=== PATIENT | male | born 1990 | race Caucasian/White ===

== ENCOUNTER 2016-10-21 18:09 | Inpatient (IN) | payer OTHER ==
[~2016-10-21] VITALS: Ht 177.8 cm; Wt 74.0 kg
[~2016-10-21 18:09] MED LIST: CALCIUM CHLORIDE 10% SOLN 1 GRAM/10 ML SYR IV ONE; LACTATED RINGER'S 1000 ML INJ 3,000 ML IV ONE; NORMOSOL R INJ 3,000 ML IV ONE; PHENYLEPH/NS 1000 MCG/10 ML SYR IV ONE; PROPOFOL 200 MG/20 ML AMP IV ONE; SODIUM BICARBONATE 8.4% INJ 50 MEQ/50 ML SYR IV ONE; SODIUM CHLOR 0.9% 250 ML INJ 250 ML IV ONE; SODIUM CHLORID 0.9% 500 ML INJ 500 ML IV ONE; VECURONIUM BROMIDE 20 MG VIAL IV ONE
[2016-10-21] MEDS ORDERED: ceFAZolin 2 GM PREMIX 50 ML ONE ×2 (18:13→18:15)
[2016-10-21] MEDS ORDERED: GENTAMICIN 80 MG PREMIX 100 ML ONE (18:26)
[2016-10-21] MEDS ORDERED: ONDANSETRON HCL 4 MG/2 ML VIAL ONE (18:32)
[2016-10-21] MEDS ORDERED: MORPHINE SULFATE 8 MG/ML INJ ONE (18:32)
[2016-10-21 18:44] LABS: AUTOMATED NEUTROPHIL # 9.8 TH/MM3 (1.8-7.7); BASOPHIL % 0.1 % (0.0-2.0); EOSINOPHIL # 0.1 TH/MM3 (0-0.4); EOSINOPHIL % 0.8 % (0.0-4.0); HEMATOCRIT 38.1 % (39.0-51.0); HEMO FLAGS DIFF FINAL; I-STAT POTASSIUM 3.5 MMOL/L (3.5-4.9); LYMPH % 28.4 % (9.0-44.0); LYMPHOCYTE # 4.4 TH/MM3 (1.0-4.8); MEAN CELL VOLUME 90.3 FL (80.0-100.0); MEAN CORPUSCULAR HEMOGLOBIN 30.1 PG (27.0-34.0); MEAN CORPUSCULAR HGB CONC 33.4 % (32.0-36.0); MONO % 6.8 % (0.0-8.0); NEUT % 63.9 % (16.0-70.0); PLATELET COUNT 217 TH/MM3 (150-450); RED BLOOD COUNT 4.22 MIL/MM3 (4.50-5.90); RED CELL DISTRIBUTION WIDTH 12.5 % (11.6-17.2); WHITE BLOOD COUNT 15.4 TH/MM3 (4.0-11.0)
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
[2016-10-21 18:50] VITALS: O2SAT 100
[2016-10-21 18:51] VITALS: O2SAT 100
[2016-10-21 18:51] LABS: APTT (PATIENT) 24.3 SEC (24.3-30.1); INTERNATIONAL NORMALIZED RATIO 1.1 RATIO; PROTHROMBIN TIME - PATIENT 12.2 SEC (9.8-11.6)
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
[2016-10-21] MEDS ORDERED: GELFOAM SIZE 100 ONE (19:19)
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
[2016-10-21] MEDS ORDERED: IOHEXOL 350 MG/ML 10 ML VIAL (for RAD DIAG) IV ONE ×2 (19:27→20:19)
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
[2016-10-21] MEDS ORDERED: PROPOFOL 1000 MG/100 ML INJ 100 ML IV SCH (20:15)
[2016-10-21] MEDS ORDERED: GENTAMICIN SULFATE 80 MG/2 ML VIAL IM SCH (20:15)
[2016-10-21] MEDS ORDERED: fentaNYL DRIP 250 ML IV SCH (20:15)
[2016-10-21 21:07] LABS: MEAN CORPUSCULAR HGB CONC 36.2 % (32.0-36.0)
[2016-10-21 21:38] LABS: BLOOD GAS BASE EXCESS -8.2 mmol/L (-2-2); BLOOD GAS CARBOXYHEMOGLOBIN 1.2 % (0-4); BLOOD GAS HCO3 17 mmol/L (22-26); BLOOD GAS METHEMOGLOBIN 1.4 % (0-2); BLOOD GAS O2 HGB SATURATION 97 % (90-100); BLOOD GAS OXYGEN CONTENT 13.5 Vol % (12.0-20.0); BLOOD GAS PCO2 39 mmHg (38-42); BLOOD GAS PO2 269 mmHg (61-120); BLOOD GAS TOTAL HGB 9.4 G/DL (12.0-16.0); CRITICAL VALUE YES; OXYGEN DEVICE VENTILATOR; TEMP CORR TO 98.6
[2016-10-21 21:39] LABS: DRAW SITE ART LINE; FIO2 50 %; STAT YES; VENT SETTINGS PER ANESTHESIA
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
[2016-10-21 21:57] LABS: AUTOMATED NEUTROPHIL # 9.5 TH/MM3 (1.8-7.7); BASOPHIL % 0.2 % (0.0-2.0); EOSINOPHIL % 0.2 % (0.0-4.0); HEMATOCRIT 27.8 % (39.0-51.0); HEMO FLAGS DIFF FINAL; LYMPH % 13.6 % (9.0-44.0); LYMPHOCYTE # 1.8 TH/MM3 (1.0-4.8); MEAN CELL VOLUME 89.6 FL (80.0-100.0); MEAN CORPUSCULAR HEMOGLOBIN 30.1 PG (27.0-34.0); MEAN CORPUSCULAR HGB CONC 33.6 % (32.0-36.0); MONO % 13.9 % (0.0-8.0); NEUT % 72.1 % (16.0-70.0); PLATELET COUNT 114 TH/MM3 (150-450); RED CELL DISTRIBUTION WIDTH 13.4 % (11.6-17.2); WHITE BLOOD COUNT 13.2 TH/MM3 (4.0-11.0)
[2016-10-21] MEDS ORDERED: GENTAMICIN SULFATE 80 MG/2 ML VIAL IRRIGATION ONE (21:59)
[2016-10-21 22:00] LABS: APTT (PATIENT) 29.6 SEC (24.3-30.1); INTERNATIONAL NORMALIZED RATIO 1.3 RATIO
[2016-10-21 22:07] LABS: BICARBONATE 20.6 MEQ/L (21.0-32.0); POTASSIUM 4.2 MEQ/L (3.5-5.1)
[2016-10-21 22:32] LABS: CALCIUM-PROTEIN CORRECTED 7.8 MG/DL (8.5-10.1)
[2016-10-21 23:00] LABS: BLOOD GAS BASE EXCESS -6.7 mmol/L (-2-2); BLOOD GAS CARBOXYHEMOGLOBIN 1.6 % (0-4); BLOOD GAS HCO3 18 mmol/L (22-26); BLOOD GAS METHEMOGLOBIN 1.3 % (0-2); BLOOD GAS O2 HGB SATURATION 97 % (90-100); BLOOD GAS OXYGEN CONTENT 15.1 Vol % (12.0-20.0); BLOOD GAS PCO2 36 mmHg (38-42); BLOOD GAS PO2 285 mmHg (61-120); BLOOD GAS TOTAL HGB 10.6 G/DL (12.0-16.0); CRITICAL VALUE NO; DRAW SITE ART LINE; FIO2 50 %; OXYGEN DEVICE VENTILATOR; STAT YES; TEMP CORR TO 98.6; VENT SETTINGS PER ANESTHESIA
[2016-10-22] VITALS (17 sets, daily range): BP systolic 130–153; BP diastolic 81–87; PULSE 101–120; RESP 14–26; TEMP 99.1–99.7; O2SAT 95–100
--- NOTE | 2016-10-22 00:35 | PD.OP ---
Operative Report Preoperative Diagnosis: (1) Open fracture of right distal humerus (2) Open fracture of left distal humerus (3) Closed fracture of left tibial plateau (4) Displaced fracture of right femoral neck (5) Open fracture of right patella Postoperative Diagnosis: (1) Closed fracture of left tibial plateau (2) Displaced fracture of right femoral neck (3) Open fracture of right patella Procedure: 1) I and D and ORIF Right Supracondylar/Intercondylar Fracture 2) I and D and ORIF Right Patella Fracture 3) ORIF Right Femoral Neck Fracture 4) I and D and Closed Reduction and Splinting Left Humerus Fracture 5) Placement Right Knee Wound VAC Anesthesia: General Surgeon: Piyush Brown MD Lingo Cleaner(s): Killian BHARDWAJ Operation and Findings: see dictation Piyush Brown MD October 22, 2016 00:35
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
[2016-10-22] MEDS ORDERED: MIDAZOLAM HCL 2 MG/2 ML VIAL ONE (01:06)
[2016-10-22] MEDS ORDERED: fentaNYL CITRATE 250 MCG/5 ML AMP ONE (01:06)
--- NOTE | 2016-10-22 01:06 | RADRPT ---
EXAM DATE/TIME: 10/21/2016 21:00 [facility] COMPARISON: No previous studies available for comparison. INDICATIONS : ORIF rt hip. MEDICAL HISTORY : None. SURGICAL HISTORY : None. ENCOUNTER: Subsequent ACUITY: 1 day PAIN SCORE: Non-responsive. LOCATION: Right Hip FINDINGS: 3 lag screws are seen traversing a proximal right femur fracture. No dislocation. CONCLUSION: 1. Lag screws traversing proximal right femur fracture. Bk Martin MD on October 22, 2016 at 1:02 Board Certified Radiologist. This report was verified electronically.
--- NOTE | 2016-10-22 01:22 | RADRPT ---
EXAM DATE/TIME: 10/22/2016 00:51 [facility] COMPARISON: CHEST SINGLE AP, October 21, 2016, 18:04. CTA RUNOFF W 3D RECON, October 21, 2016, 20:02. INDICATIONS : Central line placement. MEDICAL HISTORY : Unobtainable. SURGICAL HISTORY : Unobtainable. ENCOUNTER: Subsequent ACUITY: 1 day PAIN SCORE: Non-responsive. LOCATION: Bilateral chest FINDINGS: Endotracheal tube tip in satisfactory position. Right central line tip traverses the right subclavian vein and passes into the left brachiocephalic vein and left subclavian vein. Focal airspace disease right lung base similar to prior exam. Minimal basal atelectasis. No pneumothorax. CONCLUSION: 1. Placement of right central line with tip in the left subclavian vein after crossing midline throug h the brachiocephalic veins. Bk Martin MD on October 22, 2016 at 1:18 Board Certified Radiologist. This report was verified electronically.
[2016-10-22 01:34] LABS: BLOOD GAS BASE EXCESS -4.3 mmol/L (-2-2); BLOOD GAS CARBOXYHEMOGLOBIN 1.9 % (0-4); BLOOD GAS HCO3 20 mmol/L (22-26); BLOOD GAS METHEMOGLOBIN 1.3 % (0-2); BLOOD GAS O2 HGB SATURATION 97 % (90-100); BLOOD GAS OXYGEN CONTENT 13.2 Vol % (12.0-20.0); BLOOD GAS PCO2 39 mmHg (38-42); BLOOD GAS PO2 270 mmHg (61-120); BLOOD GAS TOTAL HGB 9.2 G/DL (12.0-16.0); TEMP CORR TO 98.6
[2016-10-22 01:35] LABS: CRITICAL VALUE NO; DRAW SITE ART LINE; FIO2 50 %; OXYGEN DEVICE VENTILATOR; VENT SETTINGS SIMV14/600/+6PEEP
[2016-10-22 01:36] LABS: STAT NO
[2016-10-22] MEDS: PROPOFOL 1000 MG/100 ML INJ 100 ML IV SCH ×2 (02:31→04:35)
[2016-10-22] MEDS: GENTAMICIN/SOD CHL 80 MG/100 ML IV SCH ×3 (04:38→17:22)
[2016-10-22 04:39] LABS: BLOOD GAS BASE EXCESS -2.4 mmol/L (-2-2); BLOOD GAS CARBOXYHEMOGLOBIN 1.3 % (0-4); BLOOD GAS HCO3 22 mmol/L (22-26); BLOOD GAS O2 HGB SATURATION 97 % (90-100); BLOOD GAS OXYGEN CONTENT 13.2 Vol % (12.0-20.0); BLOOD GAS PCO2 38 mmHg (38-42); BLOOD GAS PO2 216 mmHg (61-120); BLOOD GAS TOTAL HGB 9.3 G/DL (12.0-16.0); CRITICAL VALUE NO; OXYGEN DEVICE VENTILATOR; TEMP CORR TO 98.6
[2016-10-22 04:40] LABS: DRAW SITE ALINE; FIO2 40 %; STAT NO
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
[2016-10-22 06:11] LABS: AUTOMATED NEUTROPHIL # 5.6 TH/MM3 (1.8-7.7); HEMATOCRIT 25.1 % (39.0-51.0); LYMPH % 8.9 % (9.0-44.0); LYMPHOCYTE # 0.7 TH/MM3 (1.0-4.8); MEAN CELL VOLUME 85.2 FL (80.0-100.0); MEAN CORPUSCULAR HEMOGLOBIN 30.8 PG (27.0-34.0); MONO % 17.9 % (0.0-8.0); NEUT % 73.2 % (16.0-70.0); PLATELET COUNT 86 TH/MM3 (150-450); RED BLOOD COUNT 2.95 MIL/MM3 (4.50-5.90); WHITE BLOOD COUNT 7.6 TH/MM3 (4.0-11.0)
[2016-10-22 06:13] LABS: HEMO FLAGS AUTO DIFF
[2016-10-22 06:40] LABS: BICARBONATE 24.6 MEQ/L (21.0-32.0); CALCIUM-PROTEIN CORRECTED 8.7 MG/DL (8.5-10.1); MAGNESIUM 1.8 MG/DL (1.5-2.5); POTASSIUM 4.1 MEQ/L (3.5-5.1); TOTAL BILIRUBIN ADULT 1.6 MG/DL (0.2-1.0)
[2016-10-22 07:02] LABS: PLATELET ESTIMATE SMEAR LOW (NORMAL); PLATELET MORPHOLOGY NORMAL (NORMAL); SCAN/DIFF AUTO DIFF CONFIRMED
[2016-10-22] MEDS ORDERED: RESP: ALBUTEROL 2.5 MG/IPRATROPIUM 0.5 MG NEB (PRN) NEB (07:15)
[2016-10-22] MEDS: RESP: ALBUTEROL 2.5 MG/IPRATROPIUM 0.5 MG NEB (SCH) NEB ×3 (07:57→21:22)
[2016-10-22] MEDS ORDERED: POTASSIUM CHLOR 20 MEQ PREMIX 100 ML IV PRN ×2 (09:30)
[2016-10-22] MEDS ORDERED: MAGNESIUM SULFATE INJ 2 GM in SODIUM CHLORIDE 0.9% INJ 96 ML IV PRN (09:30)
[2016-10-22] MEDS ORDERED: POTASSIUM PHOSPHATE MONOBASIC 500 MG TAB PO/TUBE PRN (09:30)
[2016-10-22] MEDS ORDERED: MAGNESIUM OXIDE 400 MG TAB PO PRN (09:30)
[2016-10-22] MEDS ORDERED: SODIUM PHOSPHATE INJ 30 MMOL in SODIUM CHLOR 0.9% 250 ML INJ 240 ML IV PRN (09:30)
[2016-10-22] MEDS ORDERED: POTASSIUM CHLORIDE 25 MEQ EFFERVESCENT TAB PO PRN (09:30)
[2016-10-22] MEDS ORDERED: POTASSIUM CHLOR 40 MEQ PREMIX 100 ML IV PRN ×2 (09:30)
[2016-10-22] MEDS ORDERED: MAGNESIUM SULFATE INJ 4 GM in SODIUM CHLORIDE 0.9% INJ 92 ML IV PRN (09:30)
[2016-10-22] MEDS ORDERED: POTASSIUM PHOSPHATE MONOBASIC 500 MG TAB PO PRN (09:30)
[2016-10-22] MEDS: FAMOTIDINE 20 MG TAB PO SCH ×2 (09:41→21:55)
[2016-10-22] MEDS: DOCUSATE SODIUM 100 MG CAP PO SCH ×2 (09:41→21:55)
[2016-10-22] MEDS: CHLORHEXIDINE 0.12% (ORAL KIT) 15 ML CUP MT SCH ×2 (09:41→20:00)
[2016-10-22] MEDS ORDERED: HYDROmorphone HCL PF 1 MG/ML VIAL IV PUSH PRN (10:00)
[2016-10-22] MEDS: ENOXAPARIN SODIUM 30 MG/0.3 ML SYRINGE SQ SCH ×2 (10:41→21:56)
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
[2016-10-22] MEDS ORDERED: ONDANSETRON HCL 4 MG/2 ML VIAL ONE (14:17)
[2016-10-22] MEDS ORDERED: ALPRAZolam 1 MG TAB PO SCH (14:57)
[2016-10-22] MEDS: oxyCODONE/ACETAMINOPHEN 10 MG/325 MG TAB PO PRN (15:35)
[2016-10-22 15:39] LABS: HEMATOCRIT 23.1 % (39.0-51.0); MEAN CORPUSCULAR HEMOGLOBIN 29.6 PG (27.0-34.0); MEAN CORPUSCULAR HGB CONC 34.5 % (32.0-36.0); PLATELET COUNT 76 TH/MM3 (150-450); RED BLOOD COUNT 2.69 MIL/MM3 (4.50-5.90); RED CELL DISTRIBUTION WIDTH 14.9 % (11.6-17.2); WHITE BLOOD COUNT 7.1 TH/MM3 (4.0-11.0)
[2016-10-22 15:42] LABS: REVIEW FLAG FINAL
--- NOTE | 2016-10-22 16:03 | OTSOAPIP ---
TIME SESSION COMPLETED: AM TREATMENT TIME: 0 MINS. CHART REVIEWED. ATTEMPTED TO SEE FOR OT EVALUATION. PT IN PROCESS OF GETTING EXTUBATED. WILL FOLLOW NEXT DAY. Therapist: NICOLASA LAMBERT OT/[place] Signature on file
[2016-10-22] MEDS: HYDROmorphone HCL PF 1 MG/ML VIAL IV PUSH PRN ×2 (17:03→21:57)
[2016-10-22] MEDS: MAGNESIUM HYDROXIDE SUSP 30 ML CUP PO SCH (21:00)
[2016-10-22 21:03] LABS: MEAN CORPUSCULAR HGB CONC 36.4 % (32.0-36.0)
[2016-10-23] VITALS (13 sets, daily range): BP systolic 139–153; BP diastolic 75–96; PULSE 90–124; RESP 12–26; TEMP 99.7–100.6; O2SAT 95–100
[2016-10-23] MEDS: HYDROmorphone HCL PF 1 MG/ML VIAL IV PUSH PRN ×8 (01:30→22:47)
[2016-10-23] MEDS: ONDANSETRON HCL 4 MG/2 ML VIAL IV PUSH PRN (01:31)
[2016-10-23] MEDS: GENTAMICIN/SOD CHL 80 MG/100 ML IV SCH ×3 (02:19→17:33)
[2016-10-23] MEDS: RESP: ALBUTEROL 2.5 MG/IPRATROPIUM 0.5 MG NEB (SCH) NEB ×4 (03:34→20:18)
[2016-10-23 04:19] LABS: AUTOMATED NEUTROPHIL # 4.9 TH/MM3 (1.8-7.7); BASOPHIL % 0.1 % (0.0-2.0); EOSINOPHIL % 0.2 % (0.0-4.0); LYMPHOCYTE # 1.2 TH/MM3 (1.0-4.8); MEAN CELL VOLUME 84.4 FL (80.0-100.0); MEAN CORPUSCULAR HEMOGLOBIN 30.7 PG (27.0-34.0); MONO % 16.6 % (0.0-8.0); NEUT % 67.1 % (16.0-70.0); PLATELET COUNT 75 TH/MM3 (150-450); RED BLOOD COUNT 2.29 MIL/MM3 (4.50-5.90); RED CELL DISTRIBUTION WIDTH 14.9 % (11.6-17.2); WHITE BLOOD COUNT 7.4 TH/MM3 (4.0-11.0)
[2016-10-23 04:21] LABS: HEMO FLAGS AUTO DIFF
[2016-10-23 04:24] LABS: HEMATOCRIT 19.3 % (39.0-51.0)
[2016-10-23 04:41] LABS: BICARBONATE 28.1 MEQ/L (21.0-32.0); CALCIUM-PROTEIN CORRECTED 8.9 MG/DL (8.5-10.1); MAGNESIUM 1.8 MG/DL (1.5-2.5); POTASSIUM 4.2 MEQ/L (3.5-5.1); TOTAL BILIRUBIN ADULT 0.8 MG/DL (0.2-1.0)
[2016-10-23 05:31] LABS: BLOOD GAS BASE EXCESS 1.4 mmol/L (-2-2); BLOOD GAS CARBOXYHEMOGLOBIN 1.8 % (0-4); BLOOD GAS HCO3 26 mmol/L (22-26); BLOOD GAS METHEMOGLOBIN 0.9 % (0-2); BLOOD GAS O2 HGB SATURATION 95 % (90-100); BLOOD GAS OXYGEN CONTENT 9.3 Vol % (12.0-20.0); BLOOD GAS PCO2 41 mmHg (38-42); BLOOD GAS PO2 97 mmHg (61-120); BLOOD GAS TOTAL HGB 6.8 G/DL (12.0-16.0); TEMP CORR TO 98.6
[2016-10-23 05:32] LABS: CRITICAL VALUE YES; DRAW SITE ART LINE; LITER FLOW 1 L/M; OXYGEN DEVICE NASAL CANNULA; STAT NO
--- NOTE | 2016-10-23 06:31 | RADRPT ---
EXAM DATE/TIME: 10/23/2016 05:43 [facility] COMPARISON: CHEST SINGLE AP, October 22, 2016, 0:51. INDICATIONS : Shortness of breath. MEDICAL HISTORY : Unobtainable. SURGICAL HISTORY : Unobtainable. ENCOUNTER: Subsequent ACUITY: 3 days PAIN SCORE: Non-responsive. LOCATION: Bilateral chest FINDINGS: A single view of the chest demonstrates minimal basilar airspace disease, probably atelectasis. No ef fusion. No pneumothorax. Right central line tip remains in left subclavian vein. CONCLUSION: 1. Right central line tip in left subclavian vein, unchanged. Interval extubation. Mild atelectasis a t the bases. Bk Martin MD on October 23, 2016 at 6:29 Board Certified Radiologist. This report was verified electronically.
[2016-10-23 06:47] LABS: BANDS 13 % (0-6); BASOPHILS 1 % (0-2); NEUTROPHIL # MANUAL DIFF 5.4 TH/MM3 (1.8-7.7); POLYS (SEG NEUTROPHILS) 60 % (16-70); WBC DIFF SAMPLE 100
[2016-10-23 06:48] LABS: DOHLE BODIES PRESENT (NONE SEEN); PLATELET ESTIMATE SMEAR LOW (NORMAL); PLATELET MORPHOLOGY NORMAL (NORMAL); SCAN/DIFF FINAL DIFF MANUAL
[2016-10-23] MEDS ORDERED: SODIUM CHLOR 0.9% 250 ML INJ 250 ML IV ONE (07:15)
[2016-10-23] MEDS: CHLORHEXIDINE 0.12% (ORAL KIT) 15 ML CUP MT SCH ×2 (07:38→19:11)
[2016-10-23] MEDS: FAMOTIDINE 20 MG TAB PO SCH ×2 (07:54→20:25)
[2016-10-23] MEDS: DOCUSATE SODIUM 100 MG CAP PO SCH ×2 (07:54→20:25)
[2016-10-23] MEDS ORDERED: FUROSEMIDE 20 MG/2 ML VIAL IV ONE (08:00)
[2016-10-23] MEDS ORDERED: MAGNESIUM HYDROXIDE SUSP 30 ML CUP PO ONE (08:00)
[2016-10-23] MEDS: ENOXAPARIN SODIUM 30 MG/0.3 ML SYRINGE SQ SCH ×2 (09:40→22:47)
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
[2016-10-23] MEDS: GABAPENTIN 300 MG CAP PO SCH ×2 (12:24→17:33)
--- NOTE | 2016-10-23 12:41 | PD.ORT.PN ---
Subjective Post Op Day #: 1 Subjective Remarks pain tolerable Objective Vitals Vital Signs Date Time Temp Pulse Resp B/P Pulse Ox O2 Delivery O2 Flow Rate FiO2 10/23/16 10:00 115 10/23/16 08:00 119 10/23/16 08:00 99.7 111 12 153/96 100 10/23/16 07:00 94 Nasal Cannula 1.00 10/23/16 06:00 124 10/23/16 04:00 122 10/23/16 04:00 100.2 122 25 143/85 98 10/23/16 02:00 122 10/23/16 00:00 100.0 124 26 144/84 96 10/23/16 00:00 124 10/22/16 22:00 118 10/22/16 21:30 97 Nasal Cannula 1.00 10/22/16 20:00 118 10/22/16 20:00 99.7 118 22 140/82 95 10/22/16 19:00 93 Nasal Cannula 2.00 10/22/16 18:00 120 10/22/16 16:01 98 Nasal Cannula 1.00 10/22/16 16:00 99.5 115 26 139/83 99 10/22/16 16:00 115 10/22/16 14:00 120 I/O 10/22/16 10/22/16 10/22/16 10/23/16 10/23/16 10/23/16 07:00 15:00 23:00 07:00 15:00 23:00 Intake Total 9157 ml 1509 ml 1848 ml 788 ml Output Total 4100 ml 950 ml 400 ml 410 ml Balance 5057 ml 559 ml 1448 ml 378 ml Intake Oral 0 ml 480 ml 960 ml 240 ml IV Total 2024 ml 1029 ml 888 ml 548 ml Packed Cells 1000 ml FFP 533 ml Other 5600 ml Output Urine Total 1400 ml 450 ml 400 ml 410 ml Emesis 500 ml Estimated Blood Loss 1000 ml Other 1700 ml Result Diagram: 10/23/16 0345 10/23/16 0345 Imaging Last 24 hours Impressions Chest X-Ray 10/23/16 0600 Signed Impressions: Service Date/Time: Sunday, October 23, 2016 05:43 - CONCLUSION: 1. Right central line tip in left subclavian vein, unchanged. Interval extubation. Mild atelectasis at the bases. Bk Martin MD Objective Remarks in bed, nad RUE - dressing and splint c/d/i. swelling in fingers. NVI and sensation intact. cap refill LUE - dressing and splint c/d/i. swelling in fingers. NVI and sensation intact. cap refill RLE - wound vac in place and working. dressing hip intact. NVI and sensation intact. LLE - CKS in place. swelling L knee. pain lateral knee. sensation intact. no dorsiflexion. exam of knee limited due to pain and swelling. Assessment & Plan Ortho Post Op Day #: 1 Problem List: Assessment and Plan s/p I&D and ORIF R supracondylar fx and R patella fx, application of wound vac R knee, ORIF R fem neck fx, I&D with closed reduction and splinting L humerus NWB BLE and BUE ROM of fingers dressing changes per Dr. Kevin POEWRS - no dorsiflexion. MRI L knee med management anticoagulation Jacob Willard October 23, 2016 12:41
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
[2016-10-23 14:31] LABS: HEMATOCRIT 26.8 % (39.0-51.0)
[2016-10-23] MEDS: oxyCODONE/ACETAMINOPHEN 10 MG/325 MG TAB PO PRN ×2 (15:00→19:42)
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
[2016-10-23] MEDS: MAGNESIUM HYDROXIDE SUSP 30 ML CUP PO SCH (20:25)
[2016-10-24] VITALS (13 sets, daily range): BP systolic 124–154; BP diastolic 72–86; PULSE 97–112; RESP 13–22; TEMP 99.5–100.8; O2SAT 95–100
[2016-10-24] MEDS: GENTAMICIN/SOD CHL 80 MG/100 ML IV SCH ×3 (02:13→18:00)
[2016-10-24] MEDS: oxyCODONE/ACETAMINOPHEN 10 MG/325 MG TAB PO PRN ×3 (03:42→20:00)
[2016-10-24] MEDS: RESP: ALBUTEROL 2.5 MG/IPRATROPIUM 0.5 MG NEB (SCH) NEB ×4 (04:00→20:25)
[2016-10-24] MEDS: HYDROmorphone HCL PF 1 MG/ML VIAL IV PUSH PRN ×2 (04:46→14:21)
[2016-10-24 06:26] LABS: HEMATOCRIT 23.6 % (39.0-51.0); MEAN CELL VOLUME 86.3 FL (80.0-100.0); MEAN CORPUSCULAR HEMOGLOBIN 30.2 PG (27.0-34.0); PLATELET COUNT 67 TH/MM3 (150-450); RED BLOOD COUNT 2.73 MIL/MM3 (4.50-5.90); RED CELL DISTRIBUTION WIDTH 14.9 % (11.6-17.2); WHITE BLOOD COUNT 6.7 TH/MM3 (4.0-11.0)
[2016-10-24 06:28] LABS: REVIEW FLAG FINAL
[2016-10-24 06:55] LABS: BICARBONATE 28.2 MEQ/L (21.0-32.0); MAGNESIUM 2.3 MG/DL (1.5-2.5); POTASSIUM 3.9 MEQ/L (3.5-5.1)
[2016-10-24 07:09] LABS: CALCIUM-PROTEIN CORRECTED 8.9 MG/DL (8.5-10.1)
[2016-10-24] MEDS: CHLORHEXIDINE 0.12% (ORAL KIT) 15 ML CUP MT SCH ×2 (08:00→19:42)
[2016-10-24] MEDS ORDERED: BISACODYL 10 MG SUPP RECTAL ONE (09:00)
[2016-10-24] MEDS ORDERED: BISACODYL EC 5 MG TABEC PO ONE (09:00)
[2016-10-24] MEDS: FAMOTIDINE 20 MG TAB PO SCH ×2 (10:35→20:00)
[2016-10-24] MEDS: DOCUSATE SODIUM 100 MG CAP PO SCH ×2 (10:36→20:00)
[2016-10-24] MEDS: GABAPENTIN 300 MG CAP PO SCH ×3 (10:36→17:59)
[2016-10-24] MEDS: ENOXAPARIN SODIUM 30 MG/0.3 ML SYRINGE SQ SCH ×2 (10:37→21:56)
--- NOTE | 2016-10-24 11:07 | RADRPT ---
EXAM DATE/TIME: 10/24/2016 10:36 [facility] COMPARISON: No previous studies available for comparison. INDICATIONS : Injury to ankle. MEDICAL HISTORY : None. SURGICAL HISTORY : None. ENCOUNTER: Subsequent ACUITY: 4 - 6 days PAIN SCORE: 0/10 LOCATION: Left ankle FINDINGS: Soft tissue swelling is noted at the medial aspect and to a lesser extent lateral aspect of the ankle . No fractures are seen. CONCLUSION: Soft tissue swelling. Laron Kuo MD on October 24, 2016 at 11:05 Board Certified Radiologist. This report was verified electronically.
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
--- NOTE | 2016-10-24 15:12 | PD.ORT.PN ---
Subjective Post Op Day #: 2 Subjective Remarks pain tolerable Objective Vitals Vital Signs Date Time Temp Pulse Resp B/P Pulse Ox O2 Delivery O2 Flow Rate FiO2 10/24/16 14:51 16 10/24/16 14:00 111 10/24/16 12:00 112 10/24/16 12:00 100.4 112 20 142/80 95 10/24/16 10:00 99 10/24/16 08:00 99.5 97 16 124/72 97 10/24/16 08:00 97 10/24/16 07:00 96 Nasal Cannula 2.00 Humidified 10/24/16 06:00 100 10/24/16 04:00 110 10/24/16 04:00 100.8 110 22 144/80 97 10/24/16 02:00 97 10/24/16 00:00 107 10/24/16 00:00 100.6 107 18 133/77 95 10/23/16 22:00 104 10/23/16 20:22 98 Nasal Cannula 1.00 10/23/16 20:00 100.6 105 19 139/75 95 10/23/16 20:00 101 10/23/16 19:00 98 Nasal Cannula 2.00 10/23/16 18:00 90 10/23/16 16:00 109 10/23/16 16:00 99.9 109 14 149/88 97 I/O 10/23/16 10/23/16 10/23/16 10/24/16 10/24/16 10/24/16 07:00 15:00 23:00 07:00 15:00 23:00 Intake Total 788 ml 624 ml 447 ml 460 ml 630 ml Output Total 410 ml 2400 ml 1175 ml 775 ml 1100 ml Balance 378 ml -1776 ml -728 ml -315 ml -470 ml Intake Oral 240 ml 240 ml 240 ml 430 ml IV Total 548 ml 574 ml 207 ml 220 ml 200 ml Packed Cells 50 ml Output Urine Total 410 ml 2400 ml 1175 ml 775 ml 1100 ml Result Diagram: 10/24/16 0610/24/16 06 Imaging Last 24 hours Impressions Chest X-Ray 10/23/16 06 Signed Impressions: Service Date/Time: Sunday, October 23, 2016 05:43 - CONCLUSION: 1. Right central line tip in left subclavian vein, unchanged. Interval extubation. Mild atelectasis at the bases. Bk Martin MD Objective Remarks in bed, nad RUE - dressing and splint c/d/i. swelling in fingers. NVI and sensation intact. cap refill LUE - dressing and splint drainage on elbow. swelling in fingers. NVI and sensation intact. cap refill RLE - wound vac in place and working. dressing hip intact. NVI and sensation intact. LLE - CKS in place. swelling L knee. pain lateral knee. sensation intact. no dorsiflexion. exam of knee limited due to pain and swelling. Assessment & Plan Ortho Post Op Day #: 2 Problem List: Assessment and Plan s/p I&D and ORIF R supracondylar fx and R patella fx, application of wound vac R knee, ORIF R fem neck fx, I&D with closed reduction and splinting L humerus NWB BLE and BUE ROM of fingers dressing changes per Dr. Brown LLLisa - no dorsiflexion. MRI L knee - multi-ligament knee injury. maintain CKS. med management plan for possible sx tomorrow npo after midnight Jacob Willard October 24, 2016 15:12
[2016-10-24] MEDS: MAGNESIUM HYDROXIDE SUSP 30 ML CUP PO SCH (20:00)
[2016-10-25] VITALS (11 sets, daily range): BP systolic 117–151; BP diastolic 79–92; PULSE 94–114; RESP 12–23; TEMP 99–100; O2SAT 93–100
[2016-10-25] MEDS: oxyCODONE/ACETAMINOPHEN 10 MG/325 MG TAB PO PRN ×2 (00:59→08:31)
[2016-10-25] MEDS: HYDROmorphone HCL PF 1 MG/ML VIAL IV PUSH PRN ×5 (01:21→22:18)
[2016-10-25] MEDS: GENTAMICIN/SOD CHL 80 MG/100 ML IV SCH ×4 (02:13→17:16)
[2016-10-25] MEDS: RESP: ALBUTEROL 2.5 MG/IPRATROPIUM 0.5 MG NEB (SCH) NEB ×4 (03:59→21:42)
[2016-10-25 04:33] LABS: AUTOMATED NEUTROPHIL # 4.7 TH/MM3 (1.8-7.7); BASOPHIL % 0.2 % (0.0-2.0); EOSINOPHIL # 0.1 TH/MM3 (0-0.4); EOSINOPHIL % 1.3 % (0.0-4.0); HEMATOCRIT 22.2 % (39.0-51.0); LYMPH % 10.6 % (9.0-44.0); LYMPHOCYTE # 0.7 TH/MM3 (1.0-4.8); MEAN CELL VOLUME 87.3 FL (80.0-100.0); MEAN CORPUSCULAR HEMOGLOBIN 30.1 PG (27.0-34.0); MEAN CORPUSCULAR HGB CONC 34.5 % (32.0-36.0); MONO % 11.6 % (0.0-8.0); NEUT % 76.3 % (16.0-70.0); PLATELET COUNT 88 TH/MM3 (150-450); RED BLOOD COUNT 2.55 MIL/MM3 (4.50-5.90); WHITE BLOOD COUNT 6.1 TH/MM3 (4.0-11.0)
[2016-10-25 04:37] LABS: HEMO FLAGS AUTO DIFF
[2016-10-25 04:47] LABS: ALT (GPT) 67 U/L (12-78); ANION GAP 7 MEQ/L (5-15); AST (GOT) 218 U/L (15-37); BICARBONATE 30.2 MEQ/L (21.0-32.0); BLOOD UREA NITROGEN 14 MG/DL (7-18); CHLORIDE 103 MEQ/L (98-107); GLOMERULAR FILTRATION RATE 134 ML/MIN (>89); POTASSIUM 3.7 MEQ/L (3.5-5.1); SODIUM (NA) 140 MEQ/L (136-145)
[2016-10-25 04:49] LABS: ALKALINE PHOSPHATASE 46 U/L (45-117); TOTAL BILIRUBIN ADULT 0.7 MG/DL (0.2-1.0)
[2016-10-25 05:30] LABS: DOHLE BODIES PRESENT (NONE SEEN); PLATELET ESTIMATE SMEAR LOW (NORMAL); PLATELET MORPHOLOGY NORMAL (NORMAL); POLYCHROMASIA 2.1 % (0.0-1.9); SCAN/DIFF AUTO DIFF CONFIRMED
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
[2016-10-25] MEDS: CHLORHEXIDINE 0.12% (ORAL KIT) 15 ML CUP MT SCH ×2 (08:00→20:00)
--- NOTE | 2016-10-25 08:18 | PD.ORT.PN ---
Subjective Subjective Remarks On going pain throughout all extremities Objective Vitals Vital Signs Date Time Temp Pulse Resp B/P Pulse Ox O2 Delivery O2 Flow Rate FiO2 10/25/16 07:00 Room Air 10/25/16 06:00 109 10/25/16 04:00 106 10/25/16 04:00 99.1 106 20 139/79 93 10/25/16 02:00 100 10/25/16 00:00 105 10/25/16 00:00 99.7 105 19 151/86 99 10/24/16 22:00 106 10/24/16 20:28 99 Nasal Cannula 2.00 10/24/16 20:00 100.6 102 13 154/86 100 10/24/16 20:00 102 10/24/16 19:15 Room Air 10/24/16 18:00 106 10/24/16 16:00 98 10/24/16 16:00 100.4 106 18 152/82 100 10/24/16 14:51 16 10/24/16 14:00 111 10/24/16 12:00 112 10/24/16 12:00 100.4 112 20 142/80 95 10/24/16 10:00 99 I/O 10/24/16 10/24/16 10/24/16 10/25/16 10/25/16 10/25/16 07:00 15:00 23:00 07:00 15:00 23:00 Intake Total 460 ml 630 ml 310 ml 693 ml Output Total 775 ml 1100 ml 2300 ml 650 ml Balance -315 ml -470 ml -1990 ml 43 ml Intake Oral 240 ml 430 ml 240 ml 240 ml IV Total 220 ml 200 ml 70 ml 453 ml Output Urine Total 775 ml 1100 ml 2300 ml 650 ml Drainage Total 0 ml 0 ml # Bowel Movements 2 Result Diagram: 10/25/16 0415 10/25/16 0415 Imaging Last 24 hours Impressions Chest X-Ray 10/23/16 0600 Signed Impressions: Service Date/Time: Sunday, October 23, 2016 05:43 - CONCLUSION: 1. Right central line tip in left subclavian vein, unchanged. Interval extubation. Mild atelectasis at the bases. Bk Martin MD Objective Remarks in bed, nad RUE - dressing and splint c/d/i. swelling in fingers. NVI and sensation intact. cap refill LUE - dressing and splint drainage on elbow. swelling in fingers. NVI and sensation intact. cap refill RLE - wound vac in place and working. dressing hip intact. NVI and sensation intact. LLE - CKS in place. swelling L knee. pain lateral knee. sensation intact. no dorsiflexion. exam of knee limited due to pain and swelling. ongoing footdrop on left side Assessment & Plan Assessment and Plan s/p I&D and ORIF R supracondylar fx and R patella fx, application of wound vac R knee, ORIF R fem neck fx, I&D with closed reduction and splinting L humerus NWB BLE and BUE ROM of fingers dressing changes per Dr. Brown LLE - no dorsiflexion. MRI L knee - multi-ligament knee injury. maintain CKS. med management plan for possible sx tomorrow upper extremity versus left knee informed consent obtained for left knee npo after midnight Piyush Brown MD October 25, 2016 08:18
[2016-10-25] MEDS: GABAPENTIN 300 MG CAP PO SCH ×3 (08:31→17:15)
[2016-10-25] MEDS: FAMOTIDINE 20 MG TAB PO SCH ×2 (08:31→21:24)
[2016-10-25] MEDS: DOCUSATE SODIUM 100 MG CAP PO SCH ×2 (08:31→21:24)
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
[2016-10-25] MEDS ORDERED: GENTAMICIN SULFATE 80 MG/2 ML VIAL ONE (09:44)
[2016-10-25] MEDS ORDERED: ONDANSETRON HCL 4 MG/2 ML VIAL IV PUSH ONE (09:50)
[2016-10-25] MEDS ORDERED: PHENYLEPH/NS 1000 MCG/10 ML SYR IV ONE (09:50)
[2016-10-25] MEDS ORDERED: PROPOFOL 200 MG/20 ML AMP IV ONE (09:50)
[2016-10-25] MEDS ORDERED: NEOSTIGMINE 3 MG/3 ML SYR IV ONE (09:50)
[2016-10-25] MEDS ORDERED: LACTATED RINGER'S 1000 ML INJ 3,000 ML IV ONE (09:50)
[2016-10-25] MEDS: ENOXAPARIN SODIUM 30 MG/0.3 ML SYRINGE SQ SCH ×2 (10:00→21:24)
[2016-10-25] MEDS ORDERED: ACETAMINOPHEN 1000 MG/100 ML VIAL IV ONE (10:06)
[2016-10-25] MEDS ORDERED: MIDAZOLAM HCL 2 MG/2 ML VIAL ONE (10:06)
[2016-10-25 12:40] LABS: REVIEW FLAG FINAL
[2016-10-25 12:42] LABS: HEMATOCRIT 17.4 % (39.0-51.0)
--- NOTE | 2016-10-25 13:14 | PD.OP ---
cc: Terrence Ramos MD Operative Report Date of Surgery: October 25, 2016 Preoperative Diagnosis: Open left comminuted humerus shaft fracture Comminuted right ulna fracture Comminuted intra-articular right distal radius fracture Postoperative Diagnosis: Procedure: Irrigation and debridement of left humerus shaft, open reduction and fixation left humeral shaft fracture open reduction total fixation right ulna fracture, external fixation right distal radius fracture, open reduction fixation comminuted intra-articular right distal radius fracture Surgeon: Terrence Ramos Biology Department Chair(s): MARK Peterson PA-C The surgical procedure was assisted by my physician nursing home assistant. My P.A. presence was necessary throughout this case for the manipulation and positioning of the surgical extremity. My P.A. was assisting me throughout the duration of this procedure. The skill set of a physician nursing home assistant was medically necessary to complete this procedure. During the surgical case the lawn and garden technician was working at the back table and the physician nursing home assistant was directly assisting me. Operation and Findings: Patient was seen and evaluated preoperatively. Treatment options were discussed regarding humerus fracture including surgical and nonsurgical treatments. After detailed discussion of risk and benefits of procedure patient wishes to proceed with surgery. Risks of surgery include bleeding, infection, nonunion, malunion, painful hardware, loss of motion of shoulder and elbow, weakness and numbness of arm, as well as medical competitions including blood clots stroke and . Patient was brought to operating room and placed on the OR table. GETA was administered by anesthesiologist. Patient was positioned in lateral decubitus position. Extremities were well-padded. Axillary roll was placed. Left arm and shoulder were prepped with alcohol followed by Hibiclens and draped usual sterile fashion. Timeout procedure was performed. IV antibiotics were given prior to incision. A standard posterior approach was utilized. Subcutaneous tissues was dissected with Bovie. The triceps muscle was split midline. The radial nerve was identified and protected throughout the procedure. The nerve was intact. The fracture was identified. At this point thorough debridement of the fracture was performed. Curettes were used to debride bone. There were multiple small fragments of bone which were removed. After thorough debridement the wound was thoroughly irrigated with sterile saline. Overall the wound was very clean. At this point the fracture was reduced using fracture tenaculums. Multiplanar fluoroscopy confirmed excellent of fracture. 2 Synthes 2.7 cortical lag screws were placed to Press a small butterfly fragment. A Synthes 3.5 plate was contoured to fit the humerus. Plate was provisionally held the bone with K wires. 3.5 cortical screws were placed on each side of the fracture. The screws were placed to add compression to fracture. Multiple screws were placed in each side of the fracture. All screws were predrilled and premeasured for appropriate length. Final fluoroscopy revealed excellent alignment of fracture with well-placed hardware. Incision was thoroughly irrigated. Fascia was closed with #1 Vicryl, subcutaneous tissues closed with 3-0 Vicryl, and skin was closed with radha. Sterile dressings were applied. Patient was now repositioned into supine position. The right arm and hand were prepped with alcohol followed by Hibiclens and draped usual sterile fashion. Procedure began with attention towards the ulna. A 5 inch incision was made over the ulna. Subcutaneous tissue dissected with Bovie. Fracture was visualized. Fracture was cleaned with curettes. Fracture was reduced and keyed into anatomic alignment. K wires were used to hold provisional fixation. A Synthes plate was selected. Plate was provisionally held both K wires. 3.5 cortical screws were used to compress plate to bone. 3 screws were placed above and below fracture. Fluoroscopy confirmed excellent alignment of fracture. Next attention was turned towards the distal radius. A standard volar approach to the distal radius was utilized. A 3 inch incision was made over the FCR tendon. Tendon sheath was opened. Pronator quadratus was elevated up. The fracture site was now visualized. The fracture did have significant comminution intra-articular extension. Traction was applied. The articular surface was reduced. The fracture was very unstable. At this point decision was made to place external fixation. 2. His incisions were made over the radial shaft and the second metacarpal. Soft tissue was protected. Pin sites are predrilled. 2 pins were placed into the radius and 2 pins were placed in the second metacarpal. An external fixator construct was created. Traction was applied. Fracture was held in reduced position. External fixator was now tightened. Next attention was turned to open reduction and fixation of the distal radius. The intra-articular fragments were now manipulated. Fracture fragments were manipulated to achieve excellent reduction. K wires were used to hold provisional fixation. Fluoroscopy confirmed appropriate alignment of fracture. A Synthes 2 column variable angle distal radius plate was selected. Plate was provisionally fixed to bone with K wires. 2.7 and 2.4 cortical screws were used to compress plate to bone. Fluoroscopy confirmed appropriate alignment of fracture with well-placed hardware. Multiple 2.4 locking screws were now placed distally. Screws were predrilled and measured for appropriate length. 2 additional screws were placed into the shaft. K wires were removed. Final fluoroscopy revealed excellent of fracture with well-placed hardware. The wound was thoroughly irrigated with sterile saline. Subcutaneous tissue was closed with 3-0 Vicryl and skin was closed with 3-0 nylon. Sterile dressings were applied with Xeroform, 4 x 4, and Renato wrap.. Patient was awakened and transferred to recovery room in stable condition Terrence Ramos MD October 25, 2016 13:14
[2016-10-25] MEDS: LACTATED RINGER'S 1000 ML INJ 1,000 ML IV SCH (14:00)
[2016-10-25] MEDS ORDERED: DO NOT ADM ANY ANTICOAGULANT DRUGS PRN (14:00)
[2016-10-25] MEDS ORDERED: fentaNYL CITRATE 250 MCG/5 ML AMP ONE (14:42)
[2016-10-25] MEDS ORDERED: *morphine SULFATE 8 MG/ML PERIprocedure ONLY ONE (15:09)
--- NOTE | 2016-10-25 15:50 | RADRPT ---
EXAM DATE/TIME: 10/25/2016 11:34 [facility] COMPARISON: HUMERUS LEFT (1 VW), October 21, 2016, 18:04. INDICATIONS : ORIF left humerus. MEDICAL HISTORY : None. SURGICAL HISTORY : None. ENCOUNTER: Subsequent ACUITY: 4 - 6 days PAIN SCORE: Non-responsive. LOCATION: Left humerus. FINDINGS: Multiple coned down views of the left humerus were obtained using a matrix camera and demonstrate michelle cement of a screw plate fixation device transfixing the humeral fracture. The fracture fragments are in anatomic alignment. There is overlying soft tissue swelling. CONCLUSION: Status post open rigid internal fixation. Nelson Hill MD on October 25, 2016 at 15:48 Board Certified Radiologist. This report was verified electronically.
--- NOTE | 2016-10-25 15:51 | RADRPT ---
EXAM DATE/TIME: 10/25/2016 12:56 [facility] COMPARISON: No previous studies available for comparison. INDICATIONS : ORIF right forearm fractures. MEDICAL HISTORY : None. SURGICAL HISTORY : None. ENCOUNTER: Subsequent ACUITY: 4 - 6 days PAIN SCORE: Non-responsive. LOCATION: Right forearm. FINDINGS: Multiple coned down views of the right radius and ulna were obtained and demonstrate a screw plate fi xation device along the distal radial fracture which is in anatomic alignment. There is a screw plate fixation device along the distal ulna as well. Fracture fragments are in anatomic alignment as well. CONCLUSION: Status post op in rigid internal fixation. Nelson Hill MD on October 25, 2016 at 15:49 Board Certified Radiologist. This report was verified electronically.
[2016-10-25] MEDS: ACETAMINOPHEN/HYDROcodone 325 MG/10 MG TAB PO PRN (21:24)
[2016-10-25] MEDS: MAGNESIUM HYDROXIDE SUSP 30 ML CUP PO SCH (21:25)
[2016-10-25] MEDS: VANCOMYCIN INJ 1,000 MG in SODIUM CHLOR 0.9% 250 ML INJ 250 ML IV SCH (22:18)
[2016-10-26] VITALS (14 sets, daily range): BP systolic 121–144; BP diastolic 71–93; PULSE 91–102; RESP 18–25; TEMP 99.1–100; O2SAT 94–98
[2016-10-26] MEDS: LACTATED RINGER'S 1000 ML INJ 1,000 ML IV SCH
[2016-10-26] MEDS: ACETAMINOPHEN/HYDROcodone 325 MG/10 MG TAB PO PRN ×2 (02:35→12:51)
[2016-10-26] MEDS: GENTAMICIN/SOD CHL 80 MG/100 ML IV SCH ×3 (03:04→17:12)
[2016-10-26] MEDS: HYDROmorphone HCL PF 1 MG/ML VIAL IV PUSH PRN ×7 (03:05→22:38)
[2016-10-26] MEDS: RESP: ALBUTEROL 2.5 MG/IPRATROPIUM 0.5 MG NEB (SCH) NEB (03:27)
[2016-10-26 05:20] LABS: AUTOMATED NEUTROPHIL # 5.8 TH/MM3 (1.8-7.7); BASOPHIL % 0.1 % (0.0-2.0); EOSINOPHIL % 0.1 % (0.0-4.0); HEMATOCRIT 24.3 % (39.0-51.0); HEMO FLAGS DIFF FINAL; LYMPH % 7.5 % (9.0-44.0); LYMPHOCYTE # 0.5 TH/MM3 (1.0-4.8); MEAN CELL VOLUME 84.8 FL (80.0-100.0); MEAN CORPUSCULAR HEMOGLOBIN 30.2 PG (27.0-34.0); MEAN CORPUSCULAR HGB CONC 35.6 % (32.0-36.0); MONO % 11.6 % (0.0-8.0); NEUT % 80.7 % (16.0-70.0); PLATELET COUNT 113 TH/MM3 (150-450); RED BLOOD COUNT 2.87 MIL/MM3 (4.50-5.90); RED CELL DISTRIBUTION WIDTH 15.7 % (11.6-17.2); WHITE BLOOD COUNT 7.3 TH/MM3 (4.0-11.0)
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
[2016-10-26 05:47] LABS: ANION GAP 8 MEQ/L (5-15); AST (GOT) 159 U/L (15-37); BICARBONATE 27.9 MEQ/L (21.0-32.0); BLOOD UREA NITROGEN 14 MG/DL (7-18); CHLORIDE 107 MEQ/L (98-107); GLOMERULAR FILTRATION RATE 150 ML/MIN (>89); POTASSIUM 3.9 MEQ/L (3.5-5.1); SODIUM (NA) 143 MEQ/L (136-145)
[2016-10-26 05:50] LABS: ALKALINE PHOSPHATASE 46 U/L (45-117); ALT (GPT) 72 U/L (12-78); TOTAL BILIRUBIN ADULT 0.6 MG/DL (0.2-1.0)
[2016-10-26] MEDS: CHLORHEXIDINE 0.12% (ORAL KIT) 15 ML CUP MT SCH (07:35)
[2016-10-26] MEDS: DOCUSATE SODIUM 100 MG CAP PO SCH ×2 (08:00→20:28)
[2016-10-26] MEDS: FAMOTIDINE 20 MG TAB PO SCH ×2 (08:00→20:28)
[2016-10-26] MEDS: GABAPENTIN 300 MG CAP PO SCH ×3 (08:00→17:11)
--- NOTE | 2016-10-26 08:07 | PD.ORT.PN ---
Subjective Subjective Remarks Pain controlled Objective Vitals Vital Signs Date Time Temp Pulse Resp B/P Pulse Ox O2 Delivery O2 Flow Rate FiO2 10/26/16 07:00 Nasal Cannula 94 10/26/16 06:00 96 10/26/16 04:00 99.3 95 19 127/76 96 10/26/16 04:00 95 10/26/16 03:29 98 Nasal Cannula 2.00 10/26/16 02:00 91 10/26/16 00:00 101 10/26/16 00:00 100.0 101 20 121/71 96 10/25/16 22:00 114 10/25/16 21:43 94 21 10/25/16 20:00 112 10/25/16 20:00 100.0 112 19 117/92 94 10/25/16 19:00 Room Air 10/25/16 18:00 103 10/25/16 16:00 96 10/25/16 16:00 99.0 94 23 151/92 100 10/25/16 15:13 88 14 49/87 98 Nasal Cannula 2 10/25/16 15:00 87 14 148/87 97 Nasal Cannula 2 10/25/16 14:45 85 14 151/88 99 Nasal Cannula 2 10/25/16 14:30 81 14 151/89 98 Nasal Cannula 2 10/25/16 14:15 90 14 153/91 97 Nasal Cannula 2 10/25/16 13:56 98.2 99 14 152/92 97 Nasal Cannula 2 10/25/16 08:54 100 21 I/O 10/25/16 10/25/16 10/25/16 10/26/16 10/26/16 10/26/16 07:00 15:00 23:00 07:00 15:00 23:00 Intake Total 693 ml 3000 ml 1865 ml 1140 ml Output Total 650 ml 1050 ml 4350 ml 1400 ml Balance 43 ml 1950 ml -2485 ml -260 ml Intake Oral 240 ml 720 ml 240 ml IV Total 453 ml 1145 ml 900 ml Other 3000 ml Output Urine Total 650 ml 750 ml 4350 ml 1400 ml Drainage Total 0 ml Estimated Blood Loss 300 ml # Bowel Movements 2 0 0 Result Diagram: 10/26/16 0250 10/26/16 0250 Imaging Last 24 hours Impressions Chest X-Ray 10/23/16 06 Signed Impressions: Service Date/Time: Sunday, October 23, 2016 05:43 - CONCLUSION: 1. Right central line tip in left subclavian vein, unchanged. Interval extubation. Mild atelectasis at the bases. Bk Martin MD Objective Remarks NAD RUE -external fixator and dressing in place with mild drainage. swelling in fingers. NVI and sensation intact. cap refill LUE - dressing and splint in place. swelling in fingers. NVI and sensation intact. cap refill RLE - wound and incisions CDI. NVI and sensation intact. LLE - CKS in place. swelling L knee. pain lateral knee. sensation intact. no dorsiflexion. ongoing footdrop on left side Assessment & Plan Assessment and Plan s/p I&D and ORIF R supracondylar fx and R patella fx, application of wound vac R knee, ORIF R fem neck fx, I&D with closed reduction and splinting L humerus POD #5 Bilateral upper extremity surgery POD#1 NWB BLE and BUE Active assisted ROM ok LLE - no dorsiflexion. Brace MRI L knee - multi-ligament knee injury. maintain CKS. med management plan for sx on tuesday for left knee informed consent obtained for left knee npo after midnight night Piyush Brown MD October 26, 2016 08:06
[2016-10-26] MEDS: ENOXAPARIN SODIUM 30 MG/0.3 ML SYRINGE SQ SCH ×2 (10:11→20:29)
[2016-10-26] MEDS: VANCOMYCIN INJ 1,000 MG in SODIUM CHLOR 0.9% 250 ML INJ 250 ML IV SCH (10:11)
[2016-10-26] MEDS: ONDANSETRON HCL 4 MG/2 ML VIAL IV PUSH PRN (13:42)
[2016-10-26] MEDS ORDERED: BISACODYL 10 MG SUPP RECTAL ONE (14:15)
[2016-10-26] MEDS ORDERED: LACTULOSE SYRUP 20 GM/30 ML CUP PO ONE (14:15)
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
[2016-10-26] MEDS: MAGNESIUM HYDROXIDE SUSP 30 ML CUP PO SCH (20:28)
[2016-10-27] VITALS (13 sets, daily range): BP systolic 118–140; BP diastolic 66–84; PULSE 84–106; RESP 16–21; TEMP 98.5–99.5; O2SAT 92–97
[2016-10-27] MEDS: HYDROmorphone HCL PF 1 MG/ML VIAL IV PUSH PRN ×8 (00:40→23:11)
[2016-10-27] MEDS: GENTAMICIN/SOD CHL 80 MG/100 ML IV SCH ×3 (01:15→17:38)
[2016-10-27 06:48] LABS: AUTOMATED NEUTROPHIL # 5.4 TH/MM3 (1.8-7.7); BASOPHIL % 0.2 % (0.0-2.0); EOSINOPHIL # 0.2 TH/MM3 (0-0.4); EOSINOPHIL % 2.1 % (0.0-4.0); HEMATOCRIT 26.2 % (39.0-51.0); LYMPH % 16.8 % (9.0-44.0); LYMPHOCYTE # 1.3 TH/MM3 (1.0-4.8); MEAN CELL VOLUME 86.8 FL (80.0-100.0); MEAN CORPUSCULAR HEMOGLOBIN 29.8 PG (27.0-34.0); MEAN CORPUSCULAR HGB CONC 34.3 % (32.0-36.0); MONO % 12.7 % (0.0-8.0); NEUT % 68.2 % (16.0-70.0); PLATELET COUNT 151 TH/MM3 (150-450); RED BLOOD COUNT 3.01 MIL/MM3 (4.50-5.90); RED CELL DISTRIBUTION WIDTH 15.8 % (11.6-17.2); WHITE BLOOD COUNT 7.9 TH/MM3 (4.0-11.0)
--- NOTE | 2016-10-27 06:49 | PD.ORT.PN ---
Subjective Subjective Remarks POD 2 s/p ORIF left humerus fx POD 2 s/p ORIF with application of exfix right distal radius fx s/p Right Femur IMN with I&D open wound s/p left knee ligamentous injuries doing well. pain controlled. no complaints. Objective Vitals Vital Signs Date Time Temp Pulse Resp B/P Pulse Ox O2 Delivery O2 Flow Rate FiO2 10/27/16 06:00 98 10/27/16 04:00 97 10/27/16 04:00 99.1 97 18 121/70 94 10/27/16 02:00 95 10/27/16 00:00 93 10/27/16 00:00 99.5 97 18 125/74 92 10/26/16 22:00 94 10/26/16 21:12 97 10/26/16 20:00 99.7 96 20 138/86 94 10/26/16 20:00 95 10/26/16 19:00 Room Air 96 10/26/16 18:00 94 10/26/16 16:00 102 10/26/16 16:00 99.5 96 25 144/93 95 10/26/16 14:00 93 10/26/16 12:00 94 10/26/16 12:00 99.3 94 18 138/79 95 10/26/16 10:00 95 10/26/16 08:00 99.1 94 25 141/84 97 10/26/16 08:00 94 10/26/16 07:00 Nasal Cannula 94 I/O 10/26/16 10/26/16 10/26/16 10/27/16 10/27/16 10/27/16 07:00 15:00 23:00 07:00 15:00 23:00 Intake Total 1140 ml 1468 ml 540 ml 364 ml Output Total 1400 ml 140 ml 600 ml 800 ml Balance -260 ml 1328 ml -60 ml -436 ml Intake Oral 240 ml 480 ml 360 ml 240 ml IV Total 900 ml 988 ml 180 ml 124 ml Output Urine Total 1400 ml 140 ml 600 ml 800 ml # Bowel Movements 0 0 3 0 Result Diagram: 10/26/16 0250 10/26/16 0250 Imaging Last 24 hours Impressions Chest X-Ray 10/23/16 0600 Signed Impressions: Service Date/Time: Sunday, October 23, 2016 05:43 - CONCLUSION: 1. Right central line tip in left subclavian vein, unchanged. Interval extubation. Mild atelectasis at the bases. Bk Martin MD Objective Remarks NAD RUE -external fixator and dressing in place with mild drainage. swelling in fingers. NVI and sensation intact. cap refill LUE - dressing in place. swelling in fingers. NVI and sensation intact. cap refill RLE - wound and incisions CDI. NVI and sensation intact. LLE - CKS in place. swelling L knee. pain lateral knee. sensation intact. no dorsiflexion. ongoing footdrop on left side Assessment & Plan Assessment and Plan 1) s/p I&D and ORIF R supracondylar fx and R patella fx, application of wound vac R knee, ORIF R fem neck fx, I&D with closed reduction POD #6 2) s/p ORIF left humerus and right distal radius with application right wrist exfix - POD#2 3) Left Knee Ligamentous disruption 4) Left Leg Foot Drop NWB BLE and BUE ok to use right elbow for pushing off. ok to DC sling PRN right arm. Daily dressing changes to right and left arms pin care BID right wrist Active assisted ROM ok to RLE LLE - PODUS boot for foot drop MRI L knee - multi-ligament knee injury. maintain CKS. med management plan for sx on tuesday for left knee informed consent obtained for left knee npo after midnight night Scout Tubbs October 27, 2016 06:49
[2016-10-27 07:01] LABS: HEMO FLAGS AUTO DIFF
[2016-10-27 07:28] LABS: BICARBONATE 26.2 MEQ/L (21.0-32.0); POTASSIUM 3.7 MEQ/L (3.5-5.1)
[2016-10-27 08:11] LABS: BANDS 3 % (0-6)
[2016-10-27 08:12] LABS: CORRECTED NUCLEATED RBC 2 /100 WBC (0-0); EOSINOPHILS 2 % (0-4); METAMYELOCYTES 3 % (0-1); MYELOCYTES 3 % (0-0); NEUTROPHIL # MANUAL DIFF 5.4 TH/MM3 (1.8-7.7); POLYS (SEG NEUTROPHILS) 59 % (16-70); WBC DIFF SAMPLE 100
[2016-10-27 08:15] LABS: PLATELET ESTIMATE SMEAR NORMAL (NORMAL); PLATELET MORPHOLOGY NORMAL (NORMAL); POLYCHROMASIA 2.2 % (0.0-1.9); SCAN/DIFF FINAL DIFF MANUAL
[2016-10-27] MEDS ORDERED: ALUMINUM/MAGNESIUM/SIMETH 30 ML CUP PO PRN (09:30)
[2016-10-27] MEDS: FAMOTIDINE 20 MG TAB PO SCH ×2 (09:32→21:03)
[2016-10-27] MEDS: DOCUSATE SODIUM 100 MG CAP PO SCH ×2 (09:32→21:03)
[2016-10-27] MEDS: GABAPENTIN 300 MG CAP PO SCH ×3 (09:32→17:38)
[2016-10-27] MEDS: ENOXAPARIN SODIUM 30 MG/0.3 ML SYRINGE SQ SCH ×2 (09:34→21:03)
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
[2016-10-27] MEDS: MAGNESIUM HYDROXIDE SUSP 30 ML CUP PO SCH (21:02)
[2016-10-28] VITALS (14 sets, daily range): BP systolic 129–140; BP diastolic 72–85; PULSE 91–104; RESP 15–26; TEMP 98.4–98.8; O2SAT 96–100
[2016-10-28] MEDS: HYDROmorphone HCL PF 1 MG/ML VIAL IV PUSH PRN ×8 (01:17→21:57)
[2016-10-28] MEDS: GENTAMICIN/SOD CHL 80 MG/100 ML IV SCH ×3 (01:18→18:16)
--- NOTE | 2016-10-28 07:12 | PD.ORT.PN ---
Subjective Subjective Remarks POD 3 s/p ORIF left humerus fx POD 3 s/p ORIF with application of exfix right distal radius fx s/p Right Femur IMN with I&D open wound s/p left knee ligamentous injuries doing well. pain controlled. reports difficulty voiding Objective Vitals Vital Signs Date Time Temp Pulse Resp B/P Pulse Ox O2 Delivery O2 Flow Rate FiO2 10/28/16 06:00 95 10/28/16 04:00 98 10/28/16 04:00 98.8 98 19 129/79 97 10/28/16 02:00 96 10/28/16 00:00 98.4 97 20 130/73 96 10/28/16 00:00 97 10/27/16 22:00 98 10/27/16 20:00 98.7 106 20 135/71 97 10/27/16 20:00 95 10/27/16 19:00 Room Air 97 10/27/16 18:00 99 10/27/16 16:15 15 10/27/16 16:00 98.8 86 21 140/84 97 10/27/16 16:00 96 10/27/16 14:00 87 10/27/16 12:00 98.5 94 21 130/81 97 10/27/16 12:00 84 10/27/16 10:00 87 10/27/16 08:00 90 10/27/16 08:00 98.7 90 16 118/66 96 10/27/16 07:58 94 I/O 10/27/16 10/27/16 10/27/16 10/28/16 10/28/16 10/28/16 07:00 15:00 23:00 07:00 15:00 23:00 Intake Total 364 ml 350 ml 786 ml 468 ml Output Total 800 ml 900 ml 350 ml 300 ml Balance -436 ml -550 ml 436 ml 168 ml Intake Oral 240 ml 125 ml 240 ml 180 ml IV Total 124 ml 225 ml 546 ml 288 ml Output Urine Total 800 ml 900 ml 350 ml 300 ml # Bowel Movements 0 0 0 0 Result Diagram: 10/27/16 0610/27/16 06 Imaging Last 24 hours Impressions Chest X-Ray 10/23/16 06 Signed Impressions: Service Date/Time: Sunday, October 23, 2016 05:43 - CONCLUSION: 1. Right central line tip in left subclavian vein, unchanged. Interval extubation. Mild atelectasis at the bases. kB Martin MD Objective Remarks NAD RUE -external fixator and dressing in place with mild drainage. swelling in fingers. NVI and sensation intact. cap refill LUE - dressing in place. swelling in fingers. NVI and sensation intact. cap refill RLE - wound and incisions CDI. NVI and sensation intact. LLE - CKS in place. swelling L knee. pain lateral knee. sensation intact. no dorsiflexion. ongoing footdrop on left side Assessment & Plan Assessment and Plan 1) s/p I&D and ORIF R supracondylar fx and R patella fx, application of wound vac R knee, ORIF R fem neck fx, I&D with closed reduction POD #7 2) s/p ORIF left humerus and right distal radius with application right wrist exfix - POD#3 3) Left Knee Ligamentous disruption 4) Left Leg Foot Drop NWB BLE and BUE ok to use right elbow for pushing off. ok to DC sling PRN right arm. Daily dressing changes to right and left arms pin care BID right wrist Active assisted ROM ok to RLE LLE - PODUS boot for foot drop MRI L knee - multi-ligament knee injury. maintain CKS. med management surgery tomorrow with Dr Brown for left knee ligamentous repair informed consent obtained for left knee npo after midnight hold Scout Valdes October 28, 2016 07:12
[2016-10-28] MEDS: GABAPENTIN 300 MG CAP PO SCH ×3 (09:04→18:17)
[2016-10-28] MEDS: FAMOTIDINE 20 MG TAB PO SCH ×2 (09:04→20:07)
[2016-10-28] MEDS: DOCUSATE SODIUM 100 MG CAP PO SCH ×2 (09:04→20:07)
[2016-10-28] MEDS ORDERED: BISACODYL 10 MG SUPP RECTAL ONE (09:30)
[2016-10-28] MEDS: LACTULOSE SYRUP 20 GM/30 ML CUP PO SCH (09:30)
[2016-10-28] MEDS: LACTATED RINGER'S 1000 ML INJ 1,000 ML IV SCH (09:52)
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
[2016-10-28] MEDS: KETOROLAC TROMETHAMINE 30 MG/ML (IVP) VIAL IV PUSH PRN ×2 (13:52→20:06)
[2016-10-28] MEDS: METHOCARBAMOL 500 MG TAB PO SCH ×2 (14:00→21:58)
[2016-10-28] MEDS: MAGNESIUM HYDROXIDE SUSP 30 ML CUP PO SCH (20:06)
[2016-10-29] VITALS (9 sets, daily range): BP systolic 127–150; BP diastolic 60–77; PULSE 77–99; RESP 14–17; TEMP 97.4–98.8; O2SAT 94–100
[2016-10-29] MEDS: GENTAMICIN/SOD CHL 80 MG/100 ML IV SCH ×3 (01:19→17:32)
[2016-10-29] MEDS: HYDROmorphone HCL PF 1 MG/ML VIAL IV PUSH PRN ×3 (03:09→08:54)
[2016-10-29 03:36] LABS: AUTOMATED NEUTROPHIL # 4.6 TH/MM3 (1.8-7.7); BASOPHIL % 0.4 % (0.0-2.0); EOSINOPHIL # 0.2 TH/MM3 (0-0.4); EOSINOPHIL % 2.6 % (0.0-4.0); HEMATOCRIT 24.5 % (39.0-51.0); LYMPH % 15.7 % (9.0-44.0); LYMPHOCYTE # 1.1 TH/MM3 (1.0-4.8); MEAN CELL VOLUME 87.3 FL (80.0-100.0); MEAN CORPUSCULAR HGB CONC 34.3 % (32.0-36.0); MONO % 12.2 % (0.0-8.0); NEUT % 69.1 % (16.0-70.0); PLATELET COUNT 206 TH/MM3 (150-450); RED BLOOD COUNT 2.81 MIL/MM3 (4.50-5.90); RED CELL DISTRIBUTION WIDTH 15.6 % (11.6-17.2); WHITE BLOOD COUNT 6.7 TH/MM3 (4.0-11.0)
[2016-10-29 03:51] LABS: ALT (GPT) 70 U/L (12-78); ANION GAP 8 MEQ/L (5-15); AST (GOT) 62 U/L (15-37); BICARBONATE 26.5 MEQ/L (21.0-32.0); BLOOD UREA NITROGEN 22 MG/DL (7-18); CHLORIDE 105 MEQ/L (98-107); GLOMERULAR FILTRATION RATE 142 ML/MIN (>89); SODIUM (NA) 139 MEQ/L (136-145)
[2016-10-29 03:53] LABS: ALKALINE PHOSPHATASE 54 U/L (45-117); TOTAL BILIRUBIN ADULT 1.2 MG/DL (0.2-1.0)
[2016-10-29 04:06] LABS: HEMO FLAGS AUTO DIFF
[2016-10-29] MEDS: METHOCARBAMOL 500 MG TAB PO SCH ×3 (06:00→21:04)
[2016-10-29] MEDS: LACTATED RINGER'S 1000 ML INJ 1,000 ML IV SCH ×3 (06:03→14:34)
[2016-10-29 07:21] LABS: BANDS 5 % (0-6); EOSINOPHILS 4 % (0-4); METAMYELOCYTES 1 % (0-1); MYELOCYTES 1 % (0-0); NEUTROPHIL # MANUAL DIFF 4.6 TH/MM3 (1.8-7.7); POLYS (SEG NEUTROPHILS) 61 % (16-70); WBC DIFF SAMPLE 100
[2016-10-29 07:22] LABS: POLYCHROMASIA 2.3 % (0.0-1.9)
[2016-10-29 07:23] LABS: ACANTHOCYTES OCC (NORMAL); KERATOCYTES OCC (NORMAL)
[2016-10-29 07:24] LABS: PLATELET ESTIMATE SMEAR NORMAL (NORMAL); PLATELET MORPHOLOGY NORMAL (NORMAL); SCAN/DIFF FINAL DIFF MANUAL
[2016-10-29] MEDS: FAMOTIDINE 20 MG TAB PO SCH ×2 (08:53→21:04)
[2016-10-29] MEDS: GABAPENTIN 300 MG CAP PO SCH ×3 (08:53→17:31)
[2016-10-29] MEDS: DOCUSATE SODIUM 100 MG CAP PO SCH ×2 (08:53→21:04)
[2016-10-29] MEDS: LACTULOSE SYRUP 20 GM/30 ML CUP PO SCH (08:55)
[2016-10-29] MEDS ORDERED: BUPIVACAINE/EPINEPHRINE 0.25% 50 ML VIAL ONE (09:07)
[2016-10-29] MEDS ORDERED: ceFAZolin INJ 1,000 MG VIAL ONE (09:07)
[2016-10-29] MEDS ORDERED: GENTAMICIN SULFATE 80 MG/2 ML VIAL ONE ×2 (09:08→11:43)
[2016-10-29] MEDS ORDERED: BUPIVACAINE/EPINEPHRINE 0.5% PF 30 ML VIAL ONE (09:20)
--- NOTE | 2016-10-29 09:43 | RADRPT ---
EXAM DATE/TIME: 10/29/2016 08:53 [facility] COMPARISON: No previous studies available for comparison. INDICATIONS : Abdominal distention. MEDICAL HISTORY : None. SURGICAL HISTORY : None. ENCOUNTER: Initial ACUITY: 1 day PAIN SCORE: 3/10 LOCATION: Bilateral abdomen. FINDINGS: There is gaseous distention of small and large bowel characteristic of an ileus. No definite evidence for obstruction. There is lag screw fixation across a right femoral neck fracture. No free air ident ified. CONCLUSION: 1. Diffuse ileus. No free air identified. Bk Martin MD on October 29, 2016 at 9:40 Board Certified Radiologist. This report was verified electronically.
[2016-10-29] MEDS ORDERED: MIDAZOLAM HCL 2 MG/2 ML VIAL ONE (10:27)
[2016-10-29] MEDS ORDERED: ACETAMINOPHEN 1000 MG/100 ML VIAL IV ONE (10:28)
[2016-10-29] MEDS ORDERED: FAMOTIDINE 20 MG/2 ML VIAL ONE (10:28)
[2016-10-29] MEDS ORDERED: HYDROmorphone HCL PF 2 MG/ML VIAL ONE (10:28)
[2016-10-29] MEDS ORDERED: MISCELLANEOUS PHARMACY INFORMATION XX ONE (10:45)
[2016-10-29] MEDS ORDERED: NALOXONE HCL 0.4 MG/ML AMP IV PRN (10:45)
[2016-10-29] MEDS ORDERED: NEOSTIGMINE 3 MG/3 ML SYR IV ONE (12:00)
[2016-10-29] MEDS ORDERED: LACTATED RINGER'S 1000 ML INJ 1,000 ML IV ONE (12:00)
[2016-10-29] MEDS ORDERED: PROPOFOL 200 MG/20 ML AMP IV ONE (12:00)
[2016-10-29] MEDS ORDERED: ONDANSETRON HCL 4 MG/2 ML VIAL IV PUSH ONE (12:00)
--- NOTE | 2016-10-29 12:46 | RADRPT ---
EXAM DATE/TIME: 10/29/2016 11:55 [facility] COMPARISON: No previous studies available for comparison. INDICATIONS : Left tibial plateau repair. MEDICAL HISTORY : None. SURGICAL HISTORY : None. ENCOUNTER: Initial ACUITY: 1 day PAIN SCORE: Non-responsive. LOCATION: Left knee CONCLUSION: Fluoroscopic images demonstrates temporary probe along the lateral soft tissues adjacent to the fibul a. Other images during repair of the lateral tibial plateau. Adolfo Savage MD on October 29, 2016 at 12:44 Board Certified Radiologist. This report was verified electronically.
[2016-10-29] MEDS: PCA - TOTAL MG DILAUDID DELIVERED PER SHIFT OTHER SCH ×2 (13:00→21:08)
[2016-10-29] MEDS ORDERED: DO NOT ADM ANY ANTICOAGULANT DRUGS PRN (13:37)
--- NOTE | 2016-10-29 13:38 | PD.OP ---
Operative Report Date of Surgery: October 29, 2016 Preoperative Diagnosis: Postoperative Diagnosis: Procedure: 1. Open Repair of Left Hamstring Tendon 2. Open Repair of Left Lateral Collateral Ligament 3. Left Knee Arthroscopic ACL Repair 4. Open Repair of Left Lateral Tibial Fracture Anesthesia: General Surgeon: Dr. Piyush Brown Registered Nurse Bone Marrow Transplant(s): [facility] Operation and Findings: See Dictation Killian Gomes October 29, 2016 13:38
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
[2016-10-29] MEDS: HYDROmorphone HCL PCA 6 MG/30 ML IV SCH ×2 (14:35→18:13)
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
[2016-10-29] MEDS: KETOROLAC TROMETHAMINE 30 MG/ML (IVP) VIAL IV PUSH PRN ×2 (16:04→22:18)
[2016-10-29] MEDS: MAGNESIUM HYDROXIDE SUSP 30 ML CUP PO SCH (21:08)
[2016-10-30] VITALS (7 sets, daily range): BP systolic 120–140; BP diastolic 56–96; PULSE 85–98; RESP 17–20; TEMP 97.3–98.9; O2SAT 95–100
[2016-10-30] MEDS: HYDROmorphone HCL PCA 6 MG/30 ML IV SCH ×4 (00:42→21:30)
[2016-10-30] MEDS: GENTAMICIN/SOD CHL 80 MG/100 ML IV SCH ×3 (00:43→18:12)
[2016-10-30] MEDS: LACTATED RINGER'S 1000 ML INJ 1,000 ML IV SCH ×3 (00:44→21:30)
[2016-10-30] MEDS: PCA - TOTAL MG DILAUDID DELIVERED PER SHIFT OTHER SCH ×3 (06:00→21:19)
[2016-10-30] MEDS: KETOROLAC TROMETHAMINE 30 MG/ML (IVP) VIAL IV PUSH PRN ×2 (06:41→15:04)
[2016-10-30] MEDS: METHOCARBAMOL 500 MG TAB PO SCH ×3 (06:41→21:18)
--- NOTE | 2016-10-30 08:41 | PD.ORT.PN ---
Subjective Subjective Remarks POD #1 Open Repair of Left Hamstring Tendon, Open Repair of Left Lateral Collateral Ligament, Left Knee Arthroscopic ACL Repair, Open Repair of Left Lateral Tibial Fracture POD #4 I&D and ORIF R supracondylar fx and R patella fx POD #4 ORIF left humerus and right distal radius with application right wrist exfix POD #8 Application of wound vac R knee, ORIF R fem neck fx, I&D with closed reduction Left Leg Foot Drop Patient transferred to floor. Very pleasant, doing well and admits pain is controlled. Admits to increased 'numbness' on left lower extremity last night. Accompanied by significant other. No new complaints. Objective Vitals Vital Signs Date Time Temp Pulse Resp B/P Pulse Ox O2 Delivery O2 Flow Rate FiO2 10/30/16 08:00 98.1 85 18 121/56 97 10/30/16 04:10 98.3 92 17 121/63 96 10/30/16 00:10 98.9 94 17 120/58 98 10/29/16 20:10 97.4 80 17 150/69 100 10/29/16 18:43 18 10/29/16 18:13 17 10/29/16 18:00 87 10/29/16 16:00 98.8 91 17 137/66 100 Arterial Line 10/29/16 16:00 91 10/29/16 14:40 98.8 82 16 95 Nasal Cannula 2 10/29/16 14:35 18 10/29/16 14:30 85 16 155/83 95 Nasal Cannula 2 10/29/16 14:15 82 14 156/82 93 Nasal Cannula 2 10/29/16 14:00 92 14 153/79 94 Nasal Cannula 2 10/29/16 13:45 92 15 152/82 93 Nasal Cannula 2 10/29/16 13:38 98.2 93 16 163/92 95 Nasal Cannula 2 10/29/16 10:12 21 10/29/16 10:00 87 I/O 10/29/16 10/29/16 10/29/16 10/30/16 10/30/16 10/30/16 07:00 15:00 23:00 07:00 15:00 23:00 Intake Total 1046 ml 2611 ml 988 ml 1269 ml Output Total 1100 ml 2450 ml 2000 ml 1550 ml Balance -54 ml 161 ml -1012 ml -281 ml Intake Oral 240 ml 240 ml 240 ml 240 ml IV Total 806 ml 571 ml 748 ml 1029 ml Other 1800 ml Output Urine Total 1100 ml 2400 ml 2000 ml 1550 ml Estimated Blood Loss 50 ml Bladder Scan Volume Amount 378 ml # Bowel Movements 0 0 0 Result Diagram: 10/29/1631410/29/16314 Imaging Last 24 hours Impressions Chest X-Ray 10/23/16 0600 Signed Impressions: Service Date/Time: Sunday, October 23, 2016 05:43 - CONCLUSION: 1. Right central line tip in left subclavian vein, unchanged. Interval extubation. Mild atelectasis at the bases. Bk Martin MD Objective Remarks NAD RUE -external fixator and dressing in place with mild drainage. swelling in fingers. NVI and sensation intact. cap refill LUE - dressing in place. swelling in fingers. NVI and sensation intact. cap refill RLE - wound and incisions CDI. NVI and sensation intact. LLE - Knee ROM brace on. Dressings dry. sensation intact. no dorsiflexion. ongoing footdrop on left side. able to move distal digits successfully. Assessment & Plan Assessment and Plan POD #1 Open Repair of Left Hamstring Tendon, Open Repair of Left Lateral Collateral Ligament, Left Knee Arthroscopic ACL Repair, Open Repair of Left Lateral Tibial Fracture POD #4 I&D and ORIF R supracondylar fx and R patella fx POD #4 ORIF left humerus and right distal radius with application right wrist exfix POD #8 Application of wound vac R knee, ORIF R fem neck fx, I&D with closed reduction Left Leg Foot Drop NWB BLE and BUE ok to use right elbow for pushing off. ok to DC sling PRN right arm. Daily dressing changes to right and left arms pin care BID right wrist Active assisted ROM ok to RLE LLE - PODUS boot for foot drop, ROM brace. med management Essie Peraza October 30, 2016 08:41
[2016-10-30] MEDS: BACITRACIN TOP OINT 15 GM TUBE TOPICAL SCH (09:00)
[2016-10-30] MEDS: LACTULOSE SYRUP 20 GM/30 ML CUP PO SCH (09:02)
[2016-10-30] MEDS: FAMOTIDINE 20 MG TAB PO SCH ×2 (09:04→21:18)
[2016-10-30] MEDS: DOCUSATE SODIUM 100 MG CAP PO SCH ×2 (09:04→21:18)
[2016-10-30] MEDS: GABAPENTIN 300 MG CAP PO SCH ×3 (09:05→18:13)
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
[2016-10-30] MEDS: MAGNESIUM HYDROXIDE SUSP 30 ML CUP PO SCH (21:18)
[2016-10-31 00:05] VITALS: BP 119/58; PULSE 88; RESP 17; TEMP 97.9; O2SAT 96
[2016-10-31] MEDS: GENTAMICIN/SOD CHL 80 MG/100 ML IV SCH ×2 (02:03→17:03)
[2016-10-31] MEDS: HYDROmorphone HCL PCA 6 MG/30 ML IV SCH ×2 (02:06→12:04)
[2016-10-31] MEDS: KETOROLAC TROMETHAMINE 30 MG/ML (IVP) VIAL IV PUSH PRN ×2 (03:16→17:03)
[2016-10-31 04:05] VITALS: BP 124/59; PULSE 90; RESP 17; TEMP 97.3; O2SAT 96
[2016-10-31] MEDS: PCA - TOTAL MG DILAUDID DELIVERED PER SHIFT OTHER SCH ×2 (06:00→22:00)
[2016-10-31] MEDS: METHOCARBAMOL 500 MG TAB PO SCH ×3 (06:05→22:38)
--- NOTE | 2016-10-31 07:16 | PD.ORT.PN ---
Subjective Subjective Remarks POD #2 Open Repair of Left Hamstring Tendon, Open Repair of Left Lateral Collateral Ligament, Left Knee Arthroscopic ACL Repair, Open Repair of Left Lateral Tibial Fracture POD #5 I&D and ORIF R supracondylar fx and R patella fx POD #5 ORIF left humerus and right distal radius with application right wrist exfix POD #9 Application of wound vac R knee, ORIF R fem neck fx, I&D with closed reduction Left Leg Foot Drop Asleep but arousable, very pleasant, doing well and admits pain is mild to moderate. Admits to 'tingling' on left 3/4/5 digits. Accompanied by family. No new complaints. Objective Vitals Vital Signs Date Time Temp Pulse Resp B/P Pulse Ox O2 Delivery O2 Flow Rate FiO2 10/31/16 06:00 15 10/31/16 04:05 97.3 90 17 124/59 96 10/31/16 02:06 15 10/31/16 00:05 97.9 88 17 119/58 96 10/30/16 21:30 16 10/30/16 20:05 98.5 98 18 131/75 99 10/30/16 16:23 16 10/30/16 16:00 98.4 96 20 140/74 100 10/30/16 14:00 16 10/30/16 12:00 97.3 93 18 136/96 98 10/30/16 09:40 95 21 10/30/16 09:09 16 10/30/16 08:00 98.1 85 18 121/56 97 I/O 10/30/16 10/30/16 10/30/16 10/31/16 10/31/16 10/31/16 07:00 15:00 23:00 07:00 15:00 23:00 Intake Total 1269 ml 925 ml 240 ml 480 ml Output Total 1550 ml 1275 ml 1300 ml 1700 ml Balance -281 ml -350 ml -1060 ml -1220 ml Intake Oral 240 ml 620 ml 240 ml 480 ml IV Total 1029 ml 305 ml Output Urine Total 1550 ml 1275 ml 1300 ml 1700 ml # Bowel Movements 0 0 0 Result Diagram: 10/29/1631410/29/16 031 Imaging Last 24 hours Impressions Chest X-Ray 10/23/16 0600 Signed Impressions: Service Date/Time: Sunday, October 23, 2016 05:43 - CONCLUSION: 1. Right central line tip in left subclavian vein, unchanged. Interval extubation. Mild atelectasis at the bases. Bk Martin MD Objective Remarks NAD RUE -external fixator and dressing in place with mild drainage. swelling in fingers. NVI and sensation intact. cap refill LUE - dressing in place. swelling in fingers. NVI and sensation intact. cap refill RLE - wound and incisions CDI. NVI and sensation intact. LLE - Knee ROM brace on. Dressings dry. mild swelling around knee. sensation intact. no dorsiflexion. ongoing footdrop on left side, brace on. able to move distal digits successfully. Assessment & Plan Assessment and Plan POD #2 Open Repair of Left Hamstring Tendon, Open Repair of Left Lateral Collateral Ligament, Left Knee Arthroscopic ACL Repair, Open Repair of Left Lateral Tibial Fracture POD #5 I&D and ORIF R supracondylar fx and R patella fx POD #5 ORIF left humerus and right distal radius with application right wrist exfix POD #9 Application of wound vac R knee, ORIF R fem neck fx, I&D with closed reduction Left Leg Foot Drop NWB BLE and BUE ok to use right elbow for pushing off. ok to DC sling PRN right arm. Daily dressing changes to right and left arms pin care BID right wrist Active assisted ROM ok to RLE LLE - PODUS boot for foot drop, ROM brace. med management Essie Peraza October 31, 2016 07:16
[2016-10-31] MEDS: LACTATED RINGER'S 1000 ML INJ 1,000 ML IV SCH ×2 (07:30→17:30)
[2016-10-31] MEDS: FAMOTIDINE 20 MG TAB PO SCH ×2 (07:44→22:39)
[2016-10-31] MEDS: DOCUSATE SODIUM 100 MG CAP PO SCH ×2 (07:44→22:39)
[2016-10-31] MEDS: LACTULOSE SYRUP 20 GM/30 ML CUP PO SCH (07:45)
[2016-10-31] MEDS: GABAPENTIN 300 MG CAP PO SCH ×3 (07:45→17:02)
[2016-10-31 08:00] VITALS: BP_SYST 127; BP_SYST 151; BP_DIAS 101; BP_DIAS 68; PULSE 102; PULSE 111; RESP 16; TEMP 98; TEMP 98.9; O2SAT 100; O2SAT 97
[2016-10-31] MEDS ORDERED: BISACODYL 10 MG SUPP RECTAL ONE (08:45)
[2016-10-31] MEDS ORDERED: BISACODYL EC 5 MG TABEC PO ONE (08:45)
[2016-10-31] MEDS: BACITRACIN TOP OINT 15 GM TUBE TOPICAL SCH (09:00)
[2016-10-31 10:25] VITALS: O2SAT 97
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
[2016-10-31 16:00] VITALS: BP 143/80; PULSE 106; RESP 16; TEMP 98.3; O2SAT 99
[2016-10-31 19:00] VITALS: BP 140/82; PULSE 97; RESP 17; TEMP 99.2; O2SAT 100
[2016-10-31] MEDS: MAGNESIUM HYDROXIDE SUSP 30 ML CUP PO SCH (22:39)
[2016-11-01] VITALS (7 sets, daily range): BP systolic 143–164; BP diastolic 76–96; PULSE 80–101; RESP 16–19; TEMP 97.6–99.7; O2SAT 95–100
[2016-11-01] MEDS: KETOROLAC TROMETHAMINE 30 MG/ML (IVP) VIAL IV PUSH PRN ×4 (00:40→22:02)
[2016-11-01] MEDS: BISACODYL 10 MG SUPP RECTAL PRN (01:14)
[2016-11-01] MEDS: GENTAMICIN/SOD CHL 80 MG/100 ML IV SCH ×3 (01:14→17:18)
[2016-11-01] MEDS: HYDROmorphone HCL PCA 6 MG/30 ML IV SCH ×2 (01:45→07:05)
[2016-11-01] MEDS: LACTATED RINGER'S 1000 ML INJ 1,000 ML IV SCH ×3 (03:30→23:30)
[2016-11-01] MEDS: PCA - TOTAL MG DILAUDID DELIVERED PER SHIFT OTHER SCH ×3 (06:00→22:00)
[2016-11-01] MEDS: METHOCARBAMOL 500 MG TAB PO SCH ×3 (06:17→21:44)
[2016-11-01 06:46] LABS: AUTOMATED NEUTROPHIL # 6.8 TH/MM3 (1.8-7.7); BASOPHIL % 0.5 % (0.0-2.0); EOSINOPHIL # 0.2 TH/MM3 (0-0.4); EOSINOPHIL % 2.2 % (0.0-4.0); HEMATOCRIT 27.5 % (39.0-51.0); HEMO FLAGS DIFF FINAL; LYMPH % 11.3 % (9.0-44.0); MEAN CELL VOLUME 89.6 FL (80.0-100.0); MEAN CORPUSCULAR HEMOGLOBIN 29.9 PG (27.0-34.0); MEAN CORPUSCULAR HGB CONC 33.3 % (32.0-36.0); MONO % 9.1 % (0.0-8.0); NEUT % 76.9 % (16.0-70.0); PLATELET COUNT 388 TH/MM3 (150-450); RED BLOOD COUNT 3.07 MIL/MM3 (4.50-5.90); RED CELL DISTRIBUTION WIDTH 16.4 % (11.6-17.2); WHITE BLOOD COUNT 8.9 TH/MM3 (4.0-11.0)
[2016-11-01 07:29] LABS: ALKALINE PHOSPHATASE 107 U/L (45-117); ALT (GPT) 62 U/L (12-78); ANION GAP 7 MEQ/L (5-15); AST (GOT) 47 U/L (15-37); BICARBONATE 29.4 MEQ/L (21.0-32.0); BLOOD UREA NITROGEN 15 MG/DL (7-18); CHLORIDE 102 MEQ/L (98-107); GLOMERULAR FILTRATION RATE 138 ML/MIN (>89); POTASSIUM 4.5 MEQ/L (3.5-5.1); SODIUM (NA) 138 MEQ/L (136-145); TOTAL BILIRUBIN ADULT 1.3 MG/DL (0.2-1.0)
[2016-11-01] MEDS ORDERED: BISACODYL EC 5 MG TABEC PO ONE (08:30)
[2016-11-01] MEDS ORDERED: BISACODYL 10 MG SUPP RECTAL ONE (08:30)
[2016-11-01] MEDS ORDERED: ENALAPRILAT 1.25 MG/ML VIAL IV PUSH PRN (08:30)
[2016-11-01] MEDS: BACITRACIN TOP OINT 15 GM TUBE TOPICAL SCH (09:00)
[2016-11-01] MEDS: GABAPENTIN 300 MG CAP PO SCH ×3 (09:00→17:19)
--- NOTE | 2016-11-01 09:14 | PD.ORT.PN ---
Subjective Subjective Remarks POD #3 Open Repair of Left Hamstring Tendon, Open Repair of Left Lateral Collateral Ligament, Left Knee Arthroscopic ACL Repair, Open Repair of Left Lateral Tibial Fracture POD #6 I&D and ORIF R supracondylar fx and R patella fx POD #6 ORIF left humerus and right distal radius with application right wrist exfix POD #10 Application of wound vac R knee, ORIF R fem neck fx, I&D with closed reduction Left Leg Foot Drop The patient is awake alert and answers questions appropriately. He complains of occasional chest discomfort with movement. He denies shortness of breath or cough. He has no other complaint. Objective Vitals Vital Signs Date Time Temp Pulse Resp B/P Pulse Ox O2 Delivery O2 Flow Rate FiO2 11/01/16 06:00 15 11/01/16 04:00 97.6 81 16 164/81 100 11/01/16 01:45 15 11/01/16 00:30 98.9 101 16 144/76 95 10/31/16 19:00 99.2 97 17 140/82 100 10/31/16 16:00 98.3 106 16 143/80 99 10/31/16 12:04 16 10/31/16 10:25 97 21 I/O 10/31/16 10/31/16 10/31/16 11/01/16 11/01/16 11/01/16 07:00 15:00 23:00 07:00 15:00 23:00 Intake Total 480 ml 750 ml 480 ml 240 ml Output Total 1700 ml 2850 ml 2500 ml 1500 ml Balance -1220 ml -2100 ml -2020 ml -1260 ml Intake Oral 480 ml 750 ml 480 ml 240 ml Output Urine Total 1700 ml 2850 ml 2500 ml 1500 ml # Voids 0 # Bowel Movements 0 0 0 0 Result Diagram: 11/01/16 0610 11/01/16 0610 Imaging Last 24 hours Impressions Chest X-Ray 10/23/16 0600 Signed Impressions: Service Date/Time: Sunday, October 23, 2016 05:43 - CONCLUSION: 1. Right central line tip in left subclavian vein, unchanged. Interval extubation. Mild atelectasis at the bases. Bk Martin MD Objective Remarks NAD RUE -external fixator and dressing in place with mild drainage. swelling in fingers. NVI and sensation intact. cap refill LUE - dressing in place. swelling in fingers. NVI and sensation intact. cap refill RLE - wound and incisions CDI. NVI and sensation intact. LLE - Knee ROM brace on. Dressings dry. mild swelling around knee. sensation intact. no dorsiflexion. ongoing footdrop on left side, brace on. able to move distal digits successfully. Assessment & Plan Assessment and Plan POD #3 Open Repair of Left Hamstring Tendon, Open Repair of Left Lateral Collateral Ligament, Left Knee Arthroscopic ACL Repair, Open Repair of Left Lateral Tibial Fracture POD #6 I&D and ORIF R supracondylar fx and R patella fx POD #6 ORIF left humerus and right distal radius with application right wrist exfix POD #10 Application of wound vac R knee, ORIF R fem neck fx, I&D with closed reduction Left Leg Foot Drop NWB BLE and BUE ok to use right elbow for pushing off. ok to DC sling PRN right arm. Daily dressing changes to right and left arms pin care BID right wrist Active assisted ROM ok to RLE LLE - PODUS boot for foot drop, ROM brace. med management Bethel Novoa MD November 01, 2016 09:14
[2016-11-01] MEDS: DOCUSATE SODIUM 100 MG CAP PO SCH ×2 (09:21→21:43)
[2016-11-01] MEDS: FAMOTIDINE 20 MG TAB PO SCH ×2 (09:21→21:44)
[2016-11-01] MEDS: LACTULOSE SYRUP 20 GM/30 ML CUP PO SCH (09:22)
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
[2016-11-01] MEDS: MAGNESIUM HYDROXIDE SUSP 30 ML CUP PO SCH (21:43)
[2016-11-02 00:10] VITALS: BP 130/70; PULSE 93; RESP 18; TEMP 99; O2SAT 98
[2016-11-02] MEDS: GENTAMICIN/SOD CHL 80 MG/100 ML IV SCH ×3 (01:54→18:08)
[2016-11-02 04:35] VITALS: BP 135/78; PULSE 93; RESP 18; TEMP 98.1; O2SAT 99
[2016-11-02] MEDS: PCA - TOTAL MG DILAUDID DELIVERED PER SHIFT OTHER SCH (06:00)
[2016-11-02] MEDS: METHOCARBAMOL 500 MG TAB PO SCH ×3 (06:01→20:57)
[2016-11-02] MEDS: HYDROmorphone HCL PCA 6 MG/30 ML IV SCH (06:01)
--- NOTE | 2016-11-02 07:09 | PD.ORT.PN ---
Subjective Subjective Remarks Resting comfortably with dressing change and pin care to right arm being performed Objective Vitals Vital Signs Date Time Temp Pulse Resp B/P Pulse Ox O2 Delivery O2 Flow Rate FiO2 11/02/16 06:01 16 11/02/16 04:35 98.1 93 18 135/78 99 11/02/16 00:10 99.0 93 18 130/70 98 11/01/16 22:00 16 11/01/16 20:15 99.7 96 18 143/78 99 11/01/16 16:00 98.1 80 18 149/92 99 11/01/16 14:00 17 11/01/16 12:00 99.3 100 18 150/95 99 11/01/16 08:29 98 21 11/01/16 08:00 98.0 88 19 149/96 100 11/01/16 08:00 100 Room Air I/O 11/01/16 11/01/16 11/01/16 11/02/16 11/02/16 11/02/16 07:00 15:00 23:00 07:00 15:00 23:00 Intake Total 240 ml 960 ml 240 ml Output Total 1500 ml 3950 ml 750 ml Balance -1260 ml -2990 ml -510 ml Intake Oral 240 ml 960 ml 240 ml Output Urine Total 1500 ml 3950 ml 750 ml # Voids 0 # Bowel Movements 0 1 0 Result Diagram: 11/01/16 0610 11/01/16 0610 Imaging Last 24 hours Impressions Chest X-Ray 10/23/16 0600 Signed Impressions: Service Date/Time: Sunday, October 23, 2016 05:43 - CONCLUSION: 1. Right central line tip in left subclavian vein, unchanged. Interval extubation. Mild atelectasis at the bases. Bk Martin MD Objective Remarks NAD RUE -external fixator and dressing in place with mild drainage. swelling in fingers. NVI and sensation intact. cap refill LUE - dressing in place. swelling in fingers. NVI and sensation intact. cap refill RLE - wound and incisions CDI. NVI and sensation intact. LLE - Knee ROM brace on. Dressings dry. mild swelling around knee. sensation intact. no dorsiflexion. ongoing footdrop on left side, brace on. able to move distal digits successfully. Assessment & Plan Assessment and Plan POD #4 Open Repair of Left Hamstring Tendon, Open Repair of Left Lateral Collateral Ligament, Left Knee Arthroscopic ACL Repair, Open Repair of Left Lateral Tibial Fracture POD #7 I&D and ORIF R supracondylar fx and R patella fx POD #7 ORIF left humerus and right distal radius with application right wrist exfix POD #11 Application of wound vac R knee, ORIF R fem neck fx, I&D with closed reduction Left Leg Foot Drop NWB BLE and BUE ok to use right elbow for pushing off. ok to DC sling PRN right arm. Daily dressing changes to right and left arms pin care BID right wrist Active assisted ROM ok to RLE LLE - PODUS boot for foot drop, ROM brace. med management Discharge plan Nelson Rosenthal Jr. November 02, 2016 07:09
[2016-11-02 07:40] VITALS: BP 135/85; PULSE 89; RESP 16; TEMP 96.6; O2SAT 98
[2016-11-02] MEDS: DOCUSATE SODIUM 100 MG CAP PO SCH ×2 (08:51→20:58)
[2016-11-02] MEDS: FAMOTIDINE 20 MG TAB PO SCH ×2 (08:51→20:57)
[2016-11-02] MEDS: GABAPENTIN 300 MG CAP PO SCH ×3 (08:51→18:00)
[2016-11-02] MEDS: LACTULOSE SYRUP 20 GM/30 ML CUP PO SCH (08:53)
[2016-11-02] MEDS: BACITRACIN TOP OINT 15 GM TUBE TOPICAL SCH (08:54)
[2016-11-02] MEDS: KETOROLAC TROMETHAMINE 30 MG/ML (IVP) VIAL IV PUSH PRN (10:42)
[2016-11-02] MEDS: LACTATED RINGER'S 1000 ML INJ 1,000 ML IV SCH (10:51)
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
[2016-11-02 12:00] VITALS: BP 140/91; PULSE 101; RESP 16; TEMP 95.7; O2SAT 97
[2016-11-02 15:34] VITALS: BP 139/81; PULSE 94; RESP 16; TEMP 96.7; O2SAT 99
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
[2016-11-02 20:05] VITALS: BP 136/82; PULSE 102; RESP 17; TEMP 98.5; O2SAT 98
[2016-11-02] MEDS: ACETAMINOPHEN/HYDROcodone 325 MG/10 MG TAB PO PRN (20:58)
[2016-11-02] MEDS: MAGNESIUM HYDROXIDE SUSP 30 ML CUP PO SCH (20:58)
[2016-11-03 00:05] VITALS: BP 140/80; PULSE 87; RESP 17; TEMP 97.5; O2SAT 100
[2016-11-03] MEDS: GENTAMICIN/SOD CHL 80 MG/100 ML IV SCH ×3 (02:38→18:00)
[2016-11-03] MEDS: METHOCARBAMOL 500 MG TAB PO SCH ×3 (05:09→20:04)
[2016-11-03] MEDS: ACETAMINOPHEN/HYDROcodone 325 MG/10 MG TAB PO PRN ×3 (05:09→20:05)
--- NOTE | 2016-11-03 07:07 | PD.ORT.PN ---
Subjective Subjective Remarks Resting comfortably Objective Vitals Vital Signs Date Time Temp Pulse Resp B/P Pulse Ox O2 Delivery O2 Flow Rate FiO2 11/03/16 00:05 97.5 87 17 140/80 100 11/02/16 20:05 98.5 102 17 136/82 98 11/02/16 20:00 Room Air 11/02/16 15:34 96.7 94 16 139/81 99 11/02/16 12:00 95.7 101 16 140/91 97 11/02/16 08:55 98 Room Air 11/02/16 07:40 96.6 89 16 135/85 98 I/O 11/02/16 11/02/16 11/02/16 11/03/16 11/03/16 11/03/16 07:00 15:00 23:00 07:00 15:00 23:00 Intake Total 240 ml 960 ml 240 ml 549 ml Output Total 750 ml 1800 ml 1100 ml Balance -510 ml -840 ml -860 ml 549 ml Intake Oral 240 ml 960 ml 240 ml IV Total 549 ml Output Urine Total 750 ml 1800 ml 1100 ml # Voids 0 # Bowel Movements 0 0 0 Result Diagram: 11/01/16 0610 11/01/16 0610 Imaging Last 24 hours Impressions Chest X-Ray 10/23/16 0600 Signed Impressions: Service Date/Time: Sunday, October 23, 2016 05:43 - CONCLUSION: 1. Right central line tip in left subclavian vein, unchanged. Interval extubation. Mild atelectasis at the bases. Bk Martin MD Objective Remarks NAD RUE -external fixator and dressing in place. swelling in fingers. NVI and sensation intact. cap refill LUE - dressing in place. swelling in fingers. NVI and sensation intact. cap refill RLE - wound and incisions CDI. NVI and sensation intact. LLE - Knee ROM brace on. Dressings dry. mild swelling around knee. sensation intact. no dorsiflexion. ongoing footdrop on left side, brace on. able to move distal digits successfully. Assessment & Plan Assessment and Plan POD #5 Open Repair of Left Hamstring Tendon, Open Repair of Left Lateral Collateral Ligament, Left Knee Arthroscopic ACL Repair, Open Repair of Left Lateral Tibial Fracture POD #5 I&D and ORIF R supracondylar fx and R patella fx POD #8 ORIF left humerus and right distal radius with application right wrist exfix POD #12 Application of wound vac R knee, ORIF R fem neck fx, I&D with closed reduction Left Leg Foot Drop NWB BLE and BUE ok to use right elbow for pushing off. ok to DC sling PRN right arm. Daily dressing changes to right and left arms pin care BID right wrist Active assisted ROM ok to RLE LLE - PODUS boot for foot drop, ROM brace. med management Orthopedically cleared for discharge to rehabilitation from Dr. De Leon standpoint. Lower extremities managed by Dr. Brown Discharge plan Nelson Rosenthal Jr. November 03, 2016 07:07
[2016-11-03 07:33] VITALS: BP 117/62; PULSE 77; RESP 18; TEMP 96.7; O2SAT 98
[2016-11-03] MEDS: GABAPENTIN 300 MG CAP PO SCH ×3 (07:44→18:00)
[2016-11-03] MEDS: FAMOTIDINE 20 MG TAB PO SCH ×2 (07:44→20:05)
[2016-11-03] MEDS: DOCUSATE SODIUM 100 MG CAP PO SCH ×2 (07:45→20:05)
[2016-11-03] MEDS: LACTULOSE SYRUP 20 GM/30 ML CUP PO SCH (07:47)
[2016-11-03] MEDS: ACETAMINOPHEN 325 MG TAB PO PRN (07:56)
[2016-11-03] MEDS: BACITRACIN TOP OINT 15 GM TUBE TOPICAL SCH (09:00)
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
[2016-11-03 12:11] VITALS: BP 132/88; PULSE 93; RESP 18; TEMP 96.9; O2SAT 98
[2016-11-03 16:00] VITALS: BP 128/74; PULSE 100; RESP 18; TEMP 98.6; O2SAT 98
[2016-11-03] MEDS: HYDROmorphone HCL PF 1 MG/ML VIAL IV PUSH PRN (17:45)
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
[2016-11-03] MEDS: MAGNESIUM HYDROXIDE SUSP 30 ML CUP PO SCH (20:06)
[2016-11-03 21:15] VITALS: BP 124/68; PULSE 92; RESP 17; TEMP 98.1; O2SAT 97
[2016-11-04 00:05] VITALS: BP 128/74; PULSE 83; RESP 17; TEMP 98; O2SAT 99
[2016-11-04] MEDS: GENTAMICIN/SOD CHL 80 MG/100 ML IV SCH ×3 (02:14→17:19)
[2016-11-04] MEDS: ACETAMINOPHEN/HYDROcodone 325 MG/10 MG TAB PO PRN ×6 (03:09→23:48)
[2016-11-04] MEDS: METHOCARBAMOL 500 MG TAB PO SCH ×3 (05:23→20:22)
[2016-11-04 07:22] VITALS: BP 124/77; PULSE 93; RESP 16; TEMP 97.8; O2SAT 98
[2016-11-04] MEDS: BACITRACIN TOP OINT 15 GM TUBE TOPICAL SCH (09:00)
[2016-11-04] MEDS: GABAPENTIN 300 MG CAP PO SCH ×3 (09:35→16:25)
[2016-11-04] MEDS: FAMOTIDINE 20 MG TAB PO SCH ×2 (09:35→20:22)
[2016-11-04] MEDS: DOCUSATE SODIUM 100 MG CAP PO SCH (09:35)
[2016-11-04] MEDS: LACTULOSE SYRUP 20 GM/30 ML CUP PO SCH (09:35)
--- NOTE | 2016-11-04 09:53 | PD.ORT.PN ---
Subjective Subjective Remarks Resting comfortably Objective Vitals Vital Signs Date Time Temp Pulse Resp B/P Pulse Ox O2 Delivery O2 Flow Rate FiO2 11/04/16 07:22 97.8 93 16 124/77 98 11/04/16 00:05 98.0 83 17 128/74 99 11/03/16 21:15 98.1 92 17 124/68 97 11/03/16 16:00 98.6 100 18 128/74 98 11/03/16 12:11 96.9 93 18 132/88 98 I/O 11/03/16 11/03/16 11/03/16 11/04/16 11/04/16 11/04/16 07:00 15:00 23:00 07:00 15:00 23:00 Intake Total 549 ml 1680 ml 240 ml 240 ml Output Total 3500 ml 400 ml Balance 549 ml -1820 ml 240 ml -160 ml Intake Oral 1680 ml 240 ml 240 ml IV Total 549 ml Output Urine Total 3500 ml 400 ml # Voids 0 # Bowel Movements 0 0 0 Result Diagram: 11/01/16 0610 11/01/16 0610 Imaging Last 24 hours Impressions Chest X-Ray 10/23/16 0600 Signed Impressions: Service Date/Time: Sunday, October 23, 2016 05:43 - CONCLUSION: 1. Right central line tip in left subclavian vein, unchanged. Interval extubation. Mild atelectasis at the bases. Bk Martin MD Objective Remarks NAD RUE -external fixator and dressing in place. swelling in fingers. NVI and sensation intact. cap refill LUE - dressing in place. swelling in fingers. NVI and sensation intact. cap refill RLE - wound and incisions CDI. NVI and sensation intact. LLE - Knee ROM brace on. Dressings dry. mild swelling around knee. sensation intact. no dorsiflexion. ongoing footdrop on left side, brace on. able to move distal digits successfully. Assessment & Plan Assessment and Plan POD #6 Open Repair of Left Hamstring Tendon, Open Repair of Left Lateral Collateral Ligament, Left Knee Arthroscopic ACL Repair, Open Repair of Left Lateral Tibial Fracture POD #6 I&D and ORIF R supracondylar fx and R patella fx POD #9 ORIF left humerus and right distal radius with application right wrist exfix POD #13 Application of wound vac R knee, ORIF R fem neck fx, I&D with closed reduction Left Leg Foot Drop NWB BLE and BUE ok to use right elbow for pushing off. ok to DC sling PRN right arm. Daily dressing changes to right and left arms pin care BID right wrist Active assisted ROM ok to RLE LLE - PODUS boot for foot drop, ROM brace. med management Orthopedically cleared for discharge to rehabilitation from Dr. De Leon standpoint. Lower extremities managed by Dr. Brown Discharge plan Nelson Rosenthal Jr. Nov 04, 2016 09:53
[2016-11-04 11:09] VITALS: BP 139/87; PULSE 100; RESP 16; TEMP 99; O2SAT 100
--- NOTE | 2016-11-04 11:54 | HHI.PR ---
Subjective Remarks pt complains of left thumb pain and right 5th finger pain Objective Vital Signs Date Time Temp Pulse Resp B/P Pulse Ox O2 Delivery O2 Flow Rate FiO2 11/04/16 07:22 97.8 93 16 124/77 98 11/04/16 00:05 98.0 83 17 128/74 99 11/03/16 21:15 98.1 92 17 124/68 97 11/03/16 16:00 98.6 100 18 128/74 98 11/03/16 12:11 96.9 93 18 132/88 98 I/O 11/03/16 11/03/16 11/03/16 11/04/16 11/04/16 11/04/16 06:59 14:59 22:59 06:59 14:59 22:59 Intake Total 549 ml 1680 ml 240 ml 240 ml 195 ml Output Total 3500 ml 400 ml Balance 549 ml -1820 ml 240 ml -160 ml 195 ml Intake Oral 1680 ml 240 ml 240 ml IV Total 549 ml 195 ml Output Urine Total 3500 ml 400 ml # Voids 0 # Bowel Movements 0 0 0 Result Diagram: 11/01/16 0610 11/01/16 0610 Objective Remarks aa x o x 3 left thumb stable but significant tender to crank and grind testing +/- left scaphoid shift test discomfort CR<2 seconds all fingertips right 5th finger tender and bony prominence dorsal PIP joint all musculotendinous units appear intact Assessment and Plan Problem List: (1) Pain in finger of right hand Status: Acute Plan: xrays bilateral hands TP splint for left thumb talked w patient and MIL about plan for left CPN exploration and attempted repair and various options; still working on the logistics of the procedure with ordering nerve protectors OK to do this as outpatient if pt ready to go to rehab (2) Pain of left thumb Status: Acute (3) 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
--- NOTE | 2016-11-04 13:35 | HHI.PR ---
Subjective Subjective Notes Has questions about his hand Complaints of right armpit pain Urinating well Objective Vitals/I&O Vital Signs Date Time Temp Pulse Resp B/P Pulse Ox O2 Delivery O2 Flow Rate FiO2 11/04/16 07:22 97.8 93 16 124/77 98 11/02/16 20:00 Room Air 11/01/16 08:29 21 Labs Laboratory Tests Test 11/01/16 06:10 White Blood Count 8.9 TH/MM3 Red Blood Count 3.07 MIL/MM3 Hemoglobin 9.2 GM/DL Hematocrit 27.5 % Mean Corpuscular Volume 89.6 FL Mean Corpuscular Hemoglobin 29.9 PG Mean Corpuscular Hemoglobin 33.3 % Concent Red Cell Distribution Width 16.4 % Platelet Count 388 TH/MM3 Mean Platelet Volume 7.0 FL Neutrophils (%) (Auto) 76.9 % Lymphocytes (%) (Auto) 11.3 % Monocytes (%) (Auto) 9.1 % Eosinophils (%) (Auto) 2.2 % Basophils (%) (Auto) 0.5 % Neutrophils # (Auto) 6.8 TH/MM3 Lymphocytes # (Auto) 1.0 TH/MM3 Monocytes # (Auto) 0.8 TH/MM3 Eosinophils # (Auto) 0.2 TH/MM3 Basophils # (Auto) 0.0 TH/MM3 CBC Comment DIFF FINAL Differential Comment Sodium Level 138 MEQ/L Potassium Level 4.5 MEQ/L Chloride Level 102 MEQ/L Carbon Dioxide Level 29.4 MEQ/L Anion Gap 7 MEQ/L Blood Urea Nitrogen 15 MG/DL Creatinine 0.69 MG/DL Estimat Glomerular Filtration 138 ML/MIN Rate Random Glucose 116 MG/DL Calcium Level 8.2 MG/DL Total Bilirubin 1.3 MG/DL Aspartate Amino Transf 47 U/L (AST/SGOT) Alanine Aminotransferase 62 U/L (ALT/SGPT) Alkaline Phosphatase 107 U/L Total Protein 5.7 GM/DL Albumin 2.3 GM/DL Radiology Last Impressions Knee X-Ray 10/29/16 0000 Signed Impressions: Service Date/Time: Saturday, October 29, 2016 11:55 - CONCLUSION: Fluoroscopic images demonstrates temporary probe along the lateral soft tissues adjacent to the fibula. Other images during repair of the lateral tibial plateau. Adolfo Savage MD Abdomen X-Ray 10/29/16 0000 Signed Impressions: Service Date/Time: Saturday, October 29, 2016 08:53 - CONCLUSION: 1. Diffuse ileus. No free air identified. Bk Martin MD Chest X-Ray 10/26/16 0600 Signed Impressions: Service Date/Time: Wednesday, October 26, 2016 04:52 - CONCLUSION: No appreciable change. Lobo Maynard MD Radius/Ulna X-Ray 10/25/16 0000 Signed Impressions: Service Date/Time: Tuesday, October 25, 2016 12:56 - CONCLUSION: Status post op in rigid internal fixation. Nelson Hill MD Humerus X-Ray 10/25/16 0000 Signed Impressions: Service Date/Time: Tuesday, October 25, 2016 11:34 - CONCLUSION: Status post open rigid internal fixation. Nelson Hill MD Ankle X-Ray 10/24/16 0000 Signed Impressions: Service Date/Time: Monday, October 24, 2016 10:36 - CONCLUSION: Soft tissue swelling. Laron Kuo MD Knee MRI 10/23/16 0000 Signed Impressions: Service Date/Time: Sunday, October 23, 2016 16:05 - CONCLUSION: 1. Disruption of the lateral ligamentous structures including the fibular collateral ligament , the biceps femoris musculotendinous junction and the attachment site at the iliotibial band causing widening at the lateral joint space. 2. Anterior cruciate ligament tear at its femoral attachment site. 3. Increased signal within the proximal aspect of the posterior cruciate ligament. Some degree of partial tearing at this structure cannot be excluded. 4. Fairly extensive bone bruising and fracturing involving the proximal tibia, proximal fibula and femoral condyles as described above. 5. Moderate effusion. Rico Pena MD Wrist X-Ray 10/22/16 0000 Signed Impressions: Service Date/Time: October 21:00 - CONCLUSION: 1. Fractures of the distal radius and ulna as above with some foreshortening of the radius. Bk Martin MD Hip X-Ray 10/22/16 0000 Signed Impressions: Service Date/Time: October 21:00 - CONCLUSION: 1. Lag screws traversing proximal right femur fracture. Bk Martin MD Femur X-Ray 10/22/16 0000 Signed Impressions: Service Date/Time: October 21:00 - CONCLUSION: 1. Fixation distal right femur. Bk Martin MD Maxillofacial CT 10/21/161821 Signed Impressions: Service Date/Time: October 18:33 - CONCLUSION: 1. Mucoperiosteal thickening in the right frontal sinus and right maxillary sinus. 2. I cannot entirely exclude a nondisplaced fracture of the right infraorbital rim. Mikel Ricks MD FACR Head CT 10/21/161821 Signed Impressions: Service Date/Time: October 18:33 - CONCLUSION: Negative for acute process.. Mikel Ricks MD FACR Chest CT 10/21/161821 Signed Impressions: Service Date/Time: October 18:43 - CONCLUSION: 1. Contusion laterally in the right lung. 2. Air in the axilla on the left. 3. I cannot confirm a rib fracture by CT. Mikel Ricks MD FACR Cervical Spine CT 10/21/161821 Signed Impressions: Service Date/Time: October 18:33 - CONCLUSION: Transverse process fracture C7 on the right, involving just the tip of the transverse process. Mikel Ricks MD FACR Abdomen/Pelvis CT 10/21/161821 Signed Impressions: Service Date/Time: October 18:43 - CONCLUSION: 1. Contusion in the right lung base. 2. Right hip fracture. 3. Right ilium fracture. 4. Minimal induration about the right superior pubic ramus. 5. There is no evidence for a solid organ injury. Mikel Ricks MD FACR Tibia/Fibula X-Ray 10/21/16 0000 Signed Impressions: Service Date/Time: October 18:04 - CONCLUSION: Plateau fracture. Mikel Ricks MD FACR Pelvis X-Ray 10/21/16 0000 Signed Impressions: Service Date/Time: October 18:04 - CONCLUSION: 1. Right femoral neck fracture. 2. Fracture of the right ilium. Mikel Ricks MD FACR Aorta w/Runoff CTA 10/21/16 0000 Signed Impressions: Service Date/Time: October 20:02 - CONCLUSION: Significant fracture at the junction of the RIGHT SFA and popliteal artery at the adductor hiatus with moderate contusion. Vessel is patent.. Mikel Ricks MD FACR Narrative Exam GENERAL: 26-year-old well-nourished, well developed male sitting up in bed. SKIN: Warm and dry. Ecchymotic area to right medial upper arm. HEAD: Normocephalic. ENT: No nasal bleeding or discharge. Mucous membranes pink and moist. NECK: Trachea midline. No JVD. CARDIOVASCULAR: Regular rate and rhythm. RESPIRATORY: No accessory muscle use. Lungs clear to auscultation. Breath sounds equal bilaterally. GASTROINTESTINAL: Abdomen soft, non-tender, nondistended. + BS. MUSCULOSKELETAL: Extremities without cyanosis, +1 edema right wrist. Right wrist ex-fix in place. Pin sites clean. MAEW. NEUROLOGICAL: Awake and alert. Normal speech. A/P Problem List: (1) Multiple fractures of ribs of left side (2) Open fracture of left distal humerus (3) Open fracture of right distal humerus (4) Open fracture of right patella (5) Closed fracture of left tibial plateau (6) Displaced fracture of right femoral neck Assessment and Plan INJURIES: Questionable fx of RIGHT orbit rim C7 transverse process fx RIGHT lung contusion Open RIGHT radius/ulna fx LEFT humerus fx RIGHT hip fx RIGHT ilium fx RIGHT femoral neck fx OPEN RIGHT patellar fx LEFT avulsion fx of knee (w/ multiple ligament injury) LEFT tibial plateau fx PROCEDURES: 10/21: ORIF RIGHT femur; ORIF RIGHT hip; I&D RIGHT patella w/ wound vac; I&D LEFT humerus w/ closed reduction; RIGHT wrist closed reduction. 10/25: ORIF left distal humerus. ORIF right radius and ulna with ex-fix placement. 10/29: LEFT knee arthroscopic cruciate ligament repair. LEFT knee open lateral collateral ligament repair. ORIF LEFT knee plateau fx. LEFT knee exploration of peroneal nerve (with discovery of complete rupture of nerve) Diet: Regular, tolerating Pulm: IS, acapella, EZpap. nebs. Encouraged patient use Pain: Percocet 10. Neurontin 300 TID. (Xanax) Robaxin. Activity: OOB to stretcher chair. PT and OT evaluating. (NWB BUE; NWB BLE) GI: Pepcid Bowel: Hanna-colace. Lactulose and Dulcolax NV PRN. LBM: 11/02. Added daily Miralax. DVT: SCD's. Lovenox 30 BID - RIGHT radius/ulna fx - LEFT humerus fx - RIGHT hip fx - RIGHT ilium fx - RIGHT femoral neck fx - OPEN RIGHT patellar fx - LEFT avulsion fx of knee (w/ multiple ligament injury) - LEFT tibial plateau fx Orthopedics following 10/21: ORIF RIGHT femur; ORIF RIGHT hip; I&D RIGHT patella w/ wound vac; I&D LEFT humerus w/ closed reduction; RIGHT wrist closed reduction. 10/25: ORIF left distal humerus. ORIF right radius and ulna with ex-fix placement. 10/29: LEFT knee arthroscopic cruciate ligament repair. LEFT knee open lateral collateral ligament repair. ORIF LEFT knee plateau fx. LEFT knee exploration of peroneal nerve (with discovery of complete rupture of nerve) Hand surgery has been consulted -plan is for nerve repair. To be scheduled in the next coming days. Pain control Nonweightbearing status to all 4 extremities. PT and OT ordered - encourage out of bed - to stretcher chair Rehab placement Lovenox - Right lung contusion, Rib fracture Nonoperative management Aggressive pulmonary toileting Pain control OOB Plan of care discussed with patient and family at bedside. Case management consulted for assist with discharge planning. Problem Qualifiers (1) Multiple fractures of ribs of left side: Qualified Code: S22.42XA - Closed fracture of multiple ribs of left side, initial encounter (2) Open fracture of left distal humerus: Qualified Code: S42.492B - Other open displaced fracture of distal end of left humerus, initial encounter (3) Open fracture of right distal humerus: Qualified Code: S42.491B - Other open displaced fracture of distal end of right humerus, initial encounter (4) Open fracture of right patella: (5) Closed fracture of left tibial plateau: Qualified Code: S82.142A - Closed fracture of left tibial plateau, initial encounter (6) Displaced fracture of right femoral neck: Qualified Code: S72.001A - Displaced fracture of right femoral neck, closed, initial encounter Angel Partida Nov 04, 2016 13:35
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
[2016-11-04] MEDS: POLYETHYLENE GLYCOL 17 GM PKG PO SCH (14:29)
[2016-11-04 16:00] VITALS: BP 134/79; PULSE 91; RESP 16; TEMP 98.3; O2SAT 100
[2016-11-04 19:00] VITALS: BP 142/74; PULSE 102; RESP 16; TEMP 99.5; O2SAT 99
[2016-11-04] MEDS: DOCUSATE SODIUM 50 MG/SENNA 8.6 MG TAB PO SCH (20:23)
[2016-11-05 00:35] VITALS: BP 122/69; PULSE 98; RESP 18; TEMP 98.4; O2SAT 99
[2016-11-05] MEDS: GENTAMICIN/SOD CHL 80 MG/100 ML IV SCH ×3 (02:23→22:11)
[2016-11-05] MEDS: METHOCARBAMOL 500 MG TAB PO SCH ×3 (05:43→22:04)
[2016-11-05] MEDS: ACETAMINOPHEN/HYDROcodone 325 MG/10 MG TAB PO PRN ×4 (05:43→18:08)
[2016-11-05 08:00] VITALS: BP 134/77; PULSE 82; RESP 16; TEMP 96.8; O2SAT 99
[2016-11-05] MEDS: FAMOTIDINE 20 MG TAB PO SCH ×2 (10:59→22:04)
[2016-11-05] MEDS: DOCUSATE SODIUM 50 MG/SENNA 8.6 MG TAB PO SCH ×2 (10:59→22:04)
[2016-11-05] MEDS: POLYETHYLENE GLYCOL 17 GM PKG PO SCH (11:00)
[2016-11-05] MEDS: GABAPENTIN 300 MG CAP PO SCH ×3 (11:00→17:05)
[2016-11-05 12:00] VITALS: BP 152/52; PULSE 98; RESP 16; TEMP 96.9; O2SAT 100
--- NOTE | 2016-11-05 13:36 | HHI.PR ---
Subjective Subjective Notes Patient reports Dr Cam is planning hand sx for possibly Wed Pain controlled Asking about rehab placement Objective Vitals/I&O Vital Signs Date Time Temp Pulse Resp B/P Pulse Ox O2 Delivery O2 Flow Rate FiO2 11/05/16 08:00 96.8 82 16 134/77 99 11/02/16 20:00 Room Air 11/01/16 08:29 21 Radiology Last Impressions Knee X-Ray 10/29/16 0000 Signed Impressions: Service Date/Time: Saturday, October 29, 2016 11:55 - CONCLUSION: Fluoroscopic images demonstrates temporary probe along the lateral soft tissues adjacent to the fibula. Other images during repair of the lateral tibial plateau. Adolfo Savage MD Abdomen X-Ray 10/29/16 0000 Signed Impressions: Service Date/Time: Saturday, October 29, 2016 08:53 - CONCLUSION: 1. Diffuse ileus. No free air identified. Bk Martin MD Chest X-Ray 10/26/16 0600 Signed Impressions: Service Date/Time: Wednesday, October 26, 2016 04:52 - CONCLUSION: No appreciable change. Lobo Maynard MD Radius/Ulna X-Ray 10/25/16 0000 Signed Impressions: Service Date/Time: Tuesday, October 25, 2016 12:56 - CONCLUSION: Status post op in rigid internal fixation. Nelson Hill MD Humerus X-Ray 10/25/16 0000 Signed Impressions: Service Date/Time: Tuesday, October 25, 2016 11:34 - CONCLUSION: Status post open rigid internal fixation. Nelson Hill MD Ankle X-Ray 10/24/16 0000 Signed Impressions: Service Date/Time: Monday, October 24, 2016 10:36 - CONCLUSION: Soft tissue swelling. Laron Kuo MD Knee MRI 10/23/16 0000 Signed Impressions: Service Date/Time: Sunday, October 23, 2016 16:05 - CONCLUSION: 1. Disruption of the lateral ligamentous structures including the fibular collateral ligament , the biceps femoris musculotendinous junction and the attachment site at the iliotibial band causing widening at the lateral joint space. 2. Anterior cruciate ligament tear at its femoral attachment site. 3. Increased signal within the proximal aspect of the posterior cruciate ligament. Some degree of partial tearing at this structure cannot be excluded. 4. Fairly extensive bone bruising and fracturing involving the proximal tibia, proximal fibula and femoral condyles as described above. 5. Moderate effusion. Rico Pena MD Wrist X-Ray 10/22/16 Signed Impressions: Service Date/Time: October 21:00 - CONCLUSION: 1. Fractures of the distal radius and ulna as above with some foreshortening of the radius. Bk Martin MD Hip X-Ray 10/22/16 Signed Impressions: Service Date/Time: October 21:00 - CONCLUSION: 1. Lag screws traversing proximal right femur fracture. Bk Martin MD Femur X-Ray 10/22/16 Signed Impressions: Service Date/Time: October 21:00 - CONCLUSION: 1. Fixation distal right femur. Bk Martin MD Maxillofacial CT 10/21/161821 Signed Impressions: Service Date/Time: October 18:33 - CONCLUSION: 1. Mucoperiosteal thickening in the right frontal sinus and right maxillary sinus. 2. I cannot entirely exclude a nondisplaced fracture of the right infraorbital rim. Mikel Ricks MD FACR Head CT 10/21/161821 Signed Impressions: Service Date/Time: October 18:33 - CONCLUSION: Negative for acute process.. Mikel Ricks MD FACR Chest CT 10/21/161821 Signed Impressions: Service Date/Time: October 18:43 - CONCLUSION: 1. Contusion laterally in the right lung. 2. Air in the axilla on the left. 3. I cannot confirm a rib fracture by CT. Mikel Ricks MD FACR Cervical Spine CT 10/21/161821 Signed Impressions: Service Date/Time: October 18:33 - CONCLUSION: Transverse process fracture C7 on the right, involving just the tip of the transverse process. Mikel Ricks MD FACR Abdomen/Pelvis CT 10/21/161821 Signed Impressions: Service Date/Time: October 18:43 - CONCLUSION: 1. Contusion in the right lung base. 2. Right hip fracture. 3. Right ilium fracture. 4. Minimal induration about the right superior pubic ramus. 5. There is no evidence for a solid organ injury. Mikel Ricks MD FACR Tibia/Fibula X-Ray 10/21/16 0000 Signed Impressions: Service Date/Time: October 18:04 - CONCLUSION: Plateau fracture. Mikel Ricks MD FACR Pelvis X-Ray 10/21/16 0000 Signed Impressions: Service Date/Time: , October 21, 2016 18:04 - CONCLUSION: 1. Right femoral neck fracture. 2. Fracture of the right ilium. Mikel Ricks MD FACR Aorta w/Runoff CTA 10/21/16 0000 Signed Impressions: Service Date/Time: , October 21, 2016 20:02 - CONCLUSION: Significant fracture at the junction of the RIGHT SFA and popliteal artery at the adductor hiatus with moderate contusion. Vessel is patent.. Mikel Ricks MD FACR Narrative Exam GENERAL: 26-year-old well-nourished, well developed male sitting up in bed. SKIN: Warm and dry. HEAD: Normocephalic. ENT: No nasal bleeding or discharge. Mucous membranes pink and moist. NECK: Trachea midline. No JVD. CARDIOVASCULAR: Regular rate and rhythm. RESPIRATORY: No accessory muscle use. Lungs clear to auscultation. Breath sounds equal bilaterally. GASTROINTESTINAL: Abdomen soft, non-tender, nondistended. + BS. MUSCULOSKELETAL: Extremities without cyanosis, +1 edema right wrist. Right wrist ex-fix in place. Pin sites clean. MAEW. NEUROLOGICAL: Awake and alert. Normal speech. A/P Problem List: (1) Multiple fractures of ribs of left side (2) Open fracture of left distal humerus (3) Open fracture of right distal humerus (4) Open fracture of right patella (5) Closed fracture of left tibial plateau (6) Displaced fracture of right femoral neck Assessment and Plan INJURIES: Questionable fx of RIGHT orbit rim C7 transverse process fx RIGHT lung contusion Open RIGHT radius/ulna fx LEFT humerus fx RIGHT hip fx RIGHT ilium fx RIGHT femoral neck fx OPEN RIGHT patellar fx LEFT avulsion fx of knee (w/ multiple ligament injury) LEFT tibial plateau fx PROCEDURES: 10/21: ORIF RIGHT femur; ORIF RIGHT hip; I&D RIGHT patella w/ wound vac; I&D LEFT humerus w/ closed reduction; RIGHT wrist closed reduction. 10/25: ORIF left distal humerus. ORIF right radius and ulna with ex-fix placement. 10/29: LEFT knee arthroscopic cruciate ligament repair. LEFT knee open lateral collateral ligament repair. ORIF LEFT knee plateau fx. LEFT knee exploration of peroneal nerve (with discovery of complete rupture of nerve) Diet: Regular, tolerating Pulm: IS, acapella, EZpap. nebs. Encouraged patient use Pain: Percocet. Neurontin. (Xanax) Robaxin. Activity: OOB to stretcher chair. PT and OT evaluating. (TERRY SHAFFER; NWDevin PLASENCIA) GI: Pepcid Bowel: Hanna-colace. Lactulose and Dulcolax [place] PRN. LBM: 11/02. Added daily Miralax. DVT: SCD's. Lovenox 30 BID - RIGHT radius/ulna fx - LEFT humerus fx - RIGHT hip fx - RIGHT ilium fx - RIGHT femoral neck fx - OPEN RIGHT patellar fx - LEFT avulsion fx of knee (w/ multiple ligament injury) - LEFT tibial plateau fx Orthopedics following 10/21: ORIF RIGHT femur; ORIF RIGHT hip; I&D RIGHT patella w/ wound vac; I&D LEFT humerus w/ closed reduction; RIGHT wrist closed reduction. 10/25: ORIF left distal humerus. ORIF right radius and ulna with ex-fix placement. 10/29: LEFT knee arthroscopic cruciate ligament repair. LEFT knee open lateral collateral ligament repair. ORIF LEFT knee plateau fx. LEFT knee exploration of peroneal nerve (with discovery of complete rupture of nerve) Hand surgery has been consulted -plan is for nerve repair. Tentative plan for 11/10 Pain control Nonweightbearing status to all 4 extremities. PT and OT ordered - encourage out of bed - to stretcher chair Rehab placement Lovenox - Right lung contusion, Rib fracture Nonoperative management Aggressive pulmonary toileting Pain control OOB Plan of care discussed with patient and family at bedside. Case management consulted for assist with discharge planning. Denied rehabilitation placement by [facility] due to inability to bear weight on any extremity. [facility] declined patient stating he is not sick enough to go there. Patient may need to transfer to [facility] in the interim. The exam, history, and the medical decision-making described in the above note were completed with the assistance of the mid-level provider. I reviewed and agree with the findings presented. I attest that I had a [id number] encounter with the patient on the same day, and personally performed and documented my assessment and findings in the medical record. Problem Qualifiers (1) Multiple fractures of ribs of left side: Qualified Code: S22.42XA - Closed fracture of multiple ribs of left side, initial encounter (2) Open fracture of left distal humerus: Qualified Code: S42.492B - Other open displaced fracture of distal end of left humerus, initial encounter (3) Open fracture of right distal humerus: Qualified Code: S42.491B - Other open displaced fracture of distal end of right humerus, initial encounter (4) Open fracture of right patella: (5) Closed fracture of left tibial plateau: Qualified Code: S82.142A - Closed fracture of left tibial plateau, initial encounter (6) Displaced fracture of right femoral neck: Qualified Code: S72.001A - Displaced fracture of right femoral neck, closed, initial encounter Angel Partida Nov 05, 2016 13:36 David Gee MD Nov 06, 2016 14:06
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
[2016-11-05 16:00] VITALS: BP 142/79; PULSE 103; RESP 16; TEMP 98; O2SAT 98
[2016-11-05 20:20] VITALS: BP 145/85; PULSE 108; RESP 17; TEMP 98; O2SAT 98
[2016-11-06 00:20] VITALS: BP 133/69; PULSE 101; RESP 17; TEMP 99.1; O2SAT 98
[2016-11-06] MEDS: GENTAMICIN/SOD CHL 80 MG/100 ML IV SCH ×3 (02:10→17:30)
[2016-11-06] MEDS: ACETAMINOPHEN/HYDROcodone 325 MG/10 MG TAB PO PRN ×3 (02:10→18:08)
[2016-11-06] MEDS: METHOCARBAMOL 500 MG TAB PO SCH ×3 (06:26→22:00)
[2016-11-06 08:00] VITALS: BP 126/70; PULSE 91; RESP 18; TEMP 98.2; O2SAT 99
[2016-11-06] MEDS: GABAPENTIN 300 MG CAP PO SCH ×3 (09:08→17:29)
[2016-11-06] MEDS: LACTULOSE SYRUP 20 GM/30 ML CUP PO PRN (09:08)
[2016-11-06] MEDS: POLYETHYLENE GLYCOL 17 GM PKG PO SCH (09:08)
[2016-11-06] MEDS: FAMOTIDINE 20 MG TAB PO SCH ×2 (09:08→22:37)
[2016-11-06] MEDS: DOCUSATE SODIUM 50 MG/SENNA 8.6 MG TAB PO SCH ×2 (09:08→22:37)
[2016-11-06 12:00] VITALS: BP 140/85; PULSE 95; RESP 18; TEMP 96.2; O2SAT 99
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
--- NOTE | 2016-11-06 13:44 | HHI.PR ---
Subjective Subjective Notes Complains of left-sided rib pain overnight Denies shortness of breath Objective Vitals/I&O Vital Signs Date Time Temp Pulse Resp B/P Pulse Ox O2 Delivery O2 Flow Rate FiO2 11/06/16 12:00 96.2 95 18 140/85 99 11/02/16 20:00 Room Air Radiology Last Impressions Knee X-Ray 10/29/16 0000 Signed Impressions: Service Date/Time: Saturday, October 29, 2016 11:55 - CONCLUSION: Fluoroscopic images demonstrates temporary probe along the lateral soft tissues adjacent to the fibula. Other images during repair of the lateral tibial plateau. Adolfo Savage MD Abdomen X-Ray 10/29/16 0000 Signed Impressions: Service Date/Time: Saturday, October 29, 2016 08:53 - CONCLUSION: 1. Diffuse ileus. No free air identified. Bk Martin MD Chest X-Ray 10/26/16 0600 Signed Impressions: Service Date/Time: Wednesday, October 26, 2016 04:52 - CONCLUSION: No appreciable change. Lobo Maynard MD Radius/Ulna X-Ray 10/25/16 0000 Signed Impressions: Service Date/Time: Tuesday, October 25, 2016 12:56 - CONCLUSION: Status post op in rigid internal fixation. Nelson Hill MD Humerus X-Ray 10/25/16 0000 Signed Impressions: Service Date/Time: Tuesday, October 25, 2016 11:34 - CONCLUSION: Status post open rigid internal fixation. Nelson Hill MD Ankle X-Ray 10/24/16 0000 Signed Impressions: Service Date/Time: Monday, October 24, 2016 10:36 - CONCLUSION: Soft tissue swelling. Laron Kuo MD Knee MRI 10/23/16 0000 Signed Impressions: Service Date/Time: Sunday, October 23, 2016 16:05 - CONCLUSION: 1. Disruption of the lateral ligamentous structures including the fibular collateral ligament , the biceps femoris musculotendinous junction and the attachment site at the iliotibial band causing widening at the lateral joint space. 2. Anterior cruciate ligament tear at its femoral attachment site. 3. Increased signal within the proximal aspect of the posterior cruciate ligament. Some degree of partial tearing at this structure cannot be excluded. 4. Fairly extensive bone bruising and fracturing involving the proximal tibia, proximal fibula and femoral condyles as described above. 5. Moderate effusion. Rico Pena MD Wrist X-Ray 10/22/16 0000 Signed Impressions: Service Date/Time: October 21:00 - CONCLUSION: 1. Fractures of the distal radius and ulna as above with some foreshortening of the radius. Bk Martin MD Hip X-Ray 10/22/16 0000 Signed Impressions: Service Date/Time: October 21:00 - CONCLUSION: 1. Lag screws traversing proximal right femur fracture. Bk Martin MD Femur X-Ray 10/22/16 0000 Signed Impressions: Service Date/Time: October 21:00 - CONCLUSION: 1. Fixation distal right femur. Bk Martin MD Maxillofacial CT 10/21/161821 Signed Impressions: Service Date/Time: October 18:33 - CONCLUSION: 1. Mucoperiosteal thickening in the right frontal sinus and right maxillary sinus. 2. I cannot entirely exclude a nondisplaced fracture of the right infraorbital rim. Mikel Ricks MD FACR Head CT 10/21/161821 Signed Impressions: Service Date/Time: October 18:33 - CONCLUSION: Negative for acute process.. Mikel Ricks MD FACR Chest CT 10/21/161821 Signed Impressions: Service Date/Time: October 18:43 - CONCLUSION: 1. Contusion laterally in the right lung. 2. Air in the axilla on the left. 3. I cannot confirm a rib fracture by CT. Mikel Ricks MD FACR Cervical Spine CT 10/21/161821 Signed Impressions: Service Date/Time: October 18:33 - CONCLUSION: Transverse process fracture C7 on the right, involving just the tip of the transverse process. Mikel Ricks MD FACR Abdomen/Pelvis CT 10/21/161821 Signed Impressions: Service Date/Time: October 18:43 - CONCLUSION: 1. Contusion in the right lung base. 2. Right hip fracture. 3. Right ilium fracture. 4. Minimal induration about the right superior pubic ramus. 5. There is no evidence for a solid organ injury. Mikel Ricks MD FACR Tibia/Fibula X-Ray 10/21/16 0000 Signed Impressions: Service Date/Time: October 18:04 - CONCLUSION: Plateau fracture. Mikel Ricks MD FACR Pelvis X-Ray 10/21/16 0000 Signed Impressions: Service Date/Time: October 18:04 - CONCLUSION: 1. Right femoral neck fracture. 2. Fracture of the right ilium. Mikel Ricks MD FACR Aorta w/Runoff CTA 10/21/16 0000 Signed Impressions: Service Date/Time: October 20:02 - CONCLUSION: Significant fracture at the junction of the RIGHT SFA and popliteal artery at the adductor hiatus with moderate contusion. Vessel is patent.. Mikel Ricks MD FACR Narrative Exam GENERAL: 26-year-old well-nourished, well developed male sitting up in bed. SKIN: Warm and dry. HEAD: Normocephalic. ENT: No nasal bleeding or discharge. Mucous membranes pink and moist. NECK: Trachea midline. No JVD. CARDIOVASCULAR: Regular rate and rhythm. RESPIRATORY: No accessory muscle use. Lungs clear to auscultation. Breath sounds equal bilaterally. GASTROINTESTINAL: Abdomen soft, non-tender, nondistended. + BS. MUSCULOSKELETAL: Extremities without cyanosis, +1 edema right wrist. Right wrist ex-fix in place. Pin sites clean. MAEW. NEUROLOGICAL: Awake and alert. Normal speech. A/P Problem List: (1) Multiple fractures of ribs of left side (2) Open fracture of left distal humerus (3) Open fracture of right distal humerus (4) Open fracture of right patella (5) Closed fracture of left tibial plateau (6) Displaced fracture of right femoral neck Assessment and Plan INJURIES: Questionable fx of RIGHT orbit rim C7 transverse process fx RIGHT lung contusion Open RIGHT radius/ulna fx LEFT humerus fx RIGHT hip fx RIGHT ilium fx RIGHT femoral neck fx OPEN RIGHT patellar fx LEFT avulsion fx of knee (w/ multiple ligament injury) LEFT tibial plateau fx PROCEDURES: 10/21: ORIF RIGHT femur; ORIF RIGHT hip; I&D RIGHT patella w/ wound vac; I&D LEFT humerus w/ closed reduction; RIGHT wrist closed reduction. 10/25: ORIF left distal humerus. ORIF right radius and ulna with ex-fix placement. 10/29: LEFT knee arthroscopic cruciate ligament repair. LEFT knee open lateral collateral ligament repair. ORIF LEFT knee plateau fx. LEFT knee exploration of peroneal nerve (with discovery of complete rupture of nerve) Diet: Regular, tolerating Pulm: IS, acapella, EZpap. nebs. Encouraged patient use Pain: Percocet. Neurontin. (Xanax) Robaxin. Activity: OOB to stretcher chair. PT and OT evaluating. (NWB BUE; NWB BLE) GI: Pepcid Bowel: Hanna-colace. Lactulose, Miralax and Dulcolax IN PRN. LBM: 11/02. DVT: SCD's. Lovenox 30 BID - RIGHT radius/ulna fx - LEFT humerus fx - RIGHT hip fx - RIGHT ilium fx - RIGHT femoral neck fx - OPEN RIGHT patellar fx - LEFT avulsion fx of knee (w/ multiple ligament injury) - LEFT tibial plateau fx Orthopedics following 10/21: ORIF RIGHT femur; ORIF RIGHT hip; I&D RIGHT patella w/ wound vac; I&D LEFT humerus w/ closed reduction; RIGHT wrist closed reduction. 10/25: ORIF left distal humerus. ORIF right radius and ulna with ex-fix placement. 10/29: LEFT knee arthroscopic cruciate ligament repair. LEFT knee open lateral collateral ligament repair. ORIF LEFT knee plateau fx. LEFT knee exploration of peroneal nerve (with discovery of complete rupture of nerve) Hand surgery has been consulted -plan is for nerve repair. Tentative plan for 11/10 Pain control Nonweightbearing status to all 4 extremities. PT and OT ordered - encourage out of bed - to wheelchair daily Wave bed to prevent skin breakdown Rehab placement Lovenox - Right lung contusion, Rib fracture Nonoperative management Aggressive pulmonary toileting Pain control OOB Plan of care discussed with patient and family at bedside. Case management consulted for assist with discharge planning. Denied rehabilitation placement by [facility] due to inability to bear weight on any extremity. [facility] declined patient stating he is not sick enough to go there. Patient may need to transfer to [facility] in the interim. The exam, history, and the medical decision-making described in the above note were completed with the assistance of the mid-level provider. I reviewed and agree with the findings presented. I attest that I had a [id number] encounter with the patient on the same day, and personally performed and documented my assessment and findings in the medical record. Problem Qualifiers (1) Multiple fractures of ribs of left side: Qualified Code: S22.42XA - Closed fracture of multiple ribs of left side, initial encounter (2) Open fracture of left distal humerus: Qualified Code: S42.492B - Other open displaced fracture of distal end of left humerus, initial encounter (3) Open fracture of right distal humerus: Qualified Code: S42.491B - Other open displaced fracture of distal end of right humerus, initial encounter (4) Open fracture of right patella: (5) Closed fracture of left tibial plateau: Qualified Code: S82.142A - Closed fracture of left tibial plateau, initial encounter (6) Displaced fracture of right femoral neck: Qualified Code: S72.001A - Displaced fracture of right femoral neck, closed, initial encounter Angel Partida Nov 06, 2016 13:44 David Gee MD Nov 06, 2016 14:03
[2016-11-06 16:00] VITALS: BP 144/78; PULSE 89; RESP 18; TEMP 97.6; O2SAT 100
[2016-11-06] MEDS ORDERED: MAGNESIUM CITRATE SOLN 300 ML BTL PO ONE (19:15)
[2016-11-06 20:45] VITALS: BP 147/87; PULSE 101; RESP 17; TEMP 100; O2SAT 98
[2016-11-06] MEDS: ENOXAPARIN SODIUM 30 MG/0.3 ML SYRINGE SQ SCH (22:35)
[2016-11-07 00:05] VITALS: BP 119/76; PULSE 90; RESP 17; TEMP 98.3; O2SAT 99
[2016-11-07] MEDS: ACETAMINOPHEN/HYDROcodone 325 MG/10 MG TAB PO PRN ×4 (01:58→22:22)
[2016-11-07] MEDS: GENTAMICIN/SOD CHL 80 MG/100 ML IV SCH ×2 (03:04→09:38)
[2016-11-07 03:45] VITALS: BP 129/68; PULSE 90; RESP 17; TEMP 98.2; O2SAT 97
[2016-11-07] MEDS: METHOCARBAMOL 500 MG TAB PO SCH ×3 (05:17→22:21)
[2016-11-07 08:00] VITALS: BP 141/79; PULSE 89; RESP 18; TEMP 96.9; O2SAT 99
[2016-11-07] MEDS: GABAPENTIN 300 MG CAP PO SCH ×3 (09:36→17:38)
[2016-11-07] MEDS: DOCUSATE SODIUM 50 MG/SENNA 8.6 MG TAB PO SCH ×2 (09:36→22:23)
[2016-11-07] MEDS: POLYETHYLENE GLYCOL 17 GM PKG PO SCH (09:36)
[2016-11-07] MEDS: FAMOTIDINE 20 MG TAB PO SCH ×2 (09:36→22:23)
[2016-11-07] MEDS: ENOXAPARIN SODIUM 30 MG/0.3 ML SYRINGE SQ SCH ×2 (09:38→22:23)
[2016-11-07 12:01] VITALS: BP 133/90; PULSE 93; RESP 18; TEMP 97.2; O2SAT 100
[2016-11-07] MEDS: BISACODYL 10 MG SUPP RECTAL PRN (13:46)
[2016-11-07 16:00] VITALS: BP 125/80; PULSE 89; RESP 18; TEMP 98.2; O2SAT 100
--- NOTE | 2016-11-07 16:26 | HHI.PR ---
Subjective Subjective Notes No complaints Reports he has been OOB to the wheelchair daily Objective Vitals/I&O Vital Signs Date Time Temp Pulse Resp B/P Pulse Ox O2 Delivery O2 Flow Rate FiO2 11/07/16 12:01 97.2 93 18 133/90 100 11/07/16 09:30 Room Air Radiology Last Impressions Knee X-Ray 10/29/16 0000 Signed Impressions: Service Date/Time: Saturday, October 29, 2016 11:55 - CONCLUSION: Fluoroscopic images demonstrates temporary probe along the lateral soft tissues adjacent to the fibula. Other images during repair of the lateral tibial plateau. Adolfo Savage MD Abdomen X-Ray 10/29/16 0000 Signed Impressions: Service Date/Time: Saturday, October 29, 2016 08:53 - CONCLUSION: 1. Diffuse ileus. No free air identified. Bk Martin MD Chest X-Ray 10/26/16 0600 Signed Impressions: Service Date/Time: Wednesday, October 26, 2016 04:52 - CONCLUSION: No appreciable change. KEvette Maynard MD Radius/Ulna X-Ray 10/25/16 0000 Signed Impressions: Service Date/Time: Tuesday, October 25, 2016 12:56 - CONCLUSION: Status post op in rigid internal fixation. Nelson Hill MD Humerus X-Ray 10/25/16 0000 Signed Impressions: Service Date/Time: Tuesday, October 25, 2016 11:34 - CONCLUSION: Status post open rigid internal fixation. Nelson Hill MD Ankle X-Ray 10/24/16 0000 Signed Impressions: Service Date/Time: Monday, October 24, 2016 10:36 - CONCLUSION: Soft tissue swelling. Laron Kuo MD Knee MRI 10/23/16 0000 Signed Impressions: Service Date/Time: Sunday, October 23, 2016 16:05 - CONCLUSION: 1. Disruption of the lateral ligamentous structures including the fibular collateral ligament , the biceps femoris musculotendinous junction and the attachment site at the iliotibial band causing widening at the lateral joint space. 2. Anterior cruciate ligament tear at its femoral attachment site. 3. Increased signal within the proximal aspect of the posterior cruciate ligament. Some degree of partial tearing at this structure cannot be excluded. 4. Fairly extensive bone bruising and fracturing involving the proximal tibia, proximal fibula and femoral condyles as described above. 5. Moderate effusion. Rico Pena MD Wrist X-Ray 10/22/16 0000 Signed Impressions: Service Date/Time: October 21:00 - CONCLUSION: 1. Fractures of the distal radius and ulna as above with some foreshortening of the radius. Bk Martin MD Hip X-Ray 10/22/16 0000 Signed Impressions: Service Date/Time: October 21:00 - CONCLUSION: 1. Lag screws traversing proximal right femur fracture. Bk Martin MD Femur X-Ray 10/22/16 Signed Impressions: Service Date/Time: October 21:00 - CONCLUSION: 1. Fixation distal right femur. Bk Martin MD Maxillofacial CT 10/21/161821 Signed Impressions: Service Date/Time: October 18:33 - CONCLUSION: 1. Mucoperiosteal thickening in the right frontal sinus and right maxillary sinus. 2. I cannot entirely exclude a nondisplaced fracture of the right infraorbital rim. Mikel Ricks MD FACR Head CT 10/21/161821 Signed Impressions: Service Date/Time: October 18:33 - CONCLUSION: Negative for acute process.. Mikel Ricks MD FACR Chest CT 10/21/161821 Signed Impressions: Service Date/Time: October 18:43 - CONCLUSION: 1. Contusion laterally in the right lung. 2. Air in the axilla on the left. 3. I cannot confirm a rib fracture by CT. Mikel Ricks MD FACR Cervical Spine CT 10/21/161821 Signed Impressions: Service Date/Time: October 18:33 - CONCLUSION: Transverse process fracture C7 on the right, involving just the tip of the transverse process. Mikel Ricks MD FACR Abdomen/Pelvis CT 10/21/161821 Signed Impressions: Service Date/Time: October 18:43 - CONCLUSION: 1. Contusion in the right lung base. 2. Right hip fracture. 3. Right ilium fracture. 4. Minimal induration about the right superior pubic ramus. 5. There is no evidence for a solid organ injury. Mikel Ricks MD FACR Tibia/Fibula X-Ray 10/21/16 0000 Signed Impressions: Service Date/Time: October 18:04 - CONCLUSION: Plateau fracture. Mikel Ricks MD FACR Pelvis X-Ray 10/21/16 0000 Signed Impressions: Service Date/Time: October 18:04 - CONCLUSION: 1. Right femoral neck fracture. 2. Fracture of the right ilium. Mikel Ricks MD FACR Aorta w/Runoff CTA 10/21/16 0000 Signed Impressions: Service Date/Time: October 20:02 - CONCLUSION: Significant fracture at the junction of the RIGHT SFA and popliteal artery at the adductor hiatus with moderate contusion. Vessel is patent.. Mikel Ricks MD FACR Narrative Exam GENERAL: 26-year-old well-nourished, well developed male sitting up in bed. SKIN: Warm and dry. HEAD: Normocephalic. ENT: No nasal bleeding or discharge. Mucous membranes pink and moist. NECK: Trachea midline. No JVD. CARDIOVASCULAR: Regular rate and rhythm. RESPIRATORY: No accessory muscle use. Lungs clear to auscultation. Breath sounds equal bilaterally. GASTROINTESTINAL: Abdomen soft, non-tender, nondistended. + BS. MUSCULOSKELETAL: Extremities without cyanosis, +1 edema right wrist. Right wrist ex-fix in place. Pin sites clean. MAEW. NEUROLOGICAL: Awake and alert. Normal speech. A/P Problem List: (1) Multiple fractures of ribs of left side (2) Open fracture of left distal humerus (3) Open fracture of right distal humerus (4) Open fracture of right patella (5) Closed fracture of left tibial plateau (6) Displaced fracture of right femoral neck Assessment and Plan INJURIES: Questionable fx of RIGHT orbit rim C7 transverse process fx RIGHT lung contusion Open RIGHT radius/ulna fx LEFT humerus fx RIGHT hip fx RIGHT ilium fx RIGHT femoral neck fx OPEN RIGHT patellar fx LEFT avulsion fx of knee (w/ multiple ligament injury) LEFT tibial plateau fx PROCEDURES: 10/21: ORIF RIGHT femur; ORIF RIGHT hip; I&D RIGHT patella w/ wound vac; I&D LEFT humerus w/ closed reduction; RIGHT wrist closed reduction. 10/25: ORIF left distal humerus. ORIF right radius and ulna with ex-fix placement. 10/29: LEFT knee arthroscopic cruciate ligament repair. LEFT knee open lateral collateral ligament repair. ORIF LEFT knee plateau fx. LEFT knee exploration of peroneal nerve (with discovery of complete rupture of nerve) Diet: Regular, tolerating Pulm: IS, acapella, EZpap. nebs. Encouraged patient use Pain: Percocet. Neurontin. (Xanax) Robaxin. Activity: OOB to stretcher chair. PT and OT evaluating. (NWB BUE; NWB BLE) GI: Pepcid Bowel: Hanna-colace. Lactulose, Miralax and Dulcolax MT PRN. Mag citrate x1 effective. LBM: 11/07 DVT: SCD's. Lovenox 30 BID - RIGHT radius/ulna fx - LEFT humerus fx - RIGHT hip fx - RIGHT ilium fx - RIGHT femoral neck fx - OPEN RIGHT patellar fx - LEFT avulsion fx of knee (w/ multiple ligament injury) - LEFT tibial plateau fx Orthopedics following 10/21: ORIF RIGHT femur; ORIF RIGHT hip; I&D RIGHT patella w/ wound vac; I&D LEFT humerus w/ closed reduction; RIGHT wrist closed reduction. 10/25: ORIF left distal humerus. ORIF right radius and ulna with ex-fix placement. 10/29: LEFT knee arthroscopic cruciate ligament repair. LEFT knee open lateral collateral ligament repair. ORIF LEFT knee plateau fx. LEFT knee exploration of peroneal nerve (with discovery of complete rupture of nerve) Hand surgery has been consulted -plan is for nerve repair. Tentative plan for 11/10 Pain control Nonweightbearing status to all 4 extremities. PT and OT ordered - encourage out of bed - to wheelchair daily Wave bed to prevent skin breakdown IV Ancef until 11/12 Rehab placement Lovenox - Right lung contusion, Rib fracture Nonoperative management Aggressive pulmonary toileting Pain control OOB Plan of care discussed with patient and family at bedside. Case management consulted for assist with discharge planning. Denied rehabilitation placement by [facility] due to inability to bear weight on any extremity. [facility] declined patient stating he is not sick enough to go there. Patient may need to transfer to [facility] in the interim. Attending Statement The exam, history, and the medical decision-making described in the above note were completed with the assistance of the mid-level provider. I reviewed and agree with the findings presented. I attest that I had a [id number] encounter with the patient on the same day, and personally performed and documented my assessment and findings in the medical record. Problem Qualifiers (1) Multiple fractures of ribs of left side: Qualified Code: S22.42XA - Closed fracture of multiple ribs of left side, initial encounter (2) Open fracture of left distal humerus: Qualified Code: S42.492B - Other open displaced fracture of distal end of left humerus, initial encounter (3) Open fracture of right distal humerus: Qualified Code: S42.491B - Other open displaced fracture of distal end of right humerus, initial encounter (4) Open fracture of right patella: (5) Closed fracture of left tibial plateau: Qualified Code: S82.142A - Closed fracture of left tibial plateau, initial encounter (6) Displaced fracture of right femoral neck: Qualified Code: S72.001A - Displaced fracture of right femoral neck, closed, initial encounter Angel Partida Nov 07, 2016 16:26 Darío James MD Nov 08, 2016 15:12
[2016-11-07 19:35] VITALS: BP 119/66; PULSE 86; RESP 16; TEMP 98.6; O2SAT 100
[2016-11-07] MEDS: LACTOBACILLUS ACIDOPHILUS TAB PO SCH (22:22)
[2016-11-08 01:05] VITALS: BP 126/69; PULSE 82; RESP 16; TEMP 97.8; O2SAT 97
[2016-11-08] MEDS: METHOCARBAMOL 500 MG TAB PO SCH ×3 (06:00→21:58)
--- NOTE | 2016-11-08 06:35 | PD.ORT.PN ---
Subjective Subjective Remarks POD 14 s/p ORIF left humerus fx POD 14 s/p ORIF with application of exfix right distal radius and ulna fx s/p Right Femur IMN with I&D open wound s/p left knee ligamentous injuries s/p reconstruction s/p left hand fx s/p nerve injury right leg doing well. pain controlled. Objective Vitals Vital Signs Date Time Temp Pulse Resp B/P Pulse Ox O2 Delivery O2 Flow Rate FiO2 11/08/16 01:05 97.8 82 16 126/69 97 11/07/16 19:35 98.6 86 16 119/66 100 11/07/16 16:00 98.2 89 18 125/80 100 11/07/16 12:01 97.2 93 18 133/90 100 11/07/16 09:30 Room Air 11/07/16 08:00 96.9 89 18 141/79 99 I/O 11/07/16 11/07/16 11/07/16 11/08/16 11/08/16 11/08/16 07:00 15:00 23:00 07:00 15:00 23:00 Intake Total 240 ml 960 ml 240 ml Output Total 1250 ml 1400 ml 800 ml Balance -1010 ml -440 ml -560 ml Intake Oral 240 ml 960 ml 240 ml Output Urine Total 1250 ml 1400 ml 800 ml # Bowel Movements 0 1 1 Imaging Last 24 hours Impressions Chest X-Ray 10/23/16 0600 Signed Impressions: Service Date/Time: Sunday, October 23, 2016 05:43 - CONCLUSION: 1. Right central line tip in left subclavian vein, unchanged. Interval extubation. Mild atelectasis at the bases. Bk Martin MD Objective Remarks NAD RUE -external fixator and dressing in place. swelling in fingers. NVI and sensation intact. cap refill. incisions visualized. clean and dry. no drainage. healing well. LUE - dressing in place. swelling in fingers. NVI and sensation intact. cap refill. incision visualized. clean and dry. intact. no drainage. healing well. RLE - wound and incisions CDI. NVI and sensation intact. LLE - Knee ROM brace on. Dressings dry. mild swelling around knee. sensation intact. no dorsiflexion. ongoing footdrop on left side, brace on. able to move distal digits successfully. Assessment & Plan Assessment and Plan POD #7 Open Repair of Left Hamstring Tendon, Open Repair of Left Lateral Collateral Ligament, Left Knee Arthroscopic ACL Repair, Open Repair of Left Lateral Tibial Fracture POD #7 I&D and ORIF R supracondylar femur fx and R patella fx POD #14 ORIF left humerus and right distal radius with application right wrist exfix POD #13 Application of wound vac R knee, ORIF R fem neck fx, I&D with closed reduction Left Leg Foot Drop NWB BLE and BUE ok to use right elbow for pushing off. ok to DC sling PRN right arm. Daily dressing changes to right and left arms pin care BID right wrist Active assisted ROM ok to RLE LLE - PODUS boot for foot drop, ROM brace. med management Orthopedically cleared for discharge to rehabilitation from Dr. De Leon standpoint. Lower extremities managed by Dr. Brown Discharge plan DC of sutures/radha of right wrist and left arm today Scout Tubbs Nov 08, 2016 06:35
[2016-11-08 07:21] VITALS: BP 123/71; PULSE 86; RESP 16; TEMP 98.2; O2SAT 98
[2016-11-08] MEDS: LACTOBACILLUS ACIDOPHILUS TAB PO SCH ×2 (09:41→21:57)
[2016-11-08] MEDS: GABAPENTIN 300 MG CAP PO SCH ×3 (09:41→18:30)
[2016-11-08] MEDS: POLYETHYLENE GLYCOL 17 GM PKG PO SCH (09:41)
[2016-11-08] MEDS: ENOXAPARIN SODIUM 30 MG/0.3 ML SYRINGE SQ SCH ×2 (09:42→21:58)
[2016-11-08] MEDS: FAMOTIDINE 20 MG TAB PO SCH ×2 (09:42→21:58)
[2016-11-08] MEDS: ACETAMINOPHEN/HYDROcodone 325 MG/10 MG TAB PO PRN ×2 (09:43→16:05)
[2016-11-08] MEDS: DOCUSATE SODIUM 50 MG/SENNA 8.6 MG TAB PO SCH ×2 (10:43→21:58)
--- NOTE | 2016-11-08 11:01 | RADRPT ---
EXAM DATE/TIME: 11/08/2016 10:04 [facility] COMPARISON: WRIST RIGHT LIMITED(AP & LAT), October 21, 2016, 21:00. INDICATIONS : Evaluate right wrist fracture. MEDICAL HISTORY : None. SURGICAL HISTORY : ORIF right wrist. ENCOUNTER: Subsequent ACUITY: 3 weeks PAIN SCORE: 5/10 LOCATION: Right Wrist FINDINGS: Plate with screws is seen bridging the fracture of the distal radius and ulna. Alignment is anatomic across the radial carpal joint. External fixator is evident. CONCLUSION: Anatomic alignment. Mikel Ricks MD FACR on November 08, 2016 at 10:44 Board Certified Radiologist. This report was verified electronically.
--- NOTE | 2016-11-08 11:02 | RADRPT ---
EXAM DATE/TIME: 11/08/2016 10:12 [facility] COMPARISON: HUMERUS LEFT (MIN 2VWS), October 25, 2016, 11:34. INDICATIONS : Evaluate left humerus fracture. MEDICAL HISTORY : None. SURGICAL HISTORY : ORIF left humerus. ENCOUNTER: Subsequent ACUITY: 3 weeks PAIN SCORE: 5/10 LOCATION: Left Humerus FINDINGS: Plate with screws is seen bridging the fracture of the proximal humerus. Alignment is anatomic. CONCLUSION: Anatomic alignment across the proximal humeral fracture. Mikel Ricks MD FACR on November 08, 2016 at 10:48 Board Certified Radiologist. This report was verified electronically.
[2016-11-08 12:15] VITALS: BP 140/82; PULSE 96; RESP 16; TEMP 97.5; O2SAT 98
--- NOTE | 2016-11-08 13:32 | HHI.PR ---
Subjective Subjective Notes The exam, history, and the medical decision-making described in the above note were completed with the assistance of the mid-level provider. I reviewed and agree with the findings presented. I attest that I had a [id number] encounter with the patient on the same day, and personally performed and documented my assessment and findings in the medical record.No complaints Objective Vitals/I&O Vital Signs Date Time Temp Pulse Resp B/P Pulse Ox O2 Delivery O2 Flow Rate FiO2 11/08/16 07:21 98.2 86 16 123/71 98 11/07/16 09:30 Room Air Radiology Last Impressions Knee X-Ray 10/29/16 0000 Signed Impressions: Service Date/Time: Saturday, October 29, 2016 11:55 - CONCLUSION: Fluoroscopic images demonstrates temporary probe along the lateral soft tissues adjacent to the fibula. Other images during repair of the lateral tibial plateau. Adolfo Savage MD Abdomen X-Ray 10/29/16 0000 Signed Impressions: Service Date/Time: Saturday, October 29, 2016 08:53 - CONCLUSION: 1. Diffuse ileus. No free air identified. Bk Martin MD Chest X-Ray 10/26/16 0600 Signed Impressions: Service Date/Time: Wednesday, October 26, 2016 04:52 - CONCLUSION: No appreciable change. Lobo Maynard MD Radius/Ulna X-Ray 10/25/16 0000 Signed Impressions: Service Date/Time: Tuesday, October 25, 2016 12:56 - CONCLUSION: Status post op in rigid internal fixation. Nelson Hill MD Humerus X-Ray 10/25/16 0000 Signed Impressions: Service Date/Time: Tuesday, October 25, 2016 11:34 - CONCLUSION: Status post open rigid internal fixation. Nelson Hill MD Ankle X-Ray 10/24/16 0000 Signed Impressions: Service Date/Time: Monday, October 24, 2016 10:36 - CONCLUSION: Soft tissue swelling. Laron Kuo MD Knee MRI 10/23/16 0000 Signed Impressions: Service Date/Time: Sunday, October 23, 2016 16:05 - CONCLUSION: 1. Disruption of the lateral ligamentous structures including the fibular collateral ligament , the biceps femoris musculotendinous junction and the attachment site at the iliotibial band causing widening at the lateral joint space. 2. Anterior cruciate ligament tear at its femoral attachment site. 3. Increased signal within the proximal aspect of the posterior cruciate ligament. Some degree of partial tearing at this structure cannot be excluded. 4. Fairly extensive bone bruising and fracturing involving the proximal tibia, proximal fibula and femoral condyles as described above. 5. Moderate effusion. Rico Pena MD Wrist X-Ray 10/22/16 0000 Signed Impressions: Service Date/Time: October 21:00 - CONCLUSION: 1. Fractures of the distal radius and ulna as above with some foreshortening of the radius. Bk Martin MD Hip X-Ray 10/22/16 0000 Signed Impressions: Service Date/Time: October 21:00 - CONCLUSION: 1. Lag screws traversing proximal right femur fracture. Bk Martin MD Femur X-Ray 10/22/16 0000 Signed Impressions: Service Date/Time: October 21:00 - CONCLUSION: 1. Fixation distal right femur. Bk Martin MD Maxillofacial CT 10/21/161821 Signed Impressions: Service Date/Time: October 18:33 - CONCLUSION: 1. Mucoperiosteal thickening in the right frontal sinus and right maxillary sinus. 2. I cannot entirely exclude a nondisplaced fracture of the right infraorbital rim. Mikel Ricks MD FACR Head CT 10/21/161821 Signed Impressions: Service Date/Time: October 18:33 - CONCLUSION: Negative for acute process.. Mikel Ricks MD FACR Chest CT 10/21/161821 Signed Impressions: Service Date/Time: October 18:43 - CONCLUSION: 1. Contusion laterally in the right lung. 2. Air in the axilla on the left. 3. I cannot confirm a rib fracture by CT. Mikel Ricks MD FACR Cervical Spine CT 10/21/161821 Signed Impressions: Service Date/Time: October 18:33 - CONCLUSION: Transverse process fracture C7 on the right, involving just the tip of the transverse process. Mikel Ricks MD FACR Abdomen/Pelvis CT 10/21/16 1822 Signed Impressions: Service Date/Time: October 18:43 - CONCLUSION: 1. Contusion in the right lung base. 2. Right hip fracture. 3. Right ilium fracture. 4. Minimal induration about the right superior pubic ramus. 5. There is no evidence for a solid organ injury. Mikel Ricks MD FACR Tibia/Fibula X-Ray 10/21/16 0000 Signed Impressions: Service Date/Time: , October 21, 2016 18:04 - CONCLUSION: Plateau fracture. Mikel Ricks MD FACR Pelvis X-Ray 10/21/16 0000 Signed Impressions: Service Date/Time: October 18:04 - CONCLUSION: 1. Right femoral neck fracture. 2. Fracture of the right ilium. Mikel Ricks MD FACR Aorta w/Runoff CTA 10/21/16 0000 Signed Impressions: Service Date/Time: October 20:02 - CONCLUSION: Significant fracture at the junction of the RIGHT SFA and popliteal artery at the adductor hiatus with moderate contusion. Vessel is patent.. Mikel Ricks MD FACR Narrative Exam GENERAL: 26-year-old well-nourished, well developed male sitting up in bed. SKIN: Warm and dry. HEAD: Normocephalic. ENT: No nasal bleeding or discharge. Mucous membranes pink and moist. NECK: Trachea midline. No JVD. CARDIOVASCULAR: Regular rate and rhythm. RESPIRATORY: No accessory muscle use. Lungs clear to auscultation. Breath sounds equal bilaterally. GASTROINTESTINAL: Abdomen soft, non-tender, nondistended. + BS. MUSCULOSKELETAL: Extremities without cyanosis, +1 edema right wrist. Right wrist ex-fix in place. Pin sites clean. MAEW. NEUROLOGICAL: Awake and alert. Normal speech. A/P Problem List: (1) Multiple fractures of ribs of left side (2) Open fracture of left distal humerus (3) Open fracture of right distal humerus (4) Open fracture of right patella (5) Closed fracture of left tibial plateau (6) Displaced fracture of right femoral neck Assessment and Plan INJURIES: Questionable fx of RIGHT orbit rim C7 transverse process fx RIGHT lung contusion Open RIGHT radius/ulna fx LEFT humerus fx RIGHT hip fx RIGHT ilium fx RIGHT femoral neck fx OPEN RIGHT patellar fx LEFT avulsion fx of knee (w/ multiple ligament injury) LEFT tibial plateau fx PROCEDURES: 10/21: ORIF RIGHT femur; ORIF RIGHT hip; I&D RIGHT patella w/ wound vac; I&D LEFT humerus w/ closed reduction; RIGHT wrist closed reduction. 10/25: ORIF left distal humerus. ORIF right radius and ulna with ex-fix placement. 10/29: LEFT knee arthroscopic cruciate ligament repair. LEFT knee open lateral collateral ligament repair. ORIF LEFT knee plateau fx. LEFT knee exploration of peroneal nerve (with discovery of complete rupture of nerve) Diet: Regular, tolerating Pulm: IS, acapella, EZpap. nebs. Encouraged patient use Pain: Percocet. Neurontin. (Xanax) Robaxin. Activity: OOB to stretcher chair. PT and OT evaluating. (NWB BUE; NWB BLE) GI: Pepcid Bowel: Hanna-colace. Lactulose, Miralax and Dulcolax [place] PRN. LBM: 11/07 DVT: SCD's. Lovenox 30 BID - RIGHT radius/ulna fx - LEFT humerus fx - RIGHT hip fx - RIGHT ilium fx - RIGHT femoral neck fx - OPEN RIGHT patellar fx - LEFT avulsion fx of knee (w/ multiple ligament injury) - LEFT tibial plateau fx Orthopedics following 10/21: ORIF RIGHT femur; ORIF RIGHT hip; I&D RIGHT patella w/ wound vac; I&D LEFT humerus w/ closed reduction; RIGHT wrist closed reduction. 10/25: ORIF left distal humerus. ORIF right radius and ulna with ex-fix placement. 10/29: LEFT knee arthroscopic cruciate ligament repair. LEFT knee open lateral collateral ligament repair. ORIF LEFT knee plateau fx. LEFT knee exploration of peroneal nerve (with discovery of complete rupture of nerve) Hand surgery has been consulted -plan is for nerve repair. Tentative plan for 11/10 Pain control Nonweightbearing status to all 4 extremities. PT and OT ordered - encourage out of bed - to wheelchair daily Wave bed to prevent skin breakdown IV Ancef until 11/12 Rehab placement Lovenox - Right lung contusion, Rib fracture Nonoperative management Aggressive pulmonary toileting Pain control OOB Plan of care discussed with patient and family at bedside. Case management consulted for assist with discharge planning. Denied rehabilitation placement by [facility] due to inability to bear weight on any extremity. [facility] patient stating he is not sick enough to go there. Patient may need to transfer to [facility] in the interim. Problem Qualifiers (1) Multiple fractures of ribs of left side: Qualified Code: S22.42XA - Closed fracture of multiple ribs of left side, initial encounter (2) Open fracture of left distal humerus: Qualified Code: S42.492B - Other open displaced fracture of distal end of left humerus, initial encounter (3) Open fracture of right distal humerus: Qualified Code: S42.491B - Other open displaced fracture of distal end of right humerus, initial encounter (4) Open fracture of right patella: (5) Closed fracture of left tibial plateau: Qualified Code: S82.142A - Closed fracture of left tibial plateau, initial encounter (6) Displaced fracture of right femoral neck: Qualified Code: S72.001A - Displaced fracture of right femoral neck, closed, initial encounter Angel Partida Nov 08, 2016 13:32 Darío James MD Nov 08, 2016 15:21
--- NOTE | 2016-11-08 15:31 | HHI.PR ---
Subjective Remarks Today we talked about all of his injuries and the planned surgical repair of the left common peroneal nerve, the left scaphoid, and the right fifth finger proximal phalanx The patient wants to proceed with each one, and we are tentatively on for the operating room this Objective Vital Signs Date Time Temp Pulse Resp B/P Pulse Ox O2 Delivery O2 Flow Rate FiO2 11/08/16 12:15 97.5 96 16 140/82 98 11/08/16 09:43 Room Air 11/08/16 07:21 98.2 86 16 123/71 98 11/08/16 01:05 97.8 82 16 126/69 97 11/07/16 19:35 98.6 86 16 119/66 100 11/07/16 16:00 98.2 89 18 125/80 100 I/O 11/07/16 11/07/16 11/07/16 11/08/16 11/08/16 11/08/16 07:00 15:00 23:00 07:00 15:00 23:00 Intake Total 240 ml 960 ml 240 ml 120 ml Output Total 1250 ml 1400 ml 800 ml 600 ml Balance -1010 ml -440 ml -560 ml -480 ml Intake Oral 240 ml 960 ml 240 ml 120 ml Output Urine Total 1250 ml 1400 ml 800 ml 600 ml # Bowel Movements 0 1 1 0 Objective Remarks aa x o x 3 The left thumb splint me needs to be turn into a thumb spica splint as it is still uncomfortable. The right fifth finger splint is adequate. 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 We discussed the different treatment options. If it is repairable it will be done. If it is not as if there is a avulsion from the proximal nerve root of the sciatic nerve the patient will have to have nerve transfer done at a different institution from one of the few people that performed at operation. He understands and requests we proceed (4) Left peroneal nerve injury Status: Acute (5) Fracture of phalanx, proximal, right hand Status: Acute Plan: Closed reduction versus open reduction and pinning in the operating room (6) Fracture of scaphoid bone of left wrist Status: Acute Plan: Open reduction internal fixation in the operating room Scot Cam III, MD Nov 08, 2016 15:31
[2016-11-08 15:58] VITALS: BP 163/90; PULSE 93; RESP 16; TEMP 97.6; O2SAT 100
[2016-11-08 20:43] VITALS: BP 142/87; PULSE 93; RESP 16; TEMP 98.2; O2SAT 98
[2016-11-09] VITALS: BP 133/81; PULSE 83; RESP 17; TEMP 97.4; O2SAT 98
[2016-11-09] MEDS: ACETAMINOPHEN/HYDROcodone 325 MG/10 MG TAB PO PRN ×3 (02:01→22:28)
[2016-11-09] MEDS: METHOCARBAMOL 500 MG TAB PO SCH ×3 (05:49→21:28)
--- NOTE | 2016-11-09 06:59 | PD.ORT.PN ---
Subjective Subjective Remarks POD 15 s/p ORIF left humerus fx POD 15 s/p ORIF with application of exfix right distal radius and ulna fx s/p Right Femur IMN with I&D open wound s/p left knee ligamentous injuries s/p reconstruction s/p left hand fx s/p nerve injury right leg doing well. pain controlled. no complaints. Objective Vitals Vital Signs Date Time Temp Pulse Resp B/P Pulse Ox O2 Delivery O2 Flow Rate FiO2 11/09/16 00:00 97.4 83 17 133/81 98 11/08/16 20:43 98.2 93 16 142/87 98 11/08/16 15:58 97.6 93 16 163/90 100 11/08/16 12:15 97.5 96 16 140/82 98 11/08/16 09:43 Room Air 11/08/16 07:21 98.2 86 16 123/71 98 I/O 11/08/16 11/08/16 11/08/16 11/09/16 11/09/16 11/09/16 07:00 15:00 23:00 07:00 15:00 23:00 Intake Total 120 ml 960 ml 480 ml 240 ml Output Total 600 ml 750 ml 600 ml 600 ml Balance -480 ml 210 ml -120 ml -360 ml Intake Oral 120 ml 960 ml 480 ml 240 ml Output Urine Total 600 ml 750 ml 600 ml 600 ml # Voids 0 # Bowel Movements 0 0 0 0 Imaging Last 24 hours Impressions Chest X-Ray 10/23/16 0600 Signed Impressions: Service Date/Time: Sunday, October 23, 2016 05:43 - CONCLUSION: 1. Right central line tip in left subclavian vein, unchanged. Interval extubation. Mild atelectasis at the bases. Bk Martin MD Objective Remarks NAD RUE -external fixator and dressing in place. swelling in fingers. NVI and sensation intact. cap refill. incisions visualized. clean and dry. no drainage. healing well. LUE - dressing in place. swelling in fingers. NVI and sensation intact. cap refill. incision visualized. clean and dry. intact. no drainage. healing well. RLE - wound and incisions CDI. NVI and sensation intact. LLE - Knee ROM brace on. Dressings dry. mild swelling around knee. sensation intact. no dorsiflexion. ongoing footdrop on left side, brace on. able to move distal digits successfully. Assessment & Plan Assessment and Plan POD #8 Open Repair of Left Hamstring Tendon, Open Repair of Left Lateral Collateral Ligament, Left Knee Arthroscopic ACL Repair, Open Repair of Left Lateral Tibial Fracture POD #8 I&D and ORIF R supracondylar femur fx and R patella fx POD #15 ORIF left humerus and right distal radius with application right wrist exfix POD #15 Application of wound vac R knee, ORIF R fem neck fx, I&D with closed reduction Left Leg Foot Drop NWB BLE and BUE ok to use right elbow for pushing off. ok to DC sling PRN right arm. Daily dressing changes to right and left arms pin care BID right wrist Active assisted ROM ok to RLE LLE - PODUS boot for foot drop, ROM brace. med management Orthopedically cleared for discharge to rehabilitation from Dr. De Leon standpoint. Lower extremities managed by Dr. Brown Discharge plan Scout Tubbs Nov 09, 2016 06:59
[2016-11-09 08:00] VITALS: BP 135/85; PULSE 86; RESP 20; TEMP 97.7; O2SAT 100
[2016-11-09] MEDS: POLYETHYLENE GLYCOL 17 GM PKG PO SCH (09:00)
[2016-11-09] MEDS: DOCUSATE SODIUM 50 MG/SENNA 8.6 MG TAB PO SCH ×2 (09:00→21:28)
[2016-11-09 09:06] LABS: HEMATOCRIT 30.5 % (39.0-51.0); MEAN CELL VOLUME 87.9 FL (80.0-100.0); MEAN CORPUSCULAR HGB CONC 34.1 % (32.0-36.0); PLATELET COUNT 346 TH/MM3 (150-450); RED BLOOD COUNT 3.47 MIL/MM3 (4.50-5.90); RED CELL DISTRIBUTION WIDTH 16.5 % (11.6-17.2); REVIEW FLAG FINAL; WHITE BLOOD COUNT 3.2 TH/MM3 (4.0-11.0)
[2016-11-09 09:31] LABS: BICARBONATE 29.5 MEQ/L (21.0-32.0); POTASSIUM 3.8 MEQ/L (3.5-5.1)
[2016-11-09] MEDS: LACTOBACILLUS ACIDOPHILUS TAB PO SCH ×2 (09:42→21:28)
[2016-11-09] MEDS: FAMOTIDINE 20 MG TAB PO SCH ×2 (09:48→21:28)
[2016-11-09] MEDS: GABAPENTIN 300 MG CAP PO SCH ×3 (09:48→18:00)
[2016-11-09] MEDS: ENOXAPARIN SODIUM 30 MG/0.3 ML SYRINGE SQ SCH ×2 (09:56→21:29)
[2016-11-09 12:00] VITALS: BP_SYST 135; BP_SYST 140; BP_DIAS 75; BP_DIAS 77; PULSE 89; PULSE 90; RESP 20; TEMP 97.1; TEMP 98.6; O2SAT 92; O2SAT 99
--- NOTE | 2016-11-09 13:08 | HHI.PR ---
Subjective Subjective Notes No complaints Asking when radha in his legs removed Objective Vitals/I&O Vital Signs Date Time Temp Pulse Resp B/P Pulse Ox O2 Delivery O2 Flow Rate FiO2 11/09/16 12:00 98.6 90 20 135/75 99 11/08/16 09:43 Room Air Labs Laboratory Tests Test 11/09/16 08:45 White Blood Count 3.2 Red Blood Count 3.47 Hemoglobin 10.4 Hematocrit 30.5 Mean Corpuscular Volume 87.9 Mean Corpuscular Hemoglobin 30.0 Mean Corpuscular Hemoglobin 34.1 Concent Red Cell Distribution Width 16.5 Platelet Count 346 Mean Platelet Volume 6.9 Sodium Level 137 Potassium Level 3.8 Chloride Level 101 Carbon Dioxide Level 29.5 Anion Gap 7 Blood Urea Nitrogen 12 Creatinine 0.76 Estimat Glomerular Filtration 123 Rate Random Glucose 100 Calcium Level 8.9 Radiology Last Impressions Knee X-Ray 10/29/16 0000 Signed Impressions: Service Date/Time: Saturday, October 29, 2016 11:55 - CONCLUSION: Fluoroscopic images demonstrates temporary probe along the lateral soft tissues adjacent to the fibula. Other images during repair of the lateral tibial plateau. Adolfo Savage MD Abdomen X-Ray 10/29/16 0000 Signed Impressions: Service Date/Time: Saturday, October 29, 2016 08:53 - CONCLUSION: 1. Diffuse ileus. No free air identified. Bk Martin MD Chest X-Ray 10/26/16 0600 Signed Impressions: Service Date/Time: Wednesday, October 26, 2016 04:52 - CONCLUSION: No appreciable change. Lobo Maynard MD Radius/Ulna X-Ray 10/25/16 0000 Signed Impressions: Service Date/Time: Tuesday, October 25, 2016 12:56 - CONCLUSION: Status post op in rigid internal fixation. Nelson Hill MD Humerus X-Ray 10/25/16 0000 Signed Impressions: Service Date/Time: Tuesday, October 25, 2016 11:34 - CONCLUSION: Status post open rigid internal fixation. Nelson Hill MD Ankle X-Ray 10/24/16 0000 Signed Impressions: Service Date/Time: Monday, October 24, 2016 10:36 - CONCLUSION: Soft tissue swelling. Laron Kuo MD Knee MRI 10/23/16 0000 Signed Impressions: Service Date/Time: Sunday, October 23, 2016 16:05 - CONCLUSION: 1. Disruption of the lateral ligamentous structures including the fibular collateral ligament , the biceps femoris musculotendinous junction and the attachment site at the iliotibial band causing widening at the lateral joint space. 2. Anterior cruciate ligament tear at its femoral attachment site. 3. Increased signal within the proximal aspect of the posterior cruciate ligament. Some degree of partial tearing at this structure cannot be excluded. 4. Fairly extensive bone bruising and fracturing involving the proximal tibia, proximal fibula and femoral condyles as described above. 5. Moderate effusion. Rico Pena MD Wrist X-Ray 10/22/16 Signed Impressions: Service Date/Time: October 21:00 - CONCLUSION: 1. Fractures of the distal radius and ulna as above with some foreshortening of the radius. Bk Martin MD Hip X-Ray 10/22/16 Signed Impressions: Service Date/Time: October 21:00 - CONCLUSION: 1. Lag screws traversing proximal right femur fracture. Bk Martin MD Femur X-Ray 10/22/16 Signed Impressions: Service Date/Time: October 21:00 - CONCLUSION: 1. Fixation distal right femur. Bk Martin MD Maxillofacial CT 10/21/161821 Signed Impressions: Service Date/Time: October 18:33 - CONCLUSION: 1. Mucoperiosteal thickening in the right frontal sinus and right maxillary sinus. 2. I cannot entirely exclude a nondisplaced fracture of the right infraorbital rim. Mikel Ricks MD FACR Head CT 10/21/161821 Signed Impressions: Service Date/Time: October 18:33 - CONCLUSION: Negative for acute process.. Mikel Ricks MD FACR Chest CT 10/21/161821 Signed Impressions: Service Date/Time: October 18:43 - CONCLUSION: 1. Contusion laterally in the right lung. 2. Air in the axilla on the left. 3. I cannot confirm a rib fracture by CT. Mikel Ricks MD FACR Cervical Spine CT 10/21/161821 Signed Impressions: Service Date/Time: October 18:33 - CONCLUSION: Transverse process fracture C7 on the right, involving just the tip of the transverse process. Mikel Ricks MD FACR Abdomen/Pelvis CT 10/21/161821 Signed Impressions: Service Date/Time: October 18:43 - CONCLUSION: 1. Contusion in the right lung base. 2. Right hip fracture. 3. Right ilium fracture. 4. Minimal induration about the right superior pubic ramus. 5. There is no evidence for a solid organ injury. Mikel Ricks MD FACR Tibia/Fibula X-Ray 10/21/16 0000 Signed Impressions: Service Date/Time: October 18:04 - CONCLUSION: Plateau fracture. Mikel Ricks MD FACR Pelvis X-Ray 10/21/16 0000 Signed Impressions: Service Date/Time: October 18:04 - CONCLUSION: 1. Right femoral neck fracture. 2. Fracture of the right ilium. Mikel Ricks MD FACR Aorta w/Runoff CTA 10/21/16 0000 Signed Impressions: Service Date/Time: October 20:02 - CONCLUSION: Significant fracture at the junction of the RIGHT SFA and popliteal artery at the adductor hiatus with moderate contusion. Vessel is patent.. Mikel Ricks MD FACR Narrative Exam GENERAL: 26-year-old well-nourished, well developed male sitting up in bed. SKIN: Warm and dry. HEAD: Normocephalic. ENT: No nasal bleeding or discharge. Mucous membranes pink and moist. NECK: Trachea midline. No JVD. CARDIOVASCULAR: Regular rate and rhythm. RESPIRATORY: No accessory muscle use. Lungs clear to auscultation. Breath sounds equal bilaterally. GASTROINTESTINAL: Abdomen soft, non-tender, nondistended. + BS. MUSCULOSKELETAL: Extremities without cyanosis, +1 edema right wrist. Right wrist ex-fix in place. Pin sites clean. MAEW. NEUROLOGICAL: Awake and alert. Normal speech. A/P Problem List: (1) Multiple fractures of ribs of left side (2) Open fracture of left distal humerus (3) Open fracture of right distal humerus (4) Open fracture of right patella (5) Closed fracture of left tibial plateau (6) Displaced fracture of right femoral neck Assessment and Plan INJURIES: Questionable fx of RIGHT orbit rim C7 transverse process fx RIGHT lung contusion Open RIGHT radius/ulna fx LEFT humerus fx RIGHT hip fx RIGHT ilium fx RIGHT femoral neck fx OPEN RIGHT patellar fx LEFT avulsion fx of knee (w/ multiple ligament injury) LEFT tibial plateau fx PROCEDURES: 10/21: ORIF RIGHT femur; ORIF RIGHT hip; I&D RIGHT patella w/ wound vac; I&D LEFT humerus w/ closed reduction; RIGHT wrist closed reduction. 10/25: ORIF left distal humerus. ORIF right radius and ulna with ex-fix placement. 10/29: LEFT knee arthroscopic cruciate ligament repair. LEFT knee open lateral collateral ligament repair. ORIF LEFT knee plateau fx. LEFT knee exploration of peroneal nerve (with discovery of complete rupture of nerve) Diet: Regular, tolerating Pulm: IS, acapella, EZpap. nebs. Encouraged patient use Pain: Percocet. Neurontin. (Xanax) Robaxin. Activity: OOB to stretcher chair. PT and OT evaluating. (NWB BUE; NWB BLE) GI: Pepcid Bowel: Hanna-colace. Lactulose, Miralax and Dulcolax [place] PRN. LBM: 11/07 DVT: SCD's. Lovenox 30 BID - RIGHT radius/ulna fx - LEFT humerus fx - RIGHT hip fx - RIGHT ilium fx - RIGHT femoral neck fx - OPEN RIGHT patellar fx - LEFT avulsion fx of knee (w/ multiple ligament injury) - LEFT tibial plateau fx Orthopedics following 10/21: ORIF RIGHT femur; ORIF RIGHT hip; I&D RIGHT patella w/ wound vac; I&D LEFT humerus w/ closed reduction; RIGHT wrist closed reduction. 10/25: ORIF left distal humerus. ORIF right radius and ulna with ex-fix placement. 10/29: LEFT knee arthroscopic cruciate ligament repair. LEFT knee open lateral collateral ligament repair. ORIF LEFT knee plateau fx. LEFT knee exploration of peroneal nerve (with discovery of complete rupture of nerve) Hand surgery has been consulted -plan is for nerve repair of the hand and knee on 11/11 Pain control Nonweightbearing status to all 4 extremities. PT and OT ordered - encourage out of bed - to wheelchair daily Wave bed to prevent skin breakdown IV Ancef until 11/12 Rehab placement Lovenox - Right lung contusion, Rib fracture Nonoperative management Aggressive pulmonary toileting Pain control OOB Labs stable. Plan of care discussed with patient and RN at bedside. Case management consulted for assist with discharge planning. Denied rehabilitation placement by [facility] due to inability to bear weight on any extremity. [facility] patient stating he is not sick enough to go there. Patient may need to transfer to [facility] in the interim. Attending Statement The exam, history, and the medical decision-making described in the above note were completed with the assistance of the mid-level provider. I reviewed and agree with the findings presented. I attest that I had a [id number] encounter with the patient on the same day, and personally performed and documented my assessment and findings in the medical record. Problem Qualifiers (1) Multiple fractures of ribs of left side: Qualified Code: S22.42XA - Closed fracture of multiple ribs of left side, initial encounter (2) Open fracture of left distal humerus: Qualified Code: S42.492B - Other open displaced fracture of distal end of left humerus, initial encounter (3) Open fracture of right distal humerus: Qualified Code: S42.491B - Other open displaced fracture of distal end of right humerus, initial encounter (4) Open fracture of right patella: (5) Closed fracture of left tibial plateau: Qualified Code: S82.142A - Closed fracture of left tibial plateau, initial encounter (6) Displaced fracture of right femoral neck: Qualified Code: S72.001A - Displaced fracture of right femoral neck, closed, initial encounter Angel Partida Nov 09, 2016 13:08 Darío James MD Nov 10, 2016 16:10
--- NOTE | 2016-11-09 13:09 | HHI.PR ---
Subjective Remarks The patient talked today about the plan for this week. There is a little fix the left scaphoid and the right fifth finger. The common peroneal nerve repair will be delayed until the following week when Dr Gates is available to assist with exposure behind the left knee. I discussed this this with the patient is fully understanding and actually seem to favor splitting up the procedures Objective Vital Signs Date Time Temp Pulse Resp B/P Pulse Ox O2 Delivery O2 Flow Rate FiO2 11/09/16 12:00 98.6 90 20 135/75 99 11/09/16 08:00 97.7 86 20 135/85 100 11/09/16 00:00 97.4 83 17 133/81 98 11/08/16 20:43 98.2 93 16 142/87 98 11/08/16 15:58 97.6 93 16 163/90 100 I/O 11/08/16 11/08/16 11/08/16 11/09/16 11/09/16 11/09/16 07:00 15:00 23:00 07:00 15:00 23:00 Intake Total 120 ml 960 ml 480 ml 240 ml Output Total 600 ml 750 ml 600 ml 600 ml Balance -480 ml 210 ml -120 ml -360 ml Intake Oral 120 ml 960 ml 480 ml 240 ml Output Urine Total 600 ml 750 ml 600 ml 600 ml # Voids 0 # Bowel Movements 0 0 0 0 Result Diagram: 11/09/16 0845 11/09/16 0845 Objective Remarks aa x o x 3 The left thumb splint has been converted into a thumb spica splint . The right fifth finger splint is adequate. 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 The patient understands and is perfectly okay with this. (4) Left peroneal nerve injury Status: Acute (5) Fracture of phalanx, proximal, right hand Status: Acute Plan: Closed reduction versus open reduction and pinning in the operating room (6) Fracture of scaphoid bone of left wrist Status: Acute Plan: Open reduction internal fixation in the operating room this Scot Cam III, MD Nov 09, 2016 13:09
--- NOTE | 2016-11-09 15:11 | PD.ORT.PN ---
Subjective Subjective Remarks Patient comfortable. Pain controlled. OOB sitting in wheelchair. Family member present. Objective Vitals Vital Signs Date Time Temp Pulse Resp B/P Pulse Ox O2 Delivery O2 Flow Rate FiO2 11/09/16 12:00 98.6 90 20 135/75 99 11/09/16 08:00 97.7 86 20 135/85 100 11/09/16 00:00 97.4 83 17 133/81 98 11/08/16 20:43 98.2 93 16 142/87 98 11/08/16 15:58 97.6 93 16 163/90 100 I/O 11/08/16 11/08/16 11/08/16 11/09/16 11/09/16 11/09/16 06:59 14:59 22:59 06:59 14:59 22:59 Intake Total 120 ml 960 ml 480 ml 240 ml Output Total 600 ml 750 ml 600 ml 600 ml Balance -480 ml 210 ml -120 ml -360 ml Intake Oral 120 ml 960 ml 480 ml 240 ml Output Urine Total 600 ml 750 ml 600 ml 600 ml # Voids 0 # Bowel Movements 0 0 0 0 Result Diagram: 11/09/16 0845 11/09/16 0845 Imaging Last 24 hours Impressions Chest X-Ray 10/23/16 0600 Signed Impressions: Service Date/Time: Sunday, October 23, 2016 05:43 - CONCLUSION: 1. Right central line tip in left subclavian vein, unchanged. Interval extubation. Mild atelectasis at the bases. Bk Martin MD Objective Remarks NAD RUE -external fixator and dressing in place. swelling in fingers. NVI and sensation intact. cap refill. incisions visualized. clean and dry. no drainage. healing well. LUE - dressing in place. swelling in fingers. NVI and sensation intact. cap refill. incision visualized. clean and dry. intact. no drainage. healing well. RLE - wound and incisions CDI. NVI and sensation intact. LLE - Knee ROM brace on. Dressings dry. mild swelling around knee. sensation intact. no dorsiflexion. ongoing footdrop on left side, brace on. able to move distal digits successfully. Assessment & Plan Assessment and Plan POD #11 Open Repair of Left Hamstring Tendon, Open Repair of Left Lateral Collateral Ligament, Left Knee Arthroscopic ACL Repair, Open Repair of Left Lateral Tibial Fracture POD #18 I&D and ORIF R supracondylar femur fx and R patella fx POD #15 ORIF left humerus and right distal radius with application right wrist exfix POD #15 Application of wound vac R knee, ORIF R fem neck fx, I&D with closed reduction Left Leg Foot Drop NWB BLE and BUE ok to use right elbow for pushing off. ok to DC sling PRN right arm. Daily dressing changes to right and left arms pin care BID right wrist Active assisted ROM ok to RLE LLE - PODUS boot for foot drop, ROM brace Physical therapy - Non weight bearing BLE. AAROM Remove radha and sutures to BLE today. Apply dry dressing every other day. Med management Orthopedically cleared for discharge to rehabilitation from Dr. De Leon standpoint. Orthopedically stable for discharge from Dr. Brown standpoint. Discharge plan - anticipating rehab Killian Gomes Nov 09, 2016 15:10
[2016-11-09 16:00] VITALS: BP 158/85; PULSE 96; RESP 20; TEMP 97; O2SAT 98
--- NOTE | 2016-11-09 16:53 | RADRPT ---
EXAM DATE/TIME: 11/09/2016 16:11 [facility] COMPARISON: No previous studies available for comparison. INDICATIONS : Pelvic pain. MEDICAL HISTORY : None. SURGICAL HISTORY : Left tibial plateau repair, ORIF right femur, ORIF right hip, ORIF left humerus, ORIF right wrist ENCOUNTER: Subsequent ACUITY: 3 weeks PAIN SCORE: 8/10 LOCATION: Bilateral pelvis FINDINGS: There are 3 screws traversing the femoral neck on the right side with screw tips project in the femor al head. No angulation at the femoral neck fracture. The bony pelvic ring is grossly intact. Arcua te lines of the sacrum are symmetric. CONCLUSION: Internal fixation screws across the right femoral neck fracture, in near anatomic alignment. Olivier Lizarraga MD on November 09, 2016 at 16:50 Board Certified Radiologist. This report was verified electronically.
--- NOTE | 2016-11-09 16:56 | RADRPT ---
EXAM DATE/TIME: 11/09/2016 16:15 [facility] COMPARISON: FEMUR RIGHT (1 VW), October 21, 2016, 18:04. FEMUR RIGHT (1 VW), October 21, 2016, 21:00. INDICATIONS : Right femur pain. MEDICAL HISTORY : None. SURGICAL HISTORY : Left tibial plateau repair, ORIF right femur, ORIF right hip, ORIF left humerus, ORIF right wrist ENCOUNTER: Subsequent ACUITY: 3 weeks PAIN SCORE: 7/10 LOCATION: Right femur FINDINGS: 4 images are performed of the right femur. There are 3 screws traversing the fracture of the femoral neck. The alignment of the femoral neck is near-anatomic. There is a solitary bony fragment measur ing 11 mm adjacent to the superior aspect of the femoral neck. There is a long lateral plate extendi ng from the mid shaft to distal femur across the significantly comminuted fracture of the distal one third of the femur. One fracture line appears to extend to the articular surface of the medial femor al condyle. There is a solitary screw fragment proximally located between the proximal 2 screws in t he plate. Multiple skin radha are present laterally.CONCLUSION: Postoperative findings from internal fixation proximal femoral and distal femoral fractures. The jhonny north appears grossly intact. Olivier Lizarraga MD on November 09, 2016 at 16:51 Board Certified Radiologist. This report was verified electronically.
--- NOTE | 2016-11-09 16:58 | RADRPT ---
EXAM DATE/TIME: 11/09/2016 16:16 [facility] COMPARISON: FEMUR RIGHT (1 VW), October 21, 2016, 21:00. INDICATIONS : Right knee pain. MEDICAL HISTORY : None. SURGICAL HISTORY : Left tibial plateau repair, ORIF right femur, ORIF right hip, ORIF left humerus, ORIF right wrist ENCOUNTER: Subsequent ACUITY: 3 weeks PAIN SCORE: 8/10 LOCATION: Right knee FINDINGS: Lateral femoral plate with multiple screws in place. The multi-comminuted fracture of the distal fem ur as similar features 2 intraoperative images performed on 10/21/16. One of the fracture lines does extend intra-articular to the medial femoral condyle articular surface. There is less than 1 mm step -off at the intra-articular fracture. CONCLUSION: Configuration of the multi-comminuted fragments of the distal femur similar to intraoperative images. Olivier Lizarraga MD on November 09, 2016 at 16:54 Board Certified Radiologist. This report was verified electronically.
--- NOTE | 2016-11-09 17:00 | RADRPT ---
EXAM DATE/TIME: 11/09/2016 16:17 [facility] COMPARISON: MRI KNEE LEFT W/O CONTRAST, October 23, 2016, 16:05. KNEE LEFT LTD (1 OR 2VWS), October 29, 2016, 11:55. INDICATIONS : Left knee pain. MEDICAL HISTORY : None. SURGICAL HISTORY : Left tibial plateau repair, ORIF right femur, ORIF right hip, ORIF left humerus, ORIF right wrist ENCOUNTER: Subsequent ACUITY: 3 weeks PAIN SCORE: 7/10 LOCATION: Left knee FINDINGS: Examination is performed in an external brace. There is separation of the proximal fibular fracture of 8 mm. There is a lucency in lateral femoral metaphysis suggesting an undisplaced fracture. Multi ple skin radha present of the lateral knee and in the infrapatellar region. CONCLUSION: Displaced proximal fibular fracture and nondisplaced fracture of the lateral metaphysis of the proxim al tibia. Olivier Lizarraga MD on November 09, 2016 at 16:56 Board Certified Radiologist. This report was verified electronically.
[2016-11-09 19:00] VITALS: BP 152/92; PULSE 89; RESP 17; TEMP 98.6; O2SAT 93
[2016-11-09] MEDS: BISACODYL 10 MG SUPP RECTAL PRN (23:54)
[2016-11-09] MEDS: LACTULOSE SYRUP 20 GM/30 ML CUP PO PRN (23:54)
[2016-11-10] MEDS: ALPRAZolam 1 MG TAB PO PRN (01:28)
[2016-11-10] MEDS: METHOCARBAMOL 500 MG TAB PO SCH ×3 (06:00→22:23)
[2016-11-10] MEDS ORDERED: XARE10TA PO (06:15)
[2016-11-10] MEDS ORDERED: HYDR-3366 PO (06:16)
[2016-11-10 08:03] VITALS: BP 133/69; PULSE 87; RESP 16; TEMP 97.8; O2SAT 98
[2016-11-10] MEDS: ENOXAPARIN SODIUM 30 MG/0.3 ML SYRINGE SQ SCH ×2 (10:00→19:09)
--- NOTE | 2016-11-10 11:23 | HHI.PR ---
Subjective Subjective Notes No concerns Awaiting surgery tomorrow Dr. Cam Objective Vitals/I&O Vital Signs Date Time Temp Pulse Resp B/P Pulse Ox O2 Delivery O2 Flow Rate FiO2 11/10/16 08:03 97.8 87 16 133/69 98 11/08/16 09:43 Room Air Labs Laboratory Tests Test 11/09/16 08:45 White Blood Count 3.2 TH/MM3 Red Blood Count 3.47 MIL/MM3 Hemoglobin 10.4 GM/DL Hematocrit 30.5 % Mean Corpuscular Volume 87.9 FL Mean Corpuscular Hemoglobin 30.0 PG Mean Corpuscular Hemoglobin 34.1 % Concent Red Cell Distribution Width 16.5 % Platelet Count 346 TH/MM3 Mean Platelet Volume 6.9 FL Sodium Level 137 MEQ/L Potassium Level 3.8 MEQ/L Chloride Level 101 MEQ/L Carbon Dioxide Level 29.5 MEQ/L Anion Gap 7 MEQ/L Blood Urea Nitrogen 12 MG/DL Creatinine 0.76 MG/DL Estimat Glomerular Filtration 123 ML/MIN Rate Random Glucose 100 MG/DL Calcium Level 8.9 MG/DL Radiology Last Impressions Knee X-Ray 10/29/16 0000 Signed Impressions: Service Date/Time: Saturday, October 29, 2016 11:55 - CONCLUSION: Fluoroscopic images demonstrates temporary probe along the lateral soft tissues adjacent to the fibula. Other images during repair of the lateral tibial plateau. Adolfo Savage MD Abdomen X-Ray 10/29/16 0000 Signed Impressions: Service Date/Time: Saturday, October 29, 2016 08:53 - CONCLUSION: 1. Diffuse ileus. No free air identified. Bk Martin MD Chest X-Ray 10/26/16 0600 Signed Impressions: Service Date/Time: Wednesday, October 26, 2016 04:52 - CONCLUSION: No appreciable change. Lobo Maynard MD Radius/Ulna X-Ray 10/25/16 0000 Signed Impressions: Service Date/Time: Tuesday, October 25, 2016 12:56 - CONCLUSION: Status post op in rigid internal fixation. Nelson Hill MD Humerus X-Ray 10/25/16 0000 Signed Impressions: Service Date/Time: Tuesday, October 25, 2016 11:34 - CONCLUSION: Status post open rigid internal fixation. Nelson Hill MD Ankle X-Ray 10/24/16 Signed Impressions: Service Date/Time: Monday, October 24, 2016 10:36 - CONCLUSION: Soft tissue swelling. Laron Kuo MD Knee MRI 10/23/16 Signed Impressions: Service Date/Time: Sunday, October 23, 2016 16:05 - CONCLUSION: 1. Disruption of the lateral ligamentous structures including the fibular collateral ligament , the biceps femoris musculotendinous junction and the attachment site at the iliotibial band causing widening at the lateral joint space. 2. Anterior cruciate ligament tear at its femoral attachment site. 3. Increased signal within the proximal aspect of the posterior cruciate ligament. Some degree of partial tearing at this structure cannot be excluded. 4. Fairly extensive bone bruising and fracturing involving the proximal tibia, proximal fibula and femoral condyles as described above. 5. Moderate effusion. Rico Pena MD Wrist X-Ray 10/22/16 Signed Impressions: Service Date/Time: October 21:00 - CONCLUSION: 1. Fractures of the distal radius and ulna as above with some foreshortening of the radius. Bk Martin MD Hip X-Ray 10/22/16 Signed Impressions: Service Date/Time: October 21:00 - CONCLUSION: 1. Lag screws traversing proximal right femur fracture. Bk Martin MD Femur X-Ray 10/22/16 Signed Impressions: Service Date/Time: October 21:00 - CONCLUSION: 1. Fixation distal right femur. Bk Martin MD Maxillofacial CT 10/21/161821 Signed Impressions: Service Date/Time: October 18:33 - CONCLUSION: 1. Mucoperiosteal thickening in the right frontal sinus and right maxillary sinus. 2. I cannot entirely exclude a nondisplaced fracture of the right infraorbital rim. Mikel Ricks MD FACR Head CT 10/21/161821 Signed Impressions: Service Date/Time: October 18:33 - CONCLUSION: Negative for acute process.. Miekl Ricks MD FACR Chest CT 10/21/161821 Signed Impressions: Service Date/Time: October 18:43 - CONCLUSION: 1. Contusion laterally in the right lung. 2. Air in the axilla on the left. 3. I cannot confirm a rib fracture by CT. Mikel Ricks MD FACR Cervical Spine CT 10/21/16 1822 Signed Impressions: Service Date/Time: October 18:33 - CONCLUSION: Transverse process fracture C7 on the right, involving just the tip of the transverse process. Mikel Ricks MD FACR Abdomen/Pelvis CT 10/21/16 1822 Signed Impressions: Service Date/Time: October 18:43 - CONCLUSION: 1. Contusion in the right lung base. 2. Right hip fracture. 3. Right ilium fracture. 4. Minimal induration about the right superior pubic ramus. 5. There is no evidence for a solid organ injury. Mikel Ricks MD FACR Tibia/Fibula X-Ray 10/21/16 0000 Signed Impressions: Service Date/Time: October 18:04 - CONCLUSION: Plateau fracture. Mikel Ricks MD FACR Pelvis X-Ray 10/21/16 0000 Signed Impressions: Service Date/Time: October 18:04 - CONCLUSION: 1. Right femoral neck fracture. 2. Fracture of the right ilium. Mikel Ricks MD FACR Aorta w/Runoff CTA 10/21/16 0000 Signed Impressions: Service Date/Time: October 20:02 - CONCLUSION: Significant fracture at the junction of the RIGHT SFA and popliteal artery at the adductor hiatus with moderate contusion. Vessel is patent.. Mikel Ricks MD FACR Narrative Exam GENERAL: 26-year-old well-nourished, well developed male lying in bed. SKIN: Warm and dry. HEAD: Normocephalic. ENT: No nasal bleeding or discharge. Mucous membranes pink and moist. NECK: Trachea midline. No JVD. CARDIOVASCULAR: Regular rate and rhythm. RESPIRATORY: No accessory muscle use. Lungs clear to auscultation. Breath sounds equal bilaterally. GASTROINTESTINAL: Abdomen soft, non-tender, nondistended. + BS. MUSCULOSKELETAL: Extremities without cyanosis, +1 edema right wrist. Right wrist ex-fix in place. Pin sites clean. MAEW. NEUROLOGICAL: Awake and alert. Normal speech. A/P Problem List: (1) Multiple fractures of ribs of left side (2) Open fracture of left distal humerus (3) Open fracture of right distal humerus (4) Open fracture of right patella (5) Closed fracture of left tibial plateau (6) Displaced fracture of right femoral neck Assessment and Plan INJURIES: Questionable fx of RIGHT orbit rim C7 transverse process fx RIGHT lung contusion Open RIGHT radius/ulna fx LEFT humerus fx RIGHT hip fx RIGHT ilium fx RIGHT femoral neck fx OPEN RIGHT patellar fx LEFT avulsion fx of knee (w/ multiple ligament injury) LEFT tibial plateau fx PROCEDURES: 10/21: ORIF RIGHT femur; ORIF RIGHT hip; I&D RIGHT patella w/ wound vac; I&D LEFT humerus w/ closed reduction; RIGHT wrist closed reduction. 10/25: ORIF left distal humerus. ORIF right radius and ulna with ex-fix placement. 10/29: LEFT knee arthroscopic cruciate ligament repair. LEFT knee open lateral collateral ligament repair. ORIF LEFT knee plateau fx. LEFT knee exploration of peroneal nerve (with discovery of complete rupture of nerve) Diet: Regular, tolerating Pulm: IS, acapella, EZpap. nebs. Encouraged patient use Pain: Percocet. Neurontin. (Xanax) Robaxin. Activity: OOB to stretcher chair. PT and OT evaluating. (NWB BUE; NWB BLE) GI: Pepcid Bowel: Hanna-colace. Lactulose, Miralax and Dulcolax MD PRN. LBM: 11/07 DVT: SCD's. Lovenox 30 BID - RIGHT radius/ulna fx - LEFT humerus fx - RIGHT hip fx - RIGHT ilium fx - RIGHT femoral neck fx - OPEN RIGHT patellar fx - LEFT avulsion fx of knee (w/ multiple ligament injury) - LEFT tibial plateau fx Orthopedics following 10/21: ORIF RIGHT femur; ORIF RIGHT hip; I&D RIGHT patella w/ wound vac; I&D LEFT humerus w/ closed reduction; RIGHT wrist closed reduction. 10/25: ORIF left distal humerus. ORIF right radius and ulna with ex-fix placement. 10/29: LEFT knee arthroscopic cruciate ligament repair. LEFT knee open lateral collateral ligament repair. ORIF LEFT knee plateau fx. LEFT knee exploration of peroneal nerve (with discovery of complete rupture of nerve) Hand surgery has been consulted -plan is for nerve repair of the hand and knee on 11/11 Pain control Nonweightbearing status to all 4 extremities. PT and OT ordered - encourage out of bed - to wheelchair daily Wave bed to prevent skin breakdown IV Ancef until 11/12 Rehab placement Lovenox - Right lung contusion, Rib fracture Nonoperative management Aggressive pulmonary toileting Pain control OOB Plan of care discussed with patient at bedside. Case management consulted for assist with discharge planning. Denied rehabilitation placement by [facility] due to inability to bear weight on any extremity. [facility] declined patient stating he is not sick enough to go there. Patient may need to transfer to [facility] in the interim when a bed is available. Attending Statement The exam, history, and the medical decision-making described in the above note were completed with the assistance of the mid-level provider. I reviewed and agree with the findings presented. I attest that I had a [id number] encounter with the patient on the same day, and personally performed and documented my assessment and findings in the medical record. Problem Qualifiers (1) Multiple fractures of ribs of left side: Qualified Code: S22.42XA - Closed fracture of multiple ribs of left side, initial encounter (2) Open fracture of left distal humerus: Qualified Code: S42.492B - Other open displaced fracture of distal end of left humerus, initial encounter (3) Open fracture of right distal humerus: Qualified Code: S42.491B - Other open displaced fracture of distal end of right humerus, initial encounter (4) Open fracture of right patella: (5) Closed fracture of left tibial plateau: Qualified Code: S82.142A - Closed fracture of left tibial plateau, initial encounter (6) Displaced fracture of right femoral neck: Qualified Code: S72.001A - Displaced fracture of right femoral neck, closed, initial encounter Angel Partida Nov 10, 2016 11:23 Darío James MD Nov 10, 2016 16:14
[2016-11-10] MEDS: GABAPENTIN 300 MG CAP PO SCH ×3 (12:05→17:33)
[2016-11-10] MEDS: LACTULOSE SYRUP 20 GM/30 ML CUP PO PRN (12:05)
[2016-11-10] MEDS: LACTOBACILLUS ACIDOPHILUS TAB PO SCH ×2 (12:05→22:23)
[2016-11-10] MEDS: POLYETHYLENE GLYCOL 17 GM PKG PO SCH (12:06)
[2016-11-10] MEDS: DOCUSATE SODIUM 50 MG/SENNA 8.6 MG TAB PO SCH ×2 (12:06→22:23)
[2016-11-10] MEDS: FAMOTIDINE 20 MG TAB PO SCH ×2 (12:06→22:23)
[2016-11-10 12:07] VITALS: BP 149/96; PULSE 89; RESP 16; TEMP 97.6; O2SAT 98
[2016-11-10] MEDS: ACETAMINOPHEN/HYDROcodone 325 MG/10 MG TAB PO PRN (14:32)
[2016-11-10 16:00] VITALS: BP 145/95; PULSE 93; RESP 16; TEMP 97; O2SAT 98
[2016-11-10 20:00] VITALS: BP 149/86; PULSE 85; RESP 18; TEMP 98.3; O2SAT 100
[2016-11-11] VITALS: BP 143/74; PULSE 88; RESP 20; TEMP 98.8; O2SAT 98
[2016-11-11 04:00] VITALS: BP 141/86; PULSE 84; RESP 18; TEMP 98.1; O2SAT 99
[2016-11-11] MEDS: METHOCARBAMOL 500 MG TAB PO SCH ×3 (05:57→21:18)
[2016-11-11 08:00] VITALS: BP 139/75; PULSE 82; RESP 18; TEMP 97.2; O2SAT 99
--- NOTE | 2016-11-11 08:52 | HHI.PR ---
Subjective Subjective Notes OR today with Dr Cam for hand repair Objective Vitals/I&O Vital Signs Date Time Temp Pulse Resp B/P Pulse Ox O2 Delivery O2 Flow Rate FiO2 11/11/16 04:00 98.1 84 18 141/86 99 11/10/16 19:00 Room Air Radiology Last Impressions Knee X-Ray 10/29/16 0000 Signed Impressions: Service Date/Time: Saturday, October 29, 2016 11:55 - CONCLUSION: Fluoroscopic images demonstrates temporary probe along the lateral soft tissues adjacent to the fibula. Other images during repair of the lateral tibial plateau. Adolfo Savage MD Abdomen X-Ray 10/29/16 0000 Signed Impressions: Service Date/Time: Saturday, October 29, 2016 08:53 - CONCLUSION: 1. Diffuse ileus. No free air identified. Bk Martin MD Chest X-Ray 10/26/16 0600 Signed Impressions: Service Date/Time: Wednesday, October 26, 2016 04:52 - CONCLUSION: No appreciable change. Lobo Maynard MD Radius/Ulna X-Ray 10/25/16 0000 Signed Impressions: Service Date/Time: Tuesday, October 25, 2016 12:56 - CONCLUSION: Status post op in rigid internal fixation. Nelson Hill MD Humerus X-Ray 10/25/16 0000 Signed Impressions: Service Date/Time: Tuesday, October 25, 2016 11:34 - CONCLUSION: Status post open rigid internal fixation. Nelson Hill MD Ankle X-Ray 10/24/16 0000 Signed Impressions: Service Date/Time: Monday, October 24, 2016 10:36 - CONCLUSION: Soft tissue swelling. Laron Kuo MD Knee MRI 10/23/16 0000 Signed Impressions: Service Date/Time: Sunday, October 23, 2016 16:05 - CONCLUSION: 1. Disruption of the lateral ligamentous structures including the fibular collateral ligament , the biceps femoris musculotendinous junction and the attachment site at the iliotibial band causing widening at the lateral joint space. 2. Anterior cruciate ligament tear at its femoral attachment site. 3. Increased signal within the proximal aspect of the posterior cruciate ligament. Some degree of partial tearing at this structure cannot be excluded. 4. Fairly extensive bone bruising and fracturing involving the proximal tibia, proximal fibula and femoral condyles as described above. 5. Moderate effusion. Rico Pena MD Wrist X-Ray 10/22/16 0000 Signed Impressions: Service Date/Time: October 21:00 - CONCLUSION: 1. Fractures of the distal radius and ulna as above with some foreshortening of the radius. Bk Martin MD Hip X-Ray 10/22/16 Signed Impressions: Service Date/Time: October 21:00 - CONCLUSION: 1. Lag screws traversing proximal right femur fracture. Bk Martin MD Femur X-Ray 10/22/16 Signed Impressions: Service Date/Time: October 21:00 - CONCLUSION: 1. Fixation distal right femur. Bk Martin MD Maxillofacial CT 10/21/161821 Signed Impressions: Service Date/Time: October 18:33 - CONCLUSION: 1. Mucoperiosteal thickening in the right frontal sinus and right maxillary sinus. 2. I cannot entirely exclude a nondisplaced fracture of the right infraorbital rim. Mikel Ricks MD FACR Head CT 10/21/161821 Signed Impressions: Service Date/Time: October 18:33 - CONCLUSION: Negative for acute process.. Mikel Ricks MD FACR Chest CT 10/21/161821 Signed Impressions: Service Date/Time: October 18:43 - CONCLUSION: 1. Contusion laterally in the right lung. 2. Air in the axilla on the left. 3. I cannot confirm a rib fracture by CT. Mikel Ricks MD FACR Cervical Spine CT 10/21/161821 Signed Impressions: Service Date/Time: October 18:33 - CONCLUSION: Transverse process fracture C7 on the right, involving just the tip of the transverse process. Mikel Ricks MD FACR Abdomen/Pelvis CT 10/21/161821 Signed Impressions: Service Date/Time: October 18:43 - CONCLUSION: 1. Contusion in the right lung base. 2. Right hip fracture. 3. Right ilium fracture. 4. Minimal induration about the right superior pubic ramus. 5. There is no evidence for a solid organ injury. Mikel Ricks MD FACR Tibia/Fibula X-Ray 10/21/16 0000 Signed Impressions: Service Date/Time: October 18:04 - CONCLUSION: Plateau fracture. Mikel Ricks MD FACR Pelvis X-Ray 10/21/16 0000 Signed Impressions: Service Date/Time: October 18:04 - CONCLUSION: 1. Right femoral neck fracture. 2. Fracture of the right ilium. Mikel Ricks MD FACR Aorta w/Runoff CTA 10/21/16 0000 Signed Impressions: Service Date/Time: October 20:02 - CONCLUSION: Significant fracture at the junction of the RIGHT SFA and popliteal artery at the adductor hiatus with moderate contusion. Vessel is patent.. Mikel Ricks MD FACR Narrative Exam GENERAL: 26-year-old well-nourished, well developed male lying in bed. SKIN: Warm and dry. HEAD: Normocephalic. ENT: No nasal bleeding or discharge. Mucous membranes pink and moist. NECK: Trachea midline. No JVD. CARDIOVASCULAR: Regular rate and rhythm. RESPIRATORY: No accessory muscle use. Lungs clear to auscultation. Breath sounds equal bilaterally. GASTROINTESTINAL: Abdomen soft, non-tender, nondistended. + BS. MUSCULOSKELETAL: Extremities without cyanosis, +1 edema right wrist. Right wrist ex-fix in place. Pin sites clean. MAEW. NEUROLOGICAL: Awake and alert. Normal speech. A/P Problem List: (1) Multiple fractures of ribs of left side (2) Open fracture of left distal humerus (3) Open fracture of right distal humerus (4) Open fracture of right patella (5) Closed fracture of left tibial plateau (6) Displaced fracture of right femoral neck Assessment and Plan INJURIES: Questionable fx of RIGHT orbit rim C7 transverse process fx RIGHT lung contusion Open RIGHT radius/ulna fx LEFT humerus fx RIGHT hip fx RIGHT ilium fx RIGHT femoral neck fx OPEN RIGHT patellar fx LEFT avulsion fx of knee (w/ multiple ligament injury) LEFT tibial plateau fx LEFT wrist scaphoid bone fx RIGHT hand phalanx fx PROCEDURES: 10/21: ORIF RIGHT femur; ORIF RIGHT hip; I&D RIGHT patella w/ wound vac; I&D LEFT humerus w/ closed reduction; RIGHT wrist closed reduction. 10/25: ORIF left distal humerus. ORIF right radius and ulna with ex-fix placement. 10/29: LEFT knee arthroscopic cruciate ligament repair. LEFT knee open lateral collateral ligament repair. ORIF LEFT knee plateau fx. LEFT knee exploration of peroneal nerve (with discovery of complete rupture of nerve) Diet: Regular, tolerating Pulm: IS, acapella, EZpap. nebs. Encouraged patient use Pain: Percocet. Neurontin. (Xanax) Robaxin. Activity: OOB to stretcher chair. PT and OT evaluating. (NWB BUE; NWB BLE) GI: Pepcid Bowel: Hanna-colace. Lactulose, Miralax and Dulcolax [place] PRN. LBM: 11/07 DVT: SCD's. Lovenox 30 BID - RIGHT radius/ulna fx - LEFT humerus fx - RIGHT hip fx - RIGHT ilium fx - RIGHT femoral neck fx - OPEN RIGHT patellar fx - LEFT avulsion fx of knee (w/ multiple ligament injury) - LEFT tibial plateau fx Orthopedics following 10/21: ORIF RIGHT femur; ORIF RIGHT hip; I&D RIGHT patella w/ wound vac; I&D LEFT humerus w/ closed reduction; RIGHT wrist closed reduction. 10/25: ORIF left distal humerus. ORIF right radius and ulna with ex-fix placement. 10/29: LEFT knee arthroscopic cruciate ligament repair. LEFT knee open lateral collateral ligament repair. ORIF LEFT knee plateau fx. LEFT knee exploration of peroneal nerve (with discovery of complete rupture of nerve) Pain control Nonweightbearing status to all 4 extremities. PT and OT ordered - encourage out of bed - to wheelchair daily Wave bed to prevent skin breakdown IV Ancef until 11/12 Rehab placement Lovenox - Right lung contusion, Rib fracture Nonoperative management Aggressive pulmonary toileting Pain control OOB LEFT wrist scaphoid bone fx, RIGHT hand phalanx fx Hand surgery consulted OR Today with Dr Cam for repair Pain control NWB Plan of care discussed with patient at bedside. Case management consulted for assist with discharge planning. Denied rehabilitation placement by [facility] due to inability to bear weight on any extremity. [facility] patient stating he is not sick enough to go there. Patient may need to [facility] in the interim when a bed is available. Attending Statement The exam, history, and the medical decision-making described in the above note were completed with the assistance of the mid-level provider. I reviewed and agree with the findings presented. I attest that I had a [id number] encounter with the patient on the same day, and personally performed and documented my assessment and findings in the medical record. Problem Qualifiers (1) Multiple fractures of ribs of left side: Qualified Code: S22.42XA - Closed fracture of multiple ribs of left side, initial encounter (2) Open fracture of left distal humerus: Qualified Code: S42.492B - Other open displaced fracture of distal end of left humerus, initial encounter (3) Open fracture of right distal humerus: Qualified Code: S42.491B - Other open displaced fracture of distal end of right humerus, initial encounter (4) Open fracture of right patella: (5) Closed fracture of left tibial plateau: Qualified Code: S82.142A - Closed fracture of left tibial plateau, initial encounter (6) Displaced fracture of right femoral neck: Qualified Code: S72.001A - Displaced fracture of right femoral neck, closed, initial encounter Angel Partida Nov 11, 2016 08:51 Darío James MD Nov 11, 2016 16:46
[2016-11-11] MEDS: DOCUSATE SODIUM 50 MG/SENNA 8.6 MG TAB PO SCH ×2 (09:00→21:18)
[2016-11-11] MEDS: POLYETHYLENE GLYCOL 17 GM PKG PO SCH (09:00)
[2016-11-11] MEDS: GABAPENTIN 300 MG CAP PO SCH ×3 (09:00→17:41)
[2016-11-11] MEDS: LACTOBACILLUS ACIDOPHILUS TAB PO SCH ×2 (09:00→21:18)
[2016-11-11] MEDS: FAMOTIDINE 20 MG TAB PO SCH ×2 (09:00→21:18)
[2016-11-11] MEDS: ENOXAPARIN SODIUM 30 MG/0.3 ML SYRINGE SQ SCH ×2 (10:00→17:42)
[2016-11-11] MEDS ORDERED: MIDAZOLAM HCL 2 MG/2 ML VIAL IV ONE (12:00)
[2016-11-11] MEDS ORDERED: PROPOFOL 200 MG/20 ML AMP IV ONE (12:00)
[2016-11-11] MEDS ORDERED: ceFAZolin INJ 1,000 MG VIAL IV ONE (12:00)
[2016-11-11] MEDS ORDERED: ONDANSETRON HCL 4 MG/2 ML VIAL IV PUSH ONE (12:00)
[2016-11-11] MEDS ORDERED: LACTATED RINGER'S 1000 ML INJ 1,000 ML IV ONE (12:00)
[2016-11-11] MEDS ORDERED: fentaNYL CITRATE 250 MCG/5 ML AMP IV ONE (12:00)
[2016-11-11] MEDS ORDERED: BUPIVACAINE HCL PF 0.5% 30 ML VIAL INFIL ONE (12:14)
[2016-11-11] MEDS ORDERED: NEOMYCIN/POLYMYXIN 1 ML G.U. IRRIGANT IR ONE (12:14)
[2016-11-11] MEDS ORDERED: LIDOCAINE HCL 2% 50 ML VIAL INFIL ONE (12:14)
[2016-11-11] MEDS ORDERED: HYDROmorphone HCL PF 2 MG/ML VIAL ONE (12:43)
--- NOTE | 2016-11-11 13:54 | HHI.PR ---
Immediate Post Op Note Procedure Date: Nov 11, 2016 Pre Op Diagnosis: (1) Fracture of phalanx, proximal, right hand (2) Fracture of scaphoid bone of left wrist Post Op Diagnosis: Surgeon: Scot Cam III [employer] Servicer(s): elias Procedure: CRPP right 5th prox phalanx fracture Use of image intensifier ORIF left scaphoid Use of image intensifier Complications: 0 Specimen(s) removed: 0 Anesthesia: General, Local Drains: None Patient to: PACU Patient Condition: Good Scot Cam III, MD Nov 11, 2016 13:54
[2016-11-11 15:40] VITALS: BP 125/62; PULSE 82; RESP 18; TEMP 97; O2SAT 97
[2016-11-11] MEDS ORDERED: DO NOT ADM ANY ANTICOAGULANT DRUGS PRN (16:00)
[2016-11-11] MEDS: ACETAMINOPHEN/HYDROcodone 325 MG/10 MG TAB PO PRN (19:02)
[2016-11-11 19:45] VITALS: BP 129/71; PULSE 85; RESP 16; TEMP 97.1; O2SAT 98
[2016-11-11] MEDS ORDERED: HYDROmorphone HCL PF 2 MG/ML VIAL IV SCH (21:45)
--- NOTE | 2016-11-11 22:08 | MP ---
cc: CHRISTY CAM MD DATE OF SURGERY 11/11/16 PREOPERATIVE DIAGNOSIS 1. Left scaphoid fracture. 2. Right fifth proximal phalanx fracture. PROCEDURE 1. Left scaphoid open reduction internal fixation. 2. Right fifth proximal phalanx closed reduction and percutaneous pinning. 3. Use of image intensifier SURGEON Felipe Cam III. MD PROCEDURE IN DETAIL The patient is brought to the operative room, placed supine on the operating table. After the correct site and side of surgery were verified by members of each team in the room multiple times including the patient and myself and after adequate preoperative markings and preoperative written consent were verified by everyone and after adequate preoperative time-out was performed to everyone's satisfaction, after adequate general anesthesia was achieved, the right upper extremity prepped and draped in traditional sterile surgical fashion. The mini C-arm was used to verify the site of the intended procedure. The finger was anesthetized using a 50/50 mixture of 2% plain lidocaine 0.5% plain Marcaine. Manipulation without any incision being made was performed and the fingers placed into a fist. The reduction was obtained and held in place using two separate 0.045 cm K-wires at differing angles. These were tailored to length, cut, bent. Nii Balls were applied. Final x-rays were obtained. Xeroform was applied around the pin sites. A well-padded, well molded ulnar sided volar immobilizing splint out past the PIP joints was made. The tourniquet was never used. Capillary refill less than 2 seconds. There was no bleeding or hematoma formation. Attention was then paid to the left wrist which was prepped and draped in traditional sterile surgical fashion. The mini C-arm was used as stated 50/50 mixture of 2% plain lidocaine 0.5% Marcaine was infiltrated into skin and subcutaneous tissue at the wrist joint. A hockey-stick shaped incision was made on the volar aspect of the wrist and carried down through skin and subcutaneous tissue. Prior to this, the limb was exsanguinated with an Renato wrap and a highly placed well-padded axillary tourniquet was inflated to 200 mmHg for a total of 28 minutes. The tendon sheath of the flexor carpi radialis was incised and the tendon was retracted ulnarly. The radial scaphoid capitate ligament was incised to be repaired on the way out and the scaphoid was exposed. The scaphotrapezial joint was then identified. The fractured scaphoid was distracted and debrided. Thorough irrigation was performed. Precise reduction was obtained. A K-wire was inserted under mini C-arm guidance, tailored to angle and depth. A headless compression screw from [employer] set was selected 16 mm in length and this compressed the fracture nicely. The scaphoid was seated to 3 mm underneath the cortex of the distal pole. Full passive range of motion examination was performed and was unrestricted without crepitance or restriction. Thorough irrigation was performed. The radioscaphoid capitate ligament was then repaired using 3-[address] joints was then repaired using 4-0 Vicryl sutures. The wound was thoroughly irrigated again and 3-0 Ethibond were used to repair and close the FCR tendon sheath. The axillary tourniquet was released and the hand and all the fingers on the left became immediately soft, pink, and warm. There was no active bleeding or hematoma formation anywhere. The skin edges were then reapproximated using 4-0 Vicryl sutures for the deep subcutaneous tissue and then the skin edges reapproximated using running 4-0 nylon. The hand and arm were thoroughly cleansed and dried. Betadine Adaptic dressings were applied on top the wound followed by a bulky well-padded, well molded short-arm thumb spica splint in the usual fashion. The patient was awakened from anesthesia and transported to Post Anesthesia Care Unit awake and in stable condition at the end of the case. Sponge, needle, instrument counts were correct at the end of the case as reported by the nurses in the room. MD JOE Farias III/ /2:04 PM /9:50 PM
[2016-11-11] MEDS: ALPRAZolam 1 MG TAB PO PRN (23:33)
[2016-11-11 23:40] VITALS: BP 146/83; PULSE 94; RESP 16; TEMP 97; O2SAT 99
[2016-11-12 04:20] VITALS: BP 137/81; PULSE 80; RESP 16; TEMP 97.1; O2SAT 100
[2016-11-12] MEDS: ACETAMINOPHEN/HYDROcodone 325 MG/10 MG TAB PO PRN ×3 (05:25→17:19)
[2016-11-12] MEDS: METHOCARBAMOL 500 MG TAB PO SCH ×2 (05:25→14:58)
[2016-11-12] MEDS: ENOXAPARIN SODIUM 30 MG/0.3 ML SYRINGE SQ SCH ×2 (05:25→17:19)
[2016-11-12 08:00] VITALS: BP 136/70; PULSE 77; RESP 18; TEMP 97.2; O2SAT 99
[2016-11-12] MEDS: LACTOBACILLUS ACIDOPHILUS TAB PO SCH (08:41)
[2016-11-12] MEDS: GABAPENTIN 300 MG CAP PO SCH (08:42)
[2016-11-12] MEDS: POLYETHYLENE GLYCOL 17 GM PKG PO SCH (08:42)
[2016-11-12] MEDS: FAMOTIDINE 20 MG TAB PO SCH (08:42)
[2016-11-12] MEDS: HYDROmorphone HCL PF 1 MG/ML VIAL IV PRN (08:42)
[2016-11-12] MEDS: DOCUSATE SODIUM 50 MG/SENNA 8.6 MG TAB PO SCH (08:42)
[2016-11-12 12:00] VITALS: BP 128/71; PULSE 74; RESP 18; TEMP 96.7; O2SAT 99
--- NOTE | 2016-11-12 12:28 | HHI.PR ---
Subjective Subjective Notes Patient reports significant postsurgical left hand pain Objective Vitals/I&O Vital Signs Date Time Temp Pulse Resp B/P Pulse Ox O2 Delivery O2 Flow Rate FiO2 11/12/16 08:00 97.2 77 18 136/70 99 11/11/16 15:00 Room Air 11/11/16 14:15 3 Labs Laboratory Tests Test 11/09/16 08:45 White Blood Count 3.2 TH/MM3 Red Blood Count 3.47 MIL/MM3 Hemoglobin 10.4 GM/DL Hematocrit 30.5 % Mean Corpuscular Volume 87.9 FL Mean Corpuscular Hemoglobin 30.0 PG Mean Corpuscular Hemoglobin 34.1 % Concent Red Cell Distribution Width 16.5 % Platelet Count 346 TH/MM3 Mean Platelet Volume 6.9 FL Sodium Level 137 MEQ/L Potassium Level 3.8 MEQ/L Chloride Level 101 MEQ/L Carbon Dioxide Level 29.5 MEQ/L Anion Gap 7 MEQ/L Blood Urea Nitrogen 12 MG/DL Creatinine 0.76 MG/DL Estimat Glomerular Filtration 123 ML/MIN Rate Random Glucose 100 MG/DL Calcium Level 8.9 MG/DL Radiology Last Impressions Knee X-Ray 10/29/16 0000 Signed Impressions: Service Date/Time: Saturday, October 29, 2016 11:55 - CONCLUSION: Fluoroscopic images demonstrates temporary probe along the lateral soft tissues adjacent to the fibula. Other images during repair of the lateral tibial plateau. Adolfo Savage MD Abdomen X-Ray 10/29/16 0000 Signed Impressions: Service Date/Time: Saturday, October 29, 2016 08:53 - CONCLUSION: 1. Diffuse ileus. No free air identified. Bk Martin MD Chest X-Ray 10/26/16 0600 Signed Impressions: Service Date/Time: Wednesday, October 26, 2016 04:52 - CONCLUSION: No appreciable change. Lobo Maynard MD Radius/Ulna X-Ray 10/25/16 0000 Signed Impressions: Service Date/Time: Tuesday, October 25, 2016 12:56 - CONCLUSION: Status post op in rigid internal fixation. Nelson Hill MD Humerus X-Ray 10/25/16 0000 Signed Impressions: Service Date/Time: Tuesday, October 25, 2016 11:34 - CONCLUSION: Status post open rigid internal fixation. Nelson Hill MD Ankle X-Ray 10/24/16 0000 Signed Impressions: Service Date/Time: Monday, October 24, 2016 10:36 - CONCLUSION: Soft tissue swelling. Laron Kuo MD Knee MRI 10/23/16 0000 Signed Impressions: Service Date/Time: Sunday, October 23, 2016 16:05 - CONCLUSION: 1. Disruption of the lateral ligamentous structures including the fibular collateral ligament , the biceps femoris musculotendinous junction and the attachment site at the iliotibial band causing widening at the lateral joint space. 2. Anterior cruciate ligament tear at its femoral attachment site. 3. Increased signal within the proximal aspect of the posterior cruciate ligament. Some degree of partial tearing at this structure cannot be excluded. 4. Fairly extensive bone bruising and fracturing involving the proximal tibia, proximal fibula and femoral condyles as described above. 5. Moderate effusion. Rico Pena MD Wrist X-Ray 10/22/16 0000 Signed Impressions: Service Date/Time: October 21:00 - CONCLUSION: 1. Fractures of the distal radius and ulna as above with some foreshortening of the radius. Bk Martin MD Hip X-Ray 10/22/16 0000 Signed Impressions: Service Date/Time: October 21:00 - CONCLUSION: 1. Lag screws traversing proximal right femur fracture. Bk Martin MD Femur X-Ray 10/22/16 0000 Signed Impressions: Service Date/Time: October 21:00 - CONCLUSION: 1. Fixation distal right femur. Bk Martin MD Maxillofacial CT 10/21/161821 Signed Impressions: Service Date/Time: October 18:33 - CONCLUSION: 1. Mucoperiosteal thickening in the right frontal sinus and right maxillary sinus. 2. I cannot entirely exclude a nondisplaced fracture of the right infraorbital rim. Mikel Ricks MD FACR Head CT 10/21/161821 Signed Impressions: Service Date/Time: October 18:33 - CONCLUSION: Negative for acute process.. Mikel Ricks MD FACR Chest CT 10/21/161821 Signed Impressions: Service Date/Time: October 18:43 - CONCLUSION: 1. Contusion laterally in the right lung. 2. Air in the axilla on the left. 3. I cannot confirm a rib fracture by CT. Mikel Ricks MD FACR Cervical Spine CT 10/21/162 Signed Impressions: Service Date/Time: October 18:33 - CONCLUSION: Transverse process fracture C7 on the right, involving just the tip of the transverse process. Mikel Ricks MD FACR Abdomen/Pelvis CT 10/21/16 1822 Signed Impressions: Service Date/Time: October 18:43 - CONCLUSION: 1. Contusion in the right lung base. 2. Right hip fracture. 3. Right ilium fracture. 4. Minimal induration about the right superior pubic ramus. 5. There is no evidence for a solid organ injury. Mikel Ricks MD FACR Tibia/Fibula X-Ray 10/21/16 0000 Signed Impressions: Service Date/Time: October 18:04 - CONCLUSION: Plateau fracture. Mikel Ricks MD FACR Pelvis X-Ray 10/21/16 0000 Signed Impressions: Service Date/Time: October 18:04 - CONCLUSION: 1. Right femoral neck fracture. 2. Fracture of the right ilium. Mikel Ricks MD FACR Aorta w/Runoff CTA 10/21/16 0000 Signed Impressions: Service Date/Time: October 20:02 - CONCLUSION: Significant fracture at the junction of the RIGHT SFA and popliteal artery at the adductor hiatus with moderate contusion. Vessel is patent.. Mikel Ricks MD FACR Narrative Exam GENERAL: 26-year-old well-nourished, well developed male lying in bed. SKIN: Warm and dry. HEAD: Normocephalic. ENT: No nasal bleeding or discharge. Mucous membranes pink and moist. NECK: Trachea midline. No JVD. CARDIOVASCULAR: Regular rate and rhythm. RESPIRATORY: No accessory muscle use. Lungs clear to auscultation. Breath sounds equal bilaterally. GASTROINTESTINAL: Abdomen soft, non-tender, nondistended. + BS. MUSCULOSKELETAL: Extremities without cyanosis, +1 edema right wrist. Right wrist ex-fix in place. Pin sites clean. Left hand dressing C/D/I. MAEW. NEUROLOGICAL: Awake and alert. Normal speech. A/P Problem List: (1) Multiple fractures of ribs of left side (2) Open fracture of left distal humerus (3) Open fracture of right distal humerus (4) Open fracture of right patella (5) Closed fracture of left tibial plateau (6) Displaced fracture of right femoral neck Assessment and Plan INJURIES: Questionable fx of RIGHT orbit rim C7 transverse process fx RIGHT lung contusion Open RIGHT radius/ulna fx LEFT humerus fx RIGHT hip fx RIGHT ilium fx RIGHT femoral neck fx OPEN RIGHT patellar fx LEFT avulsion fx of knee (w/ multiple ligament injury) LEFT tibial plateau fx LEFT wrist scaphoid bone fx RIGHT hand phalanx fx PROCEDURES: 10/21: ORIF RIGHT femur; ORIF RIGHT hip; I&D RIGHT patella w/ wound vac; I&D LEFT humerus w/ closed reduction; RIGHT wrist closed reduction. 10/25: ORIF left distal humerus. ORIF right radius and ulna with ex-fix placement. 10/29: LEFT knee arthroscopic cruciate ligament repair. LEFT knee open lateral collateral ligament repair. ORIF LEFT knee plateau fx. LEFT knee exploration of peroneal nerve (with discovery of complete rupture of nerve) Diet: Regular, tolerating Pulm: IS, acapella, EZpap. nebs. Encouraged patient use Pain: Percocet. Neurontin. (Xanax) Robaxin. IV Morphine. Increase Neurontin dose for better pain control. Activity: OOB to stretcher chair. PT and OT evaluating. (NWB BUE; NWB BLE) GI: Pepcid Bowel: Hanna-colace. Lactulose, Miralax and Dulcolax [place] PRN. LBM: 11/10 DVT: SCD's. Lovenox 30 BID - RIGHT radius/ulna fx - LEFT humerus fx - RIGHT hip fx - RIGHT ilium fx - RIGHT femoral neck fx - OPEN RIGHT patellar fx - LEFT avulsion fx of knee (w/ multiple ligament injury) - LEFT tibial plateau fx Orthopedics following 10/21: ORIF RIGHT femur; ORIF RIGHT hip; I&D RIGHT patella w/ wound vac; I&D LEFT humerus w/ closed reduction; RIGHT wrist closed reduction. 10/25: ORIF left distal humerus. ORIF right radius and ulna with ex-fix placement. 10/29: LEFT knee arthroscopic cruciate ligament repair. LEFT knee open lateral collateral ligament repair. ORIF LEFT knee plateau fx. LEFT knee exploration of peroneal nerve (with discovery of complete rupture of nerve) Pain control Nonweightbearing status to all 4 extremities. PT and OT ordered - encourage out of bed - to wheelchair daily Wave bed to prevent skin breakdown IV Ancef until 11/12 Rehab placement Lovenox - Right lung contusion, Rib fracture Nonoperative management Aggressive pulmonary toileting Pain control OOB LEFT wrist scaphoid bone fx, RIGHT hand phalanx fx Hand surgery consulted OR Today with Dr Cam for repair Pain control NWB Plan of care discussed with patient at bedside. Case management consulted for assist with discharge planning. Denied rehabilitation placement by [facility] due to inability to bear weight on any extremity. [facility] patient stating he is not sick enough to go there. Patient may need to transfer to [facility] in the interim when a bed is available. Remarks seen and examined with WORKERS' COMPENSATION MEDIATOR dispo -difficult due to rehab status incisional pain left UE pin control PT Problem Qualifiers (1) Multiple fractures of ribs of left side: Qualified Code: S22.42XA - Closed fracture of multiple ribs of left side, initial encounter (2) Open fracture of left distal humerus: Qualified Code: S42.492B - Other open displaced fracture of distal end of left humerus, initial encounter (3) Open fracture of right distal humerus: Qualified Code: S42.491B - Other open displaced fracture of distal end of right humerus, initial encounter (4) Open fracture of right patella: (5) Closed fracture of left tibial plateau: Qualified Code: S82.142A - Closed fracture of left tibial plateau, initial encounter (6) Displaced fracture of right femoral neck: Qualified Code: S72.001A - Displaced fracture of right femoral neck, closed, initial encounter Angel Partida Nov 12, 2016 12:28 Mary Greene MD Nov 12, 2016 16:37
--- NOTE | 2016-11-12 14:15 | HHI.PR ---
Subjective Remarks pt is comfortable overall; talked about plan for next week Objective Vital Signs Date Time Temp Pulse Resp B/P Pulse Ox O2 Delivery O2 Flow Rate FiO2 11/12/16 12:00 96.7 74 18 128/71 99 11/12/16 08:00 97.2 77 18 136/70 99 11/12/16 04:20 97.1 80 16 137/81 100 11/11/16 23:40 97.0 94 16 146/83 99 11/11/16 19:45 97.1 85 16 129/71 98 11/11/16 15:40 97.0 82 18 125/62 97 11/11/16 15:00 98.3 78 18 115/58 96 Room Air 11/11/16 14:45 78 18 122/63 95 Room Air 11/11/16 14:30 77 16 143/72 100 Room Air 11/11/16 14:15 76 16 146/76 100 Nasal Cannula 3 I/O 11/11/16 11/11/16 11/11/16 11/12/16 11/12/16 11/12/16 07:00 15:00 23:00 07:00 15:00 23:00 Intake Total 1400 ml 949 ml 449 ml Output Total 300 ml 5 ml 525 ml 425 ml Balance -300 ml 1395 ml 424 ml 24 ml Intake Oral 725 ml 120 ml IV Total 224 ml 329 ml Other 1400 ml Output Urine Total 300 ml 525 ml 425 ml Estimated Blood Loss 5 ml # Bowel Movements 0 0 Result Diagram: 11/09/16 0845 11/09/16 0845 Objective Remarks AA x O x 3 bilat hands in splints; NVI both hands; CR<2 seconds all fingertips no edema in hands or fingers able to wiggle fingers easily Assessment and Plan Problem List: (1) Pain in finger of right hand Status: Acute (2) Pain of left thumb Status: Acute (3) 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
[2016-11-12] MEDS: GABAPENTIN 400 MG CAP PO SCH ×2 (14:58→17:19)
[2016-11-12 16:00] VITALS: BP 133/75; PULSE 90; RESP 18; TEMP 96.4; O2SAT 99
[2016-11-12 19:40] VITALS: BP 150/94; PULSE 95; RESP 16; TEMP 97.1; O2SAT 99
[2016-11-13 00:05] VITALS: BP 126/68; PULSE 100; RESP 16; TEMP 97.4; O2SAT 97
[2016-11-13] MEDS: LACTOBACILLUS ACIDOPHILUS TAB PO SCH ×3 (00:05→23:21)
[2016-11-13] MEDS: ACETAMINOPHEN/HYDROcodone 325 MG/10 MG TAB PO PRN ×4 (00:05→23:22)
[2016-11-13] MEDS: FAMOTIDINE 20 MG TAB PO SCH ×3 (00:05→23:21)
[2016-11-13] MEDS: DOCUSATE SODIUM 50 MG/SENNA 8.6 MG TAB PO SCH ×3 (00:05→23:21)
[2016-11-13] MEDS: METHOCARBAMOL 500 MG TAB PO SCH ×4 (00:05→23:21)
[2016-11-13] MEDS: ONDANSETRON HCL 4 MG/2 ML VIAL IV PUSH PRN (02:01)
[2016-11-13] MEDS: HYDROmorphone HCL PF 1 MG/ML VIAL IV PRN ×2 (02:01→11:09)
[2016-11-13 05:27] LABS: AUTOMATED NEUTROPHIL # 2.5 TH/MM3 (1.8-7.7); BASOPHIL % 0.3 % (0.0-2.0); EOSINOPHIL # 0.1 TH/MM3 (0-0.4); EOSINOPHIL % 2.7 % (0.0-4.0); HEMATOCRIT 32.7 % (39.0-51.0); HEMO FLAGS DIFF FINAL; LYMPH % 28.8 % (9.0-44.0); LYMPHOCYTE # 1.3 TH/MM3 (1.0-4.8); MEAN CELL VOLUME 91.4 FL (80.0-100.0); MEAN CORPUSCULAR HEMOGLOBIN 29.6 PG (27.0-34.0); MEAN CORPUSCULAR HGB CONC 32.4 % (32.0-36.0); NEUT % 57.2 % (16.0-70.0); PLATELET COUNT 282 TH/MM3 (150-450); RED BLOOD COUNT 3.58 MIL/MM3 (4.50-5.90); RED CELL DISTRIBUTION WIDTH 17.4 % (11.6-17.2); WHITE BLOOD COUNT 4.4 TH/MM3 (4.0-11.0)
[2016-11-13 05:57] LABS: ALT (GPT) 351 U/L (12-78); ANION GAP 8 MEQ/L (5-15); AST (GOT) 122 U/L (15-37); BICARBONATE 30.1 MEQ/L (21.0-32.0); BLOOD UREA NITROGEN 12 MG/DL (7-18); CHLORIDE 104 MEQ/L (98-107); GLOMERULAR FILTRATION RATE 140 ML/MIN (>89); MAGNESIUM 2.1 MG/DL (1.5-2.5); POTASSIUM 4.1 MEQ/L (3.5-5.1); SODIUM (NA) 142 MEQ/L (136-145)
[2016-11-13 06:00] LABS: ALKALINE PHOSPHATASE 619 U/L (45-117)
[2016-11-13] MEDS: ENOXAPARIN SODIUM 30 MG/0.3 ML SYRINGE SQ SCH ×2 (06:11→18:07)
[2016-11-13 07:24] VITALS: BP 134/73; PULSE 78; RESP 16; TEMP 96.5; O2SAT 99
[2016-11-13] MEDS: POLYETHYLENE GLYCOL 17 GM PKG PO SCH (09:00)
[2016-11-13] MEDS: GABAPENTIN 400 MG CAP PO SCH ×3 (09:51→18:07)
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
[2016-11-13 11:31] VITALS: BP 123/70; PULSE 85; RESP 16; TEMP 96.6; O2SAT 98
[2016-11-13 15:11] VITALS: BP 144/78; PULSE 78; RESP 16; TEMP 97; O2SAT 98
[2016-11-13] MEDS ORDERED: MAGNESIUM CITRATE SOLN 300 ML BTL PO ONE (15:45)
[2016-11-13 20:01] VITALS: BP 149/83; PULSE 82; RESP 18; TEMP 97.6; O2SAT 99
[2016-11-13] MEDS: MAGNESIUM HYDROXIDE SUSP 30 ML CUP PO SCH (21:00)
[2016-11-13 23:36] VITALS: BP_SYST 101; BP_SYST 126; BP_DIAS 55; BP_DIAS 69; PULSE 82; PULSE 89; RESP 18; TEMP 97.5; TEMP 98.2; O2SAT 96; O2SAT 99
[2016-11-14] MEDS: ENOXAPARIN SODIUM 30 MG/0.3 ML SYRINGE SQ SCH ×2 (06:19→17:36)
[2016-11-14] MEDS: ACETAMINOPHEN/HYDROcodone 325 MG/10 MG TAB PO PRN ×2 (06:20→12:36)
[2016-11-14] MEDS: METHOCARBAMOL 500 MG TAB PO SCH ×3 (06:20→21:46)
[2016-11-14 07:22] VITALS: BP 123/66; PULSE 72; RESP 16; TEMP 97.2; O2SAT 97
[2016-11-14] MEDS ORDERED: BISACODYL 10 MG SUPP RECTAL ONE (08:30)
[2016-11-14] MEDS ORDERED: BISACODYL EC 5 MG TABEC PO ONE (08:30)
[2016-11-14] MEDS: LACTOBACILLUS ACIDOPHILUS TAB PO SCH ×2 (09:32→21:46)
[2016-11-14] MEDS: GABAPENTIN 400 MG CAP PO SCH ×3 (09:32→17:36)
[2016-11-14] MEDS: DOCUSATE SODIUM 50 MG/SENNA 8.6 MG TAB PO SCH ×2 (09:32→21:46)
[2016-11-14] MEDS: FAMOTIDINE 20 MG TAB PO SCH ×2 (09:32→21:46)
[2016-11-14] MEDS: POLYETHYLENE GLYCOL 17 GM PKG PO SCH (09:33)
[2016-11-14] MEDS: LACTULOSE SYRUP 20 GM/30 ML CUP PO PRN (09:35)
[2016-11-14] MEDS: BISACODYL 10 MG SUPP RECTAL PRN (09:36)
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
[2016-11-14 12:31] VITALS: BP 147/96; PULSE 94; RESP 16; TEMP 97.5; O2SAT 100
[2016-11-14 16:00] VITALS: BP 134/92; PULSE 105; RESP 16; TEMP 97.3; O2SAT 98
[2016-11-14 20:45] VITALS: BP 129/82; PULSE 102; RESP 18; TEMP 98.3; O2SAT 98
[2016-11-14] MEDS: MAGNESIUM HYDROXIDE SUSP 30 ML CUP PO SCH (21:00)
[2016-11-15 00:30] VITALS: BP 121/67; PULSE 87; RESP 17; TEMP 97; O2SAT 97
[2016-11-15] MEDS: ENOXAPARIN SODIUM 30 MG/0.3 ML SYRINGE SQ SCH ×2 (06:03→18:05)
[2016-11-15] MEDS: METHOCARBAMOL 500 MG TAB PO SCH ×3 (06:03→22:49)
[2016-11-15] MEDS: ACETAMINOPHEN/HYDROcodone 325 MG/10 MG TAB PO PRN ×3 (06:04→18:05)
--- NOTE | 2016-11-15 06:41 | PD.ORT.PN ---
Subjective Subjective Remarks Resting comfortably Objective Vitals Vital Signs Date Time Temp Pulse Resp B/P Pulse Ox O2 Delivery O2 Flow Rate FiO2 11/15/16 00:30 97.0 87 17 121/67 97 11/14/16 20:45 98.3 102 18 129/82 98 11/14/16 16:00 97.3 105 16 134/92 98 11/14/16 12:31 97.5 94 16 147/96 100 Automatic Cuff 11/14/16 10:37 Room Air 11/14/16 08:00 16 11/14/16 07:22 97.2 72 16 123/66 97 I/O 11/14/16 11/14/16 11/14/16 11/15/16 11/15/16 11/15/16 07:00 15:00 23:00 07:00 15:00 23:00 Intake Total 360 ml 960 ml 240 ml Output Total 350 ml Balance 360 ml 960 ml -110 ml Intake Oral 360 ml 960 ml 240 ml Output Urine Total 350 ml # Voids 1 2 # Bowel Movements 0 2 0 Result Diagram: 11/13/16 0450 11/13/16 0450 Imaging Last 24 hours Impressions Chest X-Ray 10/23/16 0600 Signed Impressions: Service Date/Time: Sunday, October 23, 2016 05:43 - CONCLUSION: 1. Right central line tip in left subclavian vein, unchanged. Interval extubation. Mild atelectasis at the bases. Bk Martin MD Objective Remarks NAD RUE -external fixator and dressing in place. swelling in fingers. NVI and sensation intact. cap refill. incisions visualized. clean and dry. no drainage. healing well. LUE - dressing in place. swelling in fingers. NVI and sensation intact. cap refill. incision visualized. clean and dry. intact. no drainage. healing well. RLE - wound and incisions CDI. NVI and sensation intact. LLE - Knee ROM brace on. Dressings dry. mild swelling around knee. sensation intact. no dorsiflexion. ongoing footdrop on left side, brace on. able to move distal digits successfully. Assessment & Plan Assessment and Plan 10/29 Open Repair of Left Hamstring Tendon, Open Repair of Left Lateral Collateral Ligament, Left Knee Arthroscopic ACL Repair, Open Repair of Left Lateral Tibial Fracture 5/19 I&D and ORIF R supracondylar femur fx and R patella fx 10/25 ORIF left humerus and right distal radius with application right wrist exfix 10/25 Application of wound vac R knee, ORIF R fem neck fx, I&D with closed reduction Left Leg Foot Drop NWB BLE and BUE ok to use right elbow for pushing off. ok to DC sling PRN right arm. Daily dressing changes to right and left arms pin care BID right wrist Active assisted ROM ok to RLE LLE - PODUS boot for foot drop, ROM brace Physical therapy - Non weight bearing BLE. AAROM Remove radha and sutures to BLE today. Apply dry dressing every other day. Med management Orthopedically cleared for discharge to rehabilitation from Dr. De Leon standpoint. Orthopedically stable for discharge from Dr. Brown standpoint. Discharge plan - anticipating rehab Nelson Rosentahl Jr. Nov 15, 2016 06:41
[2016-11-15 07:18] VITALS: BP 129/64; PULSE 73; RESP 16; TEMP 97.8; O2SAT 97
[2016-11-15] MEDS: POLYETHYLENE GLYCOL 17 GM PKG PO SCH (08:38)
[2016-11-15] MEDS: LACTOBACILLUS ACIDOPHILUS TAB PO SCH ×2 (08:38→20:15)
[2016-11-15] MEDS: DOCUSATE SODIUM 50 MG/SENNA 8.6 MG TAB PO SCH ×2 (08:38→20:16)
[2016-11-15] MEDS: FAMOTIDINE 20 MG TAB PO SCH ×2 (08:38→20:15)
[2016-11-15] MEDS: GABAPENTIN 400 MG CAP PO SCH ×3 (08:38→18:04)
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
[2016-11-15 11:25] VITALS: BP 125/85; PULSE 94; RESP 16; TEMP 97.6; O2SAT 98
[2016-11-15 15:33] VITALS: BP 117/67; PULSE 84; RESP 16; TEMP 97.1; O2SAT 99
[2016-11-15 20:05] VITALS: BP 155/97; PULSE 99; RESP 16; TEMP 97.8; O2SAT 96
[2016-11-15] MEDS: MAGNESIUM HYDROXIDE SUSP 30 ML CUP PO SCH (20:15)
[2016-11-16 00:25] VITALS: BP 126/73; PULSE 75; RESP 16; TEMP 97.3; O2SAT 98
[2016-11-16] MEDS: ENOXAPARIN SODIUM 30 MG/0.3 ML SYRINGE SQ SCH ×3 (05:10→20:12)
[2016-11-16] MEDS: ACETAMINOPHEN/HYDROcodone 325 MG/10 MG TAB PO PRN ×3 (05:10→17:21)
[2016-11-16] MEDS: METHOCARBAMOL 500 MG TAB PO SCH ×3 (05:10→21:16)
[2016-11-16 06:41] LABS: ANION GAP 12 MEQ/L (5-15); AST (GOT) 39 U/L (15-37); BICARBONATE 27.4 MEQ/L (21.0-32.0); BLOOD UREA NITROGEN 18 MG/DL (7-18); CHLORIDE 100 MEQ/L (98-107); GLOMERULAR FILTRATION RATE 138 ML/MIN (>89); POTASSIUM 3.6 MEQ/L (3.5-5.1); SODIUM (NA) 139 MEQ/L (136-145)
[2016-11-16 06:42] LABS: ALT (GPT) 223 U/L (12-78)
[2016-11-16 06:44] LABS: ALKALINE PHOSPHATASE 494 U/L (45-117); TOTAL BILIRUBIN ADULT 0.9 MG/DL (0.2-1.0)
[2016-11-16 06:58] LABS: AUTOMATED NEUTROPHIL # 2.6 TH/MM3 (1.8-7.7); BASOPHIL % 0.3 % (0.0-2.0); EOSINOPHIL # 0.2 TH/MM3 (0-0.4); EOSINOPHIL % 3.3 % (0.0-4.0); HEMATOCRIT 35.8 % (39.0-51.0); HEMO FLAGS DIFF FINAL; LYMPH % 28.3 % (9.0-44.0); LYMPHOCYTE # 1.3 TH/MM3 (1.0-4.8); MEAN CELL VOLUME 92.3 FL (80.0-100.0); MEAN CORPUSCULAR HEMOGLOBIN 29.7 PG (27.0-34.0); MEAN CORPUSCULAR HGB CONC 32.1 % (32.0-36.0); MONO % 12.2 % (0.0-8.0); NEUT % 55.9 % (16.0-70.0); PLATELET COUNT 268 TH/MM3 (150-450); RED BLOOD COUNT 3.88 MIL/MM3 (4.50-5.90); WHITE BLOOD COUNT 4.7 TH/MM3 (4.0-11.0)
[2016-11-16] MEDS: FAMOTIDINE 20 MG TAB PO SCH ×2 (07:48→21:16)
[2016-11-16] MEDS: LACTOBACILLUS ACIDOPHILUS TAB PO SCH ×2 (07:48→21:16)
[2016-11-16] MEDS: DOCUSATE SODIUM 50 MG/SENNA 8.6 MG TAB PO SCH ×2 (07:48→21:16)
[2016-11-16] MEDS: GABAPENTIN 400 MG CAP PO SCH ×3 (07:48→17:19)
[2016-11-16] MEDS: POLYETHYLENE GLYCOL 17 GM PKG PO SCH (07:48)
[2016-11-16 08:00] VITALS: BP 116/60; PULSE 74; RESP 17; TEMP 97.2; O2SAT 100
[2016-11-16 12:00] VITALS: BP 124/84; PULSE 86; RESP 18; TEMP 96.5; O2SAT 99
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
--- NOTE | 2016-11-16 13:02 | HHI.PR ---
Subjective Remarks pt is comfortable overall; talked about plan for tomorrow Bilateral upper extremities splints are intact and comfortable Objective Vital Signs Date Time Temp Pulse Resp B/P Pulse Ox O2 Delivery O2 Flow Rate FiO2 11/16/16 12:00 96.5 86 18 124/84 99 11/16/16 08:00 97.2 74 17 116/60 100 11/16/16 00:25 97.3 75 16 126/73 98 11/15/16 20:05 97.8 99 16 155/97 96 11/15/16 15:33 97.1 84 16 117/67 99 I/O 11/15/16 11/15/16 11/15/16 11/16/16 11/16/16 11/16/16 07:00 15:00 23:00 07:00 15:00 23:00 Intake Total 240 ml 720 ml 1250 ml 240 ml Output Total 575 ml 575 ml 800 ml 400 ml Balance -335 ml 145 ml 450 ml -160 ml Intake Oral 240 ml 720 ml 1250 ml 240 ml Output Urine Total 575 ml 575 ml 800 ml 400 ml # Voids 1 # Bowel Movements 0 0 0 0 Result Diagram: 11/16/1644911/16/16449 Objective Remarks AA x O x 3 bilat hands in splints; NVI both hands; CR<2 seconds all fingertips no edema in hands or fingers able to wiggle fingers easily Left leg shows no signs of infection in a knee immobilizer Assessment and Plan Problem List: (1) Pain in finger of right hand Status: Acute (2) Pain of left thumb Status: Acute (3) 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 The patient and I discussed the options the plan for the incisions on the back of his leg which will be multiple. He knows is not an overnight cure if it is even possible but he is requesting we continued and proceed (6) Fracture of scaphoid bone of left wrist Status: Acute Scot Cam III, MD Nov 16, 2016 13:02
[2016-11-16 16:00] VITALS: BP 141/91; PULSE 94; RESP 17; TEMP 98.5; O2SAT 99
[2016-11-16 20:00] VITALS: BP 139/91; PULSE 90; RESP 18; TEMP 97.1; O2SAT 96
[2016-11-16] MEDS: MAGNESIUM HYDROXIDE SUSP 30 ML CUP PO SCH (21:16)
[2016-11-16] MEDS: MELATONIN 5 MG TAB PO PRN (21:17)
[2016-11-16] MEDS ORDERED: METOPROLOL TARTRATE 25 MG TAB PO PRN (23:00)
[2016-11-16] MEDS ORDERED: INSULIN HUMAN REGULAR 1,000 UNITS/10 ML VIAL SQ PRN (23:00)
[2016-11-16] MEDS ORDERED: LACTATED RINGER'S 1000 ML IV PRN (23:00)
[2016-11-16] MEDS ORDERED: CHLORHEXIDINE GLUCONATE 2 % 1 PACK (2 CLOTHS) TOPICAL PRN (23:00)
[2016-11-16] MEDS ORDERED: SODIUM CHLORID 0.9% 500 ML IV PRN (23:00)
[2016-11-16] MEDS ORDERED: POVIDONE IODINE 5% (ANTISEPSIS KIT) 4 APPLICATIONS EACH NARE PRN (23:00)
[2016-11-17] VITALS: BP 148/71; PULSE 90; RESP 16; TEMP 97.2; O2SAT 99
[2016-11-17 04:00] VITALS: BP 130/73; PULSE 83; RESP 16; TEMP 97.2; O2SAT 98
[2016-11-17] MEDS: ACETAMINOPHEN/HYDROcodone 325 MG/10 MG TAB PO PRN ×2 (05:12→17:54)
[2016-11-17] MEDS: METHOCARBAMOL 500 MG TAB PO SCH ×3 (05:13→21:17)
[2016-11-17 07:24] VITALS: BP 107/67; PULSE 75; RESP 18; TEMP 97.3; O2SAT 93
[2016-11-17] MEDS: FAMOTIDINE 20 MG TAB PO SCH ×2 (09:00→21:17)
[2016-11-17] MEDS: POLYETHYLENE GLYCOL 17 GM PKG PO SCH (09:00)
[2016-11-17] MEDS: GABAPENTIN 400 MG CAP PO SCH ×3 (09:00→17:54)
[2016-11-17] MEDS: LACTOBACILLUS ACIDOPHILUS TAB PO SCH ×2 (09:00→21:17)
[2016-11-17] MEDS: DOCUSATE SODIUM 50 MG/SENNA 8.6 MG TAB PO SCH ×2 (09:00→21:17)
[2016-11-17] MEDS ORDERED: ACETAMINOPHEN 1000 MG/100 ML VIAL IV ONE (09:29)
[2016-11-17] MEDS ORDERED: LEVOFLOXACIN 500 MG PREMIX INJ 100 ML IV SCH (09:45)
[2016-11-17] MEDS ORDERED: MIDAZOLAM HCL 2 MG/2 ML VIAL ONE (09:58)
[2016-11-17] MEDS ORDERED: BUPIVACAINE HCL PF 0.5% 30 ML VIAL ONE (11:01)
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
[2016-11-17] MEDS ORDERED: PROPOFOL 200 MG/20 ML AMP IV ONE (12:00)
[2016-11-17] MEDS ORDERED: ONDANSETRON HCL 4 MG/2 ML VIAL IV PUSH ONE (12:00)
[2016-11-17] MEDS ORDERED: LACTATED RINGER'S 1000 ML INJ 1,000 ML IV ONE (12:00)
[2016-11-17] MEDS ORDERED: LIDOCAINE HCL PF 2% VIAL INFIL ONE (12:06)
[2016-11-17] MEDS ORDERED: NEOMYCIN/POLYMYXIN 1 ML G.U. IRRIGANT TOPICAL ONE (12:10)
[2016-11-17] MEDS ORDERED: fentaNYL CITRATE 250 MCG/5 ML AMP ONE ×2 (14:10→16:49)
--- NOTE | 2016-11-17 15:56 | HHI.PR ---
Immediate Post Op Note Procedure Date: Nov 17, 2016 Pre Op Diagnosis: (1) Left peroneal nerve injury Post Op Diagnosis: Surgeon: Scot Cam III Thread Puller(s): GLORIA CASTRO Procedure: Left leg exploration, left common peroneal nerve repair with sural nerve interposition graft (30cm), use of operating microscope Complications: 0 Specimen(s) removed: 0 Anesthesia: General Drains: None IVF Patient to: PACU Patient Condition: Good Scot Cam III, MD Nov 17, 2016 15:56
[2016-11-17] MEDS: ENOXAPARIN SODIUM 30 MG/0.3 ML SYRINGE SQ SCH ×2 (15:59→17:07)
[2016-11-17] MEDS ORDERED: MORPHINE SULFATE 4 MG/ML INJ ONE (16:49)
[2016-11-17 20:00] VITALS: BP 142/72; PULSE 83; RESP 18; TEMP 98.8; O2SAT 95
[2016-11-17 20:53] VITALS: O2SAT 96
[2016-11-17] MEDS: MAGNESIUM HYDROXIDE SUSP 30 ML CUP PO SCH (21:00)
[2016-11-17] MEDS: MELATONIN 5 MG TAB PO PRN (21:17)
[2016-11-17] MEDS: HYDROmorphone HCL PF 1 MG/ML VIAL IV PRN (21:18)
[2016-11-18] VITALS: BP 127/69; PULSE 94; RESP 20; TEMP 98.2; O2SAT 97
[2016-11-18] MEDS: ALPRAZolam 1 MG TAB PO PRN (00:35)
[2016-11-18] MEDS: ACETAMINOPHEN/HYDROcodone 325 MG/10 MG TAB PO PRN ×3 (00:36→16:00)
[2016-11-18 04:00] VITALS: BP 116/62; PULSE 91; RESP 16; TEMP 98.1; O2SAT 97
[2016-11-18] MEDS: ENOXAPARIN SODIUM 30 MG/0.3 ML SYRINGE SQ SCH ×2 (05:56→16:00)
[2016-11-18] MEDS: METHOCARBAMOL 500 MG TAB PO SCH ×3 (05:56→20:48)
[2016-11-18] MEDS: HYDROmorphone HCL PF 1 MG/ML VIAL IV PRN ×5 (06:06→22:12)
[2016-11-18 08:00] VITALS: BP 119/66; PULSE 92; RESP 18; TEMP 98.7; O2SAT 95
[2016-11-18] MEDS: GABAPENTIN 400 MG CAP PO SCH ×2 (08:05→11:46)
[2016-11-18] MEDS: FAMOTIDINE 20 MG TAB PO SCH ×2 (08:05→20:48)
[2016-11-18] MEDS: LEVOFLOXACIN 500 MG TAB PO SCH (08:05)
[2016-11-18] MEDS: DOCUSATE SODIUM 50 MG/SENNA 8.6 MG TAB PO SCH ×2 (08:05→20:48)
[2016-11-18] MEDS: LACTOBACILLUS ACIDOPHILUS TAB PO SCH ×2 (08:05→20:48)
[2016-11-18] MEDS: POLYETHYLENE GLYCOL 17 GM PKG PO SCH (08:06)
[2016-11-18] MEDS: LACTULOSE SYRUP 20 GM/30 ML CUP PO PRN ×2 (08:10→16:01)
[2016-11-18] MEDS: ONDANSETRON HCL 4 MG/2 ML VIAL IV PUSH PRN (09:51)
[2016-11-18 12:00] VITALS: BP 120/69; PULSE 99; RESP 18; TEMP 97.5; O2SAT 94
[2016-11-18] MEDS: GABAPENTIN 300 MG CAP PO SCH ×2 (12:33→18:10)
[2016-11-18] MEDS: KETOROLAC TROMETHAMINE 30 MG/ML (IVP) VIAL IV PUSH SCH ×3 (13:32→23:52)
[2016-11-18] MEDS ORDERED: NEOMYCIN/POLYMYXIN/BACITRACIN/HC OINT 15 GM TUBE TOPICAL SCH (14:00)
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
[2016-11-18 16:00] VITALS: BP 147/86; PULSE 96; RESP 18; TEMP 98.9; O2SAT 98
[2016-11-18] MEDS: BISACODYL 10 MG SUPP RECTAL PRN (16:00)
--- NOTE | 2016-11-18 16:09 | HHI.PR ---
Subjective Subjective Notes Complaints of left leg pain and left eyebrow irritation Reports he now noticed a left groin mass Remarks seen and examined with the nurse practitioner c/o left inguinal mass. This was examined differential diagnosis is a inguinal hernia versus a fluid collection and ultrasound was ordered. Patient also complains of a burning sensation over his eyebrows. On my exam, patient has had a dermatitis. Hydrocortisone was ordered Objective Vitals/I&O Vital Signs Date Time Temp Pulse Resp B/P Pulse Ox O2 Delivery O2 Flow Rate FiO2 11/18/16 12:00 97.5 99 18 120/69 94 11/17/16 17:15 Room Air 11/17/16 16:45 1 Labs Laboratory Tests Test 11/16/16 04:50 White Blood Count 4.7 TH/MM3 Red Blood Count 3.88 MIL/MM3 Hemoglobin 11.5 GM/DL Hematocrit 35.8 % Mean Corpuscular Volume 92.3 FL Mean Corpuscular Hemoglobin 29.7 PG Mean Corpuscular Hemoglobin 32.1 % Concent Red Cell Distribution Width 18.0 % Platelet Count 268 TH/MM3 Mean Platelet Volume 7.7 FL Neutrophils (%) (Auto) 55.9 % Lymphocytes (%) (Auto) 28.3 % Monocytes (%) (Auto) 12.2 % Eosinophils (%) (Auto) 3.3 % Basophils (%) (Auto) 0.3 % Neutrophils # (Auto) 2.6 TH/MM3 Lymphocytes # (Auto) 1.3 TH/MM3 Monocytes # (Auto) 0.6 TH/MM3 Eosinophils # (Auto) 0.2 TH/MM3 Basophils # (Auto) 0.0 TH/MM3 CBC Comment DIFF FINAL Differential Comment Sodium Level 139 MEQ/L Potassium Level 3.6 MEQ/L Chloride Level 100 MEQ/L Carbon Dioxide Level 27.4 MEQ/L Anion Gap 12 MEQ/L Blood Urea Nitrogen 18 MG/DL Creatinine 0.69 MG/DL Estimat Glomerular Filtration 138 ML/MIN Rate Random Glucose 106 MG/DL Calcium Level 8.7 MG/DL Magnesium Level 2.0 MG/DL Total Bilirubin 0.9 MG/DL Aspartate Amino Transf 39 U/L (AST/SGOT) Alanine Aminotransferase 223 U/L (ALT/SGPT) Alkaline Phosphatase 494 U/L Total Protein 6.8 GM/DL Albumin 3.1 GM/DL Radiology Last Impressions Knee X-Ray 10/29/16 0000 Signed Impressions: Service Date/Time: Saturday, October 29, 2016 11:55 - CONCLUSION: Fluoroscopic images demonstrates temporary probe along the lateral soft tissues adjacent to the fibula. Other images during repair of the lateral tibial plateau. Adolfo Savage MD Abdomen X-Ray 10/29/16 0000 Signed Impressions: Service Date/Time: Saturday, October 29, 2016 08:53 - CONCLUSION: 1. Diffuse ileus. No free air identified. Bk Martin MD Chest X-Ray 10/26/16 0600 Signed Impressions: Service Date/Time: Wednesday, October 26, 2016 04:52 - CONCLUSION: No appreciable change. Lobo Maynard MD Radius/Ulna X-Ray 10/25/16 0000 Signed Impressions: Service Date/Time: Tuesday, October 25, 2016 12:56 - CONCLUSION: Status post op in rigid internal fixation. Nelson Hill MD Humerus X-Ray 10/25/16 0000 Signed Impressions: Service Date/Time: Tuesday, October 25, 2016 11:34 - CONCLUSION: Status post open rigid internal fixation. Nelson Hill MD Ankle X-Ray 10/24/16 0000 Signed Impressions: Service Date/Time: Monday, October 24, 2016 10:36 - CONCLUSION: Soft tissue swelling. Laron Kuo MD Knee MRI 10/23/16 0000 Signed Impressions: Service Date/Time: Sunday, October 23, 2016 16:05 - CONCLUSION: 1. Disruption of the lateral ligamentous structures including the fibular collateral ligament , the biceps femoris musculotendinous junction and the attachment site at the iliotibial band causing widening at the lateral joint space. 2. Anterior cruciate ligament tear at its femoral attachment site. 3. Increased signal within the proximal aspect of the posterior cruciate ligament. Some degree of partial tearing at this structure cannot be excluded. 4. Fairly extensive bone bruising and fracturing involving the proximal tibia, proximal fibula and femoral condyles as described above. 5. Moderate effusion. Rico Pena MD Wrist X-Ray 10/22/16 0000 Signed Impressions: Service Date/Time: October 21:00 - CONCLUSION: 1. Fractures of the distal radius and ulna as above with some foreshortening of the radius. Bk Martin MD Hip X-Ray 10/22/16 0000 Signed Impressions: Service Date/Time: October 21:00 - CONCLUSION: 1. Lag screws traversing proximal right femur fracture. Bk Martin MD Femur X-Ray 10/22/16 0000 Signed Impressions: Service Date/Time: October 21:00 - CONCLUSION: 1. Fixation distal right femur. Bk Martin MD Maxillofacial CT 10/21/161821 Signed Impressions: Service Date/Time: October 18:33 - CONCLUSION: 1. Mucoperiosteal thickening in the right frontal sinus and right maxillary sinus. 2. I cannot entirely exclude a nondisplaced fracture of the right infraorbital rim. Mikel Ricks MD FACR Head CT 10/21/161821 Signed Impressions: Service Date/Time: October 18:33 - CONCLUSION: Negative for acute process.. Mikel Ricks MD FACR Chest CT 10/21/161821 Signed Impressions: Service Date/Time: October 18:43 - CONCLUSION: 1. Contusion laterally in the right lung. 2. Air in the axilla on the left. 3. I cannot confirm a rib fracture by CT. Mikel Ricks MD FACR Cervical Spine CT 10/21/161821 Signed Impressions: Service Date/Time: October 18:33 - CONCLUSION: Transverse process fracture C7 on the right, involving just the tip of the transverse process. Mikel Ricks MD FACR Abdomen/Pelvis CT 10/21/161821 Signed Impressions: Service Date/Time: October 18:43 - CONCLUSION: 1. Contusion in the right lung base. 2. Right hip fracture. 3. Right ilium fracture. 4. Minimal induration about the right superior pubic ramus. 5. There is no evidence for a solid organ injury. Mikel Ricks MD FACR Tibia/Fibula X-Ray 10/21/16 0000 Signed Impressions: Service Date/Time: October 18:04 - CONCLUSION: Plateau fracture. Mikel Ricks MD FACR Pelvis X-Ray 10/21/16 0000 Signed Impressions: Service Date/Time: October 18:04 - CONCLUSION: 1. Right femoral neck fracture. 2. Fracture of the right ilium. Mikel Ricks MD FACR Aorta w/Runoff CTA 10/21/16 0000 Signed Impressions: Service Date/Time: October 20:02 - CONCLUSION: Significant fracture at the junction of the RIGHT SFA and popliteal artery at the adductor hiatus with moderate contusion. Vessel is patent.. Mikel Ricks MD FACR Narrative Exam GENERAL: 26-year-old well-nourished, well developed male lying in bed, painful. SKIN: Warm and dry. LEFT eyebrow edema and erythema noted. HEAD: Normocephalic. ENT: No nasal bleeding or discharge. Mucous membranes pink and moist. NECK: Trachea midline. No JVD. CARDIOVASCULAR: Regular rate and rhythm. RESPIRATORY: No accessory muscle use. Lungs clear to auscultation. Breath sounds equal bilaterally. GASTROINTESTINAL: Abdomen soft, non-tender, nondistended. + BS. LEFT groin hard palpable mass noted. MUSCULOSKELETAL: Extremities without cyanosis, +1 edema right wrist. Right wrist ex-fix in place. Pin sites clean. Left hand dressing C/D/I. MAEW. NEUROLOGICAL: Awake and alert. Normal speech. A/P Problem List: (1) Multiple fractures of ribs of left side (2) Open fracture of left distal humerus (3) Open fracture of right distal humerus (4) Open fracture of right patella (5) Closed fracture of left tibial plateau (6) Displaced fracture of right femoral neck Assessment and Plan INJURIES: Questionable fx of RIGHT orbit rim C7 transverse process fx RIGHT lung contusion Open RIGHT radius/ulna fx LEFT humerus fx RIGHT hip fx RIGHT ilium fx RIGHT femoral neck fx OPEN RIGHT patellar fx LEFT avulsion fx of knee (w/ multiple ligament injury) LEFT tibial plateau fx LEFT wrist scaphoid bone fx RIGHT hand phalanx fx PROCEDURES: 10/21: ORIF RIGHT femur; ORIF RIGHT hip; I&D RIGHT patella w/ wound vac; I&D LEFT humerus w/ closed reduction; RIGHT wrist closed reduction. 10/25: ORIF left distal humerus. ORIF right radius and ulna with ex-fix placement. 10/29: LEFT knee arthroscopic cruciate ligament repair. LEFT knee open lateral collateral ligament repair. ORIF LEFT knee plateau fx. LEFT knee exploration of peroneal nerve (with discovery of complete rupture of nerve) Diet: Regular, tolerating Pulm: IS, acapella, EZpap. nebs. Encouraged patient use Pain: [place]. Neurontin. (Xanax) Robaxin. Increased Neurontin dose for better pain control. Increased IV Dilaudid. Added Toradol. Activity: OOB to stretcher chair. PT and OT evaluating. (NWB EDMUND; NWB LUIS ANGEL) GI: Pepcid Bowel: Hanna-colace. Lactulose, Miralax and Dulcolax [place] PRN. LBM: 11/15 DVT: SCD's. Lovenox 30 BID - RIGHT radius/ulna fx - LEFT humerus fx - RIGHT hip fx - RIGHT ilium fx - RIGHT femoral neck fx - OPEN RIGHT patellar fx - LEFT avulsion fx of knee (w/ multiple ligament injury) - LEFT tibial plateau fx Orthopedics following 10/21: ORIF RIGHT femur; ORIF RIGHT hip; I&D RIGHT patella w/ wound vac; I&D LEFT humerus w/ closed reduction; RIGHT wrist closed reduction. 10/25: ORIF left distal humerus. ORIF right radius and ulna with ex-fix placement. 10/29: LEFT knee arthroscopic cruciate ligament repair. LEFT knee open lateral collateral ligament repair. ORIF LEFT knee plateau fx. LEFT knee exploration of peroneal nerve (with discovery of complete rupture of nerve) Pain control Nonweightbearing status to all 4 extremities. PT and OT ordered - encourage out of bed - to wheelchair daily Wave bed to prevent skin breakdown Rehab placement Lovenox - Right lung contusion, Rib fracture Nonoperative management Aggressive pulmonary toileting Pain control OOB LEFT wrist scaphoid bone fx, RIGHT hand phalanx fx Hand surgery consulted Pain control NWDevin MORALES Seborrheic Dermatitis Apply Hydrocortisone cream to face q8H LEFT groin mass Unable to stand to further assess Obtain ultrasound of groin No pain with palpation Plan of care discussed with patient at bedside. Case management consulted for assist with discharge planning. Denied rehabilitation placement by [facility] due to inability to bear weight on any extremity. [facility] declined patient stating he is not sick enough to go there. Problem Qualifiers (1) Multiple fractures of ribs of left side: Qualified Code: S22.42XA - Closed fracture of multiple ribs of left side, initial encounter (2) Open fracture of left distal humerus: Qualified Code: S42.492B - Other open displaced fracture of distal end of left humerus, initial encounter (3) Open fracture of right distal humerus: Qualified Code: S42.491B - Other open displaced fracture of distal end of right humerus, initial encounter (4) Open fracture of right patella: (5) Closed fracture of left tibial plateau: Qualified Code: S82.142A - Closed fracture of left tibial plateau, initial encounter (6) Displaced fracture of right femoral neck: Qualified Code: S72.001A - Displaced fracture of right femoral neck, closed, initial encounter Angel Partida Nov 18, 2016 16:09 Mary Greene MD Nov 18, 2016 16:41
[2016-11-18 19:00] VITALS: BP 144/76; PULSE 91; RESP 16; TEMP 97.9; O2SAT 98
[2016-11-18] MEDS: MAGNESIUM HYDROXIDE SUSP 30 ML CUP PO SCH (20:46)
[2016-11-18] MEDS: HYDROCORTISONE 1% CREAM 30 GM TOPICAL SCH (22:07)
[2016-11-19] VITALS: BP 122/88; PULSE 96; RESP 17; TEMP 98.5; O2SAT 98
[2016-11-19] MEDS: KETOROLAC TROMETHAMINE 30 MG/ML (IVP) VIAL IV PUSH SCH ×3 (05:15→17:17)
[2016-11-19] MEDS: METHOCARBAMOL 500 MG TAB PO SCH ×3 (05:15→20:57)
[2016-11-19] MEDS: HYDROCORTISONE 1% CREAM 30 GM TOPICAL SCH ×3 (05:15→20:59)
[2016-11-19] MEDS: ENOXAPARIN SODIUM 30 MG/0.3 ML SYRINGE SQ SCH ×2 (05:15→17:20)
[2016-11-19] MEDS: HYDROmorphone HCL PF 1 MG/ML VIAL IV PRN ×5 (05:37→20:58)
[2016-11-19] MEDS ORDERED: MAGNESIUM CITRATE SOLN 300 ML BTL PO ONE (06:45)
[2016-11-19 08:00] VITALS: BP 116/59; PULSE 95; RESP 18; TEMP 98.5; O2SAT 98
[2016-11-19] MEDS: POLYETHYLENE GLYCOL 17 GM PKG PO SCH (09:00)
[2016-11-19] MEDS: LEVOFLOXACIN 500 MG TAB PO SCH (10:09)
[2016-11-19] MEDS: DOCUSATE SODIUM 50 MG/SENNA 8.6 MG TAB PO SCH ×2 (10:09→20:57)
[2016-11-19] MEDS: GABAPENTIN 300 MG CAP PO SCH ×3 (10:10→17:19)
[2016-11-19] MEDS: FAMOTIDINE 20 MG TAB PO SCH ×2 (10:10→20:57)
[2016-11-19] MEDS: LACTOBACILLUS ACIDOPHILUS TAB PO SCH ×2 (10:10→20:57)
--- NOTE | 2016-11-19 11:19 | MP ---
cc: SCOT PAYNE III, M.D. DATE OF SURGERY: 11/17/2016 PREOPERATIVE DIAGNOSIS Left common peroneal nerve injury. POSTOPERATIVE DIAGNOSIS Left common peroneal nerve injury. PROCEDURE 1. Left leg exploration. 2. Left common peroneal nerve repair using sural nerve interposition graft x2, 30 cm total. 3. Use of the operating microscope. SURGEON Scot Payne III, MD DETAILS OF PROCEDURE The patient was brought to the operating room and placed supine on the operating table. After the correct site and side of surgery were verified by members of each team in the room multiple times including the patient and myself, and after adequate preoperative markings and preoperative written consent was verified by everyone, and after adequate a preoperative timeout was performed to everyone's satisfaction, and after adequate general anesthesia had been achieved, the patient was then positioned in a prone position with all pressure points padded. IV antibiotics were administered and a Velasquez catheter was also placed with placement verified prior to repositioning. Preoperative diagrams were made and then a 50/50 mixture of 2% plain lidocaine and 0.5% plain Marcaine was infiltrated into the skin and subcutaneous tissue at the level of the distal thigh posteriorly just proximal to the popliteal fossa. A curvilinear lazy-S incision around the popliteal fossa was then made. Electrocautery was used to control subcutaneous bleeders. The biceps muscle belly was identified and a plane was developed. The incision was then curved down towards the original incision from his lateral knee injury and the blue Prolene suture that Dr. Wolf previously tagged the common peroneal nerve stump which was identified and protected. This was dissected free approximately 50 cm distally. The belly of the biceps was retracted. The sciatic nerve was identified. This turned out to be the tibial nerve and proximally the bifurcation of the sciatic and common peroneal was identified. The common peroneal appeared to rupture right at the bifurcation. There was 1-2 cm of the stump remaining after a very thorough meticulous magnified dissection was performed to reveal nerve fascicles protruding of which there were many. The identical dissection meticulously of the distal stump of the common peroneal nerve was performed and two large fascicular bundles were isolated. A sural nerve graft was then harvested first using an incision 2 cm posterior to the lateral malleolus and the lesser saphenous vein was identified and the nerve was identified branching just adjacent to this. This was followed proximally and through multiple small 2 cm transverse incisions on the dorsal aspect of the calf the entire nerve was harvested until it became conjoined with another nerve branch just distal to the popliteal fossa. These wounds were thoroughly irrigated with saline and the skin edges were all re-approximated, the transverse incisions with multiple skin radha, the distal-most incision with 3-0 Vicryl suture in the deep subcutaneous tissue to eliminate space, and the skin edges re-approximated using 4-0 nylon. The operating microscope was used to put two reverse interposition sural nerve grafts between the common peroneal nerve stump and the two large fascicular bundles located distally. These were held in place using multiple 8-0 nylon sutures. Pictures were obtained using the Pentero microscope. Thorough irrigation was performed again. A tourniquet was never used at any point during the case. AmnioFix was then used and placed around the anastomosis of the common peroneal nerve stump and sural nerve grafts proximally as well as a second piece of AmnioFix around the anastomosis distally. The deep subcutaneous tissues were then re-approximated easily using multiple interrupted 2-0 Vicryl sutures and the skin edges re-approximated using running 3-0 Monocryl. The leg was thoroughly cleansed and dried. Mastisol and Steri-Strips were applied atop the major wound. Betadine/Adaptic dressings were applied atop of all the other wounds. The leg and foot were wrapped in bulky soft dressing and then a long leg posterior splint keeping the ankle flexed was made in the usual fashion. The grafts were placed and were under absolutely no tension whatsoever. The patient was awakened from anesthesia and transported to the post-anesthesia care unit awake and in stable condition at the end of the case. The sponge, needle and instrument counts were correct at the end of the case as reported by the nurses in the room. MD JOE Farias III/NATALIE /4:08 PM /10:57 AM
[2016-11-19 12:00] VITALS: BP 138/85; PULSE 98; RESP 18; TEMP 97.9; O2SAT 98
--- NOTE | 2016-11-19 12:58 | HHI.PR ---
Subjective Remarks pt feels better today seen by Dr Chauhan yesterday pain well controlled Objective Vital Signs Date Time Temp Pulse Resp B/P Pulse Ox O2 Delivery O2 Flow Rate FiO2 11/19/16 08:00 98.5 95 18 116/59 98 11/19/16 00:00 98.5 96 17 122/88 98 11/18/16 19:00 97.9 91 16 144/76 98 11/18/16 18:50 16 11/18/16 18:50 16 11/18/16 17:20 16 11/18/16 16:00 98.9 96 18 147/86 98 I/O 11/18/16 11/18/16 11/18/16 11/19/16 11/19/16 11/19/16 07:00 15:00 23:00 07:00 15:00 23:00 Intake Total 240 ml 600 ml 480 ml 480 ml Output Total 1700 ml 710 ml Balance -1460 ml -110 ml 480 ml 480 ml Intake Oral 240 ml 600 ml 480 ml 480 ml Output Urine Total 1700 ml 710 ml # Voids 1 2 # Bowel Movements 0 1 0 Result Diagram: 11/16/16 04511/16/16 0450 Objective Remarks AA x O x 3 bilat hands in splints; NVI both hands; CR<2 seconds all fingertips no edema in hands or fingers able to wiggle fingers easily Left leg splint and dressing are all intact. He is able to wiggle all of his toes on his left and has sensation. Toes are soft pink and warm. 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 After about 10 days to 14 days will put him in back into his knee immobilizer may be sooner as there was no tension at all to the nerve reconstruction and grafting (4) Left peroneal nerve injury Status: Acute (5) Fracture of phalanx, proximal, right hand Status: Acute (6) Fracture of scaphoid bone of left wrist Status: Acute Scot Cam III, MD Nov 19, 2016 12:58
--- NOTE | 2016-11-19 13:35 | HHI.PR ---
Subjective Subjective Notes Patient reports pain better controlled today, still requiring IV Dilaudid Objective Vitals/I&O Vital Signs Date Time Temp Pulse Resp B/P Pulse Ox O2 Delivery O2 Flow Rate FiO2 11/19/16 12:00 97.9 98 18 138/85 98 11/17/16 17:15 Room Air 11/17/16 16:45 1 Radiology Last Impressions Knee X-Ray 10/29/16 0000 Signed Impressions: Service Date/Time: Saturday, October 29, 2016 11:55 - CONCLUSION: Fluoroscopic images demonstrates temporary probe along the lateral soft tissues adjacent to the fibula. Other images during repair of the lateral tibial plateau. Adolfo Savage MD Abdomen X-Ray 10/29/16 0000 Signed Impressions: Service Date/Time: Saturday, October 29, 2016 08:53 - CONCLUSION: 1. Diffuse ileus. No free air identified. Bk Martin MD Chest X-Ray 10/26/16 0600 Signed Impressions: Service Date/Time: Wednesday, October 26, 2016 04:52 - CONCLUSION: No appreciable change. Lobo Maynard MD Radius/Ulna X-Ray 10/25/16 0000 Signed Impressions: Service Date/Time: Tuesday, October 25, 2016 12:56 - CONCLUSION: Status post op in rigid internal fixation. Nelson Hill MD Humerus X-Ray 10/25/16 0000 Signed Impressions: Service Date/Time: Tuesday, October 25, 2016 11:34 - CONCLUSION: Status post open rigid internal fixation. Nelson Hill MD Ankle X-Ray 10/24/16 0000 Signed Impressions: Service Date/Time: Monday, October 24, 2016 10:36 - CONCLUSION: Soft tissue swelling. Laron Kuo MD Knee MRI 10/23/16 0000 Signed Impressions: Service Date/Time: Sunday, October 23, 2016 16:05 - CONCLUSION: 1. Disruption of the lateral ligamentous structures including the fibular collateral ligament , the biceps femoris musculotendinous junction and the attachment site at the iliotibial band causing widening at the lateral joint space. 2. Anterior cruciate ligament tear at its femoral attachment site. 3. Increased signal within the proximal aspect of the posterior cruciate ligament. Some degree of partial tearing at this structure cannot be excluded. 4. Fairly extensive bone bruising and fracturing involving the proximal tibia, proximal fibula and femoral condyles as described above. 5. Moderate effusion. Rico Pena MD Wrist X-Ray 10/22/16 0000 Signed Impressions: Service Date/Time: October 21:00 - CONCLUSION: 1. Fractures of the distal radius and ulna as above with some foreshortening of the radius. Bk Martin MD Hip X-Ray 10/22/16 0000 Signed Impressions: Service Date/Time: October 21:00 - CONCLUSION: 1. Lag screws traversing proximal right femur fracture. Bk Martin MD Femur X-Ray 10/22/16 Signed Impressions: Service Date/Time: October 21:00 - CONCLUSION: 1. Fixation distal right femur. Bk Martin MD Maxillofacial CT 10/21/161821 Signed Impressions: Service Date/Time: October 18:33 - CONCLUSION: 1. Mucoperiosteal thickening in the right frontal sinus and right maxillary sinus. 2. I cannot entirely exclude a nondisplaced fracture of the right infraorbital rim. Mikel Ricks MD FACR Head CT 10/21/161821 Signed Impressions: Service Date/Time: October 18:33 - CONCLUSION: Negative for acute process.. Mikel Ricks MD FACR Chest CT 10/21/161821 Signed Impressions: Service Date/Time: October 18:43 - CONCLUSION: 1. Contusion laterally in the right lung. 2. Air in the axilla on the left. 3. I cannot confirm a rib fracture by CT. Mikel Ricks MD FACR Cervical Spine CT 10/21/161821 Signed Impressions: Service Date/Time: October 18:33 - CONCLUSION: Transverse process fracture C7 on the right, involving just the tip of the transverse process. Mikel Ricks MD FACR Abdomen/Pelvis CT 10/21/161821 Signed Impressions: Service Date/Time: October 18:43 - CONCLUSION: 1. Contusion in the right lung base. 2. Right hip fracture. 3. Right ilium fracture. 4. Minimal induration about the right superior pubic ramus. 5. There is no evidence for a solid organ injury. Mikel Ricks MD FACR Tibia/Fibula X-Ray 10/21/16 0000 Signed Impressions: Service Date/Time: October 18:04 - CONCLUSION: Plateau fracture. Mikel Ricks MD FACR Pelvis X-Ray 10/21/16 0000 Signed Impressions: Service Date/Time: October 18:04 - CONCLUSION: 1. Right femoral neck fracture. 2. Fracture of the right ilium. Mikel Ricks MD FACR Aorta w/Runoff CTA 10/21/16 0000 Signed Impressions: Service Date/Time: October 20:02 - CONCLUSION: Significant fracture at the junction of the RIGHT SFA and popliteal artery at the adductor hiatus with moderate contusion. Vessel is patent.. Mikel Ricks MD FACR Narrative Exam GENERAL: 26-year-old well-nourished, well developed male lying in bed, painful. SKIN: Warm and dry. LEFT eyebrow edema and erythema noted. HEAD: Normocephalic. ENT: No nasal bleeding or discharge. Mucous membranes pink and moist. NECK: Trachea midline. No JVD. CARDIOVASCULAR: Regular rate and rhythm. RESPIRATORY: No accessory muscle use. Lungs clear to auscultation. Breath sounds equal bilaterally. GASTROINTESTINAL: Abdomen soft, non-tender, nondistended. + BS. LEFT groin hard palpable mass noted. MUSCULOSKELETAL: Extremities without cyanosis, +1 edema right wrist. Right wrist ex-fix in place. Pin sites clean. Left hand dressing C/D/I. MAEW. NEUROLOGICAL: Awake and alert. Normal speech. A/P Problem List: (1) Multiple fractures of ribs of left side (2) Open fracture of left distal humerus (3) Open fracture of right distal humerus (4) Open fracture of right patella (5) Closed fracture of left tibial plateau (6) Displaced fracture of right femoral neck Assessment and Plan INJURIES: Questionable fx of RIGHT orbit rim C7 transverse process fx RIGHT lung contusion Open RIGHT radius/ulna fx LEFT humerus fx RIGHT hip fx RIGHT ilium fx RIGHT femoral neck fx OPEN RIGHT patellar fx LEFT avulsion fx of knee (w/ multiple ligament injury) LEFT tibial plateau fx LEFT wrist scaphoid bone fx RIGHT hand phalanx fx PROCEDURES: 10/21: ORIF RIGHT femur; ORIF RIGHT hip; I&D RIGHT patella w/ wound vac; I&D LEFT humerus w/ closed reduction; RIGHT wrist closed reduction. 10/25: ORIF left distal humerus. ORIF right radius and ulna with ex-fix placement. 10/29: LEFT knee arthroscopic cruciate ligament repair. LEFT knee open lateral collateral ligament repair. ORIF LEFT knee plateau fx. LEFT knee exploration of peroneal nerve (with discovery of complete rupture of nerve) Diet: Regular, tolerating Pulm: IS, acapella, EZpap. nebs. Encouraged patient use Pain: [place]. Neurontin. (Xanax) Robaxin. IV Dilaudid. IV Toradol x 3 days. Added Fentanyl patch. Activity: OOB to stretcher chair. PT and OT evaluating. (NWB EDMUND; NWB LUIS ANGEL) GI: Pepcid Bowel: Hanna-colace. Lactulose, Miralax and Dulcolax MI PRN. LBM: 11/15. Mag citrate x1 today DVT: SCD's. Lovenox 30 BID - RIGHT radius/ulna fx - LEFT humerus fx - RIGHT hip fx - RIGHT ilium fx - RIGHT femoral neck fx - OPEN RIGHT patellar fx - LEFT avulsion fx of knee (w/ multiple ligament injury) - LEFT tibial plateau fx Orthopedics following 10/21: ORIF RIGHT femur; ORIF RIGHT hip; I&D RIGHT patella w/ wound vac; I&D LEFT humerus w/ closed reduction; RIGHT wrist closed reduction. 10/25: ORIF left distal humerus. ORIF right radius and ulna with ex-fix placement. 10/29: LEFT knee arthroscopic cruciate ligament repair. LEFT knee open lateral collateral ligament repair. ORIF LEFT knee plateau fx. LEFT knee exploration of peroneal nerve (with discovery of complete rupture of nerve) Pain control Nonweightbearing status to all 4 extremities. PT and OT ordered - encourage out of bed - to wheelchair daily Wave bed to prevent skin breakdown Rehab placement Lovenox - Right lung contusion, Rib fracture Nonoperative management Aggressive pulmonary toileting Pain control OOB LEFT wrist scaphoid bone fx, RIGHT hand phalanx fx Hand surgery consulted Pain control NWDevin MORALES Seborrheic Dermatitis Apply Hydrocortisone cream to face q8H LEFT groin mass Unable to stand to further assess Ultrasound of groin- benign fluid No pain with palpation Plan of care discussed with patient and RN at bedside. Case management consulted for assist with discharge planning. [facility] planning to take patient at discharge and assist with transfers so the patient can progress enough to go home with family. Problem Qualifiers (1) Multiple fractures of ribs of left side: Qualified Code: S22.42XA - Closed fracture of multiple ribs of left side, initial encounter (2) Open fracture of left distal humerus: Qualified Code: S42.492B - Other open displaced fracture of distal end of left humerus, initial encounter (3) Open fracture of right distal humerus: Qualified Code: S42.491B - Other open displaced fracture of distal end of right humerus, initial encounter (4) Open fracture of right patella: (5) Closed fracture of left tibial plateau: Qualified Code: S82.142A - Closed fracture of left tibial plateau, initial encounter (6) Displaced fracture of right femoral neck: Qualified Code: S72.001A - Displaced fracture of right femoral neck, closed, initial encounter Angel Partida Nov 19, 2016 13:35
[2016-11-19] MEDS: fentaNYL 50 MCG/HR PATCH T-DERMAL SCH (13:46)
[2016-11-19 16:00] VITALS: BP 146/89; PULSE 104; RESP 18; TEMP 98.6; O2SAT 99
[2016-11-19 19:00] VITALS: BP 182/98; PULSE 98; RESP 16; TEMP 98.3; O2SAT 98
[2016-11-19] MEDS: MAGNESIUM HYDROXIDE SUSP 30 ML CUP PO SCH (20:56)
[2016-11-20] VITALS: BP 149/77; PULSE 94; RESP 17; TEMP 97.9; O2SAT 98
[2016-11-20] MEDS: KETOROLAC TROMETHAMINE 30 MG/ML (IVP) VIAL IV PUSH SCH ×3 (00:19→12:54)
[2016-11-20 04:00] VITALS: BP 147/74; PULSE 79; RESP 16; TEMP 96.3; O2SAT 100
[2016-11-20] MEDS: ENOXAPARIN SODIUM 30 MG/0.3 ML SYRINGE SQ SCH ×2 (05:00→16:58)
[2016-11-20] MEDS: HYDROCORTISONE 1% CREAM 30 GM TOPICAL SCH ×3 (05:00→21:41)
[2016-11-20] MEDS: METHOCARBAMOL 500 MG TAB PO SCH ×3 (05:00→21:41)
[2016-11-20 08:00] VITALS: BP 118/72; PULSE 73; RESP 18; TEMP 96.5; O2SAT 99
[2016-11-20] MEDS: HYDROmorphone HCL PF 1 MG/ML VIAL IV PRN (09:09)
[2016-11-20] MEDS: POLYETHYLENE GLYCOL 17 GM PKG PO SCH (09:09)
[2016-11-20] MEDS: GABAPENTIN 300 MG CAP PO SCH ×3 (09:09→16:58)
[2016-11-20] MEDS: LEVOFLOXACIN 500 MG TAB PO SCH (09:10)
[2016-11-20] MEDS: LACTOBACILLUS ACIDOPHILUS TAB PO SCH ×2 (09:10→21:41)
[2016-11-20] MEDS: DOCUSATE SODIUM 50 MG/SENNA 8.6 MG TAB PO SCH ×2 (09:10→21:41)
[2016-11-20] MEDS: FAMOTIDINE 20 MG TAB PO SCH ×2 (09:10→21:41)
[2016-11-20 12:00] VITALS: BP 127/81; PULSE 105; RESP 19; TEMP 98; O2SAT 97
--- NOTE | 2016-11-20 13:54 | HHI.PR ---
Subjective Subjective Notes Pain better controlled Refused PT today Objective Vitals/I&O Vital Signs Date Time Temp Pulse Resp B/P Pulse Ox O2 Delivery O2 Flow Rate FiO2 11/20/16 12:00 98.0 105 19 127/81 97 11/17/16 17:15 Room Air 11/17/16 16:45 1 Radiology Last Impressions Knee X-Ray 10/29/16 0000 Signed Impressions: Service Date/Time: Saturday, October 29, 2016 11:55 - CONCLUSION: Fluoroscopic images demonstrates temporary probe along the lateral soft tissues adjacent to the fibula. Other images during repair of the lateral tibial plateau. Adolfo Savage MD Abdomen X-Ray 10/29/16 0000 Signed Impressions: Service Date/Time: Saturday, October 29, 2016 08:53 - CONCLUSION: 1. Diffuse ileus. No free air identified. Bk Martin MD Chest X-Ray 10/26/16 0600 Signed Impressions: Service Date/Time: Wednesday, October 26, 2016 04:52 - CONCLUSION: No appreciable change. Lobo Maynard MD Radius/Ulna X-Ray 10/25/16 0000 Signed Impressions: Service Date/Time: Tuesday, October 25, 2016 12:56 - CONCLUSION: Status post op in rigid internal fixation. Nelson Hill MD Humerus X-Ray 10/25/16 0000 Signed Impressions: Service Date/Time: Tuesday, October 25, 2016 11:34 - CONCLUSION: Status post open rigid internal fixation. Nelson Hill MD Ankle X-Ray 10/24/16 0000 Signed Impressions: Service Date/Time: Monday, October 24, 2016 10:36 - CONCLUSION: Soft tissue swelling. Laron Kuo MD Knee MRI 10/23/16 0000 Signed Impressions: Service Date/Time: Sunday, October 23, 2016 16:05 - CONCLUSION: 1. Disruption of the lateral ligamentous structures including the fibular collateral ligament , the biceps femoris musculotendinous junction and the attachment site at the iliotibial band causing widening at the lateral joint space. 2. Anterior cruciate ligament tear at its femoral attachment site. 3. Increased signal within the proximal aspect of the posterior cruciate ligament. Some degree of partial tearing at this structure cannot be excluded. 4. Fairly extensive bone bruising and fracturing involving the proximal tibia, proximal fibula and femoral condyles as described above. 5. Moderate effusion. Rico Pena MD Wrist X-Ray 10/22/16 0000 Signed Impressions: Service Date/Time: October 21:00 - CONCLUSION: 1. Fractures of the distal radius and ulna as above with some foreshortening of the radius. Bk Martin MD Hip X-Ray 10/22/16 0000 Signed Impressions: Service Date/Time: October 21:00 - CONCLUSION: 1. Lag screws traversing proximal right femur fracture. Bk Martin MD Femur X-Ray 10/22/16 0000 Signed Impressions: Service Date/Time: October 21:00 - CONCLUSION: 1. Fixation distal right femur. Bk Martin MD Maxillofacial CT 10/21/161821 Signed Impressions: Service Date/Time: October 18:33 - CONCLUSION: 1. Mucoperiosteal thickening in the right frontal sinus and right maxillary sinus. 2. I cannot entirely exclude a nondisplaced fracture of the right infraorbital rim. Mikel Ricks MD FACR Head CT 10/21/161821 Signed Impressions: Service Date/Time: October 18:33 - CONCLUSION: Negative for acute process.. Mikel Ricks MD FACR Chest CT 10/21/161821 Signed Impressions: Service Date/Time: October 18:43 - CONCLUSION: 1. Contusion laterally in the right lung. 2. Air in the axilla on the left. 3. I cannot confirm a rib fracture by CT. Mikel Ricks MD FACR Cervical Spine CT 10/21/161821 Signed Impressions: Service Date/Time: October 18:33 - CONCLUSION: Transverse process fracture C7 on the right, involving just the tip of the transverse process. Mikel Ricks MD FACR Abdomen/Pelvis CT 10/21/161821 Signed Impressions: Service Date/Time: October 18:43 - CONCLUSION: 1. Contusion in the right lung base. 2. Right hip fracture. 3. Right ilium fracture. 4. Minimal induration about the right superior pubic ramus. 5. There is no evidence for a solid organ injury. Mikel Ricks MD FACR Tibia/Fibula X-Ray 10/21/16 0000 Signed Impressions: Service Date/Time: October 18:04 - CONCLUSION: Plateau fracture. Mikel Ricks MD FACR Pelvis X-Ray 10/21/16 0000 Signed Impressions: Service Date/Time: October 18:04 - CONCLUSION: 1. Right femoral neck fracture. 2. Fracture of the right ilium. Mikel Ricks MD FACR Aorta w/Runoff CTA 10/21/16 0000 Signed Impressions: Service Date/Time: October 20:02 - CONCLUSION: Significant fracture at the junction of the RIGHT SFA and popliteal artery at the adductor hiatus with moderate contusion. Vessel is patent.. Mikel Ricks MD FACR Narrative Exam GENERAL: 26-year-old well-nourished, well developed male lying in bed. SKIN: Warm and dry. LEFT eyebrow edema and erythema noted. HEAD: Normocephalic. ENT: No nasal bleeding or discharge. Mucous membranes pink and moist. NECK: Trachea midline. No JVD. CARDIOVASCULAR: Regular rate and rhythm. RESPIRATORY: No accessory muscle use. Lungs clear to auscultation. Breath sounds equal bilaterally. GASTROINTESTINAL: Abdomen soft, non-tender, nondistended. + BS. LEFT groin hard palpable mass noted. MUSCULOSKELETAL: Extremities without cyanosis, +1 edema right wrist. Right wrist ex-fix in place. Pin sites clean. Left hand dressing C/D/I. LLE long leg splint in place. MAEW. NEUROLOGICAL: Awake and alert. Normal speech. A/P Problem List: (1) Multiple fractures of ribs of left side (2) Open fracture of left distal humerus (3) Open fracture of right distal humerus (4) Open fracture of right patella (5) Closed fracture of left tibial plateau (6) Displaced fracture of right femoral neck Assessment and Plan INJURIES: Questionable fx of RIGHT orbit rim C7 transverse process fx RIGHT lung contusion Open RIGHT radius/ulna fx LEFT humerus fx RIGHT hip fx RIGHT ilium fx RIGHT femoral neck fx OPEN RIGHT patellar fx LEFT avulsion fx of knee (w/ multiple ligament injury) LEFT tibial plateau fx LEFT wrist scaphoid bone fx RIGHT hand phalanx fx PROCEDURES: 10/21: ORIF RIGHT femur; ORIF RIGHT hip; I&D RIGHT patella w/ wound vac; I&D LEFT humerus w/ closed reduction; RIGHT wrist closed reduction. 10/25: ORIF left distal humerus. ORIF right radius and ulna with ex-fix placement. 10/29: LEFT knee arthroscopic cruciate ligament repair. LEFT knee open lateral collateral ligament repair. ORIF LEFT knee plateau fx. LEFT knee exploration of peroneal nerve (with discovery of complete rupture of nerve) 11/11: LEFT scaphoid ORIF, RIGHT fifth proximal phalanx closed reduction percutaneous pinning 11/17 - LEFT leg exploration. Perennial nerve repair. Sural nerve graft. Diet: Regular, tolerating Pulm: IS, acapella, EZpap. nebs. Encouraged patient use Pain: [place]. Neurontin. (Xanax) Robaxin. IV Toradol x 3 days. Fentanyl patch. DC IV Dilaudid Activity: OOB to stretcher chair. PT and OT evaluating. (NWB BUE; NWB BLE). Patient instructed not to refuse physical therapy. GI: Pepcid Bowel: Hanna-colace. Lactulose, Miralax and Dulcolax [place] PRN. LBM: 11/19 DVT: SCD's. Lovenox 30 BID - RIGHT radius/ulna fx - LEFT humerus fx - RIGHT hip fx - RIGHT ilium fx - RIGHT femoral neck fx - OPEN RIGHT patellar fx - LEFT avulsion fx of knee (w/ multiple ligament injury) - LEFT tibial plateau fx Orthopedics following 10/21: ORIF RIGHT femur; ORIF RIGHT hip; I&D RIGHT patella w/ wound vac; I&D LEFT humerus w/ closed reduction; RIGHT wrist closed reduction. 10/25: ORIF left distal humerus. ORIF right radius and ulna with ex-fix placement. 10/29: LEFT knee arthroscopic cruciate ligament repair. LEFT knee open lateral collateral ligament repair. ORIF LEFT knee plateau fx. LEFT knee exploration of peroneal nerve (with discovery of complete rupture of nerve) Pain control Nonweightbearing status to all 4 extremities. PT and OT ordered - encourage out of bed - to wheelchair daily Wave bed to prevent skin breakdown Rehab placement Lovenox - Right lung contusion, Rib fracture Nonoperative management Aggressive pulmonary toileting Pain control OOB LEFT wrist scaphoid bone fx, RIGHT hand phalanx fx Hand surgery consulted 11/11: LEFT scaphoid ORIF, RIGHT fifth proximal phalanx closed reduction percutaneous pinning Pain control NWB LUE Seborrheic Dermatitis Apply Hydrocortisone cream to face q8H LEFT groin mass Unable to stand to further assess Ultrasound of groin- benign fluid No pain with palpation Plan of care discussed with patient, family and RN at bedside. Case management consulted for assist with discharge planning. [facility] to assist with transfers. Patient also states that his family works during the daytime and he would be left alone at home. Discussed with patient and family that arrangements need to be made for the patient can leave the hospital. Case management exploring SNF options. Problem Qualifiers (1) Multiple fractures of ribs of left side: Qualified Code: S22.42XA - Closed fracture of multiple ribs of left side, initial encounter (2) Open fracture of left distal humerus: Qualified Code: S42.492B - Other open displaced fracture of distal end of left humerus, initial encounter (3) Open fracture of right distal humerus: Qualified Code: S42.491B - Other open displaced fracture of distal end of right humerus, initial encounter (4) Open fracture of right patella: (5) Closed fracture of left tibial plateau: Qualified Code: S82.142A - Closed fracture of left tibial plateau, initial encounter (6) Displaced fracture of right femoral neck: Qualified Code: S72.001A - Displaced fracture of right femoral neck, closed, initial encounter Angel Partida Nov 20, 2016 13:54
[2016-11-20 16:00] VITALS: BP 142/85; PULSE 90; RESP 18; TEMP 97.4; O2SAT 99
[2016-11-20 19:30] VITALS: BP 137/86; PULSE 100; RESP 16; TEMP 98.8; O2SAT 98
[2016-11-20] MEDS: MAGNESIUM HYDROXIDE SUSP 30 ML CUP PO SCH (21:43)
[2016-11-20] MEDS: MELATONIN 5 MG TAB PO PRN (21:45)
[2016-11-21] VITALS: PULSE 92; RESP 16; TEMP 98.1; O2SAT 98
[2016-11-21] MEDS: METHOCARBAMOL 500 MG TAB PO SCH ×3 (05:38→20:45)
[2016-11-21] MEDS: HYDROCORTISONE 1% CREAM 30 GM TOPICAL SCH ×3 (05:39→20:45)
[2016-11-21] MEDS: ENOXAPARIN SODIUM 30 MG/0.3 ML SYRINGE SQ SCH ×2 (05:39→17:05)
[2016-11-21 08:00] VITALS: BP 124/74; PULSE 85; RESP 18; TEMP 98.1; O2SAT 99
[2016-11-21] MEDS: LACTOBACILLUS ACIDOPHILUS TAB PO SCH ×2 (09:51→20:45)
[2016-11-21] MEDS: MAGNESIUM HYDROXIDE SUSP 30 ML CUP PO SCH (09:51)
[2016-11-21] MEDS: POLYETHYLENE GLYCOL 17 GM PKG PO SCH (09:51)
[2016-11-21] MEDS: FAMOTIDINE 20 MG TAB PO SCH ×2 (09:51→20:45)
[2016-11-21] MEDS: GABAPENTIN 300 MG CAP PO SCH ×3 (09:52→17:05)
[2016-11-21] MEDS: DOCUSATE SODIUM 50 MG/SENNA 8.6 MG TAB PO SCH ×2 (09:52→20:45)
[2016-11-21 12:00] VITALS: BP 153/84; PULSE 88; RESP 18; TEMP 97.4; O2SAT 97
--- NOTE | 2016-11-21 13:38 | HHI.PR ---
Subjective Subjective Notes Feeling better today OOB in the halls in wheelchair Objective Vitals/I&O Vital Signs Date Time Temp Pulse Resp B/P Pulse Ox O2 Delivery O2 Flow Rate FiO2 11/21/16 12:00 97.4 88 18 153/84 97 11/20/16 19:02 Room Air 11/17/16 16:45 1 Radiology Last Impressions Knee X-Ray 10/29/16 0000 Signed Impressions: Service Date/Time: Saturday, October 29, 2016 11:55 - CONCLUSION: Fluoroscopic images demonstrates temporary probe along the lateral soft tissues adjacent to the fibula. Other images during repair of the lateral tibial plateau. Adolfo Savage MD Abdomen X-Ray 10/29/16 0000 Signed Impressions: Service Date/Time: Saturday, October 29, 2016 08:53 - CONCLUSION: 1. Diffuse ileus. No free air identified. Bk Martin MD Chest X-Ray 10/26/16 0600 Signed Impressions: Service Date/Time: Wednesday, October 26, 2016 04:52 - CONCLUSION: No appreciable change. Lobo Maynard MD Radius/Ulna X-Ray 10/25/16 0000 Signed Impressions: Service Date/Time: Tuesday, October 25, 2016 12:56 - CONCLUSION: Status post op in rigid internal fixation. Nelson Hill MD Humerus X-Ray 10/25/16 0000 Signed Impressions: Service Date/Time: Tuesday, October 25, 2016 11:34 - CONCLUSION: Status post open rigid internal fixation. Nelson Hill MD Ankle X-Ray 10/24/16 0000 Signed Impressions: Service Date/Time: Monday, October 24, 2016 10:36 - CONCLUSION: Soft tissue swelling. Laron Kuo MD Knee MRI 10/23/16 0000 Signed Impressions: Service Date/Time: Sunday, October 23, 2016 16:05 - CONCLUSION: 1. Disruption of the lateral ligamentous structures including the fibular collateral ligament , the biceps femoris musculotendinous junction and the attachment site at the iliotibial band causing widening at the lateral joint space. 2. Anterior cruciate ligament tear at its femoral attachment site. 3. Increased signal within the proximal aspect of the posterior cruciate ligament. Some degree of partial tearing at this structure cannot be excluded. 4. Fairly extensive bone bruising and fracturing involving the proximal tibia, proximal fibula and femoral condyles as described above. 5. Moderate effusion. Rico Pnea MD Wrist X-Ray 10/22/16 0000 Signed Impressions: Service Date/Time: October 21:00 - CONCLUSION: 1. Fractures of the distal radius and ulna as above with some foreshortening of the radius. Bk Martin MD Hip X-Ray 10/22/16 0000 Signed Impressions: Service Date/Time: October 21:00 - CONCLUSION: 1. Lag screws traversing proximal right femur fracture. Bk Martin MD Femur X-Ray 10/22/16 Signed Impressions: Service Date/Time: October 21:00 - CONCLUSION: 1. Fixation distal right femur. Bk Martin MD Maxillofacial CT 10/21/161821 Signed Impressions: Service Date/Time: October 18:33 - CONCLUSION: 1. Mucoperiosteal thickening in the right frontal sinus and right maxillary sinus. 2. I cannot entirely exclude a nondisplaced fracture of the right infraorbital rim. Mikel Ricks MD FACR Head CT 10/21/161821 Signed Impressions: Service Date/Time: October 18:33 - CONCLUSION: Negative for acute process.. Mikel Ricks MD FACR Chest CT 10/21/161821 Signed Impressions: Service Date/Time: October 18:43 - CONCLUSION: 1. Contusion laterally in the right lung. 2. Air in the axilla on the left. 3. I cannot confirm a rib fracture by CT. Mikel Ricks MD FACR Cervical Spine CT 10/21/161821 Signed Impressions: Service Date/Time: October 18:33 - CONCLUSION: Transverse process fracture C7 on the right, involving just the tip of the transverse process. Mikel Ricks MD FACR Abdomen/Pelvis CT 10/21/161821 Signed Impressions: Service Date/Time: October 18:43 - CONCLUSION: 1. Contusion in the right lung base. 2. Right hip fracture. 3. Right ilium fracture. 4. Minimal induration about the right superior pubic ramus. 5. There is no evidence for a solid organ injury. Mikel Ricks MD FACR Tibia/Fibula X-Ray 10/21/16 0000 Signed Impressions: Service Date/Time: October 18:04 - CONCLUSION: Plateau fracture. Mikel iRcks MD FACR Pelvis X-Ray 10/21/16 0000 Signed Impressions: Service Date/Time: October 18:04 - CONCLUSION: 1. Right femoral neck fracture. 2. Fracture of the right ilium. Mikel Ricks MD FACR Aorta w/Runoff CTA 10/21/16 0000 Signed Impressions: Service Date/Time: October 20:02 - CONCLUSION: Significant fracture at the junction of the RIGHT SFA and popliteal artery at the adductor hiatus with moderate contusion. Vessel is patent.. Mikel Ricks MD FACR Narrative Exam GENERAL: 26-year-old well-nourished, well developed male OOB in wheelchair. SKIN: Warm and dry. HEAD: Normocephalic. ENT: No nasal bleeding or discharge. Mucous membranes pink and moist. NECK: Trachea midline. No JVD. CARDIOVASCULAR: Regular rate and rhythm. RESPIRATORY: No accessory muscle use. Lungs clear to auscultation. Breath sounds equal bilaterally. GASTROINTESTINAL: Abdomen soft, non-tender, nondistended. + BS. LEFT groin hard palpable mass noted. MUSCULOSKELETAL: Extremities without cyanosis, +1 edema right wrist. Right wrist ex-fix in place. Pin sites clean. Left hand dressing C/D/I. LLE long leg splint in place. MAEW. NEUROLOGICAL: Awake and alert. Normal speech. A/P Problem List: (1) Multiple fractures of ribs of left side (2) Open fracture of left distal humerus (3) Open fracture of right distal humerus (4) Open fracture of right patella (5) Closed fracture of left tibial plateau (6) Displaced fracture of right femoral neck Assessment and Plan INJURIES: Questionable fx of RIGHT orbit rim C7 transverse process fx RIGHT lung contusion Open RIGHT radius/ulna fx LEFT humerus fx RIGHT hip fx RIGHT ilium fx RIGHT femoral neck fx OPEN RIGHT patellar fx LEFT avulsion fx of knee (w/ multiple ligament injury) LEFT tibial plateau fx LEFT wrist scaphoid bone fx RIGHT hand phalanx fx PROCEDURES: 10/21: ORIF RIGHT femur; ORIF RIGHT hip; I&D RIGHT patella w/ wound vac; I&D LEFT humerus w/ closed reduction; RIGHT wrist closed reduction. 10/25: ORIF left distal humerus. ORIF right radius and ulna with ex-fix placement. 10/29: LEFT knee arthroscopic cruciate ligament repair. LEFT knee open lateral collateral ligament repair. ORIF LEFT knee plateau fx. LEFT knee exploration of peroneal nerve (with discovery of complete rupture of nerve) 11/11: LEFT scaphoid ORIF, RIGHT fifth proximal phalanx closed reduction percutaneous pinning 11/17 - LEFT leg exploration. Perennial nerve repair. Sural nerve graft. Diet: Regular, tolerating Pulm: IS, acapella, EZpap. nebs. Encouraged patient use Pain: [place]. Neurontin. (Xanax) Robaxin. Fentanyl patch. Activity: OOB to stretcher chair. PT and OT evaluating. (NWB BUE; NWB BLE). GI: Pepcid Bowel: Hanna-colace. Lactulose, Miralax and Dulcolax [place] PRN. LBM: 11/20 DVT: SCD's. Lovenox 30 BID - RIGHT radius/ulna fx - LEFT humerus fx - RIGHT hip fx - RIGHT ilium fx - RIGHT femoral neck fx - OPEN RIGHT patellar fx - LEFT avulsion fx of knee (w/ multiple ligament injury) - LEFT tibial plateau fx Orthopedics following 10/21: ORIF RIGHT femur; ORIF RIGHT hip; I&D RIGHT patella w/ wound vac; I&D LEFT humerus w/ closed reduction; RIGHT wrist closed reduction. 10/25: ORIF left distal humerus. ORIF right radius and ulna with ex-fix placement. 10/29: LEFT knee arthroscopic cruciate ligament repair. LEFT knee open lateral collateral ligament repair. ORIF LEFT knee plateau fx. LEFT knee exploration of peroneal nerve (with discovery of complete rupture of nerve) Pain control Nonweightbearing status to all 4 extremities. PT and OT ordered - encourage out of bed - to wheelchair daily --Need clarification from Ortho re: if patient can perform active assist with BUE Wave bed to prevent skin breakdown Rehab placement Lovenox - Right lung contusion, Rib fracture Nonoperative management Aggressive pulmonary toileting Pain control OOB LEFT wrist scaphoid bone fx, RIGHT hand phalanx fx Hand surgery consulted 11/11: LEFT scaphoid ORIF, RIGHT fifth proximal phalanx closed reduction percutaneous pinning Pain control NWB LUE Seborrheic Dermatitis Apply Hydrocortisone cream to face q8H x3 days LEFT groin mass Unable to stand to further assess Ultrasound of groin- benign fluid No pain with palpation Plan of care discussed with patient, family and RN at bedside. Case management consulted for assist with discharge planning. Case management reports [facility] to assist with transfers. Patient also states that his family works during the daytime and he would be left alone at home. Discussed with patient and family that arrangements need to be made for the patient can leave the hospital. Case management exploring SNF options. Problem Qualifiers (1) Multiple fractures of ribs of left side: Qualified Code: S22.42XA - Closed fracture of multiple ribs of left side, initial encounter (2) Open fracture of left distal humerus: Qualified Code: S42.492B - Other open displaced fracture of distal end of left humerus, initial encounter (3) Open fracture of right distal humerus: Qualified Code: S42.491B - Other open displaced fracture of distal end of right humerus, initial encounter (4) Open fracture of right patella: (5) Closed fracture of left tibial plateau: Qualified Code: S82.142A - Closed fracture of left tibial plateau, initial encounter (6) Displaced fracture of right femoral neck: Qualified Code: S72.001A - Displaced fracture of right femoral neck, closed, initial encounter Angel Partida Nov 21, 2016 13:38
[2016-11-21 16:00] VITALS: BP 162/96; PULSE 98; RESP 18; TEMP 97.6; O2SAT 100
[2016-11-21 20:10] VITALS: BP 130/76; PULSE 97; RESP 18; TEMP 98.4; O2SAT 99
[2016-11-21] MEDS: MELATONIN 5 MG TAB PO PRN (20:49)
[2016-11-22 00:15] VITALS: BP 104/59; PULSE 92; RESP 18; TEMP 97.5; O2SAT 98
[2016-11-22] MEDS: HYDROCORTISONE 1% CREAM 30 GM TOPICAL SCH ×3 (05:14→22:11)
[2016-11-22] MEDS: METHOCARBAMOL 500 MG TAB PO SCH ×3 (05:14→22:11)
[2016-11-22] MEDS: ENOXAPARIN SODIUM 30 MG/0.3 ML SYRINGE SQ SCH ×2 (05:14→17:07)
[2016-11-22 06:40] LABS: AUTOMATED NEUTROPHIL # 2.4 TH/MM3 (1.8-7.7); BASOPHIL % 0.3 % (0.0-2.0); EOSINOPHIL # 0.2 TH/MM3 (0-0.4); EOSINOPHIL % 4.6 % (0.0-4.0); HEMATOCRIT 32.1 % (39.0-51.0); HEMO FLAGS DIFF FINAL; LYMPH % 27.9 % (9.0-44.0); LYMPHOCYTE # 1.3 TH/MM3 (1.0-4.8); MEAN CELL VOLUME 90.4 FL (80.0-100.0); MEAN CORPUSCULAR HEMOGLOBIN 30.6 PG (27.0-34.0); MEAN CORPUSCULAR HGB CONC 33.8 % (32.0-36.0); MONO % 14.5 % (0.0-8.0); NEUT % 52.7 % (16.0-70.0); PLATELET COUNT 277 TH/MM3 (150-450); RED BLOOD COUNT 3.54 MIL/MM3 (4.50-5.90); RED CELL DISTRIBUTION WIDTH 16.3 % (11.6-17.2); WHITE BLOOD COUNT 4.5 TH/MM3 (4.0-11.0)
[2016-11-22 06:44] LABS: ANION GAP 8 MEQ/L (5-15); AST (GOT) 22 U/L (15-37); BICARBONATE 29.8 MEQ/L (21.0-32.0); BLOOD UREA NITROGEN 12 MG/DL (7-18); CHLORIDE 104 MEQ/L (98-107); GLOMERULAR FILTRATION RATE 131 ML/MIN (>89); POTASSIUM 3.9 MEQ/L (3.5-5.1); SODIUM (NA) 142 MEQ/L (136-145)
[2016-11-22 06:46] LABS: ALT (GPT) 61 U/L (12-78)
[2016-11-22 06:48] LABS: ALKALINE PHOSPHATASE 201 U/L (45-117); TOTAL BILIRUBIN ADULT 0.5 MG/DL (0.2-1.0)
[2016-11-22 07:46] VITALS: BP 122/66; PULSE 90; RESP 20; TEMP 97.7; O2SAT 98
[2016-11-22] MEDS: POLYETHYLENE GLYCOL 17 GM PKG PO SCH (09:07)
[2016-11-22] MEDS: LACTOBACILLUS ACIDOPHILUS TAB PO SCH ×2 (09:07→22:11)
[2016-11-22] MEDS: GABAPENTIN 300 MG CAP PO SCH ×3 (09:07→17:07)
[2016-11-22] MEDS: DOCUSATE SODIUM 50 MG/SENNA 8.6 MG TAB PO SCH ×2 (09:07→22:11)
[2016-11-22] MEDS: MAGNESIUM HYDROXIDE SUSP 30 ML CUP PO SCH (09:07)
[2016-11-22] MEDS: FAMOTIDINE 20 MG TAB PO SCH ×2 (09:07→22:11)
[2016-11-22 11:31] VITALS: BP 122/79; PULSE 94; RESP 16; TEMP 97.3; O2SAT 99
[2016-11-22] MEDS: fentaNYL 50 MCG/HR PATCH T-DERMAL SCH (12:39)
[2016-11-22] MEDS: REMOVE OLD DURAGESIC (FENTANYL) PATCH T-DERMAL SCH (12:39)
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
[2016-11-22] MEDS ORDERED: BISACODYL 10 MG SUPP RECTAL ONE (12:45)
[2016-11-22 16:02] VITALS: BP 139/80; PULSE 105; RESP 16; TEMP 97.6; O2SAT 98
[2016-11-22 19:00] VITALS: BP 146/80; PULSE 107; RESP 16; TEMP 98.7; O2SAT 99
[2016-11-22] MEDS: MELATONIN 5 MG TAB PO PRN (22:11)
[2016-11-23 00:29] VITALS: BP 146/80; PULSE 107; RESP 16; TEMP 98.7; O2SAT 99
[2016-11-23 04:00] VITALS: BP 142/81; PULSE 102; RESP 17; TEMP 98.8; O2SAT 97
[2016-11-23] MEDS: HYDROCORTISONE 1% CREAM 30 GM TOPICAL SCH ×3 (05:27→21:00)
[2016-11-23] MEDS: METHOCARBAMOL 500 MG TAB PO SCH ×3 (05:27→22:24)
[2016-11-23] MEDS: ENOXAPARIN SODIUM 30 MG/0.3 ML SYRINGE SQ SCH ×2 (05:27→17:59)
[2016-11-23] MEDS ORDERED: BISACODYL 10 MG SUPP RECTAL ONE (07:15)
[2016-11-23 08:00] VITALS: BP 120/64; PULSE 86; RESP 17; TEMP 96.9; O2SAT 99
[2016-11-23] MEDS: FAMOTIDINE 20 MG TAB PO SCH ×2 (08:15→22:24)
[2016-11-23] MEDS: LACTOBACILLUS ACIDOPHILUS TAB PO SCH ×2 (08:15→22:24)
[2016-11-23] MEDS: DOCUSATE SODIUM 50 MG/SENNA 8.6 MG TAB PO SCH ×2 (08:16→21:00)
[2016-11-23] MEDS: GABAPENTIN 300 MG CAP PO SCH ×3 (08:16→17:58)
[2016-11-23] MEDS: POLYETHYLENE GLYCOL 17 GM PKG PO SCH (08:19)
[2016-11-23] MEDS: MAGNESIUM HYDROXIDE SUSP 30 ML CUP PO SCH (08:19)
[2016-11-23] MEDS: ACETAMINOPHEN 325 MG TAB PO PRN (11:15)
[2016-11-23 12:00] VITALS: BP 111/73; PULSE 84; RESP 18; TEMP 97; O2SAT 100
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
[2016-11-23 16:00] VITALS: BP 138/77; PULSE 92; RESP 17; TEMP 97.5; O2SAT 99
[2016-11-23 20:40] VITALS: BP 141/78; PULSE 90; RESP 18; TEMP 98.1; O2SAT 100
[2016-11-24 00:11] VITALS: BP 128/71; PULSE 105; RESP 18; TEMP 98.9; O2SAT 99
[2016-11-24] MEDS: HYDROCORTISONE 1% CREAM 30 GM TOPICAL SCH ×3 (05:00→21:47)
[2016-11-24] MEDS: METHOCARBAMOL 500 MG TAB PO SCH ×3 (06:11→21:44)
[2016-11-24] MEDS: ENOXAPARIN SODIUM 30 MG/0.3 ML SYRINGE SQ SCH ×2 (06:11→17:25)
[2016-11-24 07:53] VITALS: BP 124/73; PULSE 90; RESP 16; TEMP 97.1; O2SAT 99
[2016-11-24] MEDS: MAGNESIUM HYDROXIDE SUSP 30 ML CUP PO SCH (09:00)
[2016-11-24] MEDS: POLYETHYLENE GLYCOL 17 GM PKG PO SCH (09:00)
[2016-11-24] MEDS: DOCUSATE SODIUM 50 MG/SENNA 8.6 MG TAB PO SCH ×2 (09:16→21:45)
[2016-11-24] MEDS: LACTOBACILLUS ACIDOPHILUS TAB PO SCH ×2 (09:17→21:44)
[2016-11-24] MEDS: FAMOTIDINE 20 MG TAB PO SCH ×2 (09:17→21:44)
[2016-11-24] MEDS: GABAPENTIN 300 MG CAP PO SCH ×3 (09:17→17:25)
--- NOTE | 2016-11-24 09:17 | HHI.PR ---
Subjective Remarks pain well controlled Objective Vital Signs Date Time Temp Pulse Resp B/P Pulse Ox O2 Delivery O2 Flow Rate FiO2 11/24/16 07:53 97.1 90 16 124/73 99 11/24/16 00:11 98.9 105 18 128/71 99 11/23/16 20:40 98.1 90 18 141/78 100 11/23/16 19:10 Room Air 11/23/16 16:00 97.5 92 17 138/77 99 11/23/16 12:00 97.0 84 18 111/73 100 I/O 11/23/16 11/23/16 11/23/16 11/24/16 11/24/16 11/24/16 07:00 15:00 23:00 07:00 15:00 23:00 Intake Total 480 ml 720 ml 360 ml 360 ml Output Total 370 ml 225 ml 925 ml Balance 110 ml 720 ml 135 ml -565 ml Intake Oral 480 ml 720 ml 360 ml 360 ml Output Urine Total 370 ml 225 ml 925 ml # Voids 4 # Bowel Movements 0 1 0 0 Result Diagram: 11/22/16 0550 11/22/16 0550 Objective Remarks AA x O x 3 NVI both hands; CR<2 seconds all fingertips no edema in hands or fingers able to wiggle fingers easily bilateral hand splints changed; pin care performed right hand/5th finger; xeroform applied left wrist sutures removed, steri strips applied left leg splint and dsg removed; all wounds clean and healing; no sign of infection or edema anywhere Assessment and Plan Problem List: (1) Pain in finger of right hand Status: Acute (2) Pain of left thumb Status: Acute (3) 

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
[2016-11-24 11:50] VITALS: BP 118/82; PULSE 94; RESP 16; TEMP 96.2; O2SAT 100
[2016-11-24] MEDS: ACETAMINOPHEN 325 MG TAB PO PRN (13:06)
[2016-11-24 17:02] VITALS: BP 133/76; PULSE 77; RESP 16; TEMP 97.4; O2SAT 100
[2016-11-24 20:25] VITALS: BP 120/70; PULSE 88; RESP 18; TEMP 97.5; O2SAT 100
[2016-11-25 00:10] VITALS: BP 117/66; PULSE 90; RESP 18; TEMP 98.8; O2SAT 99
[2016-11-25] MEDS: METHOCARBAMOL 500 MG TAB PO SCH ×3 (05:34→21:50)
[2016-11-25] MEDS: ENOXAPARIN SODIUM 30 MG/0.3 ML SYRINGE SQ SCH ×2 (05:34→17:34)
[2016-11-25] MEDS: HYDROCORTISONE 1% CREAM 30 GM TOPICAL SCH ×3 (05:38→21:54)
[2016-11-25 07:52] VITALS: BP 130/59; PULSE 80; RESP 16; TEMP 96.4; O2SAT 97
[2016-11-25] MEDS: MAGNESIUM HYDROXIDE SUSP 30 ML CUP PO SCH (09:00)
[2016-11-25] MEDS: DOCUSATE SODIUM 50 MG/SENNA 8.6 MG TAB PO SCH ×2 (09:00→21:50)
[2016-11-25] MEDS: POLYETHYLENE GLYCOL 17 GM PKG PO SCH (09:00)
[2016-11-25] MEDS: LACTOBACILLUS ACIDOPHILUS TAB PO SCH ×2 (09:50→21:49)
[2016-11-25] MEDS: FAMOTIDINE 20 MG TAB PO SCH ×2 (09:50→21:50)
[2016-11-25] MEDS: GABAPENTIN 300 MG CAP PO SCH ×3 (09:50→17:34)
[2016-11-25] MEDS: ACETAMINOPHEN/HYDROcodone 325 MG/10 MG TAB PO PRN ×3 (09:53→23:41)
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
[2016-11-25 13:09] VITALS: BP 121/85; PULSE 104; RESP 16; TEMP 95.8; O2SAT 99
[2016-11-25] MEDS: REMOVE OLD DURAGESIC (FENTANYL) PATCH T-DERMAL SCH (14:00)
[2016-11-25] MEDS: fentaNYL 50 MCG/HR PATCH T-DERMAL SCH (14:24)
[2016-11-25 16:04] VITALS: BP 126/92; PULSE 88; RESP 16; TEMP 96; O2SAT 100
[2016-11-25 20:00] VITALS: BP 152/82; PULSE 96; RESP 18; TEMP 97.5; O2SAT 98
[2016-11-25] MEDS: ALPRAZolam 1 MG TAB PO PRN (21:52)
[2016-11-26] VITALS: BP 152/85; PULSE 97; RESP 18; TEMP 98.2; O2SAT 99
[2016-11-26] MEDS: HYDROCORTISONE 1% CREAM 30 GM TOPICAL SCH ×3 (05:00→21:00)
[2016-11-26] MEDS: ENOXAPARIN SODIUM 30 MG/0.3 ML SYRINGE SQ SCH ×2 (05:25→17:33)
[2016-11-26] MEDS: METHOCARBAMOL 500 MG TAB PO SCH ×3 (05:25→22:00)
--- NOTE | 2016-11-26 06:44 | PD.ORT.PN ---
Subjective Subjective Remarks Resting comfortably Objective Vitals Vital Signs Date Time Temp Pulse Resp B/P Pulse Ox O2 Delivery O2 Flow Rate FiO2 11/26/16 00:00 98.2 97 18 152/85 99 11/25/16 20:00 97.5 96 18 152/82 98 11/25/16 16:04 96.0 88 16 126/92 100 11/25/16 13:09 95.8 104 16 121/85 99 11/25/16 07:52 96.4 80 16 130/59 97 I/O 11/25/16 11/25/16 11/25/16 11/26/16 11/26/16 11/26/16 07:00 15:00 23:00 07:00 15:00 23:00 Intake Total 240 ml 960 ml 480 ml 240 ml Output Total 500 ml 0 ml Balance 240 ml 460 ml 480 ml 240 ml Intake Oral 240 ml 960 ml 480 ml 240 ml Output Urine Total 500 ml 0 ml # Voids 0 3 2 # Bowel Movements 0 0 0 1 Result Diagram: 11/22/16 0550 11/22/16 0550 Imaging Last 24 hours Impressions Chest X-Ray 10/23/16 0600 Signed Impressions: Service Date/Time: Sunday, October 23, 2016 05:43 - CONCLUSION: 1. Right central line tip in left subclavian vein, unchanged. Interval extubation. Mild atelectasis at the bases. Bk Martin MD Objective Remarks NAD RUE -external fixator and dressing in place. swelling in fingers. NVI and sensation intact. cap refill. incisions visualized. clean and dry. no drainage. healing well. LUE - dressing in place. swelling in fingers. NVI and sensation intact. cap refill. incision visualized. clean and dry. intact. no drainage. healing well. RLE - wound and incisions CDI. NVI and sensation intact. LLE - Knee ROM brace on. Dressings dry. mild swelling around knee. sensation intact. no dorsiflexion. ongoing footdrop on left side, brace on. able to move distal digits successfully. Assessment & Plan Assessment and Plan 10/29 Open Repair of Left Hamstring Tendon, Open Repair of Left Lateral Collateral Ligament, Left Knee Arthroscopic ACL Repair, Open Repair of Left Lateral Tibial Fracture 10/22 I&D and ORIF R supracondylar femur fx and R patella fx 10/25 ORIF left humerus and right distal radius with application right wrist exfix 10/25 Application of wound vac R knee, ORIF R fem neck fx, I&D with closed reduction Left Leg Foot Drop NWB BLE and BUE ok to use right elbow for pushing off. ok to DC sling PRN right arm. Daily dressing changes to right and left arms pin care BID right wrist Active assisted ROM ok to RLE LLE - PODUS boot for foot drop, ROM brace Physical therapy - Non weight bearing BLE. AAROM Remove radha and sutures to BLE today. Apply dry dressing every other day. Med management Orthopedically cleared for discharge to rehabilitation from Dr. De Leon standpoint. Orthopedically stable for discharge from Dr. Brown standpoint. Discharge plan - anticipating rehab Nelson Rosenthal Jr. Nov 26, 2016 06:44
[2016-11-26 07:51] VITALS: BP 124/66; PULSE 82; RESP 16; TEMP 96.2; O2SAT 100
[2016-11-26] MEDS: GABAPENTIN 300 MG CAP PO SCH ×3 (08:57→17:33)
[2016-11-26] MEDS: LACTOBACILLUS ACIDOPHILUS TAB PO SCH ×2 (08:57→22:02)
[2016-11-26] MEDS: DOCUSATE SODIUM 50 MG/SENNA 8.6 MG TAB PO SCH ×2 (08:57→21:00)
[2016-11-26] MEDS: FAMOTIDINE 20 MG TAB PO SCH ×2 (08:57→22:02)
[2016-11-26] MEDS: MAGNESIUM HYDROXIDE SUSP 30 ML CUP PO SCH (08:59)
[2016-11-26] MEDS: POLYETHYLENE GLYCOL 17 GM PKG PO SCH (08:59)
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
[2016-11-26] MEDS: ACETAMINOPHEN/HYDROcodone 325 MG/10 MG TAB PO PRN ×2 (11:25→22:02)
[2016-11-26 11:28] VITALS: BP 124/85; PULSE 92; RESP 16; TEMP 97.1; O2SAT 100
[2016-11-26 15:59] VITALS: BP 125/83; PULSE 106; RESP 16; TEMP 97.3; O2SAT 98
[2016-11-26 19:32] VITALS: BP 148/92; PULSE 111; RESP 19; TEMP 98.4; O2SAT 100
[2016-11-26] MEDS: ALPRAZolam 1 MG TAB PO PRN (22:02)
[2016-11-26 23:15] VITALS: BP 121/72; PULSE 110; RESP 18; TEMP 99.4; O2SAT 98
[2016-11-27] MEDS: HYDROCORTISONE 1% CREAM 30 GM TOPICAL SCH ×3 (05:00→21:45)
[2016-11-27] MEDS: METHOCARBAMOL 500 MG TAB PO SCH ×3 (05:40→21:44)
[2016-11-27] MEDS: ENOXAPARIN SODIUM 30 MG/0.3 ML SYRINGE SQ SCH ×2 (05:40→16:30)
[2016-11-27 07:49] VITALS: BP 118/62; PULSE 87; RESP 16; TEMP 96.4; O2SAT 100
[2016-11-27] MEDS: MAGNESIUM HYDROXIDE SUSP 30 ML CUP PO SCH (09:00)
[2016-11-27] MEDS: DOCUSATE SODIUM 50 MG/SENNA 8.6 MG TAB PO SCH ×2 (09:00→21:45)
[2016-11-27] MEDS: POLYETHYLENE GLYCOL 17 GM PKG PO SCH (09:00)
[2016-11-27] MEDS: FAMOTIDINE 20 MG TAB PO SCH ×2 (09:13→21:44)
[2016-11-27] MEDS: GABAPENTIN 300 MG CAP PO SCH ×3 (09:13→16:31)
[2016-11-27] MEDS: LACTOBACILLUS ACIDOPHILUS TAB PO SCH ×2 (09:13→21:44)
[2016-11-27 11:30] VITALS: BP 120/84; PULSE 108; RESP 16; TEMP 97.4; O2SAT 98
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
[2016-11-27 16:00] VITALS: BP 137/78; PULSE 105; RESP 16; TEMP 97.9; O2SAT 100
[2016-11-27] MEDS: oxyCODONE/ACETAMINOPHEN 5 MG/325 MG TAB PO PRN (16:33)
[2016-11-27 19:39] VITALS: BP 138/91; PULSE 101; RESP 19; TEMP 98.4; O2SAT 100
[2016-11-27] MEDS: ALPRAZolam 1 MG TAB PO PRN (21:48)
[2016-11-27 23:07] VITALS: BP 129/60; PULSE 109; RESP 18; TEMP 98.8; O2SAT 99
[2016-11-28] MEDS: HYDROCORTISONE 1% CREAM 30 GM TOPICAL SCH ×3 (01:41→20:05)
[2016-11-28] MEDS: METHOCARBAMOL 500 MG TAB PO SCH ×3 (06:00→22:13)
[2016-11-28] MEDS: ENOXAPARIN SODIUM 30 MG/0.3 ML SYRINGE SQ SCH ×2 (06:00→17:39)
[2016-11-28 07:45] VITALS: BP 116/65; PULSE 90; RESP 16; TEMP 96.4; O2SAT 98
[2016-11-28] MEDS: MAGNESIUM HYDROXIDE SUSP 30 ML CUP PO SCH (09:17)
[2016-11-28] MEDS: LACTOBACILLUS ACIDOPHILUS TAB PO SCH ×2 (09:17→20:06)
[2016-11-28] MEDS: POLYETHYLENE GLYCOL 17 GM PKG PO SCH (09:17)
[2016-11-28] MEDS: FAMOTIDINE 20 MG TAB PO SCH ×2 (09:17→20:06)
[2016-11-28] MEDS: DOCUSATE SODIUM 50 MG/SENNA 8.6 MG TAB PO SCH ×2 (09:17→20:06)
[2016-11-28] MEDS: GABAPENTIN 300 MG CAP PO SCH ×3 (09:17→17:38)
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
[2016-11-28 11:37] VITALS: BP 129/89; PULSE 94; RESP 16; TEMP 97.7; O2SAT 98
[2016-11-28] MEDS: REMOVE OLD DURAGESIC (FENTANYL) PATCH T-DERMAL SCH (13:27)
[2016-11-28] MEDS: fentaNYL 50 MCG/HR PATCH T-DERMAL SCH (13:28)
[2016-11-28 16:00] VITALS: BP 136/94; PULSE 104; RESP 16; TEMP 97.1; O2SAT 98
[2016-11-28 20:12] VITALS: BP 124/62; PULSE 97; RESP 16; TEMP 99.7; O2SAT 98
[2016-11-28] MEDS: ALPRAZolam 1 MG TAB PO PRN (22:13)
[2016-11-28] MEDS: oxyCODONE/ACETAMINOPHEN 5 MG/325 MG TAB PO PRN (22:13)
[2016-11-28 23:44] VITALS: BP 128/69; PULSE 93; RESP 16; TEMP 98.3; O2SAT 97
[2016-11-29] MEDS: HYDROCORTISONE 1% CREAM 30 GM TOPICAL SCH ×3 (03:19→20:45)
[2016-11-29] MEDS: METHOCARBAMOL 500 MG TAB PO SCH ×3 (06:01→22:07)
[2016-11-29] MEDS: ENOXAPARIN SODIUM 30 MG/0.3 ML SYRINGE SQ SCH ×2 (06:01→17:43)
[2016-11-29 06:58] LABS: BASOPHIL % 0.3 % (0.0-2.0); EOSINOPHIL # 0.1 TH/MM3 (0-0.4); EOSINOPHIL % 2.4 % (0.0-4.0); HEMATOCRIT 34.5 % (39.0-51.0); HEMO FLAGS DIFF FINAL; LYMPH % 26.3 % (9.0-44.0); LYMPHOCYTE # 1.4 TH/MM3 (1.0-4.8); MEAN CELL VOLUME 89.7 FL (80.0-100.0); MEAN CORPUSCULAR HEMOGLOBIN 30.3 PG (27.0-34.0); MEAN CORPUSCULAR HGB CONC 33.8 % (32.0-36.0); MONO % 13.9 % (0.0-8.0); NEUT % 57.1 % (16.0-70.0); PLATELET COUNT 292 TH/MM3 (150-450); RED BLOOD COUNT 3.84 MIL/MM3 (4.50-5.90); RED CELL DISTRIBUTION WIDTH 16.1 % (11.6-17.2); WHITE BLOOD COUNT 5.2 TH/MM3 (4.0-11.0)
[2016-11-29 07:23] LABS: ANION GAP 8 MEQ/L (5-15); AST (GOT) 14 U/L (15-37); BICARBONATE 31.4 MEQ/L (21.0-32.0); BLOOD UREA NITROGEN 9 MG/DL (7-18); CHLORIDE 104 MEQ/L (98-107); GLOMERULAR FILTRATION RATE 131 ML/MIN (>89); POTASSIUM 3.7 MEQ/L (3.5-5.1); SODIUM (NA) 143 MEQ/L (136-145)
[2016-11-29 07:29] LABS: ALKALINE PHOSPHATASE 149 U/L (45-117); ALT (GPT) 29 U/L (12-78); TOTAL BILIRUBIN ADULT 0.4 MG/DL (0.2-1.0)
[2016-11-29] MEDS ORDERED: BISACODYL 10 MG SUPP RECTAL ONE (07:30)
[2016-11-29] MEDS ORDERED: BISACODYL EC 5 MG TABEC PO ONE (07:30)
[2016-11-29 08:00] VITALS: BP 115/69; PULSE 102; RESP 18; TEMP 97; O2SAT 97
[2016-11-29] MEDS: MAGNESIUM HYDROXIDE SUSP 30 ML CUP PO SCH (09:00)
[2016-11-29] MEDS: GABAPENTIN 300 MG CAP PO SCH ×3 (09:07→17:43)
[2016-11-29] MEDS: LACTOBACILLUS ACIDOPHILUS TAB PO SCH ×2 (09:07→20:44)
[2016-11-29] MEDS: DOCUSATE SODIUM 50 MG/SENNA 8.6 MG TAB PO SCH ×2 (09:07→20:46)
[2016-11-29] MEDS: POLYETHYLENE GLYCOL 17 GM PKG PO SCH (09:07)
[2016-11-29] MEDS: FAMOTIDINE 20 MG TAB PO SCH ×2 (09:07→20:44)
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
[2016-11-29 12:00] VITALS: BP 118/88; PULSE 95; RESP 18; TEMP 97.9; O2SAT 98
[2016-11-29 16:00] VITALS: BP 143/95; PULSE 100; RESP 18; TEMP 96.7; O2SAT 100
--- NOTE | 2016-11-29 18:18 | HHI.PR ---
Subjective Remarks Saw the patient in his room with his mom and his nurse. He is comfortable Objective Vital Signs Date Time Temp Pulse Resp B/P Pulse Ox O2 Delivery O2 Flow Rate FiO2 11/29/16 16:00 96.7 100 18 143/95 100 11/29/16 12:00 97.9 95 18 118/88 98 11/29/16 08:00 97.0 102 18 115/69 97 11/28/16 23:44 98.3 93 16 128/69 97 11/28/16 20:12 99.7 97 16 124/62 98 I/O 11/28/16 11/28/16 11/28/16 11/29/16 11/29/16 11/29/16 07:00 15:00 23:00 07:00 15:00 23:00 Intake Total 480 ml 960 ml 480 ml 720 ml 960 ml Output Total 550 ml 675 ml 700 ml Balance -70 ml 285 ml 480 ml 720 ml 260 ml Intake Oral 480 ml 960 ml 480 ml 720 ml 960 ml Output Urine Total 550 ml 675 ml 700 ml # Voids 2 2 2 # Bowel Movements 0 0 0 Result Diagram: 11/29/1662111/29/16621 Objective Remarks AA x O x 3 NVI both hands; CR<2 seconds all fingertips no edema in hands or fingers able to wiggle fingers easily Pin care is being done Examination of the left leg reveals mild edema. The wounds are all clean on the dorsal aspect of his leg and calf. No wound breakdown or drainage. No sign of any infection. 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
[2016-11-29] MEDS ORDERED: MAGN400S PO (19:32)
[2016-11-29] MEDS ORDERED: SENN1TAB PO (19:32)
[2016-11-29 20:00] VITALS: BP 138/80; PULSE 96; RESP 17; TEMP 98.5; O2SAT 100
[2016-11-29] MEDS: ALPRAZolam 1 MG TAB PO PRN (20:48)
[2016-11-30] VITALS: BP 123/75; PULSE 108; RESP 17; TEMP 97.5; O2SAT 98
[2016-11-30] MEDS: HYDROCORTISONE 1% CREAM 30 GM TOPICAL SCH ×2 (02:39→13:00)
[2016-11-30] MEDS: ENOXAPARIN SODIUM 30 MG/0.3 ML SYRINGE SQ SCH ×2 (04:50→17:43)
[2016-11-30] MEDS: METHOCARBAMOL 500 MG TAB PO SCH ×3 (04:50→22:00)
--- NOTE | 2016-11-30 06:55 | PD.ORT.PN ---
Subjective Subjective Remarks Resting comfortably Objective Vitals Vital Signs Date Time Temp Pulse Resp B/P Pulse Ox O2 Delivery O2 Flow Rate FiO2 11/30/16 00:00 97.5 108 17 123/75 98 11/29/16 16:00 96.7 100 18 143/95 100 11/29/16 12:00 97.9 95 18 118/88 98 11/29/16 08:00 97.0 102 18 115/69 97 I/O 11/29/16 11/29/16 11/29/16 11/30/16 11/30/16 11/30/16 07:00 15:00 23:00 07:00 15:00 23:00 Intake Total 720 ml 960 ml 320 ml 120 ml Output Total 700 ml 775 ml Balance 720 ml 260 ml -455 ml 120 ml Intake Oral 720 ml 960 ml 320 ml 120 ml Output Urine Total 700 ml 775 ml # Voids 2 1 # Bowel Movements 0 0 1 Result Diagram: 11/29/1662111/29/16621 Imaging Last 24 hours Impressions Chest X-Ray 10/23/16 06 Signed Impressions: Service Date/Time: Sunday, October 23, 2016 05:43 - CONCLUSION: 1. Right central line tip in left subclavian vein, unchanged. Interval extubation. Mild atelectasis at the bases. Bk Martin MD Objective Remarks NAD RUE -external fixator and dressing in place. swelling in fingers. NVI and sensation intact. cap refill. incisions visualized. clean and dry. no drainage. healing well. LUE - dressing in place. swelling in fingers. NVI and sensation intact. cap refill. incision visualized. clean and dry. intact. no drainage. healing well. RLE - wound and incisions CDI. NVI and sensation intact. LLE - Knee ROM brace on. Dressings dry. mild swelling around knee. sensation intact. no dorsiflexion. ongoing footdrop on left side, brace on. able to move distal digits successfully. Assessment & Plan Assessment and Plan 10/29 Open Repair of Left Hamstring Tendon, Open Repair of Left Lateral Collateral Ligament, Left Knee Arthroscopic ACL Repair, Open Repair of Left Lateral Tibial Fracture 10/22 I&D and ORIF R supracondylar femur fx and R patella fx 10/25 ORIF left humerus and right distal radius with application right wrist exfix 10/25 Application of wound vac R knee, ORIF R fem neck fx, I&D with closed reduction Left Leg Foot Drop NWB BLE and BUE ok to use right elbow for pushing off. ok to DC sling PRN right arm. Daily dressing changes to right and left arms pin care BID right wrist Active assisted ROM ok to RLE We'll plan on ordering x-rays of all fractures on . Possible removal external fixation of right wrist next week depending on x-ray imaging LLE - PODUS boot for foot drop, ROM brace Physical therapy - Non weight bearing BLE. AAROM Remove radha and sutures to BLE today. Apply dry dressing every other day. Med management Orthopedically cleared for discharge to rehabilitation from Dr. De Leon standpoint. Orthopedically stable for discharge from Dr. Brown standpoint. Discharge plan - anticipating rehab Nelson Rosenthal Jr. Nov 30, 2016 06:55
[2016-11-30 08:00] VITALS: BP 138/84; PULSE 96; RESP 17; TEMP 97.5; O2SAT 99
[2016-11-30] MEDS: POLYETHYLENE GLYCOL 17 GM PKG PO SCH (09:00)
[2016-11-30] MEDS: MAGNESIUM HYDROXIDE SUSP 30 ML CUP PO SCH (09:00)
[2016-11-30] MEDS: LACTOBACILLUS ACIDOPHILUS TAB PO SCH (09:32)
[2016-11-30] MEDS: GABAPENTIN 300 MG CAP PO SCH ×3 (09:32→17:46)
[2016-11-30] MEDS: FAMOTIDINE 20 MG TAB PO SCH (09:33)
[2016-11-30] MEDS: DOCUSATE SODIUM 50 MG/SENNA 8.6 MG TAB PO SCH (09:33)
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
[2016-11-30 12:00] VITALS: BP 118/83; PULSE 102; RESP 18; TEMP 97.5; O2SAT 97
[2016-11-30] MEDS: oxyCODONE/ACETAMINOPHEN 5 MG/325 MG TAB PO PRN (13:40)
[2016-11-30 16:00] VITALS: BP 125/70; PULSE 95; RESP 18; TEMP 97.5; O2SAT 99
[2016-11-30 20:20] VITALS: BP 134/73; PULSE 94; RESP 16; TEMP 98.2; O2SAT 100
[2016-12-01 00:25] VITALS: BP 117/65; PULSE 98; RESP 16; TEMP 96.3; O2SAT 97
[2016-12-01] MEDS: METHOCARBAMOL 500 MG TAB PO SCH ×3 (06:48→20:25)
[2016-12-01] MEDS: oxyCODONE/ACETAMINOPHEN 5 MG/325 MG TAB PO PRN (06:48)
[2016-12-01] MEDS: ENOXAPARIN SODIUM 30 MG/0.3 ML SYRINGE SQ SCH ×2 (06:48→17:38)
[2016-12-01 08:00] VITALS: BP 157/88; PULSE 88; RESP 16; TEMP 97; O2SAT 99
[2016-12-01] MEDS: POLYETHYLENE GLYCOL 17 GM PKG PO SCH (09:00)
[2016-12-01] MEDS: GABAPENTIN 300 MG CAP PO SCH ×4 (10:12→17:38)
[2016-12-01] MEDS: MAGNESIUM HYDROXIDE SUSP 30 ML CUP PO SCH (10:12)
[2016-12-01] MEDS: FAMOTIDINE 20 MG TAB PO SCH ×2 (10:14→20:25)
[2016-12-01] MEDS: LACTOBACILLUS ACIDOPHILUS TAB PO SCH ×2 (10:14→20:25)
[2016-12-01] MEDS: DOCUSATE SODIUM 50 MG/SENNA 8.6 MG TAB PO SCH ×2 (10:15→20:25)
[2016-12-01 12:00] VITALS: BP 121/89; PULSE 105; RESP 16; TEMP 97.9; O2SAT 97
[2016-12-01] MEDS: HYDROCORTISONE 1% CREAM 30 GM TOPICAL SCH ×2 (13:00→20:25)
[2016-12-01] MEDS: REMOVE OLD DURAGESIC (FENTANYL) PATCH T-DERMAL SCH (15:59)
[2016-12-01] MEDS: fentaNYL 50 MCG/HR PATCH T-DERMAL SCH (15:59)
--- NOTE | 2016-12-01 16:31 | HHI.PR ---
Subjective Subjective Notes No complaints Objective Vitals/I&O Vital Signs Date Time Temp Pulse Resp B/P Pulse Ox O2 Delivery O2 Flow Rate FiO2 12/01/16 12:00 97.9 105 16 121/89 97 11/28/16 12:52 Room Air 1.00 21 Radiology Last Impressions Abdomen Ultrasound 11/18/16 0000 Signed Impressions: Service Date/Time: November 14:34 - CONCLUSION: 1. Simple fluid collection measuring 9 x 5.3 x 3.4 cm and the left inguinal region. This appears benign. Exact etiology of this is uncertain. Carmelo Ricks MD Pelvis X-Ray 11/09/16 0000 Signed Impressions: Service Date/Time: Wednesday, November 09, 2016 16:11 - CONCLUSION: Internal fixation screws across the right femoral neck fracture, in near anatomic alignment. Olivier Lizarraga MD Knee X-Ray 11/09/16 0000 Signed Impressions: Service Date/Time: Wednesday, November 09, 2016 16:16 - CONCLUSION: Configuration of the multi-comminuted fragments of the distal femur similar to intraoperative images. Olivier Lizarraga MD Femur X-Ray 11/09/16 0000 Signed Impressions: Service Date/Time: Wednesday, November 09, 2016 16:15 - CONCLUSION: Postoperative findings from internal fixation proximal femoral and distal femoral fractures. The hardware appears grossly intact. Olivier Lizarraga MD Wrist X-Ray 11/08/16 0000 Signed Impressions: Service Date/Time: Tuesday, November 08, 2016 10:04 - CONCLUSION: Anatomic alignment. Mikel Ricks MD FACR Humerus X-Ray 11/08/16 0000 Signed Impressions: Service Date/Time: Tuesday, November 08, 2016 10:12 - CONCLUSION: Anatomic alignment across the proximal humeral fracture. Mikel Ricks MD FACR Upper Extremity CT 11/05/16 0000 Signed Impressions: Service Date/Time: Saturday, November 05, 2016 15:02 - CONCLUSION: Displaced distal pole scaphoid fracture. Leandro Vogt MD Hand X-Ray 11/04/16 0000 Signed Impressions: Service Date/Time: November 12:32 - CONCLUSION: Displaced distal pole scaphoid fracture. Leandro Vogt MD Finger X-Ray 11/04/16 0000 Signed Impressions: Service Date/Time: November 12:42 - CONCLUSION: Fifth digit proximal phalanx fracture. Leandro Vogt MD Abdomen X-Ray 10/29/16 0000 Signed Impressions: Service Date/Time: Saturday, October 29, 2016 08:53 - CONCLUSION: 1. Diffuse ileus. No free air identified. Bk Martin MD Chest X-Ray 10/26/16 0600 Signed Impressions: Service Date/Time: Wednesday, October 26, 2016 04:52 - CONCLUSION: No appreciable change. Lobo Maynard MD Radius/Ulna X-Ray 10/25/16 0000 Signed Impressions: Service Date/Time: Tuesday, October 25, 2016 12:56 - CONCLUSION: Status post op in rigid internal fixation. Nelson Hill MD Ankle X-Ray 10/24/16 0000 Signed Impressions: Service Date/Time: Monday, October 24, 2016 10:36 - CONCLUSION: Soft tissue swelling. Laron Kuo MD Knee MRI 10/23/16 0000 Signed Impressions: Service Date/Time: Sunday, October 23, 2016 16:05 - CONCLUSION: 1. Disruption of the lateral ligamentous structures including the fibular collateral ligament , the biceps femoris musculotendinous junction and the attachment site at the iliotibial band causing widening at the lateral joint space. 2. Anterior cruciate ligament tear at its femoral attachment site. 3. Increased signal within the proximal aspect of the posterior cruciate ligament. Some degree of partial tearing at this structure cannot be excluded. 4. Fairly extensive bone bruising and fracturing involving the proximal tibia, proximal fibula and femoral condyles as described above. 5. Moderate effusion. Rico Pena MD Hip X-Ray 10/22/16 0000 Signed Impressions: Service Date/Time: October 21:00 - CONCLUSION: 1. Lag screws traversing proximal right femur fracture. Bk Martin MD Maxillofacial CT 10/21/16 1822 Signed Impressions: Service Date/Time: October 18:33 - CONCLUSION: 1. Mucoperiosteal thickening in the right frontal sinus and right maxillary sinus. 2. I cannot entirely exclude a nondisplaced fracture of the right infraorbital rim. Mikel Ricks MD FACR Head CT 10/21/161821 Signed Impressions: Service Date/Time: October 18:33 - CONCLUSION: Negative for acute process.. Mikel Ricks MD FACR Chest CT 10/21/161821 Signed Impressions: Service Date/Time: October 18:43 - CONCLUSION: 1. Contusion laterally in the right lung. 2. Air in the axilla on the left. 3. I cannot confirm a rib fracture by CT. Mikel Ricks MD FACR Cervical Spine CT 10/21/161821 Signed Impressions: Service Date/Time: October 18:33 - CONCLUSION: Transverse process fracture C7 on the right, involving just the tip of the transverse process. Mikel Ricks MD FACR Abdomen/Pelvis CT 10/21/161821 Signed Impressions: Service Date/Time: October 18:43 - CONCLUSION: 1. Contusion in the right lung base. 2. Right hip fracture. 3. Right ilium fracture. 4. Minimal induration about the right superior pubic ramus. 5. There is no evidence for a solid organ injury. Mikel Ricks MD FACR Tibia/Fibula X-Ray 10/21/16 0000 Signed Impressions: Service Date/Time: October 18:04 - CONCLUSION: Plateau fracture. Mikel Ricks MD FACR Aorta w/Runoff CTA 10/21/16 0000 Signed Impressions: Service Date/Time: October 20:02 - CONCLUSION: Significant fracture at the junction of the RIGHT SFA and popliteal artery at the adductor hiatus with moderate contusion. Vessel is patent.. Mikel Ricks MD FACR Narrative Exam GENERAL: 26-year-old well-nourished, well developed male OOB in wheelchair. SKIN: Warm and dry. HEAD: Normocephalic. ENT: No nasal bleeding or discharge. Mucous membranes pink and moist. NECK: Trachea midline. No JVD. CARDIOVASCULAR: Regular rate and rhythm. RESPIRATORY: No accessory muscle use. Lungs clear to auscultation. Breath sounds equal bilaterally. GASTROINTESTINAL: Abdomen soft, non-tender, nondistended. + BS. LEFT groin hard palpable mass noted. MUSCULOSKELETAL: Extremities without cyanosis, +1 edema right wrist. Right wrist ex-fix in place. Pin sites clean. Left hand dressing C/D/I. LLE long leg splint in place. MAEW. NEUROLOGICAL: Awake and alert. Normal speech. A/P Problem List: (1) Multiple fractures of ribs of left side (2) Open fracture of left distal humerus (3) Open fracture of right distal humerus (4) Open fracture of right patella (5) Closed fracture of left tibial plateau (6) Displaced fracture of right femoral neck Assessment and Plan INJURIES: Questionable fx of RIGHT orbit rim C7 transverse process fx RIGHT lung contusion Open RIGHT radius/ulna fx LEFT humerus fx RIGHT hip fx RIGHT ilium fx RIGHT femoral neck fx OPEN RIGHT patellar fx LEFT avulsion fx of knee (w/ multiple ligament injury) LEFT tibial plateau fx LEFT wrist scaphoid bone fx RIGHT hand phalanx fx PROCEDURES: 10/21: ORIF RIGHT femur; ORIF RIGHT hip; I&D RIGHT patella w/ wound vac; I&D LEFT humerus w/ closed reduction; RIGHT wrist closed reduction. 10/25: ORIF left distal humerus. ORIF right radius and ulna with ex-fix placement. 10/29: LEFT knee arthroscopic cruciate ligament repair. LEFT knee open lateral collateral ligament repair. ORIF LEFT knee plateau fx. LEFT knee exploration of peroneal nerve (with discovery of complete rupture of nerve) 11/11: LEFT scaphoid ORIF, RIGHT fifth proximal phalanx closed reduction percutaneous pinning 11/17 - LEFT leg exploration. Perennial nerve repair. Sural nerve graft. Diet: Regular, tolerating Pulm: IS, acapella, EZpap. nebs. Encouraged patient use Pain: [place]. Neurontin. (Xanax) Robaxin. Fentanyl patch. Pain controlled Activity: OOB to stretcher chair. PT and OT evaluating. (NWB BUE; NWB BLE). GI: Pepcid Bowel: Hanna-colace. Lactulose, Miralax and Dulcolax [place] PRN. LBM: 11/26 DVT: SCD's. Lovenox 30 BID - RIGHT radius/ulna fx - LEFT humerus fx - RIGHT hip fx - RIGHT ilium fx - RIGHT femoral neck fx - OPEN RIGHT patellar fx - LEFT avulsion fx of knee (w/ multiple ligament injury) - LEFT tibial plateau fx Orthopedics following 10/21: ORIF RIGHT femur; ORIF RIGHT hip; I&D RIGHT patella w/ wound vac; I&D LEFT humerus w/ closed reduction; RIGHT wrist closed reduction. 10/25: ORIF left distal humerus. ORIF right radius and ulna with ex-fix placement. 10/29: LEFT knee arthroscopic cruciate ligament repair. LEFT knee open lateral collateral ligament repair. ORIF LEFT knee plateau fx. LEFT knee exploration of peroneal nerve (with discovery of complete rupture of nerve) Pain control Pin care RUE, BID Nonweightbearing status to all 4 extremities. PT and OT ordered - encourage out of bed - to wheelchair daily Wave bed to prevent skin breakdown Rehab placement Lovenox - Right lung contusion, Rib fracture Supportive care, resolving Pulmonary toileting Pain control OOB LEFT wrist scaphoid bone fx, RIGHT hand phalanx fx Hand surgery consulted 11/11: LEFT scaphoid ORIF, RIGHT fifth proximal phalanx closed reduction percutaneous pinning Pain control NWB LUE Plan of care discussed with patient and family at bedside. Case management consulted for assist with discharge planning. Problem Qualifiers (1) Multiple fractures of ribs of left side: Qualified Code: S22.42XA - Closed fracture of multiple ribs of left side, initial encounter (2) Open fracture of left distal humerus: Qualified Code: S42.492B - Other open displaced fracture of distal end of left humerus, initial encounter (3) Open fracture of right distal humerus: Qualified Code: S42.491B - Other open displaced fracture of distal end of right humerus, initial encounter (4) Open fracture of right patella: (5) Closed fracture of left tibial plateau: Qualified Code: S82.142A - Closed fracture of left tibial plateau, initial encounter (6) Displaced fracture of right femoral neck: Qualified Code: S72.001A - Displaced fracture of right femoral neck, closed, initial encounter Angel Partida Dec 01, 2016 16:31
[2016-12-01 17:00] VITALS: BP 143/83; PULSE 89; RESP 16; TEMP 98; O2SAT 100
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
[2016-12-01 20:10] VITALS: BP 122/73; PULSE 97; RESP 16; TEMP 97.9; O2SAT 96
[2016-12-02 00:40] VITALS: BP 110/68; PULSE 100; RESP 16; TEMP 97.8; O2SAT 99
[2016-12-02] MEDS: HYDROCORTISONE 1% CREAM 30 GM TOPICAL SCH ×3 (05:00→21:00)
[2016-12-02] MEDS: METHOCARBAMOL 500 MG TAB PO SCH ×3 (06:08→21:18)
[2016-12-02] MEDS: ENOXAPARIN SODIUM 30 MG/0.3 ML SYRINGE SQ SCH ×2 (06:08→17:00)
[2016-12-02 08:00] VITALS: BP 172/83; PULSE 94; RESP 16; TEMP 97.2; O2SAT 99
[2016-12-02] MEDS: MAGNESIUM HYDROXIDE SUSP 30 ML CUP PO SCH (09:00)
[2016-12-02] MEDS: DOCUSATE SODIUM 50 MG/SENNA 8.6 MG TAB PO SCH ×2 (09:00→21:00)
[2016-12-02] MEDS: POLYETHYLENE GLYCOL 17 GM PKG PO SCH (09:00)
[2016-12-02] MEDS: FAMOTIDINE 20 MG TAB PO SCH ×2 (11:34→21:19)
[2016-12-02] MEDS: GABAPENTIN 300 MG CAP PO SCH ×2 (11:34→15:16)
[2016-12-02] MEDS: LACTOBACILLUS ACIDOPHILUS TAB PO SCH ×2 (11:34→21:19)
[2016-12-02 12:00] VITALS: BP 125/91; PULSE 103; RESP 16; TEMP 97.3; O2SAT 99
--- NOTE | 2016-12-02 12:41 | HHI.PR ---
Subjective Subjective Notes OOB in wheelchair Happy that staff is able to take him outdoors Objective Vitals/I&O Vital Signs Date Time Temp Pulse Resp B/P Pulse Ox O2 Delivery O2 Flow Rate FiO2 12/02/16 08:00 97.2 94 16 172/83 99 11/28/16 12:52 Room Air 1.00 21 Radiology Last Impressions Abdomen Ultrasound 11/18/16 0000 Signed Impressions: Service Date/Time: November 14:34 - CONCLUSION: 1. Simple fluid collection measuring 9 x 5.3 x 3.4 cm and the left inguinal region. This appears benign. Exact etiology of this is uncertain. Carmelo Ricks MD Pelvis X-Ray 11/09/16 0000 Signed Impressions: Service Date/Time: Wednesday, November 09, 2016 16:11 - CONCLUSION: Internal fixation screws across the right femoral neck fracture, in near anatomic alignment. Olivier Lizarraga MD Knee X-Ray 11/09/16 0000 Signed Impressions: Service Date/Time: Wednesday, November 09, 2016 16:16 - CONCLUSION: Configuration of the multi-comminuted fragments of the distal femur similar to intraoperative images. Olivier Lizarraga MD Femur X-Ray 11/09/16 0000 Signed Impressions: Service Date/Time: Wednesday, November 09, 2016 16:15 - CONCLUSION: Postoperative findings from internal fixation proximal femoral and distal femoral fractures. The hardware appears grossly intact. Olivier Lizarraga MD Wrist X-Ray 11/08/16 0000 Signed Impressions: Service Date/Time: Tuesday, November 08, 2016 10:04 - CONCLUSION: Anatomic alignment. Mikel Ricks MD FACR Humerus X-Ray 11/08/16 0000 Signed Impressions: Service Date/Time: Tuesday, November 08, 2016 10:12 - CONCLUSION: Anatomic alignment across the proximal humeral fracture. Mikel Ricks MD FACR Upper Extremity CT 11/05/16 0000 Signed Impressions: Service Date/Time: Saturday, November 05, 2016 15:02 - CONCLUSION: Displaced distal pole scaphoid fracture. Leandro Vogt MD Hand X-Ray 11/04/16 0000 Signed Impressions: Service Date/Time: November 12:32 - CONCLUSION: Displaced distal pole scaphoid fracture. Leandro Vogt MD Finger X-Ray 11/04/16 0000 Signed Impressions: Service Date/Time: November 12:42 - CONCLUSION: Fifth digit proximal phalanx fracture. Leandro Vogt MD Abdomen X-Ray 10/29/16 0000 Signed Impressions: Service Date/Time: Saturday, October 29, 2016 08:53 - CONCLUSION: 1. Diffuse ileus. No free air identified. Bk Martin MD Chest X-Ray 10/26/16 0600 Signed Impressions: Service Date/Time: Wednesday, October 26, 2016 04:52 - CONCLUSION: No appreciable change. Lobo Maynard MD Radius/Ulna X-Ray 10/25/16 0000 Signed Impressions: Service Date/Time: Tuesday, October 25, 2016 12:56 - CONCLUSION: Status post op in rigid internal fixation. Nelson Hill MD Ankle X-Ray 10/24/16 0000 Signed Impressions: Service Date/Time: Monday, October 24, 2016 10:36 - CONCLUSION: Soft tissue swelling. Laron Kuo MD Knee MRI 10/23/16 0000 Signed Impressions: Service Date/Time: Sunday, October 23, 2016 16:05 - CONCLUSION: 1. Disruption of the lateral ligamentous structures including the fibular collateral ligament , the biceps femoris musculotendinous junction and the attachment site at the iliotibial band causing widening at the lateral joint space. 2. Anterior cruciate ligament tear at its femoral attachment site. 3. Increased signal within the proximal aspect of the posterior cruciate ligament. Some degree of partial tearing at this structure cannot be excluded. 4. Fairly extensive bone bruising and fracturing involving the proximal tibia, proximal fibula and femoral condyles as described above. 5. Moderate effusion. Rico Pena MD Hip X-Ray 10/22/16 0000 Signed Impressions: Service Date/Time: October 21:00 - CONCLUSION: 1. Lag screws traversing proximal right femur fracture. Bk Martin MD Maxillofacial CT 10/21/16 054 Signed Impressions: Service Date/Time: October 18:33 - CONCLUSION: 1. Mucoperiosteal thickening in the right frontal sinus and right maxillary sinus. 2. I cannot entirely exclude a nondisplaced fracture of the right infraorbital rim. Mikel Ricks MD FACR Head CT 10/21/161821 Signed Impressions: Service Date/Time: October 18:33 - CONCLUSION: Negative for acute process.. Mikel Ricks MD FACR Chest CT 10/21/161821 Signed Impressions: Service Date/Time: October 18:43 - CONCLUSION: 1. Contusion laterally in the right lung. 2. Air in the axilla on the left. 3. I cannot confirm a rib fracture by CT. Mikel Ricks MD FACR Cervical Spine CT 10/21/161821 Signed Impressions: Service Date/Time: October 18:33 - CONCLUSION: Transverse process fracture C7 on the right, involving just the tip of the transverse process. Mikel Ricks MD FACR Abdomen/Pelvis CT 10/21/161821 Signed Impressions: Service Date/Time: October 18:43 - CONCLUSION: 1. Contusion in the right lung base. 2. Right hip fracture. 3. Right ilium fracture. 4. Minimal induration about the right superior pubic ramus. 5. There is no evidence for a solid organ injury. Mikel Ricks MD FACR Tibia/Fibula X-Ray 10/21/16 0000 Signed Impressions: Service Date/Time: October 18:04 - CONCLUSION: Plateau fracture. Mikel Ricks MD FACR Aorta w/Runoff CTA 10/21/16 0000 Signed Impressions: Service Date/Time: October 20:02 - CONCLUSION: Significant fracture at the junction of the RIGHT SFA and popliteal artery at the adductor hiatus with moderate contusion. Vessel is patent.. Mikel Ricks MD FACR Narrative Exam GENERAL: 26-year-old well-nourished, well developed male OOB in wheelchair. SKIN: Warm and dry. HEAD: Normocephalic. ENT: No nasal bleeding or discharge. Mucous membranes pink and moist. NECK: Trachea midline. No JVD. CARDIOVASCULAR: Regular rate and rhythm. RESPIRATORY: No accessory muscle use. Lungs clear to auscultation. Breath sounds equal bilaterally. GASTROINTESTINAL: Abdomen soft, non-tender, nondistended. + BS. LEFT groin hard palpable mass noted. MUSCULOSKELETAL: Extremities without cyanosis, +1 edema right wrist. Right wrist ex-fix in place. Pin sites clean. Left hand dressing C/D/I. LLE long leg splint in place. MAEW. NEUROLOGICAL: Awake and alert. Normal speech. A/P Problem List: (1) Multiple fractures of ribs of left side (2) Open fracture of left distal humerus (3) Open fracture of right distal humerus (4) Open fracture of right patella (5) Closed fracture of left tibial plateau (6) Displaced fracture of right femoral neck Assessment and Plan INJURIES: Questionable fx of RIGHT orbit rim C7 transverse process fx RIGHT lung contusion Open RIGHT radius/ulna fx LEFT humerus fx RIGHT hip fx RIGHT ilium fx RIGHT femoral neck fx OPEN RIGHT patellar fx LEFT avulsion fx of knee (w/ multiple ligament injury) LEFT tibial plateau fx LEFT wrist scaphoid bone fx RIGHT hand phalanx fx PROCEDURES: 10/21: ORIF RIGHT femur; ORIF RIGHT hip; I&D RIGHT patella w/ wound vac; I&D LEFT humerus w/ closed reduction; RIGHT wrist closed reduction. 10/25: ORIF left distal humerus. ORIF right radius and ulna with ex-fix placement. 10/29: LEFT knee arthroscopic cruciate ligament repair. LEFT knee open lateral collateral ligament repair. ORIF LEFT knee plateau fx. LEFT knee exploration of peroneal nerve (with discovery of complete rupture of nerve) 11/11: LEFT scaphoid ORIF, RIGHT fifth proximal phalanx closed reduction percutaneous pinning 11/17 - LEFT leg exploration. Perennial nerve repair. Sural nerve graft. Diet: Regular, tolerating Pulm: IS, acapella, EZpap. nebs. Encouraged patient use Pain: Bill[place]. Neurontin. (Xanax) Robaxin. Fentanyl patch. Pain controlled Activity: OOB to stretcher chair. PT and OT evaluating. (NWB BUE; NWB BLE). GI: Pepcid Bowel: Hanna-colace. Lactulose, Miralax and Dulcolax MD PRN. LBM: 11/26 DVT: SCD's. Lovenox 30 BID - RIGHT radius/ulna fx - LEFT humerus fx - RIGHT hip fx - RIGHT ilium fx - RIGHT femoral neck fx - OPEN RIGHT patellar fx - LEFT avulsion fx of knee (w/ multiple ligament injury) - LEFT tibial plateau fx Orthopedics following 10/21: ORIF RIGHT femur; ORIF RIGHT hip; I&D RIGHT patella w/ wound vac; I&D LEFT humerus w/ closed reduction; RIGHT wrist closed reduction. 10/25: ORIF left distal humerus. ORIF right radius and ulna with ex-fix placement. 10/29: LEFT knee arthroscopic cruciate ligament repair. LEFT knee open lateral collateral ligament repair. ORIF LEFT knee plateau fx. LEFT knee exploration of peroneal nerve (with discovery of complete rupture of nerve) Pain control Pin care RUE, BID Nonweightbearing status to all 4 extremities. PT and OT ordered - encourage out of bed - to wheelchair daily Wave bed to prevent skin breakdown Rehab placement Lovenox - Right lung contusion, Rib fracture Supportive care, resolving Pulmonary toileting Pain control OOB LEFT wrist scaphoid bone fx, RIGHT hand phalanx fx Hand surgery consulted 11/11: LEFT scaphoid ORIF, RIGHT fifth proximal phalanx closed reduction percutaneous pinning Pain control NWB LUE Plan of care discussed with patient at bedside. Case management consulted for assist with discharge planning. Family still trying to make arrangements to take patient home. Problem Qualifiers (1) Multiple fractures of ribs of left side: Qualified Code: S22.42XA - Closed fracture of multiple ribs of left side, initial encounter (2) Open fracture of left distal humerus: Qualified Code: S42.492B - Other open displaced fracture of distal end of left humerus, initial encounter (3) Open fracture of right distal humerus: Qualified Code: S42.491B - Other open displaced fracture of distal end of right humerus, initial encounter (4) Open fracture of right patella: (5) Closed fracture of left tibial plateau: Qualified Code: S82.142A - Closed fracture of left tibial plateau, initial encounter (6) Displaced fracture of right femoral neck: Qualified Code: S72.001A - Displaced fracture of right femoral neck, closed, initial encounter Angel Partida Dec 02, 2016 12:41
[2016-12-02 20:15] VITALS: BP 109/75; PULSE 100; RESP 16; TEMP 98.4; O2SAT 98
--- NOTE | 2016-12-02 20:56 | RADRPT ---
EXAM DATE/TIME: 12/02/2016 20:17 [facility] COMPARISON: KNEE RIGHT LTD (1 OR 2 VWS), November 09, 2016, 16:16. INDICATIONS : Right knee pain, follow up fractures. MEDICAL HISTORY : None. SURGICAL HISTORY : ORIF right knee. ENCOUNTER: Initial ACUITY: 2 months PAIN SCORE: 10/10 LOCATION: Right knee. FINDINGS: AP and lateral views of the right knee were obtained and again demonstrate postoperative changes stat us post open rigid internal fixation of the distal comminuted femur fracture. A large lateral screw p late fixation device remains in place and the fracture fragments are stable. One of the fracture line extends into the medial joint of the knee. There is overlying soft tissue swelling. There is mild os teopenia. CONCLUSION: Stable alignment. Nelosn Hill MD on December 02, 2016 at 20:52 Board Certified Radiologist. This report was verified electronically.
--- NOTE | 2016-12-02 20:57 | RADRPT ---
EXAM DATE/TIME: 12/02/2016 20:17 [facility] COMPARISON: FEMUR RIGHT (AP & LAT/2VWS), November 09, 2016, 16:15. INDICATIONS : Right femur pain, follow up fracture. MEDICAL HISTORY : None. SURGICAL HISTORY : ORIF distal femur. ENCOUNTER: Subsequent ACUITY: 2 months PAIN SCORE: 10/10 LOCATION: Right distal femur. FINDINGS: The patient is status post open rigid internal fixation with screw-plate fixation device. Comminuted femoral fracture fragments are in stable alignment. There is overlying soft tissue swelling. Multiple lag screws are again noted transfixing the small femoral neck fracture. CONCLUSION: No significant change. Nelson Hill MD on December 02, 2016 at 20:53 Board Certified Radiologist. This report was verified electronically.
--- NOTE | 2016-12-02 20:59 | RADRPT ---
EXAM DATE/TIME: 12/02/2016 20:19 [facility] COMPARISON: KNEE LEFT LTD (1 OR 2VWS), November 09, 2016, 16:17. INDICATIONS : Left knee pain, follow up fracture. MEDICAL HISTORY : None. SURGICAL HISTORY : None. ENCOUNTER: Subsequent ACUITY: 2 months PAIN SCORE: 10/10 LOCATION: Left knee. FINDINGS: AP and lateral views of the left knee were obtained. An external brace is again present obscuring por tions of the bony structures on the lateral exam. The mildly comminuted fracture of the lateral proxi mal tibia and plateau is again noted without significant change. The proximal fibular fracture is unc hanged as well. The joint spaces remain preserved. There is mild osteopenia. CONCLUSION: No significant change. Nelson Hill MD on December 02, 2016 at 20:55 Board Certified Radiologist. This report was verified electronically.
--- NOTE | 2016-12-02 20:59 | RADRPT ---
EXAM DATE/TIME: 12/02/2016 20:20 [facility] COMPARISON: HIP RIGHT (AP&LAT 2/3VWS) WO AP PELVIS, October 21, 2016, 21:00. INDICATIONS : Right hip pain, follow up fractures. MEDICAL HISTORY : None. SURGICAL HISTORY : Right hip pinning. ENCOUNTER: Initial ACUITY: 2 months PAIN SCORE: 10/10 LOCATION: Right hip. FINDINGS: Postoperative changes are again noted with 3 lag screws transfixing the femoral neck fracture. The fr acture fragments are in near-anatomic alignment. CONCLUSION: Stable appearance status post open rigid internal fixation. Nelson Hill MD on December 02, 2016 at 20:56 Board Certified Radiologist. This report was verified electronically.
[2016-12-02] MEDS ORDERED: GABAPENTIN 300 MG CAP PO ONE (21:00)
--- NOTE | 2016-12-02 21:01 | RADRPT ---
EXAM DATE/TIME: 12/02/2016 20:25 [facility] COMPARISON: HUMERUS LEFT (MIN 2VWS), November 08, 2016, 10:12. INDICATIONS : Left humerus pain, follow up fracture. MEDICAL HISTORY : None. SURGICAL HISTORY : ORIF left humerus. ENCOUNTER: Subsequent ACUITY: 2 months PAIN SCORE: 10/10 LOCATION: Left humerus. FINDINGS: AP and lateral views of the left humerus were obtained again demonstrated is screw plate fixation dev ice transfixing the mid humeral fracture. The racture fragments remain in anatomic alignment. The swetha us is denser in appearance. The overlying surgical skin radha have been removed. CONCLUSION: Mild interval healing. Nelson Hill MD on December 02, 2016 at 20:57 Board Certified Radiologist. This report was verified electronically.
--- NOTE | 2016-12-02 21:02 | RADRPT ---
EXAM DATE/TIME: 12/02/2016 20:29 [facility] COMPARISON: WRIST RIGHT LIMITED(AP & LAT), November 08, 2016, 10:04. INDICATIONS : Right wrist pain, follow up fracture. MEDICAL HISTORY : None. SURGICAL HISTORY : ORIF right wrist. ENCOUNTER: Subsequent ACUITY: 2 months PAIN SCORE: 10/10 LOCATION: Right wrist. FINDINGS: Multiple views of the right wrist were obtained and again demonstrate screw plate fixation devices al alexander the distal radius and ulna which are unchanged in appearance. The fracture fragments remain in ne ar-anatomic alignment. There is an external fixation device in place with pins in the second metacarp al and mid radius. Ulnar styloid fracture is again noted. The carpus remains intact. CONCLUSION: Stable appearance status post internal and external fixation. Nelson Hill MD on December 02, 2016 at 20:59 Board Certified Radiologist. This report was verified electronically.
[2016-12-03 00:05] VITALS: BP 108/70; PULSE 96; RESP 16; TEMP 99; O2SAT 98
[2016-12-03] MEDS: HYDROCORTISONE 1% CREAM 30 GM TOPICAL SCH ×3 (05:00→20:44)
[2016-12-03] MEDS: METHOCARBAMOL 500 MG TAB PO SCH ×3 (06:16→20:44)
[2016-12-03] MEDS: ENOXAPARIN SODIUM 30 MG/0.3 ML SYRINGE SQ SCH ×2 (06:17→17:02)
--- NOTE | 2016-12-03 06:54 | PD.ORT.PN ---
Subjective Subjective Remarks Resting comfortably Objective Vitals Vital Signs Date Time Temp Pulse Resp B/P Pulse Ox O2 Delivery O2 Flow Rate FiO2 12/03/16 00:05 99.0 96 16 108/70 98 12/02/16 20:15 98.4 100 16 109/75 98 12/02/16 12:00 97.3 103 16 125/91 99 12/02/16 08:00 97.2 94 16 172/83 99 I/O 12/02/16 12/02/16 12/02/16 12/03/16 12/03/16 12/03/16 07:00 15:00 23:00 07:00 15:00 23:00 Intake Total 240 ml 240 ml 480 ml 480 ml Balance 240 ml 240 ml 480 ml 480 ml Intake Oral 240 ml 240 ml 480 ml 480 ml # Voids 2 2 3 2 # Bowel Movements 0 0 0 0 Result Diagram: 11/29/1662111/29/16621 Imaging Last 24 hours Impressions Chest X-Ray 10/23/16 0600 Signed Impressions: Service Date/Time: Sunday, October 23, 2016 05:43 - CONCLUSION: 1. Right central line tip in left subclavian vein, unchanged. Interval extubation. Mild atelectasis at the bases. Bk Martin MD Objective Remarks NAD RUE -external fixator and dressing in place. swelling in fingers. NVI and sensation intact. cap refill. incisions visualized. clean and dry. no drainage. healing well. LUE - dressing in place. swelling in fingers. NVI and sensation intact. cap refill. incision visualized. clean and dry. intact. no drainage. healing well. RLE - wound and incisions CDI. NVI and sensation intact. LLE - Knee ROM brace on. Dressings dry. mild swelling around knee. sensation intact. no dorsiflexion. ongoing footdrop on left side, brace on. able to move distal digits successfully. Assessment & Plan Assessment and Plan 10/29 Open Repair of Left Hamstring Tendon, Open Repair of Left Lateral Collateral Ligament, Left Knee Arthroscopic ACL Repair, Open Repair of Left Lateral Tibial Fracture 10/22 I&D and ORIF R supracondylar femur fx and R patella fx 10/25 ORIF left humerus and right distal radius with application right wrist exfix 10/25 Application of wound vac R knee, ORIF R fem neck fx, I&D with closed reduction Left Leg Foot Drop NWB BLE and BUE ok to use right elbow for pushing off. ok to DC sling PRN right arm. Daily dressing changes to right and left arms pin care BID right wrist Active assisted ROM ok to RLE We will make him nothing by mouth after midnight on Tuesday night and hold Lovenox after Tuesday's dose. We will plan on removal external fixation and examination of distal radial ulnar joint. Due to the distal radial ulnar joint injury pinning of the wrist may be necessary. We'll plan on ordering x-rays of all fractures on . Possible removal external fixation of right wrist next week depending on x-ray imaging LLE - PODUS boot for foot drop, ROM brace Physical therapy - Non weight bearing BLE. AAROM Remove radha and sutures to BLE today. Apply dry dressing every other day. Med management Orthopedically cleared for discharge to rehabilitation from Dr. De Leon standpoint. Orthopedically stable for discharge from Dr. Brown standpoint. Discharge plan - anticipating rehab Nelson Rosenthal Jr. Dec 03, 2016 06:54
[2016-12-03] MEDS: LACTOBACILLUS ACIDOPHILUS TAB PO SCH ×2 (07:12→20:44)
[2016-12-03] MEDS: FAMOTIDINE 20 MG TAB PO SCH ×2 (07:13→20:44)
[2016-12-03 08:00] VITALS: BP 110/59; PULSE 88; RESP 16; TEMP 98.6; O2SAT 98
[2016-12-03] MEDS: MAGNESIUM HYDROXIDE SUSP 30 ML CUP PO SCH (09:00)
[2016-12-03] MEDS: GABAPENTIN 300 MG CAP PO SCH ×3 (09:00→17:00)
[2016-12-03] MEDS: DOCUSATE SODIUM 50 MG/SENNA 8.6 MG TAB PO SCH ×2 (09:00→20:44)
[2016-12-03] MEDS: POLYETHYLENE GLYCOL 17 GM PKG PO SCH (09:00)
[2016-12-03 12:00] VITALS: BP 136/91; PULSE 100; RESP 16; TEMP 98; O2SAT 97
[2016-12-03 16:00] VITALS: BP 115/68; PULSE 100; RESP 16; TEMP 98.3; O2SAT 98
[2016-12-03 20:30] VITALS: BP 143/86; PULSE 97; RESP 18; TEMP 98.5; O2SAT 100
[2016-12-04 00:20] VITALS: BP 121/69; PULSE 98; RESP 18; TEMP 98.9; O2SAT 100
[2016-12-04] MEDS: METHOCARBAMOL 500 MG TAB PO SCH ×3 (05:10→21:56)
[2016-12-04] MEDS: ENOXAPARIN SODIUM 30 MG/0.3 ML SYRINGE SQ SCH ×2 (05:10→17:59)
[2016-12-04] MEDS: HYDROCORTISONE 1% CREAM 30 GM TOPICAL SCH ×2 (05:10→13:00)
[2016-12-04 08:00] VITALS: BP 145/87; PULSE 87; RESP 16; TEMP 97.3; O2SAT 100
[2016-12-04] MEDS: POLYETHYLENE GLYCOL 17 GM PKG PO SCH (09:00)
[2016-12-04] MEDS: DOCUSATE SODIUM 50 MG/SENNA 8.6 MG TAB PO SCH ×2 (09:00→21:56)
[2016-12-04] MEDS: MAGNESIUM HYDROXIDE SUSP 30 ML CUP PO SCH (09:00)
[2016-12-04] MEDS: GABAPENTIN 300 MG CAP PO SCH ×3 (09:21→17:58)
[2016-12-04] MEDS: LACTOBACILLUS ACIDOPHILUS TAB PO SCH ×2 (09:21→21:56)
[2016-12-04] MEDS: FAMOTIDINE 20 MG TAB PO SCH ×2 (09:22→21:56)
[2016-12-04 11:40] VITALS: BP 132/90; PULSE 91; RESP 16; TEMP 97.3; O2SAT 99
--- NOTE | 2016-12-04 12:01 | HHI.PR ---
Subjective Subjective Notes No complaints Working with PT during visit Objective Vitals/I&O Vital Signs Date Time Temp Pulse Resp B/P Pulse Ox O2 Delivery O2 Flow Rate FiO2 12/04/16 08:00 97.3 87 16 145/87 100 Radiology Last Impressions Abdomen Ultrasound 11/18/16 0000 Signed Impressions: Service Date/Time: November 14:34 - CONCLUSION: 1. Simple fluid collection measuring 9 x 5.3 x 3.4 cm and the left inguinal region. This appears benign. Exact etiology of this is uncertain. Carmelo Ricks MD Pelvis X-Ray 11/09/16 0000 Signed Impressions: Service Date/Time: Wednesday, November 09, 2016 16:11 - CONCLUSION: Internal fixation screws across the right femoral neck fracture, in near anatomic alignment. Olivier Lizarraga MD Knee X-Ray 11/09/16 0000 Signed Impressions: Service Date/Time: Wednesday, November 09, 2016 16:16 - CONCLUSION: Configuration of the multi-comminuted fragments of the distal femur similar to intraoperative images. Olivier Lizarraga MD Femur X-Ray 11/09/16 0000 Signed Impressions: Service Date/Time: Wednesday, November 09, 2016 16:15 - CONCLUSION: Postoperative findings from internal fixation proximal femoral and distal femoral fractures. The hardware appears grossly intact. Olivier Lizarraga MD Wrist X-Ray 11/08/16 0000 Signed Impressions: Service Date/Time: Tuesday, November 08, 2016 10:04 - CONCLUSION: Anatomic alignment. Mikel Ricks MD FACR Humerus X-Ray 11/08/16 0000 Signed Impressions: Service Date/Time: Tuesday, November 08, 2016 10:12 - CONCLUSION: Anatomic alignment across the proximal humeral fracture. Mikel Ricks MD FACR Upper Extremity CT 11/05/16 0000 Signed Impressions: Service Date/Time: Saturday, November 05, 2016 15:02 - CONCLUSION: Displaced distal pole scaphoid fracture. Lenadro Vogt MD Hand X-Ray 11/04/16 0000 Signed Impressions: Service Date/Time: November 12:32 - CONCLUSION: Displaced distal pole scaphoid fracture. Leandro Vogt MD Finger X-Ray 11/04/16 0000 Signed Impressions: Service Date/Time: November 12:42 - CONCLUSION: Fifth digit proximal phalanx fracture. Leandro Vogt MD Abdomen X-Ray 10/29/16 0000 Signed Impressions: Service Date/Time: Saturday, October 29, 2016 08:53 - CONCLUSION: 1. Diffuse ileus. No free air identified. Bk Martin MD Chest X-Ray 10/26/16 0600 Signed Impressions: Service Date/Time: Wednesday, October 26, 2016 04:52 - CONCLUSION: No appreciable change. Lobo Maynard MD Radius/Ulna X-Ray 10/25/16 0000 Signed Impressions: Service Date/Time: Tuesday, October 25, 2016 12:56 - CONCLUSION: Status post op in rigid internal fixation. Nelson Hill MD Ankle X-Ray 10/24/16 0000 Signed Impressions: Service Date/Time: Monday, October 24, 2016 10:36 - CONCLUSION: Soft tissue swelling. Laron Kuo MD Knee MRI 10/23/16 0000 Signed Impressions: Service Date/Time: Sunday, October 23, 2016 16:05 - CONCLUSION: 1. Disruption of the lateral ligamentous structures including the fibular collateral ligament , the biceps femoris musculotendinous junction and the attachment site at the iliotibial band causing widening at the lateral joint space. 2. Anterior cruciate ligament tear at its femoral attachment site. 3. Increased signal within the proximal aspect of the posterior cruciate ligament. Some degree of partial tearing at this structure cannot be excluded. 4. Fairly extensive bone bruising and fracturing involving the proximal tibia, proximal fibula and femoral condyles as described above. 5. Moderate effusion. Rico Pena MD Hip X-Ray 10/22/16 0000 Signed Impressions: Service Date/Time: October 21:00 - CONCLUSION: 1. Lag screws traversing proximal right femur fracture. Bk Martin MD Maxillofacial CT 10/21/16 1822 Signed Impressions: Service Date/Time: October 18:33 - CONCLUSION: 1. Mucoperiosteal thickening in the right frontal sinus and right maxillary sinus. 2. I cannot entirely exclude a nondisplaced fracture of the right infraorbital rim. Mikel Ricks MD FACR Head CT 10/21/161821 Signed Impressions: Service Date/Time: October 18:33 - CONCLUSION: Negative for acute process.. Mikel Ricks MD FACR Chest CT 10/21/161821 Signed Impressions: Service Date/Time: October 18:43 - CONCLUSION: 1. Contusion laterally in the right lung. 2. Air in the axilla on the left. 3. I cannot confirm a rib fracture by CT. Mikel Ricks MD FACR Cervical Spine CT 10/21/161821 Signed Impressions: Service Date/Time: October 18:33 - CONCLUSION: Transverse process fracture C7 on the right, involving just the tip of the transverse process. Mikel Ricks MD FACR Abdomen/Pelvis CT 10/21/161821 Signed Impressions: Service Date/Time: October 18:43 - CONCLUSION: 1. Contusion in the right lung base. 2. Right hip fracture. 3. Right ilium fracture. 4. Minimal induration about the right superior pubic ramus. 5. There is no evidence for a solid organ injury. Mikel Ricks MD FACR Tibia/Fibula X-Ray 10/21/16 0000 Signed Impressions: Service Date/Time: October 18:04 - CONCLUSION: Plateau fracture. Mikel Ricks MD FACR Aorta w/Runoff CTA 10/21/16 0000 Signed Impressions: Service Date/Time: October 20:02 - CONCLUSION: Significant fracture at the junction of the RIGHT SFA and popliteal artery at the adductor hiatus with moderate contusion. Vessel is patent.. Mikel Ricks MD FACR Narrative Exam GENERAL: 26-year-old well-nourished, well developed male OOB in wheelchair doing ROM with PT. SKIN: Warm and dry. HEAD: Normocephalic. ENT: No nasal bleeding or discharge. Mucous membranes pink and moist. NECK: Trachea midline. No JVD. CARDIOVASCULAR: Regular rate and rhythm. RESPIRATORY: No accessory muscle use. Lungs clear to auscultation. Breath sounds equal bilaterally. GASTROINTESTINAL: Abdomen soft, non-tender, nondistended. + BS. LEFT groin hard palpable mass noted. MUSCULOSKELETAL: Extremities without cyanosis, +1 edema right wrist. Right wrist ex-fix in place. Pin sites clean. Left hand dressing C/D/I. LLE long leg splint in place. MAEW. NEUROLOGICAL: Awake and alert. Normal speech. A/P Problem List: (1) Multiple fractures of ribs of left side (2) Open fracture of left distal humerus (3) Open fracture of right distal humerus (4) Open fracture of right patella (5) Closed fracture of left tibial plateau (6) Displaced fracture of right femoral neck Assessment and Plan INJURIES: Questionable fx of RIGHT orbit rim C7 transverse process fx RIGHT lung contusion Open RIGHT radius/ulna fx LEFT humerus fx RIGHT hip fx RIGHT ilium fx RIGHT femoral neck fx OPEN RIGHT patellar fx LEFT avulsion fx of knee (w/ multiple ligament injury) LEFT tibial plateau fx LEFT wrist scaphoid bone fx RIGHT hand phalanx fx PROCEDURES: 10/21: ORIF RIGHT femur; ORIF RIGHT hip; I&D RIGHT patella w/ wound vac; I&D LEFT humerus w/ closed reduction; RIGHT wrist closed reduction. 10/25: ORIF left distal humerus. ORIF right radius and ulna with ex-fix placement. 10/29: LEFT knee arthroscopic cruciate ligament repair. LEFT knee open lateral collateral ligament repair. ORIF LEFT knee plateau fx. LEFT knee exploration of peroneal nerve (with discovery of complete rupture of nerve) 11/11: LEFT scaphoid ORIF, RIGHT fifth proximal phalanx closed reduction percutaneous pinning 11/17 - LEFT leg exploration. Perennial nerve repair. Sural nerve graft. Diet: Regular, tolerating Pulm: IS, acapella, EZpap. nebs. Encouraged patient use Pain: [place]. Neurontin. (Xanax) Robaxin. Fentanyl patch. Pain controlled Activity: OOB to stretcher chair. PT and OT evaluating. (NWB BUE; NWB BLE). GI: Pepcid Bowel: Hanna-colace. Lactulose, Miralax and Dulcolax [place] PRN. LBM: 12/04 DVT: SCD's. Lovenox 30 BID - RIGHT radius/ulna fx - LEFT humerus fx - RIGHT hip fx - RIGHT ilium fx - RIGHT femoral neck fx - OPEN RIGHT patellar fx - LEFT avulsion fx of knee (w/ multiple ligament injury) - LEFT tibial plateau fx Orthopedics following 10/21: ORIF RIGHT femur; ORIF RIGHT hip; I&D RIGHT patella w/ wound vac; I&D LEFT humerus w/ closed reduction; RIGHT wrist closed reduction. 10/25: ORIF left distal humerus. ORIF right radius and ulna with ex-fix placement. 10/29: LEFT knee arthroscopic cruciate ligament repair. LEFT knee open lateral collateral ligament repair. ORIF LEFT knee plateau fx. LEFT knee exploration of peroneal nerve (with discovery of complete rupture of nerve) Pain control Pin care RUE, BID Nonweightbearing status to all 4 extremities. PT and OT ordered - encourage out of bed - to wheelchair daily Wave bed to prevent skin breakdown Rehab placement Lovenox Ortho plans to remove RIGHT ex fix on 12/06 - Right lung contusion, Rib fracture Supportive care, resolving Pulmonary toileting Pain control OOB LEFT wrist scaphoid bone fx, RIGHT hand phalanx fx Hand surgery consulted 11/11: LEFT scaphoid ORIF, RIGHT fifth proximal phalanx closed reduction percutaneous pinning Pain control NWB LUE Plan of care discussed with patient at bedside. Case management consulted for assist with discharge planning. Family still trying to make arrangements to take patient home. Problem Qualifiers (1) Multiple fractures of ribs of left side: Qualified Code: S22.42XA - Closed fracture of multiple ribs of left side, initial encounter (2) Open fracture of left distal humerus: Qualified Code: S42.492B - Other open displaced fracture of distal end of left humerus, initial encounter (3) Open fracture of right distal humerus: Qualified Code: S42.491B - Other open displaced fracture of distal end of right humerus, initial encounter (4) Open fracture of right patella: (5) Closed fracture of left tibial plateau: Qualified Code: S82.142A - Closed fracture of left tibial plateau, initial encounter (6) Displaced fracture of right femoral neck: Qualified Code: S72.001A - Displaced fracture of right femoral neck, closed, initial encounter Angel Partida Dec 04, 2016 12:00
[2016-12-04] MEDS: fentaNYL 50 MCG/HR PATCH T-DERMAL SCH (14:00)
[2016-12-04] MEDS: REMOVE OLD DURAGESIC (FENTANYL) PATCH T-DERMAL SCH (14:00)
[2016-12-04 17:00] VITALS: BP 132/85; PULSE 101; RESP 16; TEMP 97.2; O2SAT 100
[2016-12-04 20:15] VITALS: BP 132/77; PULSE 89; RESP 18; TEMP 97; O2SAT 99
[2016-12-05 00:15] VITALS: BP 136/69; PULSE 94; RESP 18; TEMP 97.4; O2SAT 100
[2016-12-05] MEDS: METHOCARBAMOL 500 MG TAB PO SCH ×3 (06:37→20:45)
[2016-12-05] MEDS: ENOXAPARIN SODIUM 30 MG/0.3 ML SYRINGE SQ SCH (06:38)
[2016-12-05 08:00] VITALS: BP 160/92; PULSE 92; RESP 16; TEMP 97.3; O2SAT 100
[2016-12-05] MEDS: MAGNESIUM HYDROXIDE SUSP 30 ML CUP PO SCH (09:00)
[2016-12-05] MEDS: POLYETHYLENE GLYCOL 17 GM PKG PO SCH (09:00)
[2016-12-05] MEDS: FAMOTIDINE 20 MG TAB PO SCH ×2 (09:00→20:46)
[2016-12-05] MEDS: DOCUSATE SODIUM 50 MG/SENNA 8.6 MG TAB PO SCH ×2 (09:00→20:47)
[2016-12-05] MEDS: LACTOBACILLUS ACIDOPHILUS TAB PO SCH ×2 (10:02→20:46)
[2016-12-05] MEDS: GABAPENTIN 300 MG CAP PO SCH ×3 (10:02→17:57)
--- NOTE | 2016-12-05 11:44 | HHI.PR ---
Subjective Subjective Notes No complaints Reports that he is getting his right arm ex-fix removed Tuesday Objective Vitals/I&O Vital Signs Date Time Temp Pulse Resp B/P Pulse Ox O2 Delivery O2 Flow Rate FiO2 12/05/16 08:00 97.3 92 16 160/92 100 12/04/16 19:11 Room Air Radiology Last Impressions Abdomen Ultrasound 11/18/16 0000 Signed Impressions: Service Date/Time: November 14:34 - CONCLUSION: 1. Simple fluid collection measuring 9 x 5.3 x 3.4 cm and the left inguinal region. This appears benign. Exact etiology of this is uncertain. Carmelo Ricks MD Pelvis X-Ray 11/09/16 0000 Signed Impressions: Service Date/Time: Wednesday, November 09, 2016 16:11 - CONCLUSION: Internal fixation screws across the right femoral neck fracture, in near anatomic alignment. Olivier Lizarraga MD Knee X-Ray 11/09/16 0000 Signed Impressions: Service Date/Time: Wednesday, November 09, 2016 16:16 - CONCLUSION: Configuration of the multi-comminuted fragments of the distal femur similar to intraoperative images. Olivier Lizarraga MD Femur X-Ray 11/09/16 0000 Signed Impressions: Service Date/Time: Wednesday, November 09, 2016 16:15 - CONCLUSION: Postoperative findings from internal fixation proximal femoral and distal femoral fractures. The hardware appears grossly intact. Olivier Lizarraga MD Wrist X-Ray 11/08/16 0000 Signed Impressions: Service Date/Time: Tuesday, November 08, 2016 10:04 - CONCLUSION: Anatomic alignment. Mikel Ricks MD FACR Humerus X-Ray 11/08/16 0000 Signed Impressions: Service Date/Time: Tuesday, November 08, 2016 10:12 - CONCLUSION: Anatomic alignment across the proximal humeral fracture. Mikel Ricks MD FACR Upper Extremity CT 11/05/16 0000 Signed Impressions: Service Date/Time: Saturday, November 05, 2016 15:02 - CONCLUSION: Displaced distal pole scaphoid fracture. Leandro Vogt MD Hand X-Ray 11/04/16 0000 Signed Impressions: Service Date/Time: November 12:32 - CONCLUSION: Displaced distal pole scaphoid fracture. Leandro Vogt MD Finger X-Ray 11/04/16 0000 Signed Impressions: Service Date/Time: November 12:42 - CONCLUSION: Fifth digit proximal phalanx fracture. Leandro Vogt MD Abdomen X-Ray 10/29/16 0000 Signed Impressions: Service Date/Time: Saturday, October 29, 2016 08:53 - CONCLUSION: 1. Diffuse ileus. No free air identified. Bk Martin MD Chest X-Ray 10/26/16 0600 Signed Impressions: Service Date/Time: Wednesday, October 26, 2016 04:52 - CONCLUSION: No appreciable change. Lobo Maynard MD Radius/Ulna X-Ray 10/25/16 0000 Signed Impressions: Service Date/Time: Tuesday, October 25, 2016 12:56 - CONCLUSION: Status post op in rigid internal fixation. Nelson Hill MD Ankle X-Ray 10/24/16 0000 Signed Impressions: Service Date/Time: Monday, October 24, 2016 10:36 - CONCLUSION: Soft tissue swelling. Laron Kuo MD Knee MRI 10/23/16 0000 Signed Impressions: Service Date/Time: Sunday, October 23, 2016 16:05 - CONCLUSION: 1. Disruption of the lateral ligamentous structures including the fibular collateral ligament , the biceps femoris musculotendinous junction and the attachment site at the iliotibial band causing widening at the lateral joint space. 2. Anterior cruciate ligament tear at its femoral attachment site. 3. Increased signal within the proximal aspect of the posterior cruciate ligament. Some degree of partial tearing at this structure cannot be excluded. 4. Fairly extensive bone bruising and fracturing involving the proximal tibia, proximal fibula and femoral condyles as described above. 5. Moderate effusion. Rico Pena MD Hip X-Ray 10/22/16 0000 Signed Impressions: Service Date/Time: October 21:00 - CONCLUSION: 1. Lag screws traversing proximal right femur fracture. Bk Martin MD Maxillofacial CT 10/21/16 182 Signed Impressions: Service Date/Time: October 18:33 - CONCLUSION: 1. Mucoperiosteal thickening in the right frontal sinus and right maxillary sinus. 2. I cannot entirely exclude a nondisplaced fracture of the right infraorbital rim. Mikel Ricks MD FACR Head CT 10/21/161821 Signed Impressions: Service Date/Time: October 18:33 - CONCLUSION: Negative for acute process.. Mikel Ricks MD FACR Chest CT 10/21/161821 Signed Impressions: Service Date/Time: October 18:43 - CONCLUSION: 1. Contusion laterally in the right lung. 2. Air in the axilla on the left. 3. I cannot confirm a rib fracture by CT. Mikel Ricks MD FACR Cervical Spine CT 10/21/161821 Signed Impressions: Service Date/Time: October 18:33 - CONCLUSION: Transverse process fracture C7 on the right, involving just the tip of the transverse process. Mikel Ricks MD FACR Abdomen/Pelvis CT 10/21/161821 Signed Impressions: Service Date/Time: October 18:43 - CONCLUSION: 1. Contusion in the right lung base. 2. Right hip fracture. 3. Right ilium fracture. 4. Minimal induration about the right superior pubic ramus. 5. There is no evidence for a solid organ injury. Mikel Ricks MD FACR Tibia/Fibula X-Ray 10/21/16 0000 Signed Impressions: Service Date/Time: October 18:04 - CONCLUSION: Plateau fracture. Mikel Ricks MD FACR Aorta w/Runoff CTA 10/21/16 0000 Signed Impressions: Service Date/Time: October 20:02 - CONCLUSION: Significant fracture at the junction of the RIGHT SFA and popliteal artery at the adductor hiatus with moderate contusion. Vessel is patent.. Mikel Ricks MD FACR Narrative Exam GENERAL: 26-year-old well-nourished, well developed male OOB in wheelchair. SKIN: Warm and dry. HEAD: Normocephalic. ENT: No nasal bleeding or discharge. Mucous membranes pink and moist. NECK: Trachea midline. No JVD. CARDIOVASCULAR: Regular rate and rhythm. RESPIRATORY: No accessory muscle use. Lungs clear to auscultation. Breath sounds equal bilaterally. GASTROINTESTINAL: Abdomen soft, non-tender, nondistended. + BS. LEFT groin hard palpable mass noted. MUSCULOSKELETAL: Extremities without cyanosis, +1 edema right wrist. Right wrist ex-fix in place. Pin sites clean. Left hand dressing C/D/I. LLE long leg splint in place. MAEW. NEUROLOGICAL: Awake and alert. Normal speech. A/P Problem List: (1) Multiple fractures of ribs of left side (2) Open fracture of left distal humerus (3) Open fracture of right distal humerus (4) Open fracture of right patella (5) Closed fracture of left tibial plateau (6) Displaced fracture of right femoral neck Assessment and Plan INJURIES: Questionable fx of RIGHT orbit rim C7 transverse process fx RIGHT lung contusion Open RIGHT radius/ulna fx LEFT humerus fx RIGHT hip fx RIGHT ilium fx RIGHT femoral neck fx OPEN RIGHT patellar fx LEFT avulsion fx of knee (w/ multiple ligament injury) LEFT tibial plateau fx LEFT wrist scaphoid bone fx RIGHT hand phalanx fx PROCEDURES: 10/21: ORIF RIGHT femur; ORIF RIGHT hip; I&D RIGHT patella w/ wound vac; I&D LEFT humerus w/ closed reduction; RIGHT wrist closed reduction. 10/25: ORIF left distal humerus. ORIF right radius and ulna with ex-fix placement. 10/29: LEFT knee arthroscopic cruciate ligament repair. LEFT knee open lateral collateral ligament repair. ORIF LEFT knee plateau fx. LEFT knee exploration of peroneal nerve (with discovery of complete rupture of nerve) 11/11: LEFT scaphoid ORIF, RIGHT fifth proximal phalanx closed reduction percutaneous pinning 11/17 - LEFT leg exploration. Perennial nerve repair. Sural nerve graft. Diet: Regular, tolerating Pulm: IS, acapella, EZpap. nebs. Encouraged patient use Pain: [place]. Neurontin. (Xanax) Robaxin. Fentanyl patch. Pain controlled Activity: OOB to stretcher chair. PT and OT evaluating. (NWB BUE; NWB BLE). GI: Pepcid Bowel: Hanna-colace. Lactulose, Miralax and Dulcolax [place] PRN. LBM: 12/04 DVT: SCD's. Lovenox 30 BID - RIGHT radius/ulna fx - LEFT humerus fx - RIGHT hip fx - RIGHT ilium fx - RIGHT femoral neck fx - OPEN RIGHT patellar fx - LEFT avulsion fx of knee (w/ multiple ligament injury) - LEFT tibial plateau fx Orthopedics following 10/21: ORIF RIGHT femur; ORIF RIGHT hip; I&D RIGHT patella w/ wound vac; I&D LEFT humerus w/ closed reduction; RIGHT wrist closed reduction. 10/25: ORIF left distal humerus. ORIF right radius and ulna with ex-fix placement. 10/29: LEFT knee arthroscopic cruciate ligament repair. LEFT knee open lateral collateral ligament repair. ORIF LEFT knee plateau fx. LEFT knee exploration of peroneal nerve (with discovery of complete rupture of nerve) Pain control Pin care RUE, BID Nonweightbearing status to all 4 extremities. PT and OT ordered - encourage out of bed - to wheelchair daily Wave bed to prevent skin breakdown Rehab placement Lovenox Ortho plans to remove RIGHT ex fix on 12/06 - Right lung contusion, Rib fracture Supportive care, resolving Pulmonary toileting Pain control OOB LEFT wrist scaphoid bone fx, RIGHT hand phalanx fx Hand surgery consulted 11/11: LEFT scaphoid ORIF, RIGHT fifth proximal phalanx closed reduction percutaneous pinning Pain control NWB LUE Plan of care discussed with patient and RN at bedside. Case management consulted for assist with discharge planning. Family still trying to make arrangements to take patient home. Remarks patient seen and examined with DEMURRAGE MAN-agree with assessment and plan continues to improve dc planning continue PT Problem Qualifiers (1) Multiple fractures of ribs of left side: Qualified Code: S22.42XA - Closed fracture of multiple ribs of left side, initial encounter (2) Open fracture of left distal humerus: Qualified Code: S42.492B - Other open displaced fracture of distal end of left humerus, initial encounter (3) Open fracture of right distal humerus: Qualified Code: S42.491B - Other open displaced fracture of distal end of right humerus, initial encounter (4) Open fracture of right patella: (5) Closed fracture of left tibial plateau: Qualified Code: S82.142A - Closed fracture of left tibial plateau, initial encounter (6) Displaced fracture of right femoral neck: Qualified Code: S72.001A - Displaced fracture of right femoral neck, closed, initial encounter Angel Partida Dec 05, 2016 11:44 Mary Greene MD Dec 05, 2016 15:54
[2016-12-05 12:00] VITALS: BP 118/80; PULSE 81; RESP 16; TEMP 97.8; O2SAT 100
[2016-12-05 16:00] VITALS: BP 121/97; PULSE 108; RESP 16; TEMP 97.8; O2SAT 100
[2016-12-05 20:20] VITALS: BP 140/80; PULSE 92; RESP 18; TEMP 98.8; O2SAT 100
[2016-12-05] MEDS: ALPRAZolam 1 MG TAB PO PRN (20:45)
--- NOTE | 2016-12-05 23:45 | RADRPT ---
EXAM DATE/TIME: 12/05/2016 23:12 [facility] COMPARISON: WRIST RIGHT LIMITED(AP & LAT), December 02, 2016, 20:29. INDICATIONS : Post operative MEDICAL HISTORY : None. SURGICAL HISTORY : Right hand, Left wrist ENCOUNTER: Subsequent ACUITY: 2 months PAIN SCORE: 7/10 LOCATION: Right Hand FINDINGS: Three view examination of the right hand demonstrates pins traversing the proximal phalanx fifth digi t. External fixation device through the second metacarpal. Plate and screws along the distal radius a nd ulna. Ulnar styloid fracture again seen. Patient is within a splint. CONCLUSION: Pins are again seen in the proximal phalanx third digit. Internal fixation of the wrist. Ulnar styloi d fracture. External fixation device. Adolfo Savage MD on December 05, 2016 at 23:42 Board Certified Radiologist. This report was verified electronically.
--- NOTE | 2016-12-05 23:46 | RADRPT ---
EXAM DATE/TIME: 12/05/2016 23:17 [facility] COMPARISON: HAND LEFT COMPLETE ([id number]), November 04, 2016, 12:32. INDICATIONS : Post operative. MEDICAL HISTORY : None. SURGICAL HISTORY : Left wrist, Right hand ENCOUNTER: Subsequent ACUITY: 2 months PAIN SCORE: 6/10 LOCATION: Left Wrist FINDINGS: Three view examination of the left wrist demonstrates a splint. Small screw through the scaphoid bone fixating fracture. No fracture. Bony mineralization is normal. CONCLUSION: Internal fixation of the scaphoid bone fixating fracture. Adolfo Savage MD on December 05, 2016 at 23:44 Board Certified Radiologist. This report was verified electronically.
[2016-12-06] VITALS (8 sets, daily range): BP systolic 121–141; BP diastolic 57–89; PULSE 77–105; RESP 18–20; TEMP 96.9–98; O2SAT 97–100
[2016-12-06 05:51] LABS: APTT (PATIENT) 26.6 SEC (24.3-30.1); PROTHROMBIN TIME - PATIENT 10.9 SEC (9.8-11.6)
[2016-12-06] MEDS: METHOCARBAMOL 500 MG TAB PO SCH ×3 (06:00→22:00)
--- NOTE | 2016-12-06 06:36 | PD.ORT.PN ---
Subjective Subjective Remarks Resting comfortably Objective Vitals Vital Signs Date Time Temp Pulse Resp B/P Pulse Ox O2 Delivery O2 Flow Rate FiO2 12/06/16 05:30 97.5 85 18 125/85 100 12/06/16 04:15 97.5 85 18 126/57 99 12/06/16 00:15 98.0 89 18 141/79 99 12/05/16 20:20 98.8 92 18 140/80 100 12/05/16 16:00 97.8 108 16 121/97 100 12/05/16 12:00 97.8 81 16 118/80 100 12/05/16 08:00 97.3 92 16 160/92 100 12/05/16 08:00 100 Room Air I/O 12/05/16 12/05/16 12/05/16 12/06/16 12/06/16 12/06/16 07:00 15:00 23:00 07:00 15:00 23:00 Intake Total 120 ml 240 ml Output Total 400 ml 400 ml Balance -280 ml -160 ml Intake Oral 120 ml 240 ml Output Urine Total 400 ml 400 ml # Bowel Movements 0 0 Other Results Laboratory Tests Test 12/06/16 05:30 Prothrombin Time 10.9 SEC (9.8-11.6) Prothromb Time International 1.0 RATIO Ratio Imaging Last 24 hours Impressions Chest X-Ray 10/23/16 0600 Signed Impressions: Service Date/Time: Sunday, October 23, 2016 05:43 - CONCLUSION: 1. Right central line tip in left subclavian vein, unchanged. Interval extubation. Mild atelectasis at the bases. Bk Martin MD Objective Remarks NAD RUE -external fixator and dressing in place. swelling in fingers. NVI and sensation intact. cap refill. incisions visualized. clean and dry. no drainage. healing well. LUE - dressing in place. swelling in fingers. NVI and sensation intact. cap refill. incision visualized. clean and dry. intact. no drainage. healing well. RLE - wound and incisions CDI. NVI and sensation intact. LLE - Knee ROM brace on. Dressings dry. mild swelling around knee. sensation intact. no dorsiflexion. ongoing footdrop on left side, brace on. able to move distal digits successfully. Assessment & Plan Assessment and Plan 10/29 Open Repair of Left Hamstring Tendon, Open Repair of Left Lateral Collateral Ligament, Left Knee Arthroscopic ACL Repair, Open Repair of Left Lateral Tibial Fracture 10/22 I&D and ORIF R supracondylar femur fx and R patella fx 10/25 ORIF left humerus and right distal radius with application right wrist exfix 10/25 Application of wound vac R knee, ORIF R fem neck fx, I&D with closed reduction Left Leg Foot Drop NWB BLE and BUE ok to use right elbow for pushing off. ok to DC sling PRN right arm. Daily dressing changes to right and left arms pin care BID right wrist Active assisted ROM ok to RLE LLE - PODUS boot for foot drop, ROM brace Physical therapy - Non weight bearing BLE. AAROM Orthopedically stable for discharge from Dr. Brown standpoint. Nothing by mouth Surgery this morning with Dr. Moises Rosenthal,Nelson DELEON Dec 06, 2016 06:36
[2016-12-06] MEDS ORDERED: DO NOT ADM ANY ANTICOAGULANT DRUGS PRN (07:44)
--- NOTE | 2016-12-06 07:48 | PD.OP ---
cc: Terrence Ramos MD Operative Report Date of Surgery: Dec 06, 2016 Preoperative Diagnosis: Comminuted right distal radius and ulna fractures Postoperative Diagnosis: Procedure: Removal of external fixation right wrist, manipulation under anesthesia right wrist Anesthesia: Gen. Surgeon: Terrence Ramos Pe Teacher(s): MARK Pleitez PA-C Operation and Findings: Andrew sustained multiple injuries including comminuted right radius ulna fractures. Informed consent was obtained preoperatively was marked. His breath operating room. He was given IV sedation and general anesthesia. Timeout procedure was performed. Procedure began with removal external fixation. Pin sites were cleaned with alcohol and Hibiclens. Clamps were now loosened. Clamps and bars were removed from the pins. The pins were now removed. Next the wrist visualized under fluoroscopy. The distal radius fracture was well aligned. The wrist was now manipulated under anesthesia. The distal radial ulnar joint appeared to be stable with no subluxation or dislocation. He was able to achieve 45 dorsiflexion and 40 of volar flexion. Sterile dressings were applied with Xeroform 4 x 4's and a splint. Patient still has pins in his fourth and fifth metacarpals. Patient was awakened and transferred to recovery room in stable condition. Terrence Ramos MD Dec 06, 2016 07:48
[2016-12-06] MEDS: MAGNESIUM HYDROXIDE SUSP 30 ML CUP PO SCH (09:00)
[2016-12-06] MEDS: DOCUSATE SODIUM 50 MG/SENNA 8.6 MG TAB PO SCH ×2 (09:00→21:00)
[2016-12-06] MEDS: POLYETHYLENE GLYCOL 17 GM PKG PO SCH (09:26)
[2016-12-06] MEDS: FAMOTIDINE 20 MG TAB PO SCH ×2 (09:27→21:00)
[2016-12-06] MEDS: GABAPENTIN 300 MG CAP PO SCH ×3 (09:27→17:49)
[2016-12-06] MEDS: LACTOBACILLUS ACIDOPHILUS TAB PO SCH ×2 (09:27→21:00)
[2016-12-06] MEDS ORDERED: PROPOFOL 200 MG/20 ML AMP IV ONE (12:00)
[2016-12-06] MEDS ORDERED: ONDANSETRON HCL 4 MG/2 ML VIAL IV PUSH ONE (12:00)
--- NOTE | 2016-12-06 12:52 | HHI.PR ---
Subjective Subjective Notes S/P right wrist ex-fix removal Wants to go home, states family has made arrangements to stay with him around the clock Objective Vitals/I&O Vital Signs Date Time Temp Pulse Resp B/P Pulse Ox O2 Delivery O2 Flow Rate FiO2 12/06/16 12:00 97.0 85 20 121/78 99 12/06/16 08:00 Nasal Cannula 2 Labs Laboratory Tests Test 12/06/16 05:30 Prothrombin Time 10.9 Prothromb Time International 1.0 Ratio Activated Partial 26.6 Thromboplast Time Radiology Last Impressions Abdomen Ultrasound 11/18/16 0000 Signed Impressions: Service Date/Time: November 14:34 - CONCLUSION: 1. Simple fluid collection measuring 9 x 5.3 x 3.4 cm and the left inguinal region. This appears benign. Exact etiology of this is uncertain. Carmelo Ricks MD Pelvis X-Ray 11/09/16 0000 Signed Impressions: Service Date/Time: Wednesday, November 09, 2016 16:11 - CONCLUSION: Internal fixation screws across the right femoral neck fracture, in near anatomic alignment. Olivier Lizarraga MD Knee X-Ray 11/09/16 0000 Signed Impressions: Service Date/Time: Wednesday, November 09, 2016 16:16 - CONCLUSION: Configuration of the multi-comminuted fragments of the distal femur similar to intraoperative images. Olivier Lizarraga MD Femur X-Ray 11/09/16 0000 Signed Impressions: Service Date/Time: Wednesday, November 09, 2016 16:15 - CONCLUSION: Postoperative findings from internal fixation proximal femoral and distal femoral fractures. The hardware appears grossly intact. Olivier Lizarraga MD Wrist X-Ray 11/08/16 0000 Signed Impressions: Service Date/Time: Tuesday, November 08, 2016 10:04 - CONCLUSION: Anatomic alignment. Mikel Ricks MD FACR Humerus X-Ray 11/08/16 0000 Signed Impressions: Service Date/Time: Tuesday, November 08, 2016 10:12 - CONCLUSION: Anatomic alignment across the proximal humeral fracture. Mikel Ricks MD FACR Upper Extremity CT 11/05/16 0000 Signed Impressions: Service Date/Time: Saturday, November 05, 2016 15:02 - CONCLUSION: Displaced distal pole scaphoid fracture. Leandro Vogt MD Hand X-Ray 11/04/16 0000 Signed Impressions: Service Date/Time: November 12:32 - CONCLUSION: Displaced distal pole scaphoid fracture. Leandro Vogt MD Finger X-Ray 11/04/16 0000 Signed Impressions: Service Date/Time: November 12:42 - CONCLUSION: Fifth digit proximal phalanx fracture. Leandro Vogt MD Abdomen X-Ray 10/29/16 0000 Signed Impressions: Service Date/Time: Saturday, October 29, 2016 08:53 - CONCLUSION: 1. Diffuse ileus. No free air identified. Bk Martin MD Chest X-Ray 10/26/16 0600 Signed Impressions: Service Date/Time: Wednesday, October 26, 2016 04:52 - CONCLUSION: No appreciable change. Lobo Maynard MD Radius/Ulna X-Ray 10/25/16 0000 Signed Impressions: Service Date/Time: Tuesday, October 25, 2016 12:56 - CONCLUSION: Status post op in rigid internal fixation. Nelson Hill MD Ankle X-Ray 10/24/16 0000 Signed Impressions: Service Date/Time: Monday, October 24, 2016 10:36 - CONCLUSION: Soft tissue swelling. Laron Kuo MD Knee MRI 10/23/16 0000 Signed Impressions: Service Date/Time: Sunday, October 23, 2016 16:05 - CONCLUSION: 1. Disruption of the lateral ligamentous structures including the fibular collateral ligament , the biceps femoris musculotendinous junction and the attachment site at the iliotibial band causing widening at the lateral joint space. 2. Anterior cruciate ligament tear at its femoral attachment site. 3. Increased signal within the proximal aspect of the posterior cruciate ligament. Some degree of partial tearing at this structure cannot be excluded. 4. Fairly extensive bone bruising and fracturing involving the proximal tibia, proximal fibula and femoral condyles as described above. 5. Moderate effusion. Rico Pena MD Hip X-Ray 10/22/16 0000 Signed Impressions: Service Date/Time: October 21:00 - CONCLUSION: 1. Lag screws traversing proximal right femur fracture. Bk Martin MD Maxillofacial CT 10/21/16 1821 Signed Impressions: Service Date/Time: October 18:33 - CONCLUSION: 1. Mucoperiosteal thickening in the right frontal sinus and right maxillary sinus. 2. I cannot entirely exclude a nondisplaced fracture of the right infraorbital rim. Mikel Ricks MD FACR Head CT 10/21/161821 Signed Impressions: Service Date/Time: October 18:33 - CONCLUSION: Negative for acute process.. Mikel Ricks MD FACR Chest CT 10/21/161821 Signed Impressions: Service Date/Time: October 18:43 - CONCLUSION: 1. Contusion laterally in the right lung. 2. Air in the axilla on the left. 3. I cannot confirm a rib fracture by CT. Mikel Ricks MD FACR Cervical Spine CT 10/21/161821 Signed Impressions: Service Date/Time: October 18:33 - CONCLUSION: Transverse process fracture C7 on the right, involving just the tip of the transverse process. Mikel Ricks MD FACR Abdomen/Pelvis CT 10/21/161821 Signed Impressions: Service Date/Time: October 18:43 - CONCLUSION: 1. Contusion in the right lung base. 2. Right hip fracture. 3. Right ilium fracture. 4. Minimal induration about the right superior pubic ramus. 5. There is no evidence for a solid organ injury. Mikel Ricks MD FACR Tibia/Fibula X-Ray 10/21/16 0000 Signed Impressions: Service Date/Time: October 18:04 - CONCLUSION: Plateau fracture. Mikel Ricks MD FACR Aorta w/Runoff CTA 10/21/16 0000 Signed Impressions: Service Date/Time: October 20:02 - CONCLUSION: Significant fracture at the junction of the RIGHT SFA and popliteal artery at the adductor hiatus with moderate contusion. Vessel is patent.. Mikel Ricks MD FACR Narrative Exam GENERAL: 26-year-old well-nourished, well developed male OOB in wheelchair. SKIN: Warm and dry. HEAD: Normocephalic. ENT: No nasal bleeding or discharge. Mucous membranes pink and moist. NECK: Trachea midline. No JVD. CARDIOVASCULAR: Regular rate and rhythm. RESPIRATORY: No accessory muscle use. Lungs clear to auscultation. Breath sounds equal bilaterally. GASTROINTESTINAL: Abdomen soft, non-tender, nondistended. + BS. LEFT groin hard palpable mass noted. MUSCULOSKELETAL: Extremities without cyanosis, +1 edema right wrist. Right arm soft splint in place. Left arm ESTHER wrap in place. LLE knee brace. MAEW. NEUROLOGICAL: Awake and alert. Normal speech. A/P Problem List: (1) Multiple fractures of ribs of left side (2) Open fracture of left distal humerus (3) Open fracture of right distal humerus (4) Open fracture of right patella (5) Closed fracture of left tibial plateau (6) Displaced fracture of right femoral neck Assessment and Plan INJURIES: Questionable fx of RIGHT orbit rim C7 transverse process fx RIGHT lung contusion Open RIGHT radius/ulna fx LEFT humerus fx RIGHT hip fx RIGHT ilium fx RIGHT femoral neck fx OPEN RIGHT patellar fx LEFT avulsion fx of knee (w/ multiple ligament injury) LEFT tibial plateau fx LEFT wrist scaphoid bone fx RIGHT hand phalanx fx PROCEDURES: 10/21: ORIF RIGHT femur; ORIF RIGHT hip; I&D RIGHT patella w/ wound vac; I&D LEFT humerus w/ closed reduction; RIGHT wrist closed reduction. 10/25: ORIF left distal humerus. ORIF right radius and ulna with ex-fix placement. 10/29: LEFT knee arthroscopic cruciate ligament repair. LEFT knee open lateral collateral ligament repair. ORIF LEFT knee plateau fx. LEFT knee exploration of peroneal nerve (with discovery of complete rupture of nerve) 11/11: LEFT scaphoid ORIF, RIGHT fifth proximal phalanx closed reduction percutaneous pinning 11/17 - LEFT leg exploration. Perennial nerve repair. Sural nerve graft. Diet: Regular, tolerating Pulm: IS, acapella, EZpap. nebs. Encouraged patient use Pain: [place]. Neurontin. (Xanax) Robaxin. Fentanyl patch. Pain controlled Activity: OOB to stretcher chair. PT and OT evaluating. (NWB BUE; NWB BLE). GI: Pepcid Bowel: Hanna-colace. Lactulose, Miralax and Dulcolax CT PRN. LBM: 12/04 DVT: SCD's. Lovenox 30 BID - RIGHT radius/ulna fx - LEFT humerus fx - RIGHT hip fx - RIGHT ilium fx - RIGHT femoral neck fx - OPEN RIGHT patellar fx - LEFT avulsion fx of knee (w/ multiple ligament injury) - LEFT tibial plateau fx Orthopedics following 10/21: ORIF RIGHT femur; ORIF RIGHT hip; I&D RIGHT patella w/ wound vac; I&D LEFT humerus w/ closed reduction; RIGHT wrist closed reduction. 10/25: ORIF left distal humerus. ORIF right radius and ulna with ex-fix placement. 10/29: LEFT knee arthroscopic cruciate ligament repair. LEFT knee open lateral collateral ligament repair. ORIF LEFT knee plateau fx. LEFT knee exploration of peroneal nerve (with discovery of complete rupture of nerve) Pain control Pin care RUE, BID Nonweightbearing status to all 4 extremities. ok to use right elbow for pushing off. PT and OT ordered - encourage out of bed - to wheelchair daily Wave bed Lovenox Right wrist ex-fix removed today DC planning - Right lung contusion, Rib fracture Supportive care, resolving Pulmonary toileting Pain control OOB LEFT wrist scaphoid bone fx, RIGHT hand phalanx fx Hand surgery consulted 11/11: LEFT scaphoid ORIF, RIGHT fifth proximal phalanx closed reduction percutaneous pinning Pain control NWB LUE Daily dressing changes per hand sx Plan of care discussed with patient and PT at bedside. PT reports patient is now a 1 person assist OOB and the has been taught how to assist. Case management consulted for assist with discharge planning. Patient reports he does not want to go to [place] anymore at discharge and that his family has made arrangements to stay with him 27/12. Case management to follow-up. Remarks seen and examined with INTERSTATE PLANNER-agree with assessment and plan stable overall ex fix removed dispo planning Problem Qualifiers (1) Multiple fractures of ribs of left side: Qualified Code: S22.42XA - Closed fracture of multiple ribs of left side, initial encounter (2) Open fracture of left distal humerus: Qualified Code: S42.492B - Other open displaced fracture of distal end of left humerus, initial encounter (3) Open fracture of right distal humerus: Qualified Code: S42.491B - Other open displaced fracture of distal end of right humerus, initial encounter (4) Open fracture of right patella: (5) Closed fracture of left tibial plateau: Qualified Code: S82.142A - Closed fracture of left tibial plateau, initial encounter (6) Displaced fracture of right femoral neck: Qualified Code: S72.001A - Displaced fracture of right femoral neck, closed, initial encounter Angel Partida Dec 06, 2016 12:52 Mary Greene MD Dec 06, 2016 15:48
--- NOTE | 2016-12-06 13:19 | RADRPT ---
EXAM DATE/TIME: 12/06/2016 07:35 [facility] COMPARISON: WRIST RIGHT LIMITED(AP & LAT), December 02, 2016, 20:29. INDICATIONS : External fixator removal right wrist. MEDICAL HISTORY : None. SURGICAL HISTORY : ORIF right wrist. ENCOUNTER: Subsequent ACUITY: 2 months PAIN SCORE: Non-responsive. LOCATION: Right wrist. FINDINGS: External fixator has been removed. Alignment is reasonably anatomic across the fracture of the dista l radius and ulna. CONCLUSION: 1. Anatomic alignment. 2. Hardware remains on the distal radius and ulna. Mikel Ricks MD FACR on December 06, 2016 at 13:09 Board Certified Radiologist. This report was verified electronically.
[2016-12-07] VITALS (7 sets, daily range): BP systolic 118–159; BP diastolic 79–100; PULSE 85–105; RESP 18–20; TEMP 97.5–98.9; O2SAT 85–100
[2016-12-07] MEDS: METHOCARBAMOL 500 MG TAB PO SCH ×3 (06:00→22:41)
[2016-12-07] MEDS: DOCUSATE SODIUM 50 MG/SENNA 8.6 MG TAB PO SCH ×2 (09:00→19:41)
[2016-12-07] MEDS: POLYETHYLENE GLYCOL 17 GM PKG PO SCH (09:00)
[2016-12-07] MEDS: MAGNESIUM HYDROXIDE SUSP 30 ML CUP PO SCH (09:00)
[2016-12-07] MEDS: LACTOBACILLUS ACIDOPHILUS TAB PO SCH ×2 (09:09→19:41)
[2016-12-07] MEDS: GABAPENTIN 300 MG CAP PO SCH ×3 (09:09→17:34)
[2016-12-07] MEDS: FAMOTIDINE 20 MG TAB PO SCH ×2 (09:09→19:41)
[2016-12-07] MEDS: fentaNYL 50 MCG/HR PATCH T-DERMAL SCH (14:00)
[2016-12-07] MEDS: REMOVE OLD DURAGESIC (FENTANYL) PATCH T-DERMAL SCH (14:00)
--- NOTE | 2016-12-07 17:25 | PD.CAR.PN ---
CVT Progress Note Subjective/Hospital Course: Patient with multiple injuries including massive orthopedic injuries but doing better now Disposition remains a problem because family doesn't want take patient home He is doing much better at this time and should be able to discharge in next few days Patient remains as a border here due to the lack of resources Objective: Vital Signs Date Time Temp Pulse Resp B/P Pulse Ox O2 Delivery O2 Flow Rate FiO2 12/07/16 16:00 97.8 102 18 118/87 98 12/07/16 12:00 98.1 105 18 145/100 100 12/07/16 08:00 97.5 85 20 159/88 85 12/07/16 04:15 97.9 94 18 142/80 98 12/07/16 00:20 97.9 96 18 143/79 100 12/06/16 21:14 97 21 12/06/16 20:20 97.5 98 18 140/89 100 Dago Martinez MD Dec 07, 2016 17:25
[2016-12-07] MEDS: oxyCODONE/ACETAMINOPHEN 5 MG/325 MG TAB PO PRN (19:41)
[2016-12-07] MEDS: ENOXAPARIN SODIUM 30 MG/0.3 ML SYRINGE SQ SCH (19:42)
[2016-12-07] MEDS: ALPRAZolam 1 MG TAB PO PRN (22:41)
[2016-12-08 00:16] VITALS: BP 103/59; PULSE 77; RESP 18; TEMP 98.9; O2SAT 98
[2016-12-08] MEDS: METHOCARBAMOL 500 MG TAB PO SCH ×3 (05:41→22:23)
--- NOTE | 2016-12-08 06:49 | PD.ORT.PN ---
Subjective Subjective Remarks Resting comfortably Objective Vitals Vital Signs Date Time Temp Pulse Resp B/P Pulse Ox O2 Delivery O2 Flow Rate FiO2 12/08/16 00:16 98.9 77 18 103/59 98 12/07/16 20:07 98.9 89 18 136/87 98 12/07/16 18:01 98 21 12/07/16 16:00 97.8 102 18 118/87 98 12/07/16 12:00 98.1 105 18 145/100 100 12/07/16 08:00 97.5 85 20 159/88 85 I/O 12/07/16 12/07/16 12/07/16 12/08/16 12/08/16 12/08/16 07:00 15:00 23:00 07:00 15:00 23:00 Intake Total 240 ml 480 ml 480 ml Output Total 450 ml 850 ml 400 ml Balance -210 ml -370 ml 80 ml Intake Oral 240 ml 480 ml 480 ml Output Urine Total 450 ml 850 ml 400 ml # Bowel Movements 0 1 Imaging Last 24 hours Impressions Chest X-Ray 10/23/16 0600 Signed Impressions: Service Date/Time: Sunday, October 23, 2016 05:43 - CONCLUSION: 1. Right central line tip in left subclavian vein, unchanged. Interval extubation. Mild atelectasis at the bases. Bk Martin MD Objective Remarks NAD RUE -ulnar gutter splint in place clean and dry swelling in fingers. NVI and sensation intact. cap refill. incisions visualized. clean and dry. no drainage. healing well. LUE - dressing in place. swelling in fingers. NVI and sensation intact. cap refill. incision visualized. clean and dry. intact. no drainage. healing well. RLE - wound and incisions CDI. NVI and sensation intact. LLE - Knee ROM brace on. Dressings dry. mild swelling around knee. sensation intact. no dorsiflexion. ongoing footdrop on left side, brace on. able to move distal digits successfully. Assessment & Plan Assessment and Plan 10/29 Open Repair of Left Hamstring Tendon, Open Repair of Left Lateral Collateral Ligament, Left Knee Arthroscopic ACL Repair, Open Repair of Left Lateral Tibial Fracture 10/22 I&D and ORIF R supracondylar femur fx and R patella fx 10/25 ORIF left humerus and right distal radius with application right wrist exfix Removal of external fixation on 12/06 10/25 Application of wound vac R knee, ORIF R fem neck fx, I&D with closed reduction Left Leg Foot Drop NWB BLE and BUE ok to use right elbow for pushing off. ok to DC sling PRN right arm. Daily dressing changes to right and left arms Maintain splint on right upper extremity. Once splint is discontinued a removable wrist brace will be needed Active assisted ROM ok to RLE LLE - PODUS boot for foot drop, ROM brace Physical therapy - Non weight bearing BLE. AAROM Orthopedically stable for discharge from Dr. Brown standpoint. Nelson Rosenthal Jr. Dec 08, 2016 06:49
[2016-12-08 08:00] VITALS: BP 139/83; PULSE 89; RESP 18; TEMP 97.4; O2SAT 100
[2016-12-08] MEDS: DOCUSATE SODIUM 50 MG/SENNA 8.6 MG TAB PO SCH ×2 (09:00→21:00)
[2016-12-08] MEDS: FAMOTIDINE 20 MG TAB PO SCH ×2 (09:00→22:23)
[2016-12-08] MEDS: POLYETHYLENE GLYCOL 17 GM PKG PO SCH (09:00)
[2016-12-08] MEDS: MAGNESIUM HYDROXIDE SUSP 30 ML CUP PO SCH (09:00)
[2016-12-08] MEDS: GABAPENTIN 300 MG CAP PO SCH ×3 (09:02→17:05)
[2016-12-08] MEDS: ENOXAPARIN SODIUM 30 MG/0.3 ML SYRINGE SQ SCH ×2 (09:02→20:42)
[2016-12-08] MEDS: oxyCODONE/ACETAMINOPHEN 5 MG/325 MG TAB PO PRN ×4 (09:03→22:21)
[2016-12-08 09:22] VITALS: O2SAT 99
[2016-12-08] MEDS: LACTOBACILLUS ACIDOPHILUS TAB PO SCH ×3 (10:27→22:29)
[2016-12-08] MEDS ORDERED: BEDSIDE COMMODE1 MI1 (11:08)
[2016-12-08] MEDS ORDERED: TUB TRANSFER BO1 MIS (11:08)
[2016-12-08] MEDS ORDERED: HOSP BED1 (11:08)
[2016-12-08] MEDS ORDERED: WHEEMIS3 (11:08)
--- NOTE | 2016-12-08 11:34 | PD.CAR.PN ---
CVT Progress Note Subjective/Hospital Course: Patient with multiple injuries including massive orthopedic injuries but doing better now Disposition remains a problem because family doesn't want take patient home He is doing much better at this time and should be able to discharge in next few days Patient remains as a border here due to the lack of resources 12/08/16 Patient doing well at this time wishes to go home and arrangements are being made with equipment and supplies patient needs to go home To be discharged tomorrow home with a wheelchair and some other supplies Objective: Vital Signs Date Time Temp Pulse Resp B/P Pulse Ox O2 Delivery O2 Flow Rate FiO2 12/08/16 08:00 97.4 89 18 139/83 100 12/08/16 00:16 98.9 77 18 103/59 98 12/07/16 20:07 98.9 89 18 136/87 98 12/07/16 18:01 98 21 12/07/16 16:00 97.8 102 18 118/87 98 12/07/16 12:00 98.1 105 18 145/100 100 Dago Martinez MD Dec 08, 2016 11:34
--- NOTE | 2016-12-08 11:36 | HHI.FF ---
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 (5) Left peroneal nerve injury (6) Fracture of scaphoid bone of left wrist (7) Multiple fractures (8) Open fracture of left distal humerus (9) Open fracture of right distal humerus (10) Open fracture of right patella (11) Multiple fractures of ribs of left side (12) Closed fracture of left tibial plateau (13) Displaced fracture of right femoral neck Physical Therapy Order: Evaluate and Treat, Improve ambulation, Strength and gait training Occupational Therapy Order: Evaluate and Treat, Improve ADL, Gross motor coordination, Fine motor coordination Home Health Nursing Order: Medical education Signs/symptoms of disease process Medication education-adverse effect Nursing assessment with vital signs I have seen patient Andrew Langston on 12/08/16. My clinical findings support the need for the requested home health care services because: Ltd mobility - disease progression Deconditioned w/ increased weakness Limited ability to care for self High risk of falls I certify that my clinical findings support that this patient is homebound because: Post-op weakness Unsteady gait/balance Unsafe to leave home unassisted [id number] bed/chair Unable to use public transportation Pepper Borja Dec 08, 2016 11:36
[2016-12-08 12:00] VITALS: BP 143/89; PULSE 86; RESP 18; TEMP 97.3; O2SAT 99
--- NOTE | 2016-12-08 13:29 | HHI.PR ---
Subjective Remarks He is comfortable discussed hand plan with him Objective Vital Signs Date Time Temp Pulse Resp B/P Pulse Ox O2 Delivery O2 Flow Rate FiO2 12/08/16 12:00 97.3 86 18 143/89 99 12/08/16 08:00 97.4 89 18 139/83 100 12/08/16 00:16 98.9 77 18 103/59 98 12/07/16 20:07 98.9 89 18 136/87 98 12/07/16 18:01 98 21 12/07/16 16:00 97.8 102 18 118/87 98 I/O 12/07/16 12/07/16 12/07/16 12/08/16 12/08/16 12/08/16 07:00 15:00 23:00 07:00 15:00 23:00 Intake Total 240 ml 480 ml 480 ml 360 ml Output Total 450 ml 850 ml 400 ml Balance -210 ml -370 ml 80 ml 360 ml Intake Oral 240 ml 480 ml 480 ml 360 ml Output Urine Total 450 ml 850 ml 400 ml # Voids 1 # Bowel Movements 0 1 0 Objective Remarks AA x O x 3 NVI both hands; CR<2 seconds all fingertips no edema in hands or fingers able to wiggle fingers easily all wounds clean (Right 5th pins, left wrist, left leg); no sign of any infection anywhere still mild edema in left leg Assessment and Plan Problem List: (1) Pain in finger of right hand Status: Acute (2) Pain of left thumb Status: Acute (3) 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
[2016-12-08 16:00] VITALS: BP 129/86; PULSE 88; RESP 18; TEMP 97.6; O2SAT 100
[2016-12-08 20:00] VITALS: BP 128/89; PULSE 81; RESP 18; TEMP 97; O2SAT 100
[2016-12-08] MEDS: ALPRAZolam 1 MG TAB PO PRN (22:21)
[2016-12-09] VITALS: BP 135/73; PULSE 93; RESP 16; TEMP 96.8; O2SAT 99
[2016-12-09] MEDS: oxyCODONE/ACETAMINOPHEN 5 MG/325 MG TAB PO PRN ×3 (07:36→21:24)
[2016-12-09] MEDS: METHOCARBAMOL 500 MG TAB PO SCH ×3 (07:36→21:23)
[2016-12-09 08:00] VITALS: BP 116/80; PULSE 96; RESP 16; TEMP 97.6; O2SAT 100
[2016-12-09] MEDS: FAMOTIDINE 20 MG TAB PO SCH ×2 (08:29→21:24)
[2016-12-09] MEDS: LACTOBACILLUS ACIDOPHILUS TAB PO SCH ×2 (08:29→21:23)
[2016-12-09] MEDS: GABAPENTIN 300 MG CAP PO SCH ×3 (08:29→17:13)
[2016-12-09] MEDS: ENOXAPARIN SODIUM 30 MG/0.3 ML SYRINGE SQ SCH ×2 (08:29→21:24)
[2016-12-09] MEDS: POLYETHYLENE GLYCOL 17 GM PKG PO SCH (08:33)
[2016-12-09] MEDS: MAGNESIUM HYDROXIDE SUSP 30 ML CUP PO SCH (08:33)
[2016-12-09] MEDS: DOCUSATE SODIUM 50 MG/SENNA 8.6 MG TAB PO SCH ×2 (08:33→21:00)
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
[2016-12-09 12:07] VITALS: BP 114/79; PULSE 87; RESP 17; TEMP 96.9; O2SAT 100
[2016-12-09] MEDS ORDERED: NEUR300C PO (14:35)
[2016-12-09] MEDS ORDERED: METH500T3 PO (14:35)
[2016-12-09] MEDS ORDERED: GNP5TAB6 PO (14:35)
[2016-12-09 16:00] VITALS: BP 122/78; PULSE 104; RESP 18; TEMP 98.1; O2SAT 100
[2016-12-09 20:00] VITALS: BP 142/93; PULSE 101; RESP 18; TEMP 97.1; O2SAT 99
[2016-12-09] MEDS: ALPRAZolam 1 MG TAB PO PRN (21:40)
[2016-12-10] VITALS: BP 135/71; PULSE 94; RESP 18; TEMP 97.4; O2SAT 98
[2016-12-10] MEDS: METHOCARBAMOL 500 MG TAB PO SCH ×3 (06:20→21:23)
--- NOTE | 2016-12-10 07:06 | PD.ORT.PN ---
Subjective Subjective Remarks Resting comfortably Objective Vitals Vital Signs Date Time Temp Pulse Resp B/P Pulse Ox O2 Delivery O2 Flow Rate FiO2 12/10/16 00:00 97.4 94 18 135/71 98 12/09/16 20:00 97.1 101 18 142/93 99 12/09/16 16:00 98.1 104 18 122/78 100 12/09/16 12:07 96.9 87 17 114/79 100 12/09/16 08:00 97.6 96 16 116/80 100 I/O 12/09/16 12/09/16 12/09/16 12/10/16 12/10/16 12/10/16 07:00 15:00 23:00 07:00 15:00 23:00 Intake Total 240 ml 600 ml 780 ml 240 ml Output Total 700 ml Balance 240 ml -100 ml 780 ml 240 ml Intake Oral 240 ml 600 ml 780 ml 240 ml Output Urine Total 700 ml # Voids 1 2 1 # Bowel Movements 0 1 0 Imaging Last 24 hours Impressions Chest X-Ray 10/23/16 0600 Signed Impressions: Service Date/Time: Sunday, October 23, 2016 05:43 - CONCLUSION: 1. Right central line tip in left subclavian vein, unchanged. Interval extubation. Mild atelectasis at the bases. Bk Martin MD Objective Remarks NAD RUE cock up wrist splint in place clean and dry swelling in fingers. NVI and sensation intact. cap refill. incisions visualized. clean and dry. no drainage. healing well. LUE - dressing in place. swelling in fingers. NVI and sensation intact. cap refill. incision visualized. clean and dry. intact. no drainage. healing well. RLE - wound and incisions CDI. NVI and sensation intact. LLE - Knee ROM brace on. Dressings dry. mild swelling around knee. sensation intact. no dorsiflexion. ongoing footdrop on left side, brace on. able to move distal digits successfully. Assessment & Plan Assessment and Plan 10/29 Open Repair of Left Hamstring Tendon, Open Repair of Left Lateral Collateral Ligament, Left Knee Arthroscopic ACL Repair, Open Repair of Left Lateral Tibial Fracture 10/22 I&D and ORIF R supracondylar femur fx and R patella fx 10/25 ORIF left humerus and right distal radius with application right wrist exfix Removal of external fixation on 12/06 10/25 Application of wound vac R knee, ORIF R fem neck fx, I&D with closed reduction Left Leg Foot Drop NWB BLE and BUE ok to use right elbow for pushing off. ok to DC sling PRN right arm. Daily dressing changes to right and left arms Cockup wrist splint right upper extremity. Remove for passive range of motion of her Active assisted ROM ok to RLE LLE - PODUS boot for foot drop, ROM brace Physical therapy - Non weight bearing BLE. AAROM Orthopedically stable for discharge from Dr. Brown standpoint. Nelson Rosenthal Jr. Dec 10, 2016 07:06
[2016-12-10] MEDS: FAMOTIDINE 20 MG TAB PO SCH ×2 (08:33→21:23)
[2016-12-10] MEDS: GABAPENTIN 300 MG CAP PO SCH ×3 (08:33→17:50)
[2016-12-10] MEDS: LACTOBACILLUS ACIDOPHILUS TAB PO SCH ×2 (08:33→21:21)
[2016-12-10] MEDS: ENOXAPARIN SODIUM 30 MG/0.3 ML SYRINGE SQ SCH ×2 (08:34→21:21)
[2016-12-10] MEDS: MAGNESIUM HYDROXIDE SUSP 30 ML CUP PO SCH (09:00)
[2016-12-10] MEDS: DOCUSATE SODIUM 50 MG/SENNA 8.6 MG TAB PO SCH ×2 (09:00→21:00)
[2016-12-10] MEDS: POLYETHYLENE GLYCOL 17 GM PKG PO SCH (09:00)
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
[2016-12-10 11:19] VITALS: BP 136/87; PULSE 103; RESP 16; TEMP 97.8; O2SAT 97
[2016-12-10] MEDS: oxyCODONE/ACETAMINOPHEN 5 MG/325 MG TAB PO PRN ×3 (14:27→21:23)
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
[2016-12-10 15:59] VITALS: BP 124/91; PULSE 110; RESP 16; TEMP 97.4; O2SAT 98
[2016-12-10 20:15] VITALS: BP 136/97; PULSE 105; RESP 18; TEMP 97.9; O2SAT 98
[2016-12-10] MEDS: ALPRAZolam 1 MG TAB PO PRN (21:23)
[2016-12-11 00:08] VITALS: BP 109/57; PULSE 98; RESP 17; TEMP 97.9; O2SAT 99
[2016-12-11] MEDS: METHOCARBAMOL 500 MG TAB PO SCH ×2 (05:40→12:23)
[2016-12-11] MEDS: oxyCODONE/ACETAMINOPHEN 5 MG/325 MG TAB PO PRN ×3 (05:43→14:02)
[2016-12-11 08:08] VITALS: BP 122/80; PULSE 108; RESP 18; TEMP 97.9; O2SAT 99
[2016-12-11] MEDS: LACTOBACILLUS ACIDOPHILUS TAB PO SCH (08:41)
[2016-12-11] MEDS: FAMOTIDINE 20 MG TAB PO SCH (08:41)
[2016-12-11] MEDS: ENOXAPARIN SODIUM 30 MG/0.3 ML SYRINGE SQ SCH (08:41)
[2016-12-11] MEDS: GABAPENTIN 300 MG CAP PO SCH ×2 (08:41→12:23)
[2016-12-11] MEDS: DOCUSATE SODIUM 50 MG/SENNA 8.6 MG TAB PO SCH (08:42)
[2016-12-11] MEDS: MAGNESIUM HYDROXIDE SUSP 30 ML CUP PO SCH (08:42)
[2016-12-11] MEDS: POLYETHYLENE GLYCOL 17 GM PKG PO SCH (08:42)
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
[2016-12-11 12:14] VITALS: BP 139/91; PULSE 100; RESP 18; TEMP 96.9; O2SAT 99
[2016-12-11] MEDS ORDERED: PERC5TAB12 PO (12:30)
== END 2016-12-11 16:12 | disposition home health service (06) | DRG 956 ==
LOC: NEPI 18:09 → NEDA 19:08 → EDBD 19:08 → N03B 19:15 → N03A 10-24 11:45 → N06B 10-29 18:33
PROVIDERS: ADMIT Surgery; ATTEND Surgery
PROC: 0PSGXZZ Reposition Left Humeral Shaft, External Approach (ICD-10-PCS; 2016-10-21)
PROC: 3E1038Z Irrigation of Skin and Mucous Membranes using Irrigating Substance, Percutaneous Approach (ICD-10-PCS; 2016-10-21)
PROC: 0QSB04Z Reposition Right Lower Femur with Internal Fixation Device, Open Approach (ICD-10-PCS; principal; 2016-10-21 20:20)
PROC: 0QS604Z Reposition Right Upper Femur with Internal Fixation Device, Open Approach (ICD-10-PCS; 2016-10-21 20:20)
PROC: 0QSD04Z Reposition Right Patella with Internal Fixation Device, Open Approach (ICD-10-PCS; 2016-10-21 20:20)
PROC: 0PSG04Z Reposition Left Humeral Shaft with Internal Fixation Device, Open Approach (ICD-10-PCS; 2016-10-25)
PROC: 0PSK04Z Reposition Right Ulna with Internal Fixation Device, Open Approach (ICD-10-PCS; 2016-10-25)
PROC: 0PSH04Z Reposition Right Radius with Internal Fixation Device, Open Approach (ICD-10-PCS; 2016-10-25)
PROC: 0PHH35Z Insertion of External Fixation Device into Right Radius, Percutaneous Approach (ICD-10-PCS; 2016-10-25)
PROC: 0MQP0ZZ Repair Left Knee Bursa and Ligament, Open Approach (ICD-10-PCS; 2016-10-29)
PROC: 0MQP0ZZ Repair Left Knee Bursa and Ligament, Open Approach (ICD-10-PCS; 2016-10-29)
PROC: 0QSH04Z Reposition Left Tibia with Internal Fixation Device, Open Approach (ICD-10-PCS; 2016-10-29)
PROC: 0PST34Z Reposition Right Finger Phalanx with Internal Fixation Device, Percutaneous Approach (ICD-10-PCS; 2016-11-11)
PROC: 0PSN04Z Reposition Left Carpal with Internal Fixation Device, Open Approach (ICD-10-PCS; 2016-11-11)
PROC: 01U Peripheral Nervous System, Supplement (ICD-10-PCS; 2016-11-17)
PROC: 0PPHX5Z Removal of External Fixation Device from Right Radius, External Approach (ICD-10-PCS; 2016-12-06)
PROC: 7W0 Osteopathic, Anatomical Regions, Treatment (ICD-10-PCS; 2016-12-06)
DX: S72.461B Displaced supracondylar fracture with intracondylar extension of lower end of right femur, initial encounter for open fracture type I or II (principal); S27.0XXA Traumatic pneumothorax, initial encounter; S72.001A Fracture of unspecified part of neck of right femur, initial encounter for closed fracture; S32.301A Unspecified fracture of right ilium, initial encounter for closed fracture; S12.600A Unspecified displaced fracture of seventh cervical vertebra, initial encounter for closed fracture; S22.42XA Multiple fractures of ribs, left side, initial encounter for closed fracture; K56.7 Ileus, unspecified; S42.302B Unspecified fracture of shaft of humerus, left arm, initial encounter for open fracture; S27.321A Contusion of lung, unilateral, initial encounter; S82.142A Displaced bicondylar fracture of left tibia, initial encounter for closed fracture; S82.091B Other fracture of right patella, initial encounter for open fracture type I or II; S52.201A Unspecified fracture of shaft of right ulna, initial encounter for closed fracture; S52.571A Other intraarticular fracture of lower end of right radius, initial encounter for closed fracture; S52.601A Unspecified fracture of lower end of right ulna, initial encounter for closed fracture; S32.601A Unspecified fracture of right ischium, initial encounter for closed fracture; S62.002A Unspecified fracture of navicular [scaphoid] bone of left wrist, initial encounter for closed fracture; S62.616A Displaced fracture of proximal phalanx of right little finger, initial encounter for closed fracture; S76.812A Strain of other specified muscles, fascia and tendons at thigh level, left thigh, initial encounter; S83.422A Sprain of lateral collateral ligament of left knee, initial encounter; S84.12XA Injury of peroneal nerve at lower leg level, left leg, initial encounter; S10.93XA Contusion of unspecified part of neck, initial encounter; S20.211A Contusion of right front wall of thorax, initial encounter; S83.512A Sprain of anterior cruciate ligament of left knee, initial encounter; M21.372 Foot drop, left foot; R33.9 Retention of urine, unspecified; L21.9 Seborrheic dermatitis, unspecified; V29.9XXA Motorcycle rider (driver) (passenger) injured in unspecified traffic accident, initial encounter
CPT/HCPCS: 36430; 70450; 70486; 71010; 71260; 72125; 72170; 72190; 73060; 73090; 73100; 73110; 73130; 73140; 73200; 73502; 73551; 73552; 73560; 73610; 73721; 74000; 74177; 75635; 76000; 76705; 76937; 80048; 80053; 82435; 82565; 82805; 82947; 83735; 84100; 84132; 84155; 84295; 84520; 85007; 85014; 85018; 85025; 85027; 85610; 85730; 86850; 86900; 86901; 86920; 86927; 87641; 90471; 94002; 94150; 94640; 94664; 94667; 94668; 94762; 96374; 96375; 99291; A0431-QM-SH; A0436-QM-SH; C1713; C1769; G0390; J0131; J0690; J1170; J1580; J1650; J1885; J1940; J1956; J2250; J2270; J2370; J2405; J2710; J3010; J3370; J7040; J7050; J7120; L0150; L0172; L1830; L1845; L3808; L3908; P9016; P9017; Q9967; V2790